=== PATIENT | male | born 1945 | race African-American/Black ===

== ENCOUNTER 2018-10-16 08:22 | Emergency (ER) | payer MEDICARE, MEDICAID ==
[~2018-10-16] VITALS: Ht 172.7 cm; Wt 68.0 kg
[~2018-10-16 08:22] MED LIST: ASPIRIN BUFFER325 M1 ORAL; ASPIRIN325 MG ORAL; ATARAX25 MG ORAL; BACTRIM DOUBLE S1 E1 ORAL; FUROSEMIDE20 M1 ORAL; HARVONI 90-4001 EACH PO; HYDROXYZINE HCL25 M1 PO; JANUVIA100 MG ORAL; LEVAQUIN500 MG ORAL; LEVEMIR100 UNIT/1 SUBQ; LEVOTHYROXINE500 MCG PO; LOSARTAN POTASS25 MG ORAL; LOVASTATIN20 MG ORAL; METFORMIN HCL1000 M1 ORAL; METFORMIN HCL500 M4 ORAL; METOPROLOL SUCC25 MG ORAL; METOPROLOL TART25 MG ORAL
[2018-10-16 08:27] VITALS: BP 154/90
[2018-10-16] MEDS ORDERED: COREG12.5 MG ORAL (08:29)
[2018-10-16] MEDS ORDERED: ATORVASTATIN CA40 MG ORAL (08:29)
[2018-10-16] MEDS ORDERED: ASPIR 8181 MG ORAL (08:29)
[2018-10-16] MEDS ORDERED: FINASTERIDE5 MG ORAL (08:29)
[2018-10-16] MEDS ORDERED: APRESOLINE50 MG ORAL (08:29)
--- NOTE | 2018-10-16 08:29 | NUR ---
ED Nurse Note: Patient brought in by ambulance from home due to increased left ankle swelling x 2 days;+[facility], reports no trauma. Patient is currently taking his meds including Lasix. Ambulates wtih cane. Steady gait noted. Reports no CP, dyspnea or N/V. No facial grimacing or guarding noted. Pacemaker to left chest noted. Bed in [place] postion.
[2018-10-16] MEDS ORDERED: Acetaminophen 500mg (ES) tab ORAL ONE (08:45)
[2018-10-16] MEDS ORDERED: OMEPRAZOLE40 M1 ORAL (09:03)
[2018-10-16] MEDS ORDERED: CORLANOR5 MG PO (09:03)
[2018-10-16] MEDS ORDERED: SPIRONOLACTONE25 MG ORAL (09:03)
[2018-10-16] MEDS ORDERED: ISOSORBIDE MONO30 M1 PO (09:03)
[2018-10-16] MEDS ORDERED: FLOMAX0.4 MG ORAL (09:03)
[2018-10-16] MEDS ORDERED: TRADJENTA5 MG PO (09:03)
[2018-10-16] MEDS ORDERED: TYLENOL EXTRA500 MG ORAL (09:27)
[2018-10-16] MEDS ORDERED: CEPHALEXIN500 MG ORAL (09:27)
[2018-10-16 09:42] VITALS: BP 152/86
[2018-10-16 09:43] VITALS: BP 154/90
--- NOTE | 2018-10-16 09:44 | NUR ---
ER DISCHARGE NOTE: Patient is cleared to be discharged per ERMD, pt is aox4, on room air, with stable vital signs. pt was given dc and prescription instructions, pt was able to verbalize understanding, pt id band and iv site removed without complications. pt is able to ambulate with steady gait. pt took all belongings.
--- NOTE | 2018-10-16 09:55 | Emergency Room Report ---
History of Present Illness General Chief Complaint: Pain Source: Patient, EMS Present Illness HPI 73-year-old male presents ED for evaluation. Brought in by EMS from home. Complaining of left ankle pain. Started yesterday. Throbbing, 7 out of 10, nonradiating. Notes some swelling. Denies any fall or injury. Denies any calf pain. No other aggravating relieving factors. Denies any other associated symptoms Allergies: Coded Allergies: AMOXAPINE (Unverified Allergy, Unknown, 10/16/18) AMOXICILLIN (Unverified Allergy, Unknown, 04/17/14) LISINOPRIL (Unverified Allergy, Unknown, 04/17/14) Patient History Past Medical History: DM, HTN Past Surgical History: none Pertinent Family History: none Social History: Denies: smoking, alcohol use, drug use Immunizations: UTD Reviewed Nursing Documentation: PMH: Agreed; PSxH: Agreed Nursing Documentation-PMH Past Medical History: No History, Except For Hx Hypertension: Yes Hx Diabetes: Yes Hx Cancer: Yes Hx Gastrointestinal Problems: Yes Hx Neurological Problems: No Review of Systems All Other Systems: negative except mentioned in HPI Physical Exam Vital Signs Date Time Temp Pulse Resp B/P (MAP) Pulse Ox O2 Delivery O2 Flow Rate FiO2 10/16/18 08:15 98.2 80 18 148/90 (109) 98 Room Air Sp02 EP Interpretation: reviewed, normal General Appearance: no apparent distress, alert, GCS 15, non-toxic Head: normocephalic Eyes: bilateral eye normal inspection, bilateral eye PERRL ENT: normal ENT inspection Neck: normal inspection Respiratory: normal inspection Cardiovascular #1: normal inspection Gastrointestinal: normal inspection Rectal: deferred Genitourinary: no CVA tenderness Musculoskeletal: swelling - medial aspect L foot Neurologic: alert, oriented x3, responsive, motor strength/tone normal, sensory intact, speech normal Psychiatric: normal inspection Skin: other - erythema/induration medial aspect L foot Lymphatic: normal inspection Medical Decision Making Diagnostic Impression: Primary Impression: Cellulitis of foot ER Course Hospital Course 73-year-old male presents to ED with pain, swelling to L foot Differential diagnoses include: Cellulitis, dermatitis, insect bite, abscess Clinical course Patient placed on stretcher. After initial history, physical exam reveals an elderly male in no acute distress. On exam there is erythema and warmth to the medial aspect of the left foot. No fluctuance or discharge. Full range of motion noted to the ankle. States he is a diabetic. Accu-Chek within normal limits. X-ray of left ankle shows no bony abnormality. Viky findings with patient. Consideration for cellulitis. Will discharge with antibiotics. Safe for discharge with close outpatient follow-up. States he has a PMD Diagnosis - cellulitis of foot stable and discharged to home with prescription for Keflex. Instructed to followup with PMD. Instructed return to ED if symptoms recur or worsen Other X-Ray Diagnostic Results Other X-Ray Diagnostic Results : X-Ray ordered: L foot # of Views/Limited Vs Complete: 3 View Indication: Pain EP Interpretation: Yes Interpretation: no dislocation, no soft tissue swelling, no fractures Impression: No acute disease Electronically Signed by: Electronically signed by Wing Lee MD Last Vital Signs Date Time Temp Pulse Resp B/P (MAP) Pulse Ox O2 Delivery O2 Flow Rate FiO2 10/16/18 09:43 98.2 85 14 154/90 99 Room Air Status: improved Disposition: HOME, SELF-CARE Condition: Stable Scripts Acetaminophen* (TYLENOL EXTRA STRENGTH*) 500 Mg Tablet 500 MG ORAL Q8H PRN for Prn Headache/Temp > 101, #30 TAB 0 Refills Prov: Wing Lee MD 10/16/18 Cephalexin* (KEFLEX*) 500 Mg Capsule 500 MG ORAL EVERY 6 HOURS for 7 Days, CAP Prov: Wing Lee MD 10/16/18 Referrals: NON PHYSICIAN (PCP) [facility] Patient Instructions: Cellulitis, [id number] Wing Lee MD Oct 16, 2018 09:55
--- NOTE | 2018-10-17 10:44 | Diagnostic Imaging Report ---
Indication: left ankle pain Comparison: None Findings: 3 views of the left ankle obtained. There is generalized soft tissue swelling which is nonspecific. There are degenerative changes of the midfoot with osteophyte formation. Vascular calcifications are noted. No acute fracture, malalignment, periostitis, or osteochondral defects are identified. Impression: No acute findings. Soft tissue swelling, nonspecific in nature.
== END 2018-10-16 09:53 | disposition home or self-care (01) ==
LOC: EDBD 08:22 → EMR 08:50
DX: L03.116 Cellulitis of left lower limb (principal); I10 Essential (primary) hypertension; E11.9 Type 2 diabetes mellitus without complications; Z85.9 Personal history of malignant neoplasm, unspecified; Z88.1 Allergy status to other antibiotic agents; Z88.8 Allergy status to other drugs, medicaments and biological substances
CPT/HCPCS: 82962; 99283

== ENCOUNTER 2019-07-18 18:27 | Inpatient (IN) | payer MEDICARE, MEDICAID ==
[~2019-07-18] VITALS: Ht 172.7 cm; Wt 64.5 kg
[2019-07-18 18:27] VITALS: BP 130/70
[~2019-07-18 18:27] MED LIST changes: +APRESOLINE50 MG ORAL; +ASPIR 8181 MG ORAL; +ATORVASTATIN CA40 MG ORAL; +CEPHALEXIN500 MG ORAL; +COREG12.5 MG ORAL; +CORLANOR5 MG PO; +FINASTERIDE5 MG ORAL; +FLOMAX0.4 MG ORAL; +ISOSORBIDE MONO30 M1 PO; +OMEPRAZOLE40 M1 ORAL; +SPIRONOLACTONE25 MG ORAL; +TRADJENTA5 MG PO; +TYLENOL EXTRA500 MG ORAL
[2019-07-18 19:00] LABS: BASOPHILS % (AUTO) 0.6 % (0.0-2.0); EOSINOPHILS % (AUTO) 0.2 % (0.0-3.0); HEMATOCRIT 38.4 % (42.0-52.0); MEAN CORPUSCULAR VOLUME 102 FL (80-99); MONOCYTES % (AUTO) 7.1 % (1.0-10.0); NEUTROPHILS % (AUTO) 72.1 % (45.0-75.0); PLATELET COUNT 104 K/UL (150-450); RED BLOOD COUNT 3.78 M/UL (4.70-6.10); RED CELL DISTRIBUTION WIDTH 16.2 % (11.6-14.8); WHITE BLOOD COUNT 5.3 K/UL (4.8-10.8)
--- NOTE | 2019-07-18 19:00 | Emergency Room Report ---
History of Present Illness General Chief Complaint: Dyspnea/Respdistress Source: Patient Present Illness HPI This patient has multiple medical problems to include coronary artery disease, CHF. He is been having shortness of breath over the past week that has worsened over the past day. He presents during the COVID- pandemic. He is a very poor historian. EMS report that his oxygen saturations were in the 70s on room air on their arrival. Allergies: Coded Allergies: AMOXAPINE (Unverified Allergy, Unknown, 10/16/18) AMOXICILLIN (Unverified Allergy, Unknown, 04/17/14) LISINOPRIL (Unverified Allergy, Unknown, 04/17/14) COVID-19 Screening Contact w/high risk pt: Yes Recent Travel to affected area: No Experienced COVID-19 symptoms?: Yes COVID-19 symptoms experienced: Shortness of Breath COVID-19 Testing performed MUTUEL CASHIER: No Patient History Past Medical History: see triage record, DM, HTN, CAD, CHF, other - HEP C, throat CA Past Surgical History: pacemaker, other - G-tube Social History: Denies: smoking, alcohol use, drug use Reviewed Nursing Documentation: PMH: Agreed; PSxH: Agreed Nursing Documentation-PMH Past Medical History: No History, Except For Hx Hypertension: Yes Hx Diabetes: Yes Hx Cancer: Yes Hx Gastrointestinal Problems: Yes Hx Neurological Problems: No Review of Systems All Other Systems: negative except mentioned in HPI Physical Exam Vital Signs Date Time Temp Pulse Resp B/P (MAP) Pulse Ox O2 Delivery O2 Flow Rate FiO2 07/18/19 18:17 97.9 88 24 127/63 (84) 94 Nasal Cannula 6.0 Sp02 EP Interpretation: reviewed, normal General Appearance: no apparent distress, alert, GCS 15, non-toxic Head: normocephalic, atraumatic Eyes: bilateral eye normal inspection, bilateral eye PERRL ENT: hearing grossly normal, normal pharynx, no angioedema, normal voice Neck: full range of motion, supple/symm/no masses Respiratory: chest non-tender, lungs clear, normal breath sounds, speaking full sentences Cardiovascular #1: regular rate, rhythm, no edema Cardiovascular #2: 2+ carotid (R), 2+ carotid (L), 2+ radial (R), 2+ radial (L) , 2+ dorsalis pedis (R), 2+ dorsalis pedis (L) Gastrointestinal: normal bowel sounds, non tender, soft, non-distended, no guarding, no rebound Rectal: deferred Genitourinary: normal inspection, no CVA tenderness Musculoskeletal: back normal, normal range of motion, calf tenderness, gait/ station normal, non-tender Neurologic: alert, motor strength/tone normal, oriented x3, sensory intact, responsive, speech normal Psychiatric: judgement/insight normal, memory normal, mood/affect normal, no suicidal/homicidal ideation Reflexes: 3+ bicep (R), 3+ bicep (L), 3+ tricep (R), 3+ tricep (L), 3+ knee (R) , 3+ knee (L) Lymphatic: no adenopathy Medical Decision Making Diagnostic Impression: Primary Impression: Suspected COVID-19 virus infection Additional Impressions: PNA (pneumonia) CHF (congestive heart failure) ARAMIS (acute kidney injury) Lactic acid acidosis ER Course This patient has profound hypoxemia on room air. He did respond to supplemental oxygen with significant improvement in his oxygen saturation into the mid 90s. He also has a history of congestive heart failure so his evaluation is complicated in the setting. Given his high oxygen demand and hypoxemia and known history of congestive heart failure I decided that to improve the patient's work of breathing I would place him on BiPAP as I was concerned that this patient would tire out and end up intubated. I did not feel that intubation was necessary at this point, although, it is possible that he may need intubation if he worsens. Also, I felt that if he was having congestive heart failure that BiPAP would be of significant benefit to him. I held on fluids for concern of fluid overload, in addition to current practice that aggressive IV fluids can cause worse outcomes and COVID-19. He was also given broad-spectrum antibiotics as a precaution. His laboratory findings are most concerning for COVID-19 infection. The patient is admitted to the ICU. This patient is critically ill. This patient required complex medical decision- making, aggressive intervention, extensive laboratory workup and monitoring. Critical care time: 40 minutes. This patient was evaluated in the context of the global COVID-19 pandemic, which necessitated consideration that the patient might be at risk for infection with the [id number] virus that causes COVID-19. Institutional protocols and algorithms that pertain to the evaluation of patients at risk for COVID-19 and the state of rapid change based on information released by multiple regulatory bodies including the CDC and federal and state organizations. These policies and algorithms were followed during the patient' s care in the ED. Laboratory Tests Test 07/18/19 18:30 07/18/19 19:10 White Blood Count 5.3 K/UL (4.8-10.8) Red Blood Count 3.78 M/UL (4.70-6.10) L Hemoglobin 12.0 G/DL (14.2-18.0) L Hematocrit 38.4 % (42.0-52.0) L Mean Corpuscular Volume 102 FL (80-99) H Mean Corpuscular Hemoglobin 31.8 PG (27.0-31.0) H Mean Corpuscular Hemoglobin Concent 31.3 G/DL (32.0-36.0) L Red Cell Distribution Width 16.2 % (11.6-14.8) H Platelet Count 104 K/UL (150-450) L Mean Platelet Volume 9.8 FL (6.5-10.1) Neutrophils (%) (Auto) 72.1 % (45.0-75.0) Lymphocytes (%) (Auto) 20.0 % (20.0-45.0) Monocytes (%) (Auto) 7.1 % (1.0-10.0) Eosinophils (%) (Auto) 0.2 % (0.0-3.0) Basophils (%) (Auto) 0.6 % (0.0-2.0) Sodium Level 133 MMOL/L (136-145) L Potassium Level 5.2 MMOL/L (3.5-5.1) H Chloride Level 100 MMOL/L (98-107) Carbon Dioxide Level 19 MMOL/L (21-32) L Anion Gap 14 mmol/L (5-15) Blood Urea Nitrogen 88 mg/dL (7-18) H Creatinine 1.8 MG/DL (0.55-1.30) H Estimated Glomerular Filtration Rate 45.1 mL/min (>60) Glucose Level 141 MG/DL (74-106) H Lactic Acid Level 3.40 mmol/L (0.4-2.0) H Calcium Level 8.8 MG/DL (8.5-10.1) Total Bilirubin 0.8 MG/DL (0.2-1.0) Aspartate Amino Transferase (AST) 22 U/L (15-37) Alanine Aminotransferase (ALT) 21 U/L (12-78) Alkaline Phosphatase 93 U/L (46-116) Troponin I 0.028 ng/mL (0.000-0.056) C-Reactive Protein, Quantitative 5.8 mg/dL (0.00-0.90) H Total Protein 7.5 G/DL (6.4-8.2) Albumin 2.8 G/DL (3.4-5.0) L Globulin 4.7 g/dL Albumin/Globulin Ratio 0.6 (1.0-2.7) L Prothrombin Time 22.7 SEC (9.30-11.50) H Prothrombin Time INR 2.2 (0.9-1.1) H Activated Partial Thromboplast Time 36 SEC (23-33) H D-Dimer 3.78 mg/L FEU (0.00-0.49) H EKG Diagnostic Results Rate: normal Rhythm: NSR ST Segments: no acute changes Other Impression LBBB Rhythm Strip Diag. Results EP Interpretation: yes Rate: 80's Rhythm: NSR, no PVC's, no ectopy Chest X-Ray Diagnostic Results Chest X-Ray Diagnostic Results : Chest X-Ray Ordered: Yes # of Views/Limited/Complete: 1 View Indication: Shortness of Breath EP Interpretation: Yes Interpretation: other - Diffuse patchy opacities. +LLL and L. lingula opacity. Impression: Other - Pulmonary edema, PNA Last Vital Signs Date Time Temp Pulse Resp B/P (MAP) Pulse Ox O2 Delivery O2 Flow Rate FiO2 07/18/19 18:17 97.9 88 24 127/63 (84) 94 Nasal Cannula 6.0 Disposition: ADMITTED INPATIENT Condition: Critical AlejandraChantel Clary RODRIGUEZ July 18, 2019 19:00
[2019-07-18 19:28] LABS: INR 2.2 (0.9-1.1)
[2019-07-18 19:33] VITALS: BP 114/90
[2019-07-18 19:37] LABS: ANION GAP 14 mmol/L (5-15); BLOOD UREA NITROGEN 88 mg/dL (7-18); CALCIUM 8.8 MG/DL (8.5-10.1); CARBON DIOXIDE 19 MMOL/L (21-32); CHLORIDE 100 MMOL/L (98-107); CREATININE 1.8 MG/DL (0.55-1.30); POTASSIUM 5.2 MMOL/L (3.5-5.1); SODIUM 133 MMOL/L (136-145)
[2019-07-18 19:42] LABS: ALANINE AMINOTRANSFERASE 21 U/L (12-78); ALBUMIN 2.8 G/DL (3.4-5.0); ALBUMIN/GLOBULIN RATIO 0.6 (1.0-2.7); ALKALINE PHOSPHATASE 93 U/L (46-116); ASPARTATE AMINO TRANSFERASE 22 U/L (15-37); BILIRUBIN,TOTAL 0.8 MG/DL (0.2-1.0)
[2019-07-19] VITALS (21 sets, daily range): BP systolic 87–111; BP diastolic 50–91
[2019-07-19 05:45] LABS: BASOPHILS % (AUTO) 0.3 % (0.0-2.0); EOSINOPHILS % (AUTO) 0.5 % (0.0-3.0); HEMATOCRIT 35.1 % (42.0-52.0); HEMOGLOBIN 11.6 G/DL (14.2-18.0); LYMPHOCYTES % (AUTO) 25.4 % (20.0-45.0); MEAN CORPUSCULAR VOLUME 95 FL (80-99); MONOCYTES % (AUTO) 7.4 % (1.0-10.0); NEUTROPHILS % (AUTO) 66.4 % (45.0-75.0); PLATELET COUNT 106 K/UL (150-450); RED BLOOD COUNT 3.69 M/UL (4.70-6.10); RED CELL DISTRIBUTION WIDTH 14.8 % (11.6-14.8); WHITE BLOOD COUNT 4.8 K/UL (4.8-10.8)
[2019-07-19] MEDS ORDERED: Acetaminophen 500mg (ES) tab ORAL PRN (06:00)
[2019-07-19] MEDS ORDERED: Cephalexin 500mg cap ORAL SCH (06:00)
[2019-07-19 06:01] LABS: ANION GAP 12 mmol/L (5-15); BLOOD UREA NITROGEN 82 mg/dL (7-18); CALCIUM 8.8 MG/DL (8.5-10.1); CARBON DIOXIDE 25 MMOL/L (21-32); CHLORIDE 103 MMOL/L (98-107); CREATININE 1.8 MG/DL (0.55-1.30); POTASSIUM 4.3 MMOL/L (3.5-5.1); SODIUM 140 MMOL/L (136-145)
[2019-07-19] MEDS ORDERED: Piperacillin/Tazobactam 3.375 GM in NS 110 ML IVPB SCH (08:00)
[2019-07-19] MEDS: Tamsulosin 0.4mg cap ORAL SCH (08:21)
[2019-07-19] MEDS: Imdur 30mg tab ORAL SCH (08:21)
[2019-07-19] MEDS: HydrALAZINE 50mg tab ORAL SCH ×2 (08:28→21:00)
[2019-07-19] MEDS: Losartan 25mg tab ORAL SCH (08:29)
[2019-07-19] MEDS ORDERED: Carvedilol 12.5mg tab ORAL SCH (09:00)
[2019-07-19] MEDS ORDERED: Aspirin EC 81mg tab ORAL SCH (09:00)
[2019-07-19] MEDS ORDERED: Bactrim-DS 1 tab ORAL SCH (09:00)
--- NOTE | 2019-07-19 09:39 | Diagnostic Imaging Report ---
Procedure: XRAY Chest 1v Reason for study: Reason For Exam: SOB Comparison films: None. FINDINGS: A single one view chest is obtained. Vascularity is normal. There are bibasilar infiltrates left greater than right. Mild cardiomegaly noted. CP angles are sharp. The bony thorax appear unremarkable. IMPRESSION: Bibasilar infiltrates.
[2019-07-19] MEDS: sitaGLIPtin 50mg tab ORAL SCH (11:00)
[2019-07-19] MEDS ORDERED: Vancomycin 1.25gm/NS Premix IVPB ONE (12:00)
[2019-07-19] MEDS: Heparin 5000 units/ml inj SUBQ SCH ×2 (12:06→21:00)
[2019-07-19] MEDS: Piperacillin/Tazobactam 3.375 GM in NS 110 ML IVPB SCH (15:06)
--- NOTE | 2019-07-19 16:45 | History and Physical Report ---
DATE OF ADMISSION: 07/18/2019 REASON FOR ADMISSION: Pneumonia, congestive heart failure, renal failure. HISTORY OF PRESENT ILLNESS: This is a 74-year-old male with multiple medical problems, multiple admissions, history of congestive heart failure, external pacer. The patient is a fairly poor historian, was noted to have significant hypoxemia on arrival to the emergency room. The patient initially placed on BiPAP and currently is still on BiPAP. The patient in the ICU on isolation. X-ray suggestive of pulmonary edema and possible pneumonia. The patient is at COVID risk. Care discussed and reviewed. PAST MEDICAL HISTORY: Notable for diabetes, hypertension, CAD, CHF, hepatitis C, throat cancer, pacemaker, G-tube. MEDICATIONS: Reviewed. ALLERGIES: Reviewed. SOCIAL HISTORY: Nonsmoker, nondrinker. Fairly debilitated at this time. PHYSICAL EXAMINATION: GENERAL: Ill-appearing male, currently on BiPAP. VITAL SIGNS: Reviewed. Blood pressure 102/72, pulse 76, respirations 16, saturation 96%. Patient is on BiPAP 35% FiO2. HEENT: Negative. NECK: Supple. LUNGS: With coarse breath sounds. Crackles both bases. CARDIAC: S1, S2. Regular rate and rhythm with noted murmur. ABDOMEN: Soft, nontender. EXTREMITIES: No cyanosis or clubbing. NEUROLOGICAL: Confused. LABORATORY DATA: Reviewed. INR is 2.2. D-dimer is elevated 3.78. Chemistries noted. BUN 82, creatinine 1.8. Lactic acid 2.5. Blood gases reviewed. CBC, hemoglobin 11.6. X-ray with noted infiltrates. IMPRESSION: 1. Evidence of chronic renal failure. 2. Coronary artery disease. 3. CHF. 4. Hepatitis C. 5. Pacemaker. 6. G-tube. 7. Aspiration. 8. Possible COVID. 9. Evidence of pneumonia. 10. Lactic acidemia. RECOMMENDATION: IV Lasix. Resume prior medication. G-tube feedings as tolerated. Aspiration precautions. Follow up x-ray. Follow up imaging. Follow up arterial blood gases. Cardiology and Renal to see. Monitor clinically. Attempt to stabilize further and we will follow clinically for further changes. The patient is guarded and critical at present and will require ICU. Jose Iglesias M.D. DR: EMY JOB#: [id number] CC:
[2019-07-19 16:55] LABS: BILIRUBIN, URINE NEGATIVE (NEGATIVE); COLOR,URINE PALE YELLOW; GLUCOSE, URINE (UA) NEGATIVE (NEGATIVE); KETONES,URINE NEGATIVE (NEGATIVE); LEUKOCYTE ESTERASE ,URINE 3+ (NEGATIVE); NITRITE,URINE NEGATIVE (NEGATIVE); PH,URINE 7 (4.5-8.0); PROTEIN,URINE NEGATIVE (NEGATIVE); UROBILINOGEN,URINE NORMAL MG/DL (0.0-1.0)
[2019-07-19 17:25] LABS: APPEARANCE,URINE SLIGHTLY CLOUDY
--- NOTE | 2019-07-19 18:15 | Consultation ---
DATE OF CONSULTATION: 07/19/2019 CONSULTING PHYSICIAN: Ang Worrell MD. REFERRING PHYSICIAN: Jose Iglesias MD. REASON FOR CONSULTATION: Renal insufficiency. HISTORY OF PRESENT ILLNESS: The patient is a 74-year-old male who presents with shortness of breath, has pulmonary infiltrates but no cardiomegaly or obvious CHF on imaging. He possible COVID-19. He is in ICU on BiPAP. He is a poor historian. 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 At that time, renal ultrasound showed no hydronephrosis and an incidental right renal cyst. PAST MEDICAL HISTORY: He has diabetes type 2, obesity, hypertension, hyperlipidemia, hypothyroidism, hepatitis C. PAST SURGICAL HISTORY: Possible throat cancer versus a benign lesion. ALLERGIES: Amoxicillin and lisinopril. HOME MEDICINES: Listed as Tylenol, aspirin, atorvastatin, Coreg, Keflex, finasteride, furosemide, hydralazine, hydroxyzine, isosorbide, Ivabradine, Harvoni, Levaquin, levothyroxine, Tradjenta, losartan, lovastatin, metoprolol, omeprazole, Aldactone, Januvia, Flomax, Bactrim. SYSTEM REVIEW: At this time, the patient is unable. He is on BiPAP, moderate distress. PHYSICAL EXAMINATION: GENERAL: The patient is in the ICU. VITAL SIGNS: Pulse 79, respirations 17, blood pressure 105/77, pulse ox is 98% on BiPAP. He has an external pacemaker. I am not going into the room due to COVID isolation. HEART: Rhythm is regular. He is in mild respiratory distress. There is trace edema. LABORATORY DATA: Review of pertinent labs as far as his renal function, sodium 140, potassium 4.3, chloride 103, CO2 25, BUN 82, creatinine 1.8, estimated GFR is 45. Lactic acid 3.4, 5.2, and 2.5. C-reactive protein 5.8 is high. Initial BUN 88, creatinine is 1.8. Troponin 0.028. Albumin 2.8. Urine is pending. A pH 7.414, pCO2 32.5, pO2 . IMPRESSION: 1. Pulmonary infiltrates, at risk for COVID-19. 2. Chronic kidney disease, stage 3 to 4. 3. History of congestive heart failure with low ejection fraction. 4. History of diabetes. 5. Likely diabetic nephropathy. 6. History of smoking and possible COPD. PLAN: We will keep the patient euvolemic and avoid fluid overload. Avoid nephrotoxic agents. Watch closely in view of his comorbidities. Update his labs. Ang Worrell M.D. DR: Silvia JOB#: [id number] CC:
[2019-07-19] MEDS: Atorvastatin 20mg tab ORAL SCH (21:16)
[2019-07-20] VITALS (21 sets, daily range): BP systolic 91–119; BP diastolic 55–84
[2019-07-20] MEDS: Piperacillin/Tazobactam 3.375 GM in NS 110 ML IVPB SCH ×4 (00:01→23:07)
[2019-07-20 06:09] LABS: ALANINE AMINOTRANSFERASE 23 U/L (12-78); ALBUMIN 2.4 G/DL (3.4-5.0); ALBUMIN/GLOBULIN RATIO 0.6 (1.0-2.7); ALKALINE PHOSPHATASE 75 U/L (46-116); ANION GAP 10 mmol/L (5-15); ASPARTATE AMINO TRANSFERASE 30 U/L (15-37); BLOOD UREA NITROGEN 63 mg/dL (7-18); CALCIUM 8.4 MG/DL (8.5-10.1); CARBON DIOXIDE 26 MMOL/L (21-32); CHLORIDE 107 MMOL/L (98-107); CREATINE KINASE 99 U/L (26-308); CREATININE 1.5 MG/DL (0.55-1.30); PHOSPHORUS 3.8 MG/DL (2.5-4.9); POTASSIUM 3.3 MMOL/L (3.5-5.1); SODIUM 143 MMOL/L (136-145)
[2019-07-20] MEDS: sitaGLIPtin 50mg tab ORAL SCH (06:15)
[2019-07-20] MEDS: Imdur 30mg tab ORAL SCH (08:13)
[2019-07-20] MEDS: Tamsulosin 0.4mg cap ORAL SCH (08:14)
--- NOTE | 2019-07-20 08:36 | General Progress Note ---
Assessment/Plan Problem List: (1) Suspected COVID-19 virus infection ICD Codes: Z20.828 - Contact with and (suspected) exposure to other viral communicable diseases SNOMED: 813724133 (2) PNA (pneumonia) ICD Codes: J18.9 - Pneumonia, unspecified organism SNOMED: 262806085 (3) CHF (congestive heart failure) ICD Codes: I50.9 - Heart failure, unspecified SNOMED: 13396396 (4) UTI (urinary tract infection) ICD Codes: N39.0 - Urinary tract infection, site not specified SNOMED: 16295520 (5) ARAMIS (acute kidney injury) ICD Codes: N17.9 - Acute kidney failure, unspecified SNOMED: 03679035, 5041737 Status: stable Assessment/Plan: cont o2 wean as able diuresis monitor i/o iv abx follow up cultures await covid Subjective ROS Limited/Unobtainable: No Constitutional: Reports: malaise, weakness HEENT: Reports: no symptoms Cardiovascular: Reports: no symptoms Respiratory: Reports: shortness of breath Gastrointestinal/Abdominal: Reports: no symptoms Genitourinary: Reports: no symptoms Neurologic/Psychiatric: Reports: no symptoms Endocrine: Reports: no symptoms Hematologic/Lymphatic: Reports: no symptoms Allergies: Coded Allergies: AMOXAPINE (Unverified Allergy, Unknown, 10/16/18) AMOXICILLIN (Unverified Allergy, Unknown, 04/17/14) LISINOPRIL (Unverified Allergy, Unknown, 04/17/14) All Systems: reviewed and negative except above Subjective no events. stable on NRB. no fevers. covid pending. d/w night RN. on iv abx and lasix. neg 1.7 L Objective Last 24 Hour Vital Signs Date Time Temp Pulse Resp B/P (MAP) Pulse Ox O2 Delivery O2 Flow Rate FiO2 07/20/19 08:13 101/69 07/20/19 07:00 79 19 96/66 (76) 99 07/20/19 06:55 99 Venturi Mask 6.0 35 07/20/19 06:00 87 20 102/74 (83) 100 07/20/19 05:00 83 18 99/70 (80) 100 07/20/19 04:00 84 07/20/19 04:00 35 07/20/19 04:00 98.8 87 24 101/84 (90) 100 07/20/19 04:00 Venturi Mask 07/20/19 03:00 79 14 94/71 (79) 100 07/20/19 02:00 80 14 97/68 (78) 100 07/20/19 01:00 78 12 96/67 (77) 100 07/20/19 00:00 Venturi Mask 07/20/19 00:00 85 07/20/19 00:00 98.2 81 16 94/78 (83) 100 07/20/19 00:00 35 07/19/19 23:00 78 11 100/60 (73) 100 07/19/19 22:42 98 Venturi Mask 6.0 35 07/19/19 22:39 76 13 97/64 (75) 100 07/19/19 22:00 77 18 90/50 (63) 100 07/19/19 21:00 87/50 07/19/19 21:00 77 15 87/50 (62) 100 07/19/19 20:00 98.6 76 14 106/61 (76) 100 07/19/19 20:00 Venturi Mask 07/19/19 20:00 82 07/19/19 20:00 35 07/19/19 19:00 76 13 101/66 (78) 100 07/19/19 18:45 97 Venturi Mask 6.0 35 07/19/19 18:00 76 12 102/63 (76) 100 07/19/19 17:00 75 12 104/62 (76) 100 07/19/19 16:00 97.6 75 14 100/72 (81) 100 07/19/19 16:00 35 07/19/19 16:00 Venturi Mask 07/19/19 15:23 78 07/19/19 15:00 76 13 107/71 (83) 98 07/19/19 14:00 77 16 104/91 (95) 95 07/19/19 14:00 98 Venturi Mask 6.0 35 07/19/19 13:20 35 07/19/19 13:00 78 15 103/69 (80) 96 07/19/19 12:00 97.1 71 17 100/65 (77) 100 07/19/19 12:00 74 07/19/19 12:00 Bi-pap 07/19/19 11:00 75 16 104/67 (79) 100 07/19/19 10:50 76 16 100 35 07/19/19 10:00 79 17 105/77 (86) 98 07/19/19 09:00 74 14 94/70 (78) 99 Intake and Output 07/19/19 07/20/19 19:00 07:00 Intake Total 467.500 ml 237.5 ml Output Total 1820 ml 750 ml Balance -1352.500 ml -512.5 ml Free Water 30 ml IV Total 467.500 ml 27.5 ml Tube Feeding 180 ml Output Urine Total 1820 ml 750 ml Laboratory Tests 07/19/19 10:34: Arterial Blood pH 7.424, Arterial Blood Partial Pressure CO2 36.3, Arterial Blood Partial Pressure O2 133.3H, Arterial Blood HCO3 23.2, Arterial Blood Oxygen Saturation 98.3, Arterial Blood Base Excess -0.8, Danis Test Positive 07/19/19 12:15: Urine Color Pale yellow, Urine Appearance Slightly cloudy, Urine pH 7, Urine Specific [place] 1.010, Urine Protein Negative, Urine Glucose (UA) Negative, Urine Ketones Negative, Urine Blood 2+H, Urine Nitrite Negative, Urine Bilirubin Negative, Urine Urobilinogen Normal, Urine Leukocyte Esterase 3+H, Urine RBC 15-20H, Urine WBC 20-30H, Urine Squamous Epithelial Cells None, Urine Bacteria ManyH, Urine Random Creatinine [Pending], Urine Random Microalbumin [ Pending], Urine Microalbumin/Creatinine Ratio [Pending] 07/19/19 12:20: Lactic Acid Level 2.00 07/20/19 03:40: Sodium Level 143, Potassium Level 3.3L, Chloride Level 107, Carbon Dioxide Level 26, Anion Gap 10, Blood Urea Nitrogen 63H, Creatinine 1.5H, Estimat Glomerular Filtration Rate 55.6, Glucose Level 89, Uric Acid 13.2H, Calcium Level 8.4L, Phosphorus Level 3.8, Magnesium Level 2.4, Total Bilirubin 1.0, Aspartate Amino Transf (AST/SGOT) 30, Alanine Aminotransferase (ALT/SGPT) 23, Alkaline Phosphatase 75, Total Creatine Kinase 99, Total Protein 6.4, Albumin 2.4L, Globulin 4.0, Albumin/Globulin Ratio 0.6L Height (Feet): 5 Height (Inches): 8.00 Weight (Pounds): 143 General Appearance: WD/WN, alert, thin Neck: non-tender, normal alignment, supple Cardiovascular: normal peripheral pulses, normal rate, regular rhythm Respiratory/Chest: chest wall non-tender, lungs clear, normal breath sounds, no respiratory distress Abdomen: normal bowel sounds, non tender, soft, no organomegaly Edema: no edema noted Arm (L), no edema noted Arm (R), no edema noted Leg (L), no edema noted Leg (R), no edema noted Pedal (L), no edema noted Pedal (R), no edema noted Generalized Neurologic: line supervisor II-XII grossly normal, alert, responsive, disoriented Skin: normal pigmentation Lymphatic: normal anterior cervical (L), normal anterior cervical (R) Luis Daniel Ascencio MD July 20, 2019 08:36
--- NOTE | 2019-07-20 08:52 | Critical Care Progress Note ---
Assessment/Plan Assessment/Plan IMPRESSION: 1. Evidence of chronic renal failure. 2. Coronary artery disease. 3. CHF. 4. Hepatitis C. 5. Pacemaker. 6. G-tube. 7. Aspiration. 8. Possible COVID. 9. Evidence of pneumonia. 10. Lactic acidemia 11. CXR with pulmonary infiltrates PLAN monitor ABG monitor CXr oxygen as needed BIPAP PRN meds as is cardiology and renal follow up monitor cultures ID to comment remains full code optimize as able medications/laboratory data/nursing notes/ICU care reviewed in detail note reviewed and edited care discussed with RN and RT ICU time spent >40 minutes. Critical Care - Subjective Interval Events: care noted improved off BIPAP in ICU care reviewed Condition: improving EKG Rhythm: Sinus Rhythm Residuals: minimal Tube Feeding Tolerated: yes I&O: Intake and Output 07/19/19 07/20/19 19:00 07:00 Intake Total 467.500 ml 237.5 ml Output Total 1820 ml 750 ml Balance -1352.500 ml -512.5 ml Free Water 30 ml IV Total 467.500 ml 27.5 ml Tube Feeding 180 ml Output Urine Total 1820 ml 750 ml Critical Care - Objective Last 24 Hour Vital Signs Date Time Temp Pulse Resp B/P (MAP) Pulse Ox O2 Delivery O2 Flow Rate FiO2 07/20/19 08:13 101/69 07/20/19 07:00 79 19 96/66 (76) 99 07/20/19 06:55 99 Venturi Mask 6.0 35 07/20/19 06:00 87 20 102/74 (83) 100 07/20/19 05:00 83 18 99/70 (80) 100 07/20/19 04:00 84 07/20/19 04:00 35 07/20/19 04:00 98.8 87 24 101/84 (90) 100 07/20/19 04:00 Venturi Mask 07/20/19 03:00 79 14 94/71 (79) 100 07/20/19 02:00 80 14 97/68 (78) 100 07/20/19 01:00 78 12 96/67 (77) 100 07/20/19 00:00 Venturi Mask 07/20/19 00:00 85 07/20/19 00:00 98.2 81 16 94/78 (83) 100 07/20/19 00:00 35 07/19/19 23:00 78 11 100/60 (73) 100 07/19/19 22:42 98 Venturi Mask 6.0 35 07/19/19 22:39 76 13 97/64 (75) 100 07/19/19 22:00 77 18 90/50 (63) 100 07/19/19 21:00 87/50 07/19/19 21:00 77 15 87/50 (62) 100 07/19/19 20:00 98.6 76 14 106/61 (76) 100 07/19/19 20:00 Venturi Mask 07/19/19 20:00 82 07/19/19 20:00 35 07/19/19 19:00 76 13 101/66 (78) 100 07/19/19 18:45 97 Venturi Mask 6.0 35 07/19/19 18:00 76 12 102/63 (76) 100 07/19/19 17:00 75 12 104/62 (76) 100 07/19/19 16:00 97.6 75 14 100/72 (81) 100 07/19/19 16:00 35 07/19/19 16:00 Venturi Mask 07/19/19 15:23 78 07/19/19 15:00 76 13 107/71 (83) 98 07/19/19 14:00 77 16 104/91 (95) 95 07/19/19 14:00 98 Venturi Mask 6.0 35 07/19/19 13:20 35 07/19/19 13:00 78 15 103/69 (80) 96 07/19/19 12:00 97.1 71 17 100/65 (77) 100 07/19/19 12:00 74 07/19/19 12:00 Bi-pap 07/19/19 11:00 75 16 104/67 (79) 100 07/19/19 10:50 76 16 100 35 07/19/19 10:00 79 17 105/77 (86) 98 07/19/19 09:00 74 14 94/70 (78) 99 Labs: Labs Test 07/18/19 18:30 07/18/19 19:10 07/18/19 20:31 07/18/19 21:23 White Blood Count 5.3 K/UL (4.8-10.8) Red Blood Count 3.78 M/UL (4.70-6.10) Hemoglobin 12.0 G/DL (14.2-18.0) Hematocrit 38.4 % (42.0-52.0) Mean Corpuscular Volume 102 FL (80-99) Mean Corpuscular Hemoglobin 31.8 PG (27.0-31.0) Mean Corpuscular Hemoglobin Concent 31.3 G/DL (32.0-36.0) Red Cell Distribution Width 16.2 % (11.6-14.8) Platelet Count 104 K/UL (150-450) Mean Platelet Volume 9.8 FL (6.5-10.1) Neutrophils (%) (Auto) 72.1 % (45.0-75.0) Lymphocytes (%) (Auto) 20.0 % (20.0-45.0) Monocytes (%) (Auto) 7.1 % (1.0-10.0) Eosinophils (%) (Auto) 0.2 % (0.0-3.0) Basophils (%) (Auto) 0.6 % (0.0-2.0) Sodium Level 133 MMOL/L (136-145) Potassium Level 5.2 MMOL/L (3.5-5.1) Chloride Level 100 MMOL/L (98-107) Carbon Dioxide Level 19 MMOL/L (21-32) Anion Gap 14 mmol/L (5-15) Blood Urea Nitrogen 88 mg/dL (7-18) Creatinine 1.8 MG/DL (0.55-1.30) Estimat Glomerular Filtration Rate 45.1 mL/min (>60) Glucose Level 141 MG/DL (74-106) Lactic Acid Level 3.40 mmol/L (0.4-2.0) 5.20 mmol/L (0.66-2.22) Calcium Level 8.8 MG/DL (8.5-10.1) Total Bilirubin 0.8 MG/DL (0.2-1.0) Aspartate Amino Transf (AST/SGOT) 22 U/L (15-37) Alanine Aminotransferase (ALT/SGPT) 21 U/L (12-78) Alkaline Phosphatase 93 U/L (46-116) Troponin I 0.028 ng/mL (0.000-0.056) C-Reactive Protein, Quantitative 5.8 mg/dL (0.00-0.90) Total Protein 7.5 G/DL (6.4-8.2) Albumin 2.8 G/DL (3.4-5.0) Globulin 4.7 g/dL Albumin/Globulin Ratio 0.6 (1.0-2.7) Prothrombin Time 22.7 SEC (9.30-11.50) Prothromb Time International Ratio 2.2 (0.9-1.1) Activated Partial Thromboplast Time 36 SEC (23-33) D-Dimer 3.78 mg/L FEU (0.00-0.49) Arterial Blood pH 7.414 (7.350-7.450) Arterial Blood Partial Pressure CO2 32.5 mmHg (35.0-45.0) Arterial Blood Partial Pressure O2 496.0 mmHg (75.0-100.0) Arterial Blood HCO3 20.3 mmol/L (22.0-26.0) Arterial Blood Oxygen Saturation 99.6 % (95-100) Arterial Blood Base Excess -3.4 (-2-2) Danis Test Positive Test 07/19/19 04:30 07/19/19 10:34 07/19/19 12:15 07/19/19 12:20 White Blood Count 4.8 K/UL (4.8-10.8) Red Blood Count 3.69 M/UL (4.70-6.10) Hemoglobin 11.6 G/DL (14.2-18.0) Hematocrit 35.1 % (42.0-52.0) Mean Corpuscular Volume 95 FL (80-99) Mean Corpuscular Hemoglobin 31.5 PG (27.0-31.0) Mean Corpuscular Hemoglobin Concent 33.1 G/DL (32.0-36.0) Red Cell Distribution Width 14.8 % (11.6-14.8) Platelet Count 106 K/UL (150-450) Mean Platelet Volume 7.5 FL (6.5-10.1) Neutrophils (%) (Auto) 66.4 % (45.0-75.0) Lymphocytes (%) (Auto) 25.4 % (20.0-45.0) Monocytes (%) (Auto) 7.4 % (1.0-10.0) Eosinophils (%) (Auto) 0.5 % (0.0-3.0) Basophils (%) (Auto) 0.3 % (0.0-2.0) Sodium Level 140 MMOL/L (136-145) Potassium Level 4.3 MMOL/L (3.5-5.1) Chloride Level 103 MMOL/L (98-107) Carbon Dioxide Level 25 MMOL/L (21-32) Anion Gap 12 mmol/L (5-15) Blood Urea Nitrogen 82 mg/dL (7-18) Creatinine 1.8 MG/DL (0.55-1.30) Estimat Glomerular Filtration Rate 45.1 mL/min (>60) Glucose Level 70 MG/DL (74-106) Lactic Acid Level 2.50 mmol/L (0.4-2.0) 2.00 mmol/L (0.4-2.0) Calcium Level 8.8 MG/DL (8.5-10.1) Arterial Blood pH 7.424 (7.350-7.450) Arterial Blood Partial Pressure CO2 36.3 mmHg (35.0-45.0) Arterial Blood Partial Pressure O2 133.3 mmHg (75.0-100.0) Arterial Blood HCO3 23.2 mmol/L (22.0-26.0) Arterial Blood Oxygen Saturation 98.3 % (95-100) Arterial Blood Base Excess -0.8 (-2-2) Danis Test Positive Urine Color Pale yellow Urine Appearance Slightly cloudy Urine pH 7 (4.5-8.0) Urine Specific [place] 1.010 (1.005-1.035) Urine Protein Negative (NEGATIVE) Urine Glucose (UA) Negative (NEGATIVE) Urine Ketones Negative (NEGATIVE) Urine Blood 2+ (NEGATIVE) Urine Nitrite Negative (NEGATIVE) Urine Bilirubin Negative (NEGATIVE) Urine Urobilinogen Normal MG/DL (0.0-1.0) Urine Leukocyte Esterase 3+ (NEGATIVE) Urine RBC 15-20 /HPF (0 - 0) Urine WBC 20-30 /HPF (0 - 0) Urine Squamous Epithelial Cells None /LPF (NONE/OCC) Urine Bacteria Many /HPF (NONE) Test 07/20/19 03:40 Sodium Level 143 MMOL/L (136-145) Potassium Level 3.3 MMOL/L (3.5-5.1) Chloride Level 107 MMOL/L (98-107) Carbon Dioxide Level 26 MMOL/L (21-32) Anion Gap 10 mmol/L (5-15) Blood Urea Nitrogen 63 mg/dL (7-18) Creatinine 1.5 MG/DL (0.55-1.30) Estimat Glomerular Filtration Rate 55.6 mL/min (>60) Glucose Level 89 MG/DL (74-106) Uric Acid 13.2 MG/DL (2.6-7.2) Calcium Level 8.4 MG/DL (8.5-10.1) Phosphorus Level 3.8 MG/DL (2.5-4.9) Magnesium Level 2.4 MG/DL (1.8-2.4) Total Bilirubin 1.0 MG/DL (0.2-1.0) Aspartate Amino Transf (AST/SGOT) 30 U/L (15-37) Alanine Aminotransferase (ALT/SGPT) 23 U/L (12-78) Alkaline Phosphatase 75 U/L (46-116) Total Creatine Kinase 99 U/L (26-308) Total Protein 6.4 G/DL (6.4-8.2) Albumin 2.4 G/DL (3.4-5.0) Globulin 4.0 g/dL Albumin/Globulin Ratio 0.6 (1.0-2.7) Objective: GENERAL: Ill-appearing male, currently off BIPAP and on oxygen HEENT: Negative. NECK: Supple. LUNGS: reduced breath sounds. Crackles both bases. no wheeze CARDIAC: S1, S2. Regular rate and rhythm with noted murmur. ABDOMEN: Soft, nontender. EXTREMITIES: No cyanosis or clubbing. NEUROLOGICAL: Confused. but alert Micro: Microbiology Date/Time Source Procedure Growth Status 07/18/19 18:45 Blood Blood Culture - Preliminary NO GROWTH AFTER 24 HOURS Resulted 07/18/19 18:30 Blood Blood Culture - Preliminary NO GROWTH AFTER 24 HOURS Resulted 07/19/19 12:15 Urine,Clean Catch Urine Culture - Preliminary Gram Negative Javad Resulted 07/19/19 02:50 Rectum Received Accucheck: 91 Jose Iglesias MD July 20, 2019 08:52
[2019-07-20] MEDS: Heparin 5000 units/ml inj SUBQ SCH ×2 (09:00→21:14)
[2019-07-20] MEDS: Losartan 25mg tab ORAL SCH (09:00)
[2019-07-20] MEDS: HydrALAZINE 50mg tab ORAL SCH ×2 (09:00→21:13)
[2019-07-20] MEDS ORDERED: Vancomycin 1gm in D5W 275ml IVPB SCH (13:00)
--- NOTE | 2019-07-20 17:15 | Consultation ---
DATE OF CONSULTATION: 07/20/2019 INFECTIOUS DISEASES CONSULTATION CONSULTING PHYSICIAN: Daniel Kimball MD. REFERRING PHYSICIAN: Jose Iglesias MD. REASON FOR CONSULTATION: Pneumonia. HISTORY OF PRESENTING ILLNESS: This is a 74-year-old gentleman with history of congestive heart failure, diabetes, hypertension, throat cancer, hepatitis C, status post G-tube placement who came in hypoxic to the emergency room. He was placed on a BiPAP. There was a concern for COVID-19 pneumonia and an Infectious Diseases consultation has been obtained for antibiotics. PAST MEDICAL HISTORY: 1. History of diabetes. 2. Hypertension. 3. Throat cancer. 4. Coronary artery disease. 5. Congestive heart failure. 6. Hepatitis C. 7. History of pacemaker placement. 8. History of G-tube placement. SOCIAL HISTORY: He does not smoke or drink. FAMILY HISTORY: Unknown. REVIEW OF SYSTEMS: RESPIRATORY: No fever or chills. He has shortness of breath. No cough. CARDIAC: No chest pain. No palpitation. No dizziness. No syncope. GASTROINTESTINAL: No nausea. No vomiting. No abdominal pain or diarrhea. MEDICATIONS: As an inpatient, he is on IV vancomycin, Zosyn, Lipitor, Januvia, Lasix, Proscar, hydralazine, Imdur, losartan, Flomax, subcutaneous heparin, Protonix, Mylanta, hydroxyzine, Tylenol. ALLERGIES: 1. Amoxicillin. 2. Lisinopril. 3. Amoxapine. PHYSICAL EXAMINATION: VITAL SIGNS: Temperature of 97.9, T-max of 98.8, pulse of 84, respiratory rate 20, blood pressure 105/61, O2 saturation of 100%. Examination deferred due to possibility of COVID-19. LABORATORY AND DIAGNOSTIC DATA: White count 4.8, hemoglobin 11.6, hematocrit 35.1, MCV 95, platelet count of 106, neutrophils of 66%. Sodium 143, potassium 3.3, chloride 107, bicarb 26, BUN 63, creatinine 1.5, glucose 89, calcium 8.4. Total bilirubin 1, AST 30, ALT 23, alkaline phosphatase 75. CK of 99. Total protein 6.4, albumin 2.4. UA showing 20 to 30 white cells. Urine culture showing gram-negative rods. Blood cultures are negative. Chest x-ray is showing bibasilar infiltrates. COVID-19 test is pending. ASSESSMENT: This is a 74-year-old gentleman with history of diabetes, hypertension, throat cancer, hepatitis C who comes in with hypoxia and is found to have. 1. bilateral pneumonia r/o COVID-19 pneumonia. 2. Diabetes. 3. Hypertension. 4. Congestive heart failure. 5. Hepatitis C. 6. Gram-negative urinary tract infection. PLAN: 1. Continue Zosyn. 2. Discontinue IV vancomycin. 3. We will follow up cultures and adjust antibiotics accordingly. 4. Continue isolation. I would like to thank Dr. Iglesias for this consultation. Daniel Kimball M.D. DR: ARTI JOB#: [id number] CC: Jose Iglesias M.D.; Fax#: [phone] [facility]
--- NOTE | 2019-07-20 18:26 | Urology Progress Note ---
Assessment/Plan Status: stable Assessment/Plan: BPH hx urinary retention with chronic limon neurogenic bladder (atonic) UTI/colonized ARAMIS/CKD hematuria renal cyst monitor clinically maintain limon indwelling hand irrigate PRN abx as ordered f/u on cx's monitor renal fxn consider repeat renal imaging plan to change limon soon OK to DC flomax and proscar thanks, Subjective Allergies: Coded Allergies: AMOXAPINE (Unverified Allergy, Unknown, 10/16/18) AMOXICILLIN (Unverified Allergy, Unknown, 04/17/14) LISINOPRIL (Unverified Allergy, Unknown, 04/17/14) Subjective Initial hosp evaluation pt well known to me hx of BPH, NGB, chronic limon changed in office q 3-4 weeks for many years last exchanged 07/01 due for office visit, family notified me pt in hosp and requested eval here pt admitted with resp distress, PNA, CHD, ARAMIS PMH/chart all noted Objective Last 24 Hour Vital Signs Date Time Temp Pulse Resp B/P (MAP) Pulse Ox O2 Delivery O2 Flow Rate FiO2 07/20/19 17:00 84 14 91/70 (77) 100 07/20/19 16:00 Room Air 07/20/19 16:00 97.2 88 14 111/71 (84) 100 07/20/19 15:46 88 07/20/19 15:00 86 15 104/65 (78) 99 07/20/19 15:00 100 Room Air 21 07/20/19 14:00 87 15 101/63 (76) 99 07/20/19 13:00 89 20 119/55 (76) 100 07/20/19 12:00 Room Air 07/20/19 12:00 96.9 86 14 96/81 (86) 100 07/20/19 11:51 85 07/20/19 11:00 84 20 105/61 (76) 100 07/20/19 10:00 87 19 107/62 (77) 100 07/20/19 09:00 83 18 97/66 (76) 100 07/20/19 08:13 101/69 07/20/19 08:00 97.9 83 19 101/69 (80) 97 07/20/19 08:00 35 07/20/19 08:00 Venturi Mask 07/20/19 07:55 84 07/20/19 07:00 79 19 96/66 (76) 99 07/20/19 06:55 99 Venturi Mask 6.0 35 07/20/19 06:00 87 20 102/74 (83) 100 07/20/19 05:00 83 18 99/70 (80) 100 07/20/19 04:00 84 07/20/19 04:00 35 07/20/19 04:00 98.8 87 24 101/84 (90) 100 07/20/19 04:00 Venturi Mask 07/20/19 03:00 79 14 94/71 (79) 100 07/20/19 02:00 80 14 97/68 (78) 100 07/20/19 01:00 78 12 96/67 (77) 100 07/20/19 00:00 Venturi Mask 07/20/19 00:00 85 07/20/19 00:00 98.2 81 16 94/78 (83) 100 07/20/19 00:00 35 07/19/19 23:00 78 11 100/60 (73) 100 07/19/19 22:42 98 Venturi Mask 6.0 35 07/19/19 22:39 76 13 97/64 (75) 100 07/19/19 22:00 77 18 90/50 (63) 100 07/19/19 21:00 87/50 07/19/19 21:00 77 15 87/50 (62) 100 07/19/19 20:00 98.6 76 14 106/61 (76) 100 07/19/19 20:00 Venturi Mask 07/19/19 20:00 82 07/19/19 20:00 35 07/19/19 19:00 76 13 101/66 (78) 100 07/19/19 18:45 97 Venturi Mask 6.0 35 Intake and Output 07/19/19 07/20/19 19:00 07:00 Intake Total 467.500 ml 237.5 ml Output Total 1820 ml 750 ml Balance -1352.500 ml -512.5 ml Free Water 30 ml IV Total 467.500 ml 27.5 ml Tube Feeding 180 ml Output Urine Total 1820 ml 750 ml Microbiology Date/Time Source Procedure Growth Status 07/18/19 18:45 Blood Blood Culture - Preliminary NO GROWTH AFTER 24 HOURS Resulted 07/19/19 12:15 Urine,Clean Catch Urine Culture - Preliminary Gram Negative Javad Resulted 07/19/19 02:50 Rectum Received Current Medications Medications (Trade) Dose Ordered Sig/[place] Route PRN Reason Start Time Stop Time Status Last Admin Dose Admin Acetaminophen (Tylenol) 650 mg Q4H PRN ORAL Mild Pain (Pain Scale 1-3) 07/19/19 06:00 08/18/19 05:59 Al Hydroxide/Mg Hydroxide (Mylanta) 30 ml Q4H PRN ORAL Dyspepsia 07/19/19 09:00 08/18/19 08:59 Atorvastatin Calcium (Lipitor) 40 mg BEDTIME ORAL 07/19/19 21:00 10/17/19 20:59 07/19/19 21:16 Dextrose (Dextrose 50%) 25 ml Q30M PRN IV Hypoglycemia 07/20/19 17:15 10/18/19 17:14 Dextrose (Dextrose 50%) 50 ml Q30M PRN IV Hypoglycemia 07/20/19 17:15 10/18/19 17:14 Finasteride (Proscar) 5 mg DAILY ORAL 07/19/19 09:00 10/17/19 08:59 07/20/19 08:13 Furosemide (Lasix) 40 mg DAILY IV 07/19/19 09:00 08/18/19 08:59 07/20/19 08:14 Heparin Sodium (Porcine) (Heparin 5000 units/ml) 5,000 units EVERY 12 HOURS SUBQ 07/19/19 09:00 09/02/19 08:59 Hydralazine HCl (Apresoline) 50 mg BID@0900,2100 ORAL 07/19/19 09:00 10/17/19 08:59 Hydroxyzine HCl (Vistaril) 10 mg BID PRN ORAL Itching 07/19/19 06:00 08/18/19 05:59 Insulin Aspart (NovoLOG) EVERY 6 HOURS SUBQ 07/20/19 18:00 10/18/19 17:59 Isosorbide Mononitrate (Imdur) 30 mg DAILY ORAL 07/19/19 09:00 08/18/19 08:59 07/20/19 08:13 Losartan Potassium (Cozaar) 25 mg DAILY ORAL 07/19/19 09:00 08/18/19 08:59 Pantoprazole (Protonix) 40 mg DAILY ORAL 07/19/19 09:00 08/18/19 08:59 07/20/19 08:13 Piperacillin Sod/ Tazobactam Sod 3.375 gm/Sodium Chloride 110 ml @ 27.5 mls/hr EVERY 8 HOURS IVPB 07/20/19 15:12 07/27/19 15:11 07/20/19 15:14 Sitagliptin Phosphate (Januvia) 50 mg ACBREAKFAST ORAL 07/19/19 11:30 08/18/19 11:29 Tamsulosin HCl (Flomax) 0.4 mg DAILY ORAL 07/19/19 09:00 08/18/19 08:59 07/20/19 08:14 Laboratory Tests 07/20/19 03:40: Sodium Level 143, Potassium Level 3.3L, Chloride Level 107, Carbon Dioxide Level 26, Anion Gap 10, Blood Urea Nitrogen 63H, Creatinine 1.5H, Estimat Glomerular Filtration Rate 55.6, Glucose Level 89, Uric Acid 13.2H, Calcium Level 8.4L, Phosphorus Level 3.8, Magnesium Level 2.4, Total Bilirubin 1.0, Aspartate Amino Transf (AST/SGOT) 30, Alanine Aminotransferase (ALT/SGPT) 23, Alkaline Phosphatase 75, Total Creatine Kinase 99, Total Protein 6.4, Albumin 2.4L, Globulin 4.0, Albumin/Globulin Ratio 0.6L Height (Feet): 5 Height (Inches): 8.00 Weight (Pounds): 143 Objective exam stable 18f limon, yellow/corey urine old renal imaging noted Panchito Camarena MD July 20, 2019 18:25
[2019-07-20] MEDS: NovoLOG Insulin Flexpen SUBQ SCH (18:30)
--- NOTE | 2019-07-20 20:27 | Nephrology Progress Note ---
Assessment/Plan Assessment 1) CKD III-IV 2) Acute exacerbation of CHF 3) Some cardiorenal syndrome 4) R/O Covid Plan: Continue diuresis for now Awaiting Covid test Subjective Subjective He has been getting diuresed, creat is down to 1.5, Covid test is pending, sob is better Objective Objective Last 24 Hour Vital Signs Date Time Temp Pulse Resp B/P (MAP) Pulse Ox O2 Delivery O2 Flow Rate FiO2 07/20/19 18:00 98.6 86 16 95/62 (73) 100 07/20/19 17:00 84 14 91/70 (77) 100 07/20/19 16:00 Room Air 07/20/19 16:00 97.2 88 14 111/71 (84) 100 07/20/19 15:46 88 07/20/19 15:00 86 15 104/65 (78) 99 07/20/19 15:00 100 Room Air 21 07/20/19 14:00 87 15 101/63 (76) 99 07/20/19 13:00 89 20 119/55 (76) 100 07/20/19 12:00 Room Air 07/20/19 12:00 96.9 86 14 96/81 (86) 100 07/20/19 11:51 85 07/20/19 11:00 84 20 105/61 (76) 100 07/20/19 10:00 87 19 107/62 (77) 100 07/20/19 09:00 83 18 97/66 (76) 100 07/20/19 08:13 101/69 07/20/19 08:00 97.9 83 19 101/69 (80) 97 07/20/19 08:00 35 07/20/19 08:00 Venturi Mask 07/20/19 07:55 84 07/20/19 07:00 79 19 96/66 (76) 99 07/20/19 06:55 99 Venturi Mask 6.0 35 07/20/19 06:00 87 20 102/74 (83) 100 07/20/19 05:00 83 18 99/70 (80) 100 07/20/19 04:00 84 07/20/19 04:00 35 07/20/19 04:00 98.8 87 24 101/84 (90) 100 07/20/19 04:00 Venturi Mask 07/20/19 03:00 79 14 94/71 (79) 100 07/20/19 02:00 80 14 97/68 (78) 100 07/20/19 01:00 78 12 96/67 (77) 100 07/20/19 00:00 Venturi Mask 07/20/19 00:00 85 07/20/19 00:00 98.2 81 16 94/78 (83) 100 07/20/19 00:00 35 07/19/19 23:00 78 11 100/60 (73) 100 07/19/19 22:42 98 Venturi Mask 6.0 35 07/19/19 22:39 76 13 97/64 (75) 100 07/19/19 22:00 77 18 90/50 (63) 100 07/19/19 21:00 87/50 07/19/19 21:00 77 15 87/50 (62) 100 Intake and Output 07/19/19 07/20/19 19:00 07:00 Intake Total 467.500 ml 237.5 ml Output Total 1820 ml 750 ml Balance -1352.500 ml -512.5 ml Free Water 30 ml IV Total 467.500 ml 27.5 ml Tube Feeding 180 ml Output Urine Total 1820 ml 750 ml Laboratory Tests 07/20/19 03:40: Sodium Level 143, Potassium Level 3.3L, Chloride Level 107, Carbon Dioxide Level 26, Anion Gap 10, Blood Urea Nitrogen 63H, Creatinine 1.5H, Estimat Glomerular Filtration Rate 55.6, Glucose Level 89, Uric Acid 13.2H, Calcium Level 8.4L, Phosphorus Level 3.8, Magnesium Level 2.4, Total Bilirubin 1.0, Aspartate Amino Transf (AST/SGOT) 30, Alanine Aminotransferase (ALT/SGPT) 23, Alkaline Phosphatase 75, Total Creatine Kinase 99, Total Protein 6.4, Albumin 2.4L, Globulin 4.0, Albumin/Globulin Ratio 0.6L Height (Feet): 5 Height (Inches): 8.00 Weight (Pounds): 143 General Appearance: WD/WN, no apparent distress EENT: normal ENT inspection Cardiovascular: JVD - high Respiratory/Chest: crackles/rales, rhonchi - bilaterally Abdomen: non tender, soft Extremities: moderate edema 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
[2019-07-20] MEDS: Atorvastatin 20mg tab ORAL SCH (21:14)
[2019-07-21] VITALS (12 sets, daily range): BP systolic 93–120; BP diastolic 54–88
--- NOTE | 2019-07-21 05:00 | Consultation ---
DATE OF CONSULTATION: 07/18/2019 CONSULTING PHYSICIAN: Alton Malloy M.D. REQUESTING PHYSICIAN: Jose Iglesias M.D. REASON FOR CONSULTATION: Elevated troponin level and congestive heart failure. HISTORY OF PRESENT ILLNESS: This is a 74-year-old male with an underlying cardiomyopathy and apparent history of cardiac arrhythmias because he has a defibrillator. He presented to the emergency room feeling increasing short of breath for the past week and significantly worsening on today. The patient was brought in by paramedics and noted to be hypoxic on room air during the initial evaluation. There were no record of any abnormal heartbeats. The patient states that he has been at [facility] and [facility] in the past for heart failure and is being considered for a defibrillator device. PAST MEDICAL HISTORY: Includes coronary artery disease, history of myocardial infarction, congestive heart failure, type 2 diabetes mellitus, history of throat cancer, hepatitis C infection, dysphagia with G-tube, hyperlipidemia, hypothyroidism, and prostatic hypertrophy. MEDICATIONS: Prior to admission, reviewed and reconciled. ALLERGIES: Include lisinopril and amoxicillin. FAMILY HISTORY: Noncontributory. SOCIAL HISTORY: Negative for smoking, alcohol, or substance abuse. REVIEW OF SYSTEMS: He had a hospitalization here in 2014 and was noted to have an ejection fraction in the range of 20% at that time. He is presently on Harvoni treatment for his hepatitis C. He has had cough and congestion. His chest x-ray reveals pulmonary infiltrates and this has raised concern over the possibility of concomitant COVID-19 infection. PHYSICAL EXAMINATION: VITAL SIGNS: Blood pressure 130/70, pulse 92, respirations 28, afebrile, oxygen saturation 94 to 98% on a non-rebreather mask with 15 liters. NECK: Jugular venous pressure elevated. LUNGS: Accessary muscle use noted. Diminished breath sounds with bilateral rales. Diffuse point of maximum impulse. CARDIAC: Regular rhythm and rate. Normal S1 and S2 with a 2/6 systolic murmur at apex. ABDOMEN: Soft and nontender with no apparent ascites. G-tube intact. EXTREMITIES: With trace edema. LABORATORY DATA: Labs are reviewed. Sodium 133, potassium 5.2, bicarb 19, BUN 88, creatinine 1.8, troponin 0.028, and albumin 2.8. Lactic acid 3.4. White blood count 5.3 and hemoglobin 12. Urinalysis with white cells. IMPRESSIONS: 1. Possible COVID-19 pneumonia. 2. Acute on chronic systolic congestive heart failure. 3. Ischemic cardiomyopathy. 4. Hepatitis C, on Harvoni therapy. 5. Dysphagia with G-tube. 6. Lactic acidosis. 7. Hypertensive heart disease. 8. History of cardiac arrhythmias with a cardiac defibrillator. 9. Hypoxia. 10. Acute myocardial ischemia. PLAN: 1. Intensive care unit management. 2. Cardiac monitoring. 3. Oxygenation with BiPAP as needed. 4. Serial lactic acid levels, antimicrobials, isolation, cautious hydration. 5. DVT prophylaxis. 6. Review echocardiogram. 7. Attempt to obtain outpatient records. 8. Venous duplex to assess for possible source of pulmonary emboli. Alton Malloy M.D. DR: SAUNDRA JOB#: [id number] CC: JOSIAH
--- NOTE | 2019-07-21 05:15 | Progress Note ---
DATE: 07/20/2019 CARDIOLOGY PROGRESS NOTE SUBJECTIVE: The patient's blood pressure parameters remain low range. He has less shortness of breath. Negative fluid balance is noted. Monitor with no sustained arrhythmias. Echocardiogram was reviewed, results notable for ejection fraction of 20%, decrease aortic valve ____ with area of 1.3, moderate pulmonary hypertension, and moderate to severe mitral and tricuspid regurgitation. OBJECTIVE: VITAL SIGNS: Blood pressure 101/69, pulse 83, respirations 19, no fever, oxygen saturation 35%. Mask is adequate now. GENERAL: COVID-19 swab still pending. LUNGS: Bilateral rales. NECK: Elevated jugular venous pressure. CARDIAC: Regular rhythm and rate. Normal S1 and S2. A 2/6 systolic murmur at apex. ABDOMEN: Soft. EXTREMITIES: Trace edema. LABORATORY DATA: Sodium 143, potassium 3.3, bicarb 26, BUN 63, and creatinine 1.5. Uric acid 13.2. Albumin 2.4. IMPRESSION: 1. Improving hypoxia. 2. Pneumonia, possible COVID-19 infection. 3. Severe cardiomyopathy. 4. Acute on chronic systolic congestive heart failure. 5. Valvular regurgitation. 6. Pulmonary hypertension. 7. Stenosis of the aortic valve. 8. Urinary tract infection, possible sepsis. 9. Remains critical and guarded. 10. History of Harvoni therapy. 11. History of arrhythmias with LifeVest. PLAN: 1. ICU care. 2. Cardiac monitoring. 3. Cautious diuresis. 4. Advance anti-failure regimen as tolerated by blood pressure. Baseline blood pressure expected to be low in this clinical setting. 5. Antimicrobials. 6. Await results of COVID-19 swab. 7. Continue isolation for now. 8. DVT prophylaxis. 9. Repeat chest x-ray and electrolytes, replace potassium, check magnesium. 10. Trend natriuretic peptide assay. Alton Malloy M.D. DR: SAUNDRA JOB#: [id number] CC:
--- NOTE | 2019-07-21 05:15 | Progress Note ---
DATE: 07/19/2019 CARDIOLOGY CRITICAL CARE PROGRESS NOTE SUBJECTIVE: This patient remains in the intensive care unit on isolation. Awaiting COVID-19 results. Still on high flow oxygen. Still with congestion and shortness of breath. No arrhythmias noted. Monitored rhythm, sinus with ectopics. PHYSICAL EXAMINATION: VITAL SIGNS: Blood pressure 91/73, pulse 76, respirations 16, afebrile, saturation of oxygen on BiPAP 94 to 96%. LUNGS: Diminished breath sounds. Few rales. CARDIAC: Regular rhythm and rate. Normal S1 and S2. A 1/6 systolic murmur at apex. ABDOMEN: Soft. EXTREMITIES: Trace edema. LABORATORY DATA: White count 4.8 and hemoglobin 11.6. Sodium 140, potassium 4.3, bicarb 25, BUN 82, creatinine 1.8, and lactic acid is 2.5. IMPRESSION: 1. Cardiomyopathy. 2. Acute systolic congestive heart failure. 3. Lactic acidosis. 4. Possible sepsis. 5. Urinary tract infection. 6. Acute on chronic renal failure. 7. Possible COVID-19 pneumonia. 8. Hypoxia. 9. Remains critical and guarded. PLAN: 1. Antimicrobials. 2. Isolation. 3. Awake COVID-19 swab results. 4. Cautious diuresis. 5. Advance anti-failure regimen as possible with low range blood pressure. 6. Monitor for bradyarrhythmia as well on Harvoni therapy. Alton Malloy M.D. DR: SAUNDRA JOB#: [id number] CC:
[2019-07-21] MEDS: NovoLOG Insulin Flexpen SUBQ SCH ×4 (05:52→17:44)
[2019-07-21] MEDS: Piperacillin/Tazobactam 3.375 GM in NS 110 ML IVPB SCH ×3 (05:52→22:10)
[2019-07-21] MEDS: sitaGLIPtin 50mg tab ORAL SCH (07:08)
[2019-07-21 07:19] LABS: BASOPHILS % (AUTO) 0.5 % (0.0-2.0); EOSINOPHILS % (AUTO) 6.2 % (0.0-3.0); HEMATOCRIT 35.1 % (42.0-52.0); HEMOGLOBIN 11.5 G/DL (14.2-18.0); LYMPHOCYTES % (AUTO) 12.7 % (20.0-45.0); MEAN CORPUSCULAR VOLUME 96 FL (80-99); MONOCYTES % (AUTO) 4.7 % (1.0-10.0); PLATELET COUNT 104 K/UL (150-450); RED BLOOD COUNT 3.64 M/UL (4.70-6.10); RED CELL DISTRIBUTION WIDTH 15.5 % (11.6-14.8); WHITE BLOOD COUNT 3.5 K/UL (4.8-10.8)
[2019-07-21 07:51] LABS: ALANINE AMINOTRANSFERASE 20 U/L (12-78); ALBUMIN 2.5 G/DL (3.4-5.0); ALBUMIN/GLOBULIN RATIO 0.6 (1.0-2.7); ALKALINE PHOSPHATASE 83 U/L (46-116); ANION GAP 9 mmol/L (5-15); ASPARTATE AMINO TRANSFERASE 26 U/L (15-37); BILIRUBIN,TOTAL 0.7 MG/DL (0.2-1.0); BLOOD UREA NITROGEN 41 mg/dL (7-18); CALCIUM 8.1 MG/DL (8.5-10.1); CARBON DIOXIDE 31 MMOL/L (21-32); CHLORIDE 108 MMOL/L (98-107); CREATININE 1.4 MG/DL (0.55-1.30); POTASSIUM 2.8 MMOL/L (3.5-5.1); SODIUM 148 MMOL/L (136-145)
[2019-07-21] MEDS: Heparin 5000 units/ml inj SUBQ SCH ×2 (08:03→20:27)
--- NOTE | 2019-07-21 08:49 | General Progress Note ---
Assessment/Plan Problem List: (1) Suspected COVID-19 virus infection ICD Codes: Z20.828 - Contact with and (suspected) exposure to other viral communicable diseases SNOMED: 295745907 (2) PNA (pneumonia) ICD Codes: J18.9 - Pneumonia, unspecified organism SNOMED: 617596084 (3) CHF (congestive heart failure) ICD Codes: I50.9 - Heart failure, unspecified SNOMED: 17453608 (4) UTI (urinary tract infection) ICD Codes: N39.0 - Urinary tract infection, site not specified SNOMED: 92845498 (5) ARAMIS (acute kidney injury) ICD Codes: N17.9 - Acute kidney failure, unspecified SNOMED: 74740537, 8487766 Status: stable Assessment/Plan: o2 prn diuresis monitor i/o iv abx follow up cultures await covid Subjective ROS Limited/Unobtainable: No Constitutional: Reports: malaise, weakness HEENT: Reports: no symptoms Cardiovascular: Reports: no symptoms Respiratory: Reports: cough, shortness of breath Gastrointestinal/Abdominal: Reports: no symptoms Genitourinary: Reports: no symptoms Neurologic/Psychiatric: Reports: anxiety Endocrine: Reports: no symptoms Hematologic/Lymphatic: Reports: no symptoms Allergies: Coded Allergies: AMOXAPINE (Unverified Allergy, Unknown, 10/16/18) AMOXICILLIN (Unverified Allergy, Unknown, 04/17/14) LISINOPRIL (Unverified Allergy, Unknown, 04/17/14) All Systems: reviewed and negative except above Subjective no events. better today. off o2 on room air. covid still pending. no fever or chills. no chest pain . Objective Last 24 Hour Vital Signs Date Time Temp Pulse Resp B/P (MAP) Pulse Ox O2 Delivery O2 Flow Rate FiO2 07/21/19 07:00 98 15 100/70 (80) 86 98 07/21/19 06:00 97.8 98 18 117/63 (81) 100 98 07/21/19 05:00 90 17 101/67 (78) 100 90 07/21/19 04:00 Room Air 07/21/19 04:00 85 07/21/19 04:00 97 22 110/76 (87) 98 97 07/21/19 03:00 94 20 107/71 (83) 99 94 07/21/19 02:00 93 16 102/83 (89) 98 93 07/21/19 01:00 89 17 105/77 (86) 99 89 07/21/19 00:30 85 07/21/19 00:00 Room Air 07/21/19 00:00 85 17 100 07/20/19 23:00 98.3 85 18 100 85 07/20/19 23:00 100 Room Air 21 07/20/19 22:00 88 17 96/66 (76) 98 88 07/20/19 21:13 96/58 07/20/19 21:00 84 16 96/58 (71) 100 84 07/20/19 20:00 98.4 84 17 100 84 07/20/19 20:00 82 07/20/19 20:00 Room Air 07/20/19 19:00 88 16 100 88 07/20/19 18:00 98.6 86 16 95/62 (73) 100 07/20/19 17:00 84 14 91/70 (77) 100 07/20/19 16:00 Room Air 07/20/19 16:00 97.2 88 14 111/71 (84) 100 07/20/19 15:46 88 07/20/19 15:00 86 15 104/65 (78) 99 07/20/19 15:00 100 Room Air 21 07/20/19 14:00 87 15 101/63 (76) 99 07/20/19 13:00 89 20 119/55 (76) 100 07/20/19 12:00 Room Air 07/20/19 12:00 96.9 86 14 96/81 (86) 100 07/20/19 11:51 85 07/20/19 11:00 84 20 105/61 (76) 100 07/20/19 10:00 87 19 107/62 (77) 100 07/20/19 09:00 83 18 97/66 (76) 100 Intake and Output 07/20/19 07/21/19 18:59 06:59 Intake Total 812.5 ml 810.0 ml Output Total 2160 ml 670 ml Balance -1347.5 ml 140.0 ml Free Water 80 ml IV Total 192.5 ml 110.0 ml Tube Feeding 440 ml 700 ml Other 100 ml Output Urine Total 2160 ml 670 ml # Bowel Movements 1 Laboratory Tests 07/21/19 03:45: White Blood Count 3.5L, Red Blood Count 3.64L, Hemoglobin 11.5L, Hematocrit 35.1L, Mean Corpuscular Volume 96, Mean Corpuscular Hemoglobin 31.6H, Mean Corpuscular Hemoglobin Concent 32.8, Red Cell Distribution Width 15.5H, Platelet Count 104L, Mean Platelet Volume 6.0L, Neutrophils (%) (Auto) 76.0H, Lymphocytes (%) (Auto) 12.7L, Monocytes (%) (Auto) 4.7, Eosinophils (%) (Auto) 6.2H, Basophils (%) (Auto) 0.5, Sodium Level 148H, Potassium Level 2.8L, Chloride Level 108H, Carbon Dioxide Level 31, Anion Gap 9, Blood Urea Nitrogen 41H, Creatinine 1.4H, Estimat Glomerular Filtration Rate > 60, Glucose Level 96 , Calcium Level 8.1L, Magnesium Level 2.2, Total Bilirubin 0.7, Aspartate Amino Transf (AST/SGOT) 26, Alanine Aminotransferase (ALT/SGPT) 20, Alkaline Phosphatase 83, Pro-B-Type Natriuretic Peptide 16716Q, Total Protein 6.8, Albumin 2.5L, Globulin 4.3, Albumin/Globulin Ratio 0.6L Height (Feet): 5 Height (Inches): 8.00 Weight (Pounds): 138 General Appearance: WD/WN, alert EENT: PERRL/EOMI Neck: non-tender, normal alignment Cardiovascular: normal peripheral pulses, normal rate Respiratory/Chest: chest wall non-tender, lungs clear, normal breath sounds Abdomen: normal bowel sounds, non tender, soft, no organomegaly Edema: no edema noted Arm (L), no edema noted Arm (R), no edema noted Leg (L), no edema noted Leg (R), no edema noted Pedal (L), no edema noted Pedal (R), no edema noted 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
[2019-07-21] MEDS: HydrALAZINE 50mg tab ORAL SCH ×2 (09:00→20:23)
[2019-07-21] MEDS: Losartan 25mg tab ORAL SCH (09:00)
[2019-07-21] MEDS: Imdur 30mg tab ORAL SCH (09:12)
--- NOTE | 2019-07-21 09:47 | Diagnostic Imaging Report ---
EXAM: XR Chest, 1 View CLINICAL HISTORY: NV TECHNIQUE: Frontal view of the chest. COMPARISON: Chest x-ray 07/18/19 FINDINGS: Lungs: Improved aeration of the lungs with slightly worsening interstitial and airspace opacities. Pleural space: Maybe a small left pleural effusion. No pneumothorax. Heart: Cardiomegaly. Mediastinum: Unremarkable. Bones/joints: Unremarkable. Tubes, lines and devices: Overlying electrode devices. IMPRESSION: 1. Improved aeration of the lungs with slightly worsening interstitial and airspace opacities. 2. Maybe a small left pleural effusion.
--- NOTE | 2019-07-21 09:53 | Urology Progress Note ---
Assessment/Plan Status: stable Assessment/Plan: BPH hx urinary retention with chronic limon neurogenic bladder (atonic) UTI/colonized ARAMIS/CKD hematuria renal cyst monitor clinically maintain limon indwelling hand irrigated and do PRN abx as ordered f/u on cx's monitor renal fxn consider repeat renal imaging plan to change limon soon flomax and proscar dc'd Subjective Allergies: Coded Allergies: AMOXAPINE (Unverified Allergy, Unknown, 10/16/18) AMOXICILLIN (Unverified Allergy, Unknown, 04/17/14) LISINOPRIL (Unverified Allergy, Unknown, 04/17/14) Subjective all noted, feels fair Objective Last 24 Hour Vital Signs Date Time Temp Pulse Resp B/P (MAP) Pulse Ox O2 Delivery O2 Flow Rate FiO2 07/21/19 09:12 101/67 07/21/19 09:00 100 16 97/67 (77) 100 07/21/19 09:00 101/67 07/21/19 09:00 101/67 07/21/19 08:00 Room Air 07/21/19 08:00 98.1 97 16 101/67 (78) 98 97 07/21/19 08:00 96 07/21/19 07:00 98 15 100/70 (80) 86 98 07/21/19 06:00 97.8 98 18 117/63 (81) 100 98 07/21/19 05:00 90 17 101/67 (78) 100 90 07/21/19 04:00 Room Air 07/21/19 04:00 85 07/21/19 04:00 97 22 110/76 (87) 98 97 07/21/19 03:00 94 20 107/71 (83) 99 94 07/21/19 02:00 93 16 102/83 (89) 98 93 07/21/19 01:00 89 17 105/77 (86) 99 89 07/21/19 00:30 85 07/21/19 00:00 Room Air 07/21/19 00:00 85 17 100 07/20/19 23:00 98.3 85 18 100 85 07/20/19 23:00 100 Room Air 21 07/20/19 22:00 88 17 96/66 (76) 98 88 07/20/19 21:13 96/58 07/20/19 21:00 84 16 96/58 (71) 100 84 07/20/19 20:00 98.4 84 17 100 84 07/20/19 20:00 82 07/20/19 20:00 Room Air 07/20/19 19:00 88 16 100 88 07/20/19 18:00 98.6 86 16 95/62 (73) 100 07/20/19 17:00 84 14 91/70 (77) 100 07/20/19 16:00 Room Air 07/20/19 16:00 97.2 88 14 111/71 (84) 100 07/20/19 15:46 88 07/20/19 15:00 86 15 104/65 (78) 99 07/20/19 15:00 100 Room Air 21 07/20/19 14:00 87 15 101/63 (76) 99 07/20/19 13:00 89 20 119/55 (76) 100 07/20/19 12:00 Room Air 07/20/19 12:00 96.9 86 14 96/81 (86) 100 07/20/19 11:51 85 07/20/19 11:00 84 20 105/61 (76) 100 07/20/19 10:00 87 19 107/62 (77) 100 Intake and Output 07/20/19 07/21/19 19:00 07:00 Intake Total 802.5 ml 820.0 ml Output Total 2200 ml 610 ml Balance -1397.5 ml 210.0 ml Free Water 50 ml IV Total 192.5 ml 110.0 ml Tube Feeding 460 ml 710 ml Other 100 ml Output Urine Total 2200 ml 610 ml # Bowel Movements 1 Microbiology Date/Time Source Procedure Growth Status 07/18/19 18:45 Blood Blood Culture - Preliminary NO GROWTH AFTER 48 HOURS Resulted 07/19/19 02:50 Nasal Nares MRSA Culture - Final NO METHICILLIN RESISTANT STAPH AUREUS... Complete 07/19/19 12:15 Urine,Clean Catch Urine Culture - Preliminary Gram Negative Javad Resulted 07/19/19 02:50 Rectum - Final NO CARBAPENEM-RESISTANT ENTEROBACTERI... Complete Current Medications Medications (Trade) Dose Ordered Sig/[place] Route PRN Reason Start Time Stop Time Status Last Admin Dose Admin Acetaminophen (Tylenol) 650 mg Q4H PRN ORAL Mild Pain (Pain Scale 1-3) 07/21/19 10:00 08/18/19 05:59 UNV Al Hydroxide/Mg Hydroxide (Mylanta) 30 ml Q4H PRN ORAL Dyspepsia 07/21/19 13:00 08/18/19 08:59 UNV Atorvastatin Calcium (Lipitor) 40 mg BEDTIME ORAL 07/21/19 21:00 10/17/19 20:59 UNV Dextrose (Dextrose 50%) 25 ml Q30M PRN IV Hypoglycemia 07/21/19 09:45 10/18/19 17:14 UNV Dextrose (Dextrose 50%) 50 ml Q30M PRN IV Hypoglycemia 07/21/19 09:45 10/18/19 17:14 UNV Furosemide (Lasix) 40 mg DAILY IV 07/22/19 09:00 08/18/19 08:59 UNV Heparin Sodium (Porcine) (Heparin 5000 units/ml) 5,000 units EVERY 12 HOURS SUBQ 07/21/19 21:00 09/02/19 08:59 UNV Hydralazine HCl (Apresoline) 50 mg BID@0900,2100 ORAL 07/21/19 21:00 10/17/19 08:59 UNV Hydroxyzine HCl (Vistaril) 10 mg BID PRN ORAL Itching 07/21/19 18:00 08/18/19 05:59 UNV Insulin Aspart (NovoLOG) EVERY 6 HOURS SUBQ 07/21/19 12:00 10/18/19 17:59 UNV Isosorbide Mononitrate (Imdur) 30 mg DAILY ORAL 07/22/19 09:00 08/18/19 08:59 UNV Losartan Potassium (Cozaar) 25 mg DAILY ORAL 07/22/19 09:00 08/18/19 08:59 UNV Pantoprazole (Protonix) 40 mg DAILY ORAL 07/22/19 09:00 08/18/19 08:59 UNV Piperacillin Sod/ Tazobactam Sod 3.375 gm/Sodium Chloride 110 ml @ 27.5 mls/hr EVERY 8 HOURS IVPB 07/21/19 14:00 07/27/19 15:11 UNV Potassium Chloride (K-Dur) 40 meq ONCE ONCE GT 07/21/19 13:00 07/21/19 13:01 UNV Sitagliptin Phosphate (Januvia) 50 mg ACBREAKFAST ORAL 5/31/20 06:30 08/18/19 11:29 UNV Laboratory Tests 07/21/19 03:45: White Blood Count 3.5L, Red Blood Count 3.64L, Hemoglobin 11.5L, Hematocrit 35.1L, Mean Corpuscular Volume 96, Mean Corpuscular Hemoglobin 31.6H, Mean Corpuscular Hemoglobin Concent 32.8, Red Cell Distribution Width 15.5H, Platelet Count 104L, Mean Platelet Volume 6.0L, Neutrophils (%) (Auto) 76.0H, Lymphocytes (%) (Auto) 12.7L, Monocytes (%) (Auto) 4.7, Eosinophils (%) (Auto) 6.2H, Basophils (%) (Auto) 0.5, Sodium Level 148H, Potassium Level 2.8L, Chloride Level 108H, Carbon Dioxide Level 31, Anion Gap 9, Blood Urea Nitrogen 41H, Creatinine 1.4H, Estimat Glomerular Filtration Rate > 60, Glucose Level 96 , Calcium Level 8.1L, Magnesium Level 2.2, Total Bilirubin 0.7, Aspartate Amino Transf (AST/SGOT) 26, Alanine Aminotransferase (ALT/SGPT) 20, Alkaline Phosphatase 83, Pro-B-Type Natriuretic Peptide 34658F, Total Protein 6.8, Albumin 2.5L, Globulin 4.3, Albumin/Globulin Ratio 0.6L Height (Feet): 5 Height (Inches): 8.00 Weight (Pounds): 138 Objective exam stable 18f limon, yellow/corey urine, occasional debris old renal imaging noted Panchito Camarena MD July 21, 2019 09:53
--- NOTE | 2019-07-21 17:53 | Nephrology Progress Note ---
Assessment/Plan Assessment 1) CKD III-IV 2) Acute exacerbation of CHF 3) Some cardiorenal syndrome improving 4) Covid negative Plan: Continue diuresis for now Replete K Check mag Subjective Subjective He is out of ICU, less sob, I/O -1.2 L K is 2.8, creat is 1.4 Objective Objective Last 24 Hour Vital Signs Date Time Temp Pulse Resp B/P (MAP) Pulse Ox O2 Delivery O2 Flow Rate FiO2 07/21/19 16:00 96 07/21/19 16:00 97.7 99 22 93/54 (67) 97 07/21/19 12:00 98.1 104 20 120/88 (99) 96 07/21/19 12:00 92 07/21/19 09:12 101/67 07/21/19 09:00 100 16 97/67 (77) 100 07/21/19 09:00 101/67 07/21/19 09:00 101/67 07/21/19 08:09 97 Room Air 21 07/21/19 08:00 Room Air 07/21/19 08:00 98.1 97 16 101/67 (78) 98 97 07/21/19 08:00 96 07/21/19 07:00 98 15 100/70 (80) 86 98 07/21/19 06:00 97.8 98 18 117/63 (81) 100 98 07/21/19 05:00 90 17 101/67 (78) 100 90 07/21/19 04:00 Room Air 07/21/19 04:00 85 07/21/19 04:00 97 22 110/76 (87) 98 97 07/21/19 03:00 94 20 107/71 (83) 99 94 07/21/19 02:00 93 16 102/83 (89) 98 93 07/21/19 01:00 89 17 105/77 (86) 99 89 07/21/19 00:30 85 07/21/19 00:00 Room Air 07/21/19 00:00 85 17 100 07/20/19 23:00 98.3 85 18 100 85 07/20/19 23:00 100 Room Air 21 07/20/19 22:00 88 17 96/66 (76) 98 88 07/20/19 21:13 96/58 07/20/19 21:00 84 16 96/58 (71) 100 84 07/20/19 20:00 98.4 84 17 100 84 07/20/19 20:00 82 07/20/19 20:00 Room Air 07/20/19 19:00 88 16 100 88 07/20/19 18:00 98.6 86 16 95/62 (73) 100 Intake and Output 07/20/19 07/21/19 18:59 06:59 Intake Total 812.5 ml 810.0 ml Output Total 2160 ml 670 ml Balance -1347.5 ml 140.0 ml Free Water 80 ml IV Total 192.5 ml 110.0 ml Tube Feeding 440 ml 700 ml Other 100 ml Output Urine Total 2160 ml 670 ml # Bowel Movements 1 Laboratory Tests 07/21/19 03:45: White Blood Count 3.5L, Red Blood Count 3.64L, Hemoglobin 11.5L, Hematocrit 35.1L, Mean Corpuscular Volume 96, Mean Corpuscular Hemoglobin 31.6H, Mean Corpuscular Hemoglobin Concent 32.8, Red Cell Distribution Width 15.5H, Platelet Count 104L, Mean Platelet Volume 6.0L, Neutrophils (%) (Auto) 76.0H, Lymphocytes (%) (Auto) 12.7L, Monocytes (%) (Auto) 4.7, Eosinophils (%) (Auto) 6.2H, Basophils (%) (Auto) 0.5, Sodium Level 148H, Potassium Level 2.8L, Chloride Level 108H, Carbon Dioxide Level 31, Anion Gap 9, Blood Urea Nitrogen 41H, Creatinine 1.4H, Estimat Glomerular Filtration Rate > 60, Glucose Level 96 , Calcium Level 8.1L, Magnesium Level 2.2, Total Bilirubin 0.7, Aspartate Amino Transf (AST/SGOT) 26, Alanine Aminotransferase (ALT/SGPT) 20, Alkaline Phosphatase 83, Pro-B-Type Natriuretic Peptide 38949X, Total Protein 6.8, Albumin 2.5L, Globulin 4.3, Albumin/Globulin Ratio 0.6L Height (Feet): 5 Height (Inches): 8.00 Weight (Pounds): 138 General Appearance: WD/WN, no apparent distress EENT: PERRL/EOMI Neck: non-tender, normal alignment Cardiovascular: regular rhythm, JVD - nl high Respiratory/Chest: decreased breath sounds, crackles/rales Abdomen: normal bowel sounds, non tender 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
[2019-07-21] MEDS: Atorvastatin 20mg tab ORAL SCH (20:29)
--- NOTE | 2019-07-21 22:00 | Pulmonolgy Critical Care Note ---
Critical Care - Asmt/Plan Assessment/Plan: Pulmonary CCM Progress Note Assessment/Plan IMPRESSION: 1. Evidence of chronic renal failure. 2. Coronary artery disease. 3. CHF. 4. Hepatitis C. 5. Pacemaker. 6. G-tube. 7. Aspiration. 8. Possible COVID. 9. Evidence of pneumonia. 10. Lactic acidemia 11. CXR with pulmonary infiltrates PLAN monitor ABG/CXR oxygen as needed BIPAP PRN meds as is ID following cardiology and renal follow up monitor cultures ID to comment remains full code optimize as able medications/laboratory data/nursing notes/ICU care reviewed in detail note reviewed and edited care discussed with RN and RT ICU time spent >40 minutes. Critical Care - Subjective Interval Events: care noted improved off BIPAP in ICU care reviewed Condition: improving EKG Rhythm: Sinus Rhythm Residuals: minimal Tube Feeding Tolerated: yes Critical Care - Objective Vital Signs Noted Labs Noted Test 07/18/19 18:30 07/18/19 19:10 07/18/19 20:31 07/18/19 21:23 White Blood Count 5.3 K/UL (4.8-10.8) Red Blood Count 3.78 M/UL (4.70-6.10) Hemoglobin 12.0 G/DL (14.2-18.0) Hematocrit 38.4 % (42.0-52.0) Mean Corpuscular Volume 102 FL (80-99) Mean Corpuscular Hemoglobin 31.8 PG (27.0-31.0) Mean Corpuscular Hemoglobin Concent 31.3 G/DL (32.0-36.0) Red Cell Distribution Width 16.2 % (11.6-14.8) Platelet Count 104 K/UL (150-450) Mean Platelet Volume 9.8 FL (6.5-10.1) Neutrophils (%) (Auto) 72.1 % (45.0-75.0) Lymphocytes (%) (Auto) 20.0 % (20.0-45.0) Monocytes (%) (Auto) 7.1 % (1.0-10.0) Eosinophils (%) (Auto) 0.2 % (0.0-3.0) Basophils (%) (Auto) 0.6 % (0.0-2.0) Sodium Level 133 MMOL/L (136-145) Potassium Level 5.2 MMOL/L (3.5-5.1) Chloride Level 100 MMOL/L (98-107) Carbon Dioxide Level 19 MMOL/L (21-32) Anion Gap 14 mmol/L (5-15) Blood Urea Nitrogen 88 mg/dL (7-18) Creatinine 1.8 MG/DL (0.55-1.30) Estimat Glomerular Filtration Rate 45.1 mL/min (>60) Glucose Level 141 MG/DL (74-106) Lactic Acid Level 3.40 mmol/L (0.4-2.0) 5.20 mmol/L (0.66-2.22) Calcium Level 8.8 MG/DL (8.5-10.1) Total Bilirubin 0.8 MG/DL (0.2-1.0) Aspartate Amino Transf (AST/SGOT) 22 U/L (15-37) Alanine Aminotransferase (ALT/SGPT) 21 U/L (12-78) Alkaline Phosphatase 93 U/L (46-116) Troponin I 0.028 ng/mL (0.000-0.056) C-Reactive Protein, Quantitative 5.8 mg/dL (0.00-0.90) Total Protein 7.5 G/DL (6.4-8.2) Albumin 2.8 G/DL (3.4-5.0) Globulin 4.7 g/dL Albumin/Globulin Ratio 0.6 (1.0-2.7) Prothrombin Time 22.7 SEC (9.30-11.50) Prothromb Time International Ratio 2.2 (0.9-1.1) Activated Partial Thromboplast Time 36 SEC (23-33) D-Dimer 3.78 mg/L FEU (0.00-0.49) Arterial Blood pH 7.414 (7.350-7.450) Arterial Blood Partial Pressure CO2 32.5 mmHg (35.0-45.0) Arterial Blood Partial Pressure O2 496.0 mmHg (75.0-100.0) Arterial Blood HCO3 20.3 mmol/L (22.0-26.0) Arterial Blood Oxygen Saturation 99.6 % (95-100) Arterial Blood Base Excess -3.4 (-2-2) Danis Test Positive Test 07/19/19 04:30 07/19/19 10:34 07/19/19 12:15 07/19/19 12:20 White Blood Count 4.8 K/UL (4.8-10.8) Red Blood Count 3.69 M/UL (4.70-6.10) Hemoglobin 11.6 G/DL (14.2-18.0) Hematocrit 35.1 % (42.0-52.0) Mean Corpuscular Volume 95 FL (80-99) Mean Corpuscular Hemoglobin 31.5 PG (27.0-31.0) Mean Corpuscular Hemoglobin Concent 33.1 G/DL (32.0-36.0) Red Cell Distribution Width 14.8 % (11.6-14.8) Platelet Count 106 K/UL (150-450) Mean Platelet Volume 7.5 FL (6.5-10.1) Neutrophils (%) (Auto) 66.4 % (45.0-75.0) Lymphocytes (%) (Auto) 25.4 % (20.0-45.0) Monocytes (%) (Auto) 7.4 % (1.0-10.0) Eosinophils (%) (Auto) 0.5 % (0.0-3.0) Basophils (%) (Auto) 0.3 % (0.0-2.0) Sodium Level 140 MMOL/L (136-145) Potassium Level 4.3 MMOL/L (3.5-5.1) Chloride Level 103 MMOL/L (98-107) Carbon Dioxide Level 25 MMOL/L (21-32) Anion Gap 12 mmol/L (5-15) Blood Urea Nitrogen 82 mg/dL (7-18) Creatinine 1.8 MG/DL (0.55-1.30) Estimat Glomerular Filtration Rate 45.1 mL/min (>60) Glucose Level 70 MG/DL (74-106) Lactic Acid Level 2.50 mmol/L (0.4-2.0) 2.00 mmol/L (0.4-2.0) Calcium Level 8.8 MG/DL (8.5-10.1) Arterial Blood pH 7.424 (7.350-7.450) Arterial Blood Partial Pressure CO2 36.3 mmHg (35.0-45.0) Arterial Blood Partial Pressure O2 133.3 mmHg (75.0-100.0) Arterial Blood HCO3 23.2 mmol/L (22.0-26.0) Arterial Blood Oxygen Saturation 98.3 % (95-100) Arterial Blood Base Excess -0.8 (-2-2) Danis Test Positive Urine Color Pale yellow Urine Appearance Slightly cloudy Urine pH 7 (4.5-8.0) Urine Specific [place] 1.010 (1.005-1.035) Urine Protein Negative (NEGATIVE) Urine Glucose (UA) Negative (NEGATIVE) Urine Ketones Negative (NEGATIVE) Urine Blood 2+ (NEGATIVE) Urine Nitrite Negative (NEGATIVE) Urine Bilirubin Negative (NEGATIVE) Urine Urobilinogen Normal MG/DL (0.0-1.0) Urine Leukocyte Esterase 3+ (NEGATIVE) Urine RBC 15-20 /HPF (0 - 0) Urine WBC 20-30 /HPF (0 - 0) Urine Squamous Epithelial Cells None /LPF (NONE/OCC) Urine Bacteria Many /HPF (NONE) Test 07/20/19 03:40 Sodium Level 143 MMOL/L (136-145) Potassium Level 3.3 MMOL/L (3.5-5.1) Chloride Level 107 MMOL/L (98-107) Carbon Dioxide Level 26 MMOL/L (21-32) Anion Gap 10 mmol/L (5-15) Blood Urea Nitrogen 63 mg/dL (7-18) Creatinine 1.5 MG/DL (0.55-1.30) Estimat Glomerular Filtration Rate 55.6 mL/min (>60) Glucose Level 89 MG/DL (74-106) Uric Acid 13.2 MG/DL (2.6-7.2) Calcium Level 8.4 MG/DL (8.5-10.1) Phosphorus Level 3.8 MG/DL (2.5-4.9) Magnesium Level 2.4 MG/DL (1.8-2.4) Total Bilirubin 1.0 MG/DL (0.2-1.0) Aspartate Amino Transf (AST/SGOT) 30 U/L (15-37) Alanine Aminotransferase (ALT/SGPT) 23 U/L (12-78) Alkaline Phosphatase 75 U/L (46-116) Total Creatine Kinase 99 U/L (26-308) Total Protein 6.4 G/DL (6.4-8.2) Albumin 2.4 G/DL (3.4-5.0) Globulin 4.0 g/dL Albumin/Globulin Ratio 0.6 (1.0-2.7) Objective: GENERAL: Ill-appearing male, currently off BIPAP and on oxygen HEENT: Negative. NECK: Supple. LUNGS: reduced breath sounds. Crackles both bases. no wheeze CARDIAC: S1, S2. Regular rate and rhythm with noted murmur. ABDOMEN: Soft, nontender. EXTREMITIES: No cyanosis or clubbing. NEUROLOGICAL: Confused. but alert Micro: Microbiology Date/Time Source Procedure Growth Status 07/18/19 18:45 Blood Blood Culture - Preliminary NO GROWTH AFTER 24 HOURS Resulted 07/18/19 18:30 Blood Blood Culture - Preliminary NO GROWTH AFTER 24 HOURS Resulted 07/19/19 12:15 Urine,Clean Catch Urine Culture - Preliminary Gram Negative Javad Resulted 07/19/19 02:50 Rectum Received Critical Care - Objective Last 24 Hour Vital Signs Date Time Temp Pulse Resp B/P (MAP) Pulse Ox O2 Delivery O2 Flow Rate FiO2 07/21/19 21:00 Room Air 07/21/19 20:23 100/68 07/21/19 20:00 97.5 97 18 110/68 (82) 98 07/21/19 19:34 97 Room Air 21 07/21/19 16:00 96 07/21/19 16:00 97.7 99 22 93/54 (67) 97 07/21/19 12:00 98.1 104 20 120/88 (99) 96 07/21/19 12:00 92 07/21/19 09:12 101/67 07/21/19 09:00 100 16 97/67 (77) 100 07/21/19 09:00 101/67 07/21/19 09:00 101/67 07/21/19 08:09 97 Room Air 21 07/21/19 08:00 Room Air 07/21/19 08:00 98.1 97 16 101/67 (78) 98 97 07/21/19 08:00 96 07/21/19 07:00 98 15 100/70 (80) 86 98 07/21/19 06:00 97.8 98 18 117/63 (81) 100 98 07/21/19 05:00 90 17 101/67 (78) 100 90 07/21/19 04:00 Room Air 07/21/19 04:00 85 07/21/19 04:00 97 22 110/76 (87) 98 97 07/21/19 03:00 94 20 107/71 (83) 99 94 07/21/19 02:00 93 16 102/83 (89) 98 93 07/21/19 01:00 89 17 105/77 (86) 99 89 07/21/19 00:30 85 07/21/19 00:00 Room Air 07/21/19 00:00 85 17 100 07/20/19 23:00 98.3 85 18 100 85 07/20/19 23:00 100 Room Air 21 07/20/19 22:00 88 17 96/66 (76) 98 88 Micro: Microbiology Date/Time Source Procedure Growth Status 07/19/19 02:50 Nasal Nares MRSA Culture - Final NO METHICILLIN RESISTANT STAPH AUREUS... Complete 07/19/19 12:15 Urine,Clean Catch Urine Culture - Preliminary Gram Negative Javad Resulted 07/19/19 02:50 Rectum - Final NO CARBAPENEM-RESISTANT ENTEROBACTERI... Complete 07/19/19 02:50 Rectum VRE Culture - Final NO VANCOMYCIN RESISTANT ENTEROCOCCUS ... Complete Accucheck: 141 Critical Care - Subjective ROS Limited/Unobtainable: Yes Condition: improving FI02: 21 Sputum Amount: None Tube Feeding Amount: 60 I&O: Intake and Output 07/20/19 07/21/19 19:00 07:00 Intake Total 802.5 ml 820.0 ml Output Total 2200 ml 610 ml Balance -1397.5 ml 210.0 ml Free Water 50 ml IV Total 192.5 ml 110.0 ml Tube Feeding 460 ml 710 ml Other 100 ml Output Urine Total 2200 ml 610 ml # Bowel Movements 1 Alton Florian MD July 21, 2019 22:00
[2019-07-22] VITALS: BP 108/78
[2019-07-22 04:00] VITALS: BP 142/62
--- NOTE | 2019-07-22 04:15 | Progress Note ---
DATE: 07/21/2019 CARDIOLOGY PROGRESS NOTE SUBJECTIVE: Off oxygen. No shortness of breath. OBJECTIVE: VITAL SIGNS: Blood pressure 100/70, pulse 98, respirations 15. Sinus rhythm. NECK: Elevated jugular venous pressure. LUNGS: Few rales. CARDIAC: Regular rhythm and rate. Normal S1 and S2. A 1/6 systolic murmur at apex. ABDOMEN: Soft. EXTREMITIES: Trace edema. LABORATORY DATA: COVID-19 is negative. Urine culture gram-negative rods. White count 3.5 and hemoglobin 11.5. Sodium 148, potassium 3.8, bicarb 31, BUN 41, and creatinine 1.4. Pro-natriuretic peptide 13,000. IMPRESSION: 1. Severe cardiomyopathy. 2. Acute on chronic systolic congestive heart failure. 3. Resolved lactic acidosis. 4. Urinary tract infection with probable sepsis. 5. COVID-19 negative x1. 6. Acute on chronic renal failure, recovered. 7. Hypoxia, serious, but improved. 8. Hepatitis C, on Harvoni therapy. PLAN: 1. Continue diuresis. 2. Continue titrating anti-failure regimen as tolerated by blood pressure. 3. Monitor for bradyarrhythmias. Condition remains critical and prognosis guarded. Alton Malloy M.D. DR: SAUNDRA JOB#: [id number] CC: JOSIAH
[2019-07-22] MEDS: NovoLOG Insulin Flexpen SUBQ SCH ×5 (06:10→23:57)
[2019-07-22] MEDS: Piperacillin/Tazobactam 3.375 GM in NS 110 ML IVPB SCH ×3 (06:15→20:36)
[2019-07-22] MEDS: sitaGLIPtin 50mg tab ORAL SCH (06:21)
[2019-07-22 07:00] LABS: BASOPHILS % (AUTO) 0.5 % (0.0-2.0); EOSINOPHILS % (AUTO) 3.5 % (0.0-3.0); HEMATOCRIT 41.8 % (42.0-52.0); HEMOGLOBIN 13.5 G/DL (14.2-18.0); LYMPHOCYTES % (AUTO) 21.9 % (20.0-45.0); MEAN CORPUSCULAR VOLUME 98 FL (80-99); MONOCYTES % (AUTO) 5.7 % (1.0-10.0); NEUTROPHILS % (AUTO) 68.4 % (45.0-75.0); PLATELET COUNT 145 K/UL (150-450); RED BLOOD COUNT 4.28 M/UL (4.70-6.10); RED CELL DISTRIBUTION WIDTH 15.7 % (11.6-14.8); WHITE BLOOD COUNT 4.5 K/UL (4.8-10.8)
[2019-07-22 07:12] LABS: ANION GAP 8 mmol/L (5-15); BLOOD UREA NITROGEN 38 mg/dL (7-18); CALCIUM 8.6 MG/DL (8.5-10.1); CARBON DIOXIDE 29 MMOL/L (21-32); CHLORIDE 107 MMOL/L (98-107); CREATININE 1.4 MG/DL (0.55-1.30); PHOSPHORUS 2.7 MG/DL (2.5-4.9); POTASSIUM 4.2 MMOL/L (3.5-5.1); SODIUM 144 MMOL/L (136-145)
--- NOTE | 2019-07-22 07:49 | General Progress Note ---
Assessment/Plan Problem List: (1) Suspected COVID-19 virus infection ICD Codes: Z20.828 - Contact with and (suspected) exposure to other viral communicable diseases SNOMED: 445034811 (2) PNA (pneumonia) ICD Codes: J18.9 - Pneumonia, unspecified organism SNOMED: 404982100 (3) CHF (congestive heart failure) ICD Codes: I50.9 - Heart failure, unspecified SNOMED: 62337290 (4) UTI (urinary tract infection) ICD Codes: N39.0 - Urinary tract infection, site not specified SNOMED: 49687479 (5) ARAMIS (acute kidney injury) ICD Codes: N17.9 - Acute kidney failure, unspecified SNOMED: 08100987, 0652470 Status: stable Assessment/Plan: o2 prn as needed diuresis monitor i/o iv abx follow up cultures monitor cxr dvt/stress ulcer prophylaxis Subjective ROS Limited/Unobtainable: No Constitutional: Reports: malaise, weakness HEENT: Reports: no symptoms Cardiovascular: Reports: no symptoms Respiratory: Reports: cough, shortness of breath Gastrointestinal/Abdominal: Reports: no symptoms Genitourinary: Reports: no symptoms Neurologic/Psychiatric: Reports: anxiety Hematologic/Lymphatic: Reports: no symptoms Allergies: Coded Allergies: AMOXAPINE (Unverified Allergy, Unknown, 10/16/18) AMOXICILLIN (Unverified Allergy, Unknown, 04/17/14) LISINOPRIL (Unverified Allergy, Unknown, 04/17/14) All Systems: reviewed and negative except above Subjective transferred to tele. off o2. c/o sob. cxr with improved aeration but worsening interstitial infil. no chest pain no fevers. Objective Last 24 Hour Vital Signs Date Time Temp Pulse Resp B/P (MAP) Pulse Ox O2 Delivery O2 Flow Rate FiO2 07/22/19 04:00 108 07/22/19 04:00 97.6 104 20 142/62 (88) 97 07/22/19 00:00 97.0 99 18 108/78 (88) 96 07/22/19 00:00 106 07/21/19 21:00 Room Air 07/21/19 20:23 100/68 07/21/19 20:00 97.5 97 18 110/68 (82) 98 07/21/19 20:00 108 07/21/19 19:34 97 Room Air 21 5/30/20 16:00 96 07/21/19 16:00 97.7 99 22 93/54 (67) 97 07/21/19 12:00 98.1 104 20 120/88 (99) 96 07/21/19 12:00 92 07/21/19 09:12 101/67 07/21/19 09:00 100 16 97/67 (77) 100 07/21/19 09:00 101/67 07/21/19 09:00 101/67 07/21/19 08:09 97 Room Air 21 07/21/19 08:00 Room Air 07/21/19 08:00 98.1 97 16 101/67 (78) 98 97 07/21/19 08:00 96 Intake and Output 07/21/19 07/22/19 19:00 07:00 Intake Total 330 ml 1470.0 ml Output Total 880 ml Balance -550 ml 1470.0 ml Free Water 100 ml 100 ml IV Total 710.0 ml Tube Feeding 180 ml 660 ml Other 50 ml Output Urine Total 880 ml # Bowel Movements 1 Laboratory Tests 07/22/19 06:30: White Blood Count 4.5L, Red Blood Count 4.28L, Hemoglobin 13.5L, Hematocrit 41.8L, Mean Corpuscular Volume 98, Mean Corpuscular Hemoglobin 31.5H, Mean Corpuscular Hemoglobin Concent 32.3, Red Cell Distribution Width 15.7H, Platelet Count 145L, Mean Platelet Volume 6.5, Neutrophils (%) (Auto) 68.4, Lymphocytes (%) (Auto) 21.9, Monocytes (%) (Auto) 5.7, Eosinophils (%) (Auto) 3.5H, Basophils (%) (Auto) 0.5, Sodium Level 144, Potassium Level 4.2, Chloride Level 107, Carbon Dioxide Level 29, Anion Gap 8, Blood Urea Nitrogen 38H, Creatinine 1.4H, Estimat Glomerular Filtration Rate > 60, Glucose Level 261#H, Calcium Level 8.6, Phosphorus Level 2.7, Magnesium Level 2.2 Height (Feet): 5 Height (Inches): 8.00 Weight (Pounds): 140 General Appearance: WD/WN, confused, thin EENT: PERRL/EOMI, normal ENT inspection, TMs normal Neck: non-tender, normal alignment, supple Cardiovascular: normal peripheral pulses, normal rate, regular rhythm Respiratory/Chest: chest wall non-tender, lungs clear, normal breath sounds, no respiratory distress, no accessory muscle use Abdomen: normal bowel sounds, non tender, soft, no organomegaly, no mass Extremities: normal range of motion, non-tender Edema: no edema noted Arm (L), no edema noted Arm (R) 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
[2019-07-22 08:00] VITALS: BP_SYST 119; BP_SYST 126; BP_DIAS 52; BP_DIAS 92
[2019-07-22] MEDS: Heparin 5000 units/ml inj SUBQ SCH ×2 (08:38→20:35)
[2019-07-22] MEDS: Imdur 30mg tab ORAL SCH (08:40)
[2019-07-22] MEDS: HydrALAZINE 50mg tab ORAL SCH ×2 (08:40→20:32)
[2019-07-22] MEDS: Losartan 25mg tab ORAL SCH (08:41)
--- NOTE | 2019-07-22 09:52 | Urology Progress Note ---
Assessment/Plan Status: stable Assessment/Plan: BPH hx urinary retention with chronic limon neurogenic bladder (atonic) UTI/colonized ARAMIS/CKD hematuria renal cyst monitor clinically maintain limon indwelling hand irrigated and do PRN abx as ordered f/u on cx's monitor renal fxn consider repeat renal imaging plan to change limon soon flomax and proscar dc'd Subjective Allergies: Coded Allergies: AMOXAPINE (Unverified Allergy, Unknown, 10/16/18) AMOXICILLIN (Unverified Allergy, Unknown, 04/17/14) LISINOPRIL (Unverified Allergy, Unknown, 04/17/14) Subjective all noted, feels fair Objective Last 24 Hour Vital Signs Date Time Temp Pulse Resp B/P (MAP) Pulse Ox O2 Delivery O2 Flow Rate FiO2 07/22/19 08:41 126/92 07/22/19 08:40 126/92 07/22/19 08:40 126/92 07/22/19 08:00 96.6 118 24 126/92 (103) 95 07/22/19 04:00 108 07/22/19 04:00 97.6 104 20 142/62 (88) 97 07/22/19 00:00 97.0 99 18 108/78 (88) 96 07/22/19 00:00 106 07/21/19 21:00 Room Air 07/21/19 20:23 100/68 07/21/19 20:00 97.5 97 18 110/68 (82) 98 07/21/19 20:00 108 07/21/19 19:34 97 Room Air 21 07/21/19 16:00 96 07/21/19 16:00 97.7 99 22 93/54 (67) 97 07/21/19 12:00 98.1 104 20 120/88 (99) 96 07/21/19 12:00 92 Intake and Output 07/21/19 07/22/19 19:00 07:00 Intake Total 330 ml 1470.0 ml Output Total 880 ml Balance -550 ml 1470.0 ml Free Water 100 ml 100 ml IV Total 710.0 ml Tube Feeding 180 ml 660 ml Other 50 ml Output Urine Total 880 ml # Bowel Movements 1 Microbiology Date/Time Source Procedure Growth Status 07/18/19 18:45 Blood Blood Culture - Preliminary NO GROWTH AFTER 72 HOURS Resulted 07/19/19 02:50 Nasal Nares MRSA Culture - Final NO METHICILLIN RESISTANT STAPH AUREUS... Complete 07/19/19 12:15 Urine,Clean Catch Urine Culture - Preliminary Escherichia Coli Gram Negative Bacillus 2 Resulted 07/19/19 02:50 Rectum - Final NO CARBAPENEM-RESISTANT ENTEROBACTERI... Complete Current Medications Medications (Trade) Dose Ordered Sig/[place] Route PRN Reason Start Time Stop Time Status Last Admin Dose Admin Acetaminophen (Tylenol) 650 mg Q4H PRN ORAL Mild Pain (Pain Scale 1-3) 07/21/19 10:00 08/18/19 05:59 Al Hydroxide/Mg Hydroxide (Mylanta) 30 ml Q4H PRN ORAL Dyspepsia 07/21/19 13:00 08/18/19 08:59 Atorvastatin Calcium (Lipitor) 40 mg BEDTIME ORAL 07/21/19 21:00 10/17/19 20:59 07/21/19 20:29 Dextrose 1,000 ml @ 100 mls/hr Q10H IV 07/21/19 15:15 08/20/19 15:14 07/21/19 18:31 Dextrose (Dextrose 50%) 25 ml Q30M PRN IV Hypoglycemia 07/21/19 09:45 10/18/19 17:14 Dextrose (Dextrose 50%) 50 ml Q30M PRN IV Hypoglycemia 07/21/19 09:45 10/18/19 17:14 Furosemide (Lasix) 40 mg DAILY IV 07/22/19 09:00 08/18/19 08:59 07/22/19 08:37 Heparin Sodium (Porcine) (Heparin 5000 units/ml) 5,000 units EVERY 12 HOURS SUBQ 07/21/19 21:00 09/02/19 08:59 07/22/19 08:38 Hydralazine HCl (Apresoline) 50 mg BID@0900,2100 ORAL 07/21/19 21:00 10/17/19 08:59 07/22/19 08:40 Hydroxyzine HCl (Vistaril) 10 mg BID PRN ORAL Itching 07/21/19 18:00 08/18/19 05:59 Insulin Aspart (NovoLOG) EVERY 6 HOURS SUBQ 07/21/19 12:00 10/18/19 17:59 07/22/19 06:10 Isosorbide Mononitrate (Imdur) 30 mg DAILY ORAL 07/22/19 09:00 08/18/19 08:59 07/22/19 08:40 Losartan Potassium (Cozaar) 25 mg DAILY ORAL 07/22/19 09:00 08/18/19 08:59 07/22/19 08:41 Pantoprazole (Protonix) 40 mg DAILY ORAL 07/22/19 09:00 08/18/19 08:59 07/22/19 08:40 Piperacillin Sod/ Tazobactam Sod 3.375 gm/Sodium Chloride 110 ml @ 27.5 mls/hr EVERY 8 HOURS IVPB 07/21/19 14:00 07/27/19 15:11 07/22/19 06:15 Sitagliptin Phosphate (Januvia) 50 mg ACBREAKFAST ORAL 07/22/19 06:30 08/18/19 11:29 07/22/19 06:21 Laboratory Tests 07/22/19 06:30: White Blood Count 4.5L, Red Blood Count 4.28L, Hemoglobin 13.5L, Hematocrit 41.8L, Mean Corpuscular Volume 98, Mean Corpuscular Hemoglobin 31.5H, Mean Corpuscular Hemoglobin Concent 32.3, Red Cell Distribution Width 15.7H, Platelet Count 145L, Mean Platelet Volume 6.5, Neutrophils (%) (Auto) 68.4, Lymphocytes (%) (Auto) 21.9, Monocytes (%) (Auto) 5.7, Eosinophils (%) (Auto) 3.5H, Basophils (%) (Auto) 0.5, Sodium Level 144, Potassium Level 4.2, Chloride Level 107, Carbon Dioxide Level 29, Anion Gap 8, Blood Urea Nitrogen 38H, Creatinine 1.4H, Estimat Glomerular Filtration Rate > 60, Glucose Level 261#H, Calcium Level 8.6, Phosphorus Level 2.7, Magnesium Level 2.2 Height (Feet): 5 Height (Inches): 8.00 Weight (Pounds): 140 Objective exam stable 18f limon, yellow/corey urine, occasional debris old renal imaging noted Panchito Camarena MD July 22, 2019 09:52
[2019-07-22 12:00] VITALS: BP 122/83
--- NOTE | 2019-07-22 12:22 | Pulmonolgy Critical Care Note ---
Critical Care - Asmt/Plan Assessment/Plan: Pulmonary Progress Note Assessment/Plan IMPRESSION: 1. Evidence of chronic renal failure. 2. Coronary artery disease. 3. CHF. 4. Hepatitis C. 5. Pacemaker. 6. G-tube. 7. Aspiration. 8. Possible COVID. 9. Pneumonia. 10. Lactic acidemia 11. CXR with pulmonary infiltrates PLAN monitor ABG/CXR PRN oxygen as needed BIPAP PRN meds as is ID following cardiology and renal follow up monitor cultures ID to comment remains full code optimize as able medications/laboratory data/nursing notes/ICU care reviewed in detail note reviewed and edited care discussed with RN and RT ICU time spent >40 minutes. Critical Care - Subjective Interval Events: care noted improved off BIPAP in ICU care reviewed Condition: improving EKG Rhythm: Sinus Rhythm Residuals: minimal Tube Feeding Tolerated: yes Critical Care - Objective Vital Signs Noted Labs Noted Test 07/18/19 18:30 07/18/19 19:10 07/18/19 20:31 07/18/19 21:23 White Blood Count 5.3 K/UL (4.8-10.8) Red Blood Count 3.78 M/UL (4.70-6.10) Hemoglobin 12.0 G/DL (14.2-18.0) Hematocrit 38.4 % (42.0-52.0) Mean Corpuscular Volume 102 FL (80-99) Mean Corpuscular Hemoglobin 31.8 PG (27.0-31.0) Mean Corpuscular Hemoglobin Concent 31.3 G/DL (32.0-36.0) Red Cell Distribution Width 16.2 % (11.6-14.8) Platelet Count 104 K/UL (150-450) Mean Platelet Volume 9.8 FL (6.5-10.1) Neutrophils (%) (Auto) 72.1 % (45.0-75.0) Lymphocytes (%) (Auto) 20.0 % (20.0-45.0) Monocytes (%) (Auto) 7.1 % (1.0-10.0) Eosinophils (%) (Auto) 0.2 % (0.0-3.0) Basophils (%) (Auto) 0.6 % (0.0-2.0) Sodium Level 133 MMOL/L (136-145) Potassium Level 5.2 MMOL/L (3.5-5.1) Chloride Level 100 MMOL/L (98-107) Carbon Dioxide Level 19 MMOL/L (21-32) Anion Gap 14 mmol/L (5-15) Blood Urea Nitrogen 88 mg/dL (7-18) Creatinine 1.8 MG/DL (0.55-1.30) Estimat Glomerular Filtration Rate 45.1 mL/min (>60) Glucose Level 141 MG/DL (74-106) Lactic Acid Level 3.40 mmol/L (0.4-2.0) 5.20 mmol/L (0.66-2.22) Calcium Level 8.8 MG/DL (8.5-10.1) Total Bilirubin 0.8 MG/DL (0.2-1.0) Aspartate Amino Transf (AST/SGOT) 22 U/L (15-37) Alanine Aminotransferase (ALT/SGPT) 21 U/L (12-78) Alkaline Phosphatase 93 U/L (46-116) Troponin I 0.028 ng/mL (0.000-0.056) C-Reactive Protein, Quantitative 5.8 mg/dL (0.00-0.90) Total Protein 7.5 G/DL (6.4-8.2) Albumin 2.8 G/DL (3.4-5.0) Globulin 4.7 g/dL Albumin/Globulin Ratio 0.6 (1.0-2.7) Prothrombin Time 22.7 SEC (9.30-11.50) Prothromb Time International Ratio 2.2 (0.9-1.1) Activated Partial Thromboplast Time 36 SEC (23-33) D-Dimer 3.78 mg/L FEU (0.00-0.49) Arterial Blood pH 7.414 (7.350-7.450) Arterial Blood Partial Pressure CO2 32.5 mmHg (35.0-45.0) Arterial Blood Partial Pressure O2 496.0 mmHg (75.0-100.0) Arterial Blood HCO3 20.3 mmol/L (22.0-26.0) Arterial Blood Oxygen Saturation 99.6 % (95-100) Arterial Blood Base Excess -3.4 (-2-2) Danis Test Positive Test 07/19/19 04:30 07/19/19 10:34 07/19/19 12:15 07/19/19 12:20 White Blood Count 4.8 K/UL (4.8-10.8) Red Blood Count 3.69 M/UL (4.70-6.10) Hemoglobin 11.6 G/DL (14.2-18.0) Hematocrit 35.1 % (42.0-52.0) Mean Corpuscular Volume 95 FL (80-99) Mean Corpuscular Hemoglobin 31.5 PG (27.0-31.0) Mean Corpuscular Hemoglobin Concent 33.1 G/DL (32.0-36.0) Red Cell Distribution Width 14.8 % (11.6-14.8) Platelet Count 106 K/UL (150-450) Mean Platelet Volume 7.5 FL (6.5-10.1) Neutrophils (%) (Auto) 66.4 % (45.0-75.0) Lymphocytes (%) (Auto) 25.4 % (20.0-45.0) Monocytes (%) (Auto) 7.4 % (1.0-10.0) Eosinophils (%) (Auto) 0.5 % (0.0-3.0) Basophils (%) (Auto) 0.3 % (0.0-2.0) Sodium Level 140 MMOL/L (136-145) Potassium Level 4.3 MMOL/L (3.5-5.1) Chloride Level 103 MMOL/L (98-107) Carbon Dioxide Level 25 MMOL/L (21-32) Anion Gap 12 mmol/L (5-15) Blood Urea Nitrogen 82 mg/dL (7-18) Creatinine 1.8 MG/DL (0.55-1.30) Estimat Glomerular Filtration Rate 45.1 mL/min (>60) Glucose Level 70 MG/DL (74-106) Lactic Acid Level 2.50 mmol/L (0.4-2.0) 2.00 mmol/L (0.4-2.0) Calcium Level 8.8 MG/DL (8.5-10.1) Arterial Blood pH 7.424 (7.350-7.450) Arterial Blood Partial Pressure CO2 36.3 mmHg (35.0-45.0) Arterial Blood Partial Pressure O2 133.3 mmHg (75.0-100.0) Arterial Blood HCO3 23.2 mmol/L (22.0-26.0) Arterial Blood Oxygen Saturation 98.3 % (95-100) Arterial Blood Base Excess -0.8 (-2-2) Danis Test Positive Urine Color Pale yellow Urine Appearance Slightly cloudy Urine pH 7 (4.5-8.0) Urine Specific [place] 1.010 (1.005-1.035) Urine Protein Negative (NEGATIVE) Urine Glucose (UA) Negative (NEGATIVE) Urine Ketones Negative (NEGATIVE) Urine Blood 2+ (NEGATIVE) Urine Nitrite Negative (NEGATIVE) Urine Bilirubin Negative (NEGATIVE) Urine Urobilinogen Normal MG/DL (0.0-1.0) Urine Leukocyte Esterase 3+ (NEGATIVE) Urine RBC 15-20 /HPF (0 - 0) Urine WBC 20-30 /HPF (0 - 0) Urine Squamous Epithelial Cells None /LPF (NONE/OCC) Urine Bacteria Many /HPF (NONE) Test 07/20/19 03:40 Sodium Level 143 MMOL/L (136-145) Potassium Level 3.3 MMOL/L (3.5-5.1) Chloride Level 107 MMOL/L (98-107) Carbon Dioxide Level 26 MMOL/L (21-32) Anion Gap 10 mmol/L (5-15) Blood Urea Nitrogen 63 mg/dL (7-18) Creatinine 1.5 MG/DL (0.55-1.30) Estimat Glomerular Filtration Rate 55.6 mL/min (>60) Glucose Level 89 MG/DL (74-106) Uric Acid 13.2 MG/DL (2.6-7.2) Calcium Level 8.4 MG/DL (8.5-10.1) Phosphorus Level 3.8 MG/DL (2.5-4.9) Magnesium Level 2.4 MG/DL (1.8-2.4) Total Bilirubin 1.0 MG/DL (0.2-1.0) Aspartate Amino Transf (AST/SGOT) 30 U/L (15-37) Alanine Aminotransferase (ALT/SGPT) 23 U/L (12-78) Alkaline Phosphatase 75 U/L (46-116) Total Creatine Kinase 99 U/L (26-308) Total Protein 6.4 G/DL (6.4-8.2) Albumin 2.4 G/DL (3.4-5.0) Globulin 4.0 g/dL Albumin/Globulin Ratio 0.6 (1.0-2.7) Objective: GENERAL: Ill-appearing male, currently off BIPAP and on oxygen HEENT: Negative. NECK: Supple. LUNGS: reduced breath sounds. Crackles both bases. no wheeze CARDIAC: S1, S2. Regular rate and rhythm with noted murmur. ABDOMEN: Soft, nontender. EXTREMITIES: No cyanosis or clubbing. NEUROLOGICAL: Confused. but alert Micro: Microbiology Date/Time Source Procedure Growth Status 07/18/19 18:45 Blood Blood Culture - Preliminary NO GROWTH AFTER 24 HOURS Resulted 07/18/19 18:30 Blood Blood Culture - Preliminary NO GROWTH AFTER 24 HOURS Resulted 07/19/19 12:15 Urine,Clean Catch Urine Culture - Preliminary Gram Negative Javad Resulted 07/19/19 02:50 Rectum Received Critical Care - Objective Last 24 Hour Vital Signs Date Time Temp Pulse Resp B/P (MAP) Pulse Ox O2 Delivery O2 Flow Rate FiO2 07/22/19 12:00 96.9 101 22 122/83 (96) 96 07/22/19 09:00 Room Air 07/22/19 08:41 126/92 07/22/19 08:40 126/92 07/22/19 08:40 126/92 07/22/19 08:00 120 07/22/19 08:00 96.6 118 24 126/92 (103) 95 07/22/19 04:00 108 07/22/19 04:00 97.6 104 20 142/62 (88) 97 07/22/19 00:00 97.0 99 18 108/78 (88) 96 07/22/19 00:00 106 07/21/19 21:00 Room Air 07/21/19 20:23 100/68 07/21/19 20:00 97.5 97 18 110/68 (82) 98 07/21/19 20:00 108 07/21/19 19:34 97 Room Air 21 07/21/19 16:00 96 07/21/19 16:00 97.7 99 22 93/54 (67) 97 Accucheck: 212 Critical Care - Subjective ROS Limited/Unobtainable: No Condition: improving FI02: 21 Sputum Amount: None Tube Feeding Amount: 60 I&O: Intake and Output 07/21/19 07/22/19 19:00 07:00 Intake Total 330 ml 1470.0 ml Output Total 880 ml Balance -550 ml 1470.0 ml Free Water 100 ml 100 ml IV Total 710.0 ml Tube Feeding 180 ml 660 ml Other 50 ml Output Urine Total 880 ml # Bowel Movements 1 Alton Florian MD July 22, 2019 12:22
--- NOTE | 2019-07-22 12:51 | Infectious Diseases Prog Note ---
Assessment/Plan Assessment/Plan A: 1. Pneumonia COVID19 X 1: negative 2. Diabetes. 3. Hypertension. 4. Congestive heart failure. 5. Hepatitis C. 6. Gram-negative+ E.coli urinary tract infection. PLAN: 1. Continue Zosyn. 2. We will follow up cultures and adjust antibiotics accordingly. Subjective ROS Limited/Unobtainable: No Constitutional: Reports: no symptoms Respiratory: Reports: no symptoms Gastrointestinal/Abdominal: Reports: no symptoms Genitourinary: Reports: no symptoms Allergies: Coded Allergies: AMOXAPINE (Unverified Allergy, Unknown, 10/16/18) AMOXICILLIN (Unverified Allergy, Unknown, 04/17/14) LISINOPRIL (Unverified Allergy, Unknown, 04/17/14) Objective Vital Signs Last 24 Hour Vital Signs Date Time Temp Pulse Resp B/P (MAP) Pulse Ox O2 Delivery O2 Flow Rate FiO2 07/22/19 12:00 96.9 101 22 122/83 (96) 96 07/22/19 09:00 Room Air 07/22/19 08:41 126/92 07/22/19 08:40 126/92 07/22/19 08:40 126/92 07/22/19 08:00 120 07/22/19 08:00 96.6 118 24 126/92 (103) 95 07/22/19 04:00 108 07/22/19 04:00 97.6 104 20 142/62 (88) 97 07/22/19 00:00 97.0 99 18 108/78 (88) 96 07/22/19 00:00 106 07/21/19 21:00 Room Air 07/21/19 20:23 100/68 07/21/19 20:00 97.5 97 18 110/68 (82) 98 07/21/19 20:00 108 07/21/19 19:34 97 Room Air 21 07/21/19 16:00 96 07/21/19 16:00 97.7 99 22 93/54 (67) 97 Height (Feet): 5 Height (Inches): 8.00 Weight (Pounds): 140 General Appearance: no acute distress HEENT: mucous membranes moist Respiratory/Chest: lungs clear Cardiovascular: tachycardia Abdomen: soft, non tender, other - Gt feeding Extremities: no edema Neurologic/Psychiatric: alert, responsive Laboratory Tests Test 07/22/19 06:30 White Blood Count 4.5 K/UL (4.8-10.8) L Red Blood Count 4.28 M/UL (4.70-6.10) L Hemoglobin 13.5 G/DL (14.2-18.0) L Hematocrit 41.8 % (42.0-52.0) L Mean Corpuscular Volume 98 FL (80-99) Mean Corpuscular Hemoglobin 31.5 PG (27.0-31.0) H Mean Corpuscular Hemoglobin Concent 32.3 G/DL (32.0-36.0) Red Cell Distribution Width 15.7 % (11.6-14.8) H Platelet Count 145 K/UL (150-450) L Mean Platelet Volume 6.5 FL (6.5-10.1) Neutrophils (%) (Auto) 68.4 % (45.0-75.0) Lymphocytes (%) (Auto) 21.9 % (20.0-45.0) Monocytes (%) (Auto) 5.7 % (1.0-10.0) Eosinophils (%) (Auto) 3.5 % (0.0-3.0) H Basophils (%) (Auto) 0.5 % (0.0-2.0) Sodium Level 144 MMOL/L (136-145) Potassium Level 4.2 MMOL/L (3.5-5.1) Chloride Level 107 MMOL/L (98-107) Carbon Dioxide Level 29 MMOL/L (21-32) Anion Gap 8 mmol/L (5-15) Blood Urea Nitrogen 38 mg/dL (7-18) H Creatinine 1.4 MG/DL (0.55-1.30) H Estimat Glomerular Filtration Rate > 60 mL/min (>60) Glucose Level 261 MG/DL (74-106) #H Calcium Level 8.6 MG/DL (8.5-10.1) Phosphorus Level 2.7 MG/DL (2.5-4.9) Magnesium Level 2.2 MG/DL (1.8-2.4) Current Medications Medications (Trade) Dose Ordered Sig/[place] Route PRN Reason Start Time Stop Time Status Last Admin Dose Admin Acetaminophen (Tylenol) 650 mg Q4H PRN ORAL Mild Pain (Pain Scale 1-3) 07/21/19 10:00 6/27/20 05:59 Al Hydroxide/Mg Hydroxide (Mylanta) 30 ml Q4H PRN ORAL Dyspepsia 07/21/19 13:00 08/18/19 08:59 Atorvastatin Calcium (Lipitor) 40 mg BEDTIME ORAL 07/21/19 21:00 10/17/19 20:59 07/21/19 20:29 Dextrose 1,000 ml @ 100 mls/hr Q10H IV 07/21/19 15:15 08/20/19 15:14 07/22/19 11:32 Dextrose (Dextrose 50%) 25 ml Q30M PRN IV Hypoglycemia 07/21/19 09:45 10/18/19 17:14 Dextrose (Dextrose 50%) 50 ml Q30M PRN IV Hypoglycemia 07/21/19 09:45 10/18/19 17:14 Furosemide (Lasix) 40 mg DAILY IV 07/22/19 09:00 08/18/19 08:59 07/22/19 08:37 Heparin Sodium (Porcine) (Heparin 5000 units/ml) 5,000 units EVERY 12 HOURS SUBQ 07/21/19 21:00 09/02/19 08:59 07/22/19 08:38 Hydralazine HCl (Apresoline) 50 mg BID@0900,2100 ORAL 07/21/19 21:00 10/17/19 08:59 07/22/19 08:40 Hydroxyzine HCl (Vistaril) 10 mg BID PRN ORAL Itching 07/21/19 18:00 08/18/19 05:59 Insulin Aspart (NovoLOG) EVERY 6 HOURS SUBQ 07/21/19 12:00 10/18/19 17:59 07/22/19 06:10 Isosorbide Mononitrate (Imdur) 30 mg DAILY ORAL 07/22/19 09:00 08/18/19 08:59 07/22/19 08:40 Losartan Potassium (Cozaar) 25 mg DAILY ORAL 07/22/19 09:00 08/18/19 08:59 07/22/19 08:41 Pantoprazole (Protonix) 40 mg DAILY ORAL 07/22/19 09:00 08/18/19 08:59 07/22/19 08:40 Piperacillin Sod/ Tazobactam Sod 3.375 gm/Sodium Chloride 110 ml @ 27.5 mls/hr EVERY 8 HOURS IVPB 07/21/19 14:00 07/27/19 15:11 07/22/19 06:15 Sitagliptin Phosphate (Januvia) 50 mg ACBREAKFAST ORAL 07/22/19 06:30 08/18/19 11:29 07/22/19 06:21 Tre Caballero MD July 22, 2019 12:51
--- NOTE | 2019-07-22 14:55 | Nephrology Progress Note ---
Assessment/Plan Assessment 1) CKD III-IV 2) Acute exacerbation of CHF 3) Some cardiorenal syndrome improving 4) Covid negative Plan: Continue diuresis for now Subjective Subjective He is less sob, feeling better Objective Objective Last 24 Hour Vital Signs Date Time Temp Pulse Resp B/P (MAP) Pulse Ox O2 Delivery O2 Flow Rate FiO2 07/22/19 12:00 96.9 101 22 122/83 (96) 96 07/22/19 12:00 97 07/22/19 09:00 Room Air 07/22/19 08:41 126/92 07/22/19 08:40 126/92 07/22/19 08:40 126/92 07/22/19 08:00 120 07/22/19 08:00 96.6 118 24 126/92 (103) 95 07/22/19 04:00 108 07/22/19 04:00 97.6 104 20 142/62 (88) 97 07/22/19 00:00 97.0 99 18 108/78 (88) 96 07/22/19 00:00 106 07/21/19 21:00 Room Air 07/21/19 20:23 100/68 07/21/19 20:00 97.5 97 18 110/68 (82) 98 07/21/19 20:00 108 07/21/19 19:34 97 Room Air 21 07/21/19 16:00 96 07/21/19 16:00 97.7 99 22 93/54 (67) 97 Intake and Output 07/21/19 07/22/19 19:00 07:00 Intake Total 330 ml 1530.0 ml Output Total 880 ml Balance -550 ml 1530.0 ml Free Water 100 ml 100 ml IV Total 710.0 ml Tube Feeding 180 ml 720 ml Other 50 ml Output Urine Total 880 ml # Bowel Movements 1 Laboratory Tests 07/22/19 06:30: White Blood Count 4.5L, Red Blood Count 4.28L, Hemoglobin 13.5L, Hematocrit 41.8L, Mean Corpuscular Volume 98, Mean Corpuscular Hemoglobin 31.5H, Mean Corpuscular Hemoglobin Concent 32.3, Red Cell Distribution Width 15.7H, Platelet Count 145L, Mean Platelet Volume 6.5, Neutrophils (%) (Auto) 68.4, Lymphocytes (%) (Auto) 21.9, Monocytes (%) (Auto) 5.7, Eosinophils (%) (Auto) 3.5H, Basophils (%) (Auto) 0.5, Sodium Level 144, Potassium Level 4.2, Chloride Level 107, Carbon Dioxide Level 29, Anion Gap 8, Blood Urea Nitrogen 38H, Creatinine 1.4H, Estimat Glomerular Filtration Rate > 60, Glucose Level 261#H, Calcium Level 8.6, Phosphorus Level 2.7, Magnesium Level 2.2 Height (Feet): 5 Height (Inches): 8.00 Weight (Pounds): 140 General Appearance: WD/WN, no apparent distress EENT: PERRL/EOMI Neck: non-tender Cardiovascular: normal rate Respiratory/Chest: lungs clear Abdomen: normal bowel sounds, non tender Extremities: non-tender 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
[2019-07-22 16:00] VITALS: BP 106/79
[2019-07-22 20:00] VITALS: BP 110/72
[2019-07-22] MEDS: Atorvastatin 20mg tab ORAL SCH (20:36)
[2019-07-23] VITALS: BP 111/82
[2019-07-23 04:00] VITALS: BP 118/87
--- NOTE | 2019-07-23 05:15 | Progress Note ---
DATE: 07/22/2019 CARDIOLOGY PROGRESS NOTE SUBJECTIVE: The patient has no chest pain. Still has shortness of breath, but is improved. He is off oxygen with adequate saturations in the range of 96% to 97%. Monitored rhythm, sinus tachycardia. OBJECTIVE: VITAL SIGNS: Blood pressure 142/62, heart rate 104, respiratory rate 20. LUNGS: Bilateral breath sounds. Rhonchi and rales. CARDIAC: Regular rhythm. Rapid rate. Normal S1, S2. ABDOMEN: Soft. EXTREMITIES: No edema. LABORATORY AND DIAGNOSTIC DATA: Urine culture is positive for E. coli and secondary gram-negative pathogen. White count 4.5, hemoglobin 13.5. Sodium is 144, potassium 4.2, bicarb 29, BUN 38, creatinine 1.4, glucose 296, and magnesium 2.2. IMPRESSION: 1. Acute on chronic systolic congestive heart failure. 2. History of cardiac arrhythmias with LifeVest. 3. Severe cardiomyopathy, resolved. 4. Lactic acidosis. 5. Urinary tract infection with sepsis. 6. Acute on chronic renal failure, improving. 7. Hypoxia, resolving. 8. Hepatitis C, on Harvoni therapy prior to admission. 9. Hypernatremia and hypokalemia, resolved. PLAN: 1. Cautious diuresis. 2. Monitoring of cardiorenal function. Monitoring electrolytes, now trending natriuretic peptide assay, antimicrobials, await final cultures. 3. DVT prophylaxis. 4. Discontinue IV fluids. lAton Malloy M.D. DR: LALA JOB#: [id number] CC:
[2019-07-23] MEDS: NovoLOG Insulin Flexpen SUBQ SCH ×4 (06:10→23:56)
[2019-07-23] MEDS: Piperacillin/Tazobactam 3.375 GM in NS 110 ML IVPB SCH (06:15)
[2019-07-23] MEDS: sitaGLIPtin 50mg tab ORAL SCH (06:15)
[2019-07-23 07:30] LABS: BASOPHILS % (AUTO) 0.9 % (0.0-2.0); EOSINOPHILS % (AUTO) 4.2 % (0.0-3.0); HEMATOCRIT 38.9 % (42.0-52.0); HEMOGLOBIN 12.7 G/DL (14.2-18.0); MEAN CORPUSCULAR VOLUME 97 FL (80-99); MONOCYTES % (AUTO) 7.2 % (1.0-10.0); NEUTROPHILS % (AUTO) 65.8 % (45.0-75.0); PLATELET COUNT 115 K/UL (150-450); RED BLOOD COUNT 4.01 M/UL (4.70-6.10); RED CELL DISTRIBUTION WIDTH 15.5 % (11.6-14.8); WHITE BLOOD COUNT 4.2 K/UL (4.8-10.8)
[2019-07-23 07:56] LABS: ANION GAP 10 mmol/L (5-15); BLOOD UREA NITROGEN 31 mg/dL (7-18); CALCIUM 8.5 MG/DL (8.5-10.1); CARBON DIOXIDE 28 MMOL/L (21-32); CHLORIDE 107 MMOL/L (98-107); CREATININE 1.1 MG/DL (0.55-1.30); POTASSIUM 3.7 MMOL/L (3.5-5.1); SODIUM 145 MMOL/L (136-145)
[2019-07-23 08:00] VITALS: BP 116/93
--- NOTE | 2019-07-23 08:24 | Critical Care Progress Note ---
Assessment/Plan Assessment/Plan IMPRESSION: 1. Evidence of chronic renal failure. 2. Coronary artery disease. 3. CHF. 4. Hepatitis C. 5. Pacemaker. 6. G-tube. 7. Aspiration. 8. Possible COVID. 9. Evidence of pneumonia. 10. Lactic acidemia 11. CXR with pulmonary infiltrates PLAN monitor ABG and imaging oxygen as needed BIPAP PRN meds as is remains full code optimize as able dc planning medications/laboratory data/nursing notes reviewed in detail note reviewed and edited care discussed with RN and RT Critical Care - Subjective Condition: improving EKG Rhythm: Sinus Rhythm I&O: Intake and Output 07/22/19 07/23/19 19:00 07:00 Intake Total 1865.0 ml 930.0 ml Output Total 1650 ml Balance 215.0 ml 930.0 ml Free Water 200 ml 160 ml IV Total 1065.0 ml 110.0 ml Tube Feeding 600 ml 660 ml Output Urine Total 1650 ml # Bowel Movements 6 Critical Care - Objective Last 24 Hour Vital Signs Date Time Temp Pulse Resp B/P (MAP) Pulse Ox O2 Delivery O2 Flow Rate FiO2 07/23/19 04:00 104 07/23/19 04:00 97.7 108 19 118/87 (97) 99 07/23/19 00:00 97.3 104 20 111/82 (92) 100 07/23/19 00:00 110 07/22/19 21:00 Room Air 07/22/19 20:32 110/75 07/22/19 20:00 101 07/22/19 20:00 98.1 98 24 110/72 (85) 97 07/22/19 16:00 97.5 101 22 106/79 (88) 96 07/22/19 16:00 97 07/22/19 12:00 96.9 101 22 122/83 (96) 96 07/22/19 12:00 97 07/22/19 09:00 Room Air 07/22/19 08:41 126/92 07/22/19 08:40 126/92 07/22/19 08:40 126/92 Labs: Laboratory Tests Test 07/23/19 05:48 White Blood Count 4.2 K/UL (4.8-10.8) L Red Blood Count 4.01 M/UL (4.70-6.10) L Hemoglobin 12.7 G/DL (14.2-18.0) L Hematocrit 38.9 % (42.0-52.0) L Mean Corpuscular Volume 97 FL (80-99) Mean Corpuscular Hemoglobin 31.6 PG (27.0-31.0) H Mean Corpuscular Hemoglobin Concent 32.6 G/DL (32.0-36.0) Red Cell Distribution Width 15.5 % (11.6-14.8) H Platelet Count 115 K/UL (150-450) L Mean Platelet Volume 6.9 FL (6.5-10.1) Neutrophils (%) (Auto) 65.8 % (45.0-75.0) Lymphocytes (%) (Auto) 22.0 % (20.0-45.0) Monocytes (%) (Auto) 7.2 % (1.0-10.0) Eosinophils (%) (Auto) 4.2 % (0.0-3.0) H Basophils (%) (Auto) 0.9 % (0.0-2.0) Sodium Level 145 MMOL/L (136-145) Potassium Level 3.7 MMOL/L (3.5-5.1) Chloride Level 107 MMOL/L (98-107) Carbon Dioxide Level 28 MMOL/L (21-32) Anion Gap 10 mmol/L (5-15) Blood Urea Nitrogen 31 mg/dL (7-18) H Creatinine 1.1 MG/DL (0.55-1.30) Estimat Glomerular Filtration Rate > 60 mL/min (>60) Glucose Level 156 MG/DL (74-106) #H Calcium Level 8.5 MG/DL (8.5-10.1) Pro-B-Type Natriuretic Peptide > 65796 pg/mL (0-125) H Objective: GENERAL: NAD and on oxygen HEENT: Negative. NECK: Supple. LUNGS: reduced breath sounds. Crackles both bases. no wheeze CARDIAC: S1, S2. Regular rate and rhythm with noted murmur. ABDOMEN: Soft, nontender. EXTREMITIES: No cyanosis or clubbing. NEUROLOGICAL: Confused. but alert Accucheck: 159 Jose Iglesias MD Jul 23, 2019 08:24
--- NOTE | 2019-07-23 08:47 | General Progress Note ---
Assessment/Plan Problem List: (1) Suspected COVID-19 virus infection ICD Codes: Z20.828 - Contact with and (suspected) exposure to other viral communicable diseases SNOMED: 069217317 (2) PNA (pneumonia) ICD Codes: J18.9 - Pneumonia, unspecified organism SNOMED: 789135867 (3) CHF (congestive heart failure) ICD Codes: I50.9 - Heart failure, unspecified SNOMED: 59885246 (4) UTI (urinary tract infection) ICD Codes: N39.0 - Urinary tract infection, site not specified SNOMED: 29143037 (5) ARAMIS (acute kidney injury) ICD Codes: N17.9 - Acute kidney failure, unspecified SNOMED: 88758089, 8523113 Status: stable Assessment/Plan: o2 prn as needed diuresis monitor i/o tube feeds iv abx follow up cultures monitor cxr dvt/stress ulcer prophylaxis Subjective ROS Limited/Unobtainable: No Constitutional: Reports: malaise HEENT: Reports: no symptoms Cardiovascular: Reports: no symptoms Respiratory: Reports: cough, shortness of breath Gastrointestinal/Abdominal: Reports: difficulty swallowing Genitourinary: Reports: no symptoms Neurologic/Psychiatric: Reports: pre-existing deficit Endocrine: Reports: no symptoms Hematologic/Lymphatic: Reports: anemia Allergies: Coded Allergies: AMOXAPINE (Unverified Allergy, Unknown, 10/16/18) AMOXICILLIN (Unverified Allergy, Unknown, 04/17/14) LISINOPRIL (Unverified Allergy, Unknown, 04/17/14) All Systems: reviewed and negative except above Subjective no new complaints. stable. no new complaints. no fever or chills. tolerating feeds. HR slightly up. no chest pain . Objective Last 24 Hour Vital Signs Date Time Temp Pulse Resp B/P (MAP) Pulse Ox O2 Delivery O2 Flow Rate FiO2 07/23/19 04:00 104 07/23/19 04:00 97.7 108 19 118/87 (97) 99 07/23/19 00:00 97.3 104 20 111/82 (92) 100 07/23/19 00:00 110 07/22/19 21:00 Room Air 07/22/19 20:32 110/75 07/22/19 20:00 101 07/22/19 20:00 98.1 98 24 110/72 (85) 97 07/22/19 16:00 97.5 101 22 106/79 (88) 96 07/22/19 16:00 97 07/22/19 12:00 96.9 101 22 122/83 (96) 96 07/22/19 12:00 97 07/22/19 09:00 Room Air Intake and Output 07/22/19 07/23/19 18:59 06:59 Intake Total 1865.0 ml 1090.0 ml Output Total 1650 ml Balance 215.0 ml 1090.0 ml Free Water 100 ml 260 ml IV Total 1165.0 ml 110.0 ml Tube Feeding 600 ml 720 ml Output Urine Total 1650 ml # Bowel Movements 6 Laboratory Tests 07/23/19 05:48: White Blood Count 4.2L, Red Blood Count 4.01L, Hemoglobin 12.7L, Hematocrit 38.9L, Mean Corpuscular Volume 97, Mean Corpuscular Hemoglobin 31.6H, Mean Corpuscular Hemoglobin Concent 32.6, Red Cell Distribution Width 15.5H, Platelet Count 115L, Mean Platelet Volume 6.9, Neutrophils (%) (Auto) 65.8, Lymphocytes (%) (Auto) 22.0, Monocytes (%) (Auto) 7.2, Eosinophils (%) (Auto) 4.2H, Basophils (%) (Auto) 0.9, Sodium Level 145, Potassium Level 3.7, Chloride Level 107, Carbon Dioxide Level 28, Anion Gap 10, Blood Urea Nitrogen 31H, Creatinine 1.1, Estimat Glomerular Filtration Rate > 60, Glucose Level 156#H, Calcium Level 8.5, Pro-B-Type Natriuretic Peptide > 01853S Height (Feet): 5 Height (Inches): 8.00 Weight (Pounds): 142 Objective General Appearance: WD/WN, confused, thin EENT: PERRL/EOMI, normal ENT inspection, TMs normal Neck: non-tender, normal alignment, supple Cardiovascular: normal peripheral pulses, normal rate, regular rhythm Respiratory/Chest: chest wall non-tender, lungs clear, normal breath sounds, no respiratory distress, no accessory muscle use Abdomen: normal bowel sounds, non tender, soft, no organomegaly, no mass Extremities: normal range of motion, non-tender Edema: no edema noted Arm (L), no edema noted Arm (R) 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
--- NOTE | 2019-07-23 09:15 | Urology Progress Note ---
Assessment/Plan Status: stable Assessment/Plan: BPH hx urinary retention with chronic limon neurogenic bladder (atonic) UTI/colonized ARAMIS/CKD hematuria renal cyst monitor clinically maintain limon indwelling abx as ordered f/u on cx's monitor renal fxn consider repeat renal imaging flomax and proscar dc'd I personally removed old limon urethral meatus gently dilated and new 18f limon placed hand irrigated and position satisfactory Subjective Allergies: Coded Allergies: AMOXAPINE (Unverified Allergy, Unknown, 10/16/18) AMOXICILLIN (Unverified Allergy, Unknown, 04/17/14) LISINOPRIL (Unverified Allergy, Unknown, 04/17/14) Subjective all noted, feels fair Objective Last 24 Hour Vital Signs Date Time Temp Pulse Resp B/P (MAP) Pulse Ox O2 Delivery O2 Flow Rate FiO2 07/23/19 04:00 104 07/23/19 04:00 97.7 108 19 118/87 (97) 99 07/23/19 00:00 97.3 104 20 111/82 (92) 100 07/23/19 00:00 110 07/22/19 21:00 Room Air 07/22/19 20:32 110/75 07/22/19 20:00 101 07/22/19 20:00 98.1 98 24 110/72 (85) 97 07/22/19 16:00 97.5 101 22 106/79 (88) 96 07/22/19 16:00 97 07/22/19 12:00 96.9 101 22 122/83 (96) 96 07/22/19 12:00 97 Intake and Output 07/22/19 07/23/19 19:00 07:00 Intake Total 1865.0 ml 930.0 ml Output Total 1650 ml Balance 215.0 ml 930.0 ml Free Water 200 ml 160 ml IV Total 1065.0 ml 110.0 ml Tube Feeding 600 ml 660 ml Output Urine Total 1650 ml # Bowel Movements 6 Microbiology Date/Time Source Procedure Growth Status 07/18/19 18:45 Blood Blood Culture - Preliminary NO GROWTH AFTER 4 DAYS Resulted 07/19/19 02:50 Nasal Nares MRSA Culture - Final NO METHICILLIN RESISTANT STAPH AUREUS... Complete 07/19/19 12:15 Urine,Clean Catch Urine Culture - Final Escherichia Coli Pseudomonas Aeruginosa Complete 07/19/19 02:50 Rectum - Final NO CARBAPENEM-RESISTANT ENTEROBACTERI... Complete Current Medications Medications (Trade) Dose Ordered Sig/[place] Route PRN Reason Start Time Stop Time Status Last Admin Dose Admin Acetaminophen (Tylenol) 650 mg Q4H PRN ORAL Mild Pain (Pain Scale 1-3) 07/21/19 10:00 08/18/19 05:59 Al Hydroxide/Mg Hydroxide (Mylanta) 30 ml Q4H PRN ORAL Dyspepsia 07/21/19 13:00 08/18/19 08:59 Atorvastatin Calcium (Lipitor) 40 mg BEDTIME ORAL 07/21/19 21:00 10/17/19 20:59 07/22/19 20:36 Dextrose (Dextrose 50%) 25 ml Q30M PRN IV Hypoglycemia 07/21/19 09:45 10/18/19 17:14 Dextrose (Dextrose 50%) 50 ml Q30M PRN IV Hypoglycemia 07/21/19 09:45 10/18/19 17:14 Furosemide (Lasix) 40 mg DAILY IV 07/22/19 09:00 08/18/19 08:59 07/22/19 08:37 Heparin Sodium (Porcine) (Heparin 5000 units/ml) 5,000 units EVERY 12 HOURS SUBQ 07/21/19 21:00 09/02/19 08:59 07/22/19 20:35 Hydralazine HCl (Apresoline) 50 mg BID@0900,2100 ORAL 07/21/19 21:00 10/17/19 08:59 07/22/19 08:40 Hydroxyzine HCl (Vistaril) 10 mg BID PRN ORAL Itching 07/21/19 18:00 08/18/19 05:59 Insulin Aspart (NovoLOG) EVERY 6 HOURS SUBQ 07/21/19 12:00 10/18/19 17:59 07/23/19 06:10 Isosorbide Mononitrate (Imdur) 30 mg DAILY ORAL 07/22/19 09:00 08/18/19 08:59 07/22/19 08:40 Losartan Potassium (Cozaar) 25 mg DAILY ORAL 07/22/19 09:00 08/18/19 08:59 07/22/19 08:41 Pantoprazole (Protonix) 40 mg DAILY ORAL 07/22/19 09:00 08/18/19 08:59 07/22/19 08:40 Piperacillin Sod/ Tazobactam Sod 3.375 gm/Sodium Chloride 110 ml @ 27.5 mls/hr EVERY 8 HOURS IVPB 07/21/19 14:00 07/27/19 15:11 07/23/19 06:15 Sitagliptin Phosphate (Januvia) 50 mg ACBREAKFAST ORAL 07/22/19 06:30 08/18/19 11:29 07/23/19 06:15 Laboratory Tests 07/23/19 05:48: White Blood Count 4.2L, Red Blood Count 4.01L, Hemoglobin 12.7L, Hematocrit 38.9L, Mean Corpuscular Volume 97, Mean Corpuscular Hemoglobin 31.6H, Mean Corpuscular Hemoglobin Concent 32.6, Red Cell Distribution Width 15.5H, Platelet Count 115L, Mean Platelet Volume 6.9, Neutrophils (%) (Auto) 65.8, Lymphocytes (%) (Auto) 22.0, Monocytes (%) (Auto) 7.2, Eosinophils (%) (Auto) 4.2H, Basophils (%) (Auto) 0.9, Sodium Level 145, Potassium Level 3.7, Chloride Level 107, Carbon Dioxide Level 28, Anion Gap 10, Blood Urea Nitrogen 31H, Creatinine 1.1, Estimat Glomerular Filtration Rate > 60, Glucose Level 156#H, Calcium Level 8.5, Pro-B-Type Natriuretic Peptide > 82168E Height (Feet): 5 Height (Inches): 8.00 Weight (Pounds): 142 Objective exam stable 18f limon, yellow/corey urine, occasional debris old renal imaging noted Panchito Camarena MD Jul 23, 2019 09:15
[2019-07-23] MEDS: HydrALAZINE 50mg tab ORAL SCH ×2 (09:39→21:26)
[2019-07-23] MEDS: Imdur 30mg tab ORAL SCH (09:40)
[2019-07-23] MEDS: Losartan 25mg tab ORAL SCH (09:40)
[2019-07-23] MEDS: Heparin 5000 units/ml inj SUBQ SCH ×2 (09:42→21:27)
--- NOTE | 2019-07-23 10:44 | Infectious Diseases Prog Note ---
"Assessment/Plan Assessment/Plan antibiotics : zosyn A 1. e.coli | pseudomonas UTI 2. bilateral pneumonia COVID-19 negative x 1 3. Diabetes. 4. Hypertension. 5. Congestive heart failure. 6. Hepatitis C. 7. renal failure improving P 1. d/c Zosyn 2. start and continue cefepime 2 more days 3. will follow up cultures Subjective ROS Limited/Unobtainable: Yes Constitutional: Denies: fever, chills Respiratory: Reports: shortness of breath; Denies: dry cough Gastrointestinal/Abdominal: Denies: nausea, vomiting, diarrhea Musculoskeletal: Denies: pain Allergies: Coded Allergies: AMOXAPINE (Unverified Allergy, Unknown, 10/16/18) AMOXICILLIN (Unverified Allergy, Unknown, 04/17/14) LISINOPRIL (Unverified Allergy, Unknown, 04/17/14) Objective Vital Signs Last 24 Hour Vital Signs Date Time Temp Pulse Resp B/P (MAP) Pulse Ox O2 Delivery O2 Flow Rate FiO2 07/23/19 09:40 116/93 07/23/19 09:40 116/93 07/23/19 09:39 116/93 07/23/19 09:00 Room Air 07/23/19 08:35 114 07/23/19 08:00 97.7 99 20 116/93 (101) 96 07/23/19 04:00 104 07/23/19 04:00 97.7 108 19 118/87 (97) 99 07/23/19 00:00 97.3 104 20 111/82 (92) 100 07/23/19 00:00 110 07/22/19 21:00 Room Air 07/22/19 20:32 110/75 07/22/19 20:00 101 07/22/19 20:00 98.1 98 24 110/72 (85) 97 07/22/19 16:00 97.5 101 22 106/79 (88) 96 07/22/19 16:00 97 07/22/19 12:00 96.9 101 22 122/83 (96) 96 07/22/19 12:00 97 Height (Feet): 5 Height (Inches): 8.00 Weight (Pounds): 142 Respiratory/Chest: lungs clear Cardiovascular: normal rate, regular rhythm, no gallop/murmur Abdomen: soft, non tender, other - GT Extremities: no edema Laboratory Tests Test 07/23/19 05:48 White Blood Count 4.2 K/UL (4.8-10.8) L Red Blood Count 4.01 M/UL (4.70-6.10) L Hemoglobin 12.7 G/DL (14.2-18.0) L Hematocrit 38.9 % (42.0-52.0) L Mean Corpuscular Volume 97 FL (80-99) Mean Corpuscular Hemoglobin 31.6 PG (27.0-31.0) H Mean Corpuscular Hemoglobin Concent 32.6 G/DL (32.0-36.0) Red Cell Distribution Width 15.5 % (11.6-14.8) H Platelet Count 115 K/UL (150-450) L Mean Platelet Volume 6.9 FL (6.5-10.1) Neutrophils (%) (Auto) 65.8 % (45.0-75.0) Lymphocytes (%) (Auto) 22.0 % (20.0-45.0) Monocytes (%) (Auto) 7.2 % (1.0-10.0) Eosinophils (%) (Auto) 4.2 % (0.0-3.0) H Basophils (%) (Auto) 0.9 % (0.0-2.0) Sodium Level 145 MMOL/L (136-145) Potassium Level 3.7 MMOL/L (3.5-5.1) Chloride Level 107 MMOL/L (98-107) Carbon Dioxide Level 28 MMOL/L (21-32) Anion Gap 10 mmol/L (5-15) Blood Urea Nitrogen 31 mg/dL (7-18) H Creatinine 1.1 MG/DL (0.55-1.30) Estimat Glomerular Filtration Rate > 60 mL/min (>60) Glucose Level 156 MG/DL (74-106) #H Calcium Level 8.5 MG/DL (8.5-10.1) Pro-B-Type Natriuretic Peptide > 46435 pg/mL (0-125) H Current Medications Medications (Trade) Dose Ordered Sig/[place] Route PRN Reason Start Time Stop Time Status Last Admin Dose Admin Acetaminophen (Tylenol) 650 mg Q4H PRN ORAL Mild Pain (Pain Scale 1-3) 07/21/19 10:00 08/18/19 05:59 Al Hydroxide/Mg Hydroxide (Mylanta) 30 ml Q4H PRN ORAL Dyspepsia 07/21/19 13:00 08/18/19 08:59 Atorvastatin Calcium (Lipitor) 40 mg BEDTIME ORAL 07/21/19 21:00 10/17/19 20:59 07/22/19 20:36 Dextrose (Dextrose 50%) 25 ml Q30M PRN IV Hypoglycemia 07/21/19 09:45 10/18/19 17:14 Dextrose (Dextrose 50%) 50 ml Q30M PRN IV Hypoglycemia 07/21/19 09:45 10/18/19 17:14 Furosemide (Lasix) 40 mg DAILY IV 07/22/19 09:00 08/18/19 08:59 07/23/19 09:40 Heparin Sodium (Porcine) (Heparin 5000 units/ml) 5,000 units EVERY 12 HOURS SUBQ 07/21/19 21:00 09/02/19 08:59 07/23/19 09:42 Hydralazine HCl (Apresoline) 50 mg BID@0900,2100 ORAL 07/21/19 21:00 10/17/19 08:59 07/23/19 09:39 Hydroxyzine HCl (Vistaril) 10 mg BID PRN ORAL Itching 07/21/19 18:00 08/18/19 05:59 Insulin Aspart (NovoLOG) EVERY 6 HOURS SUBQ 07/21/19 12:00 10/18/19 17:59 07/23/19 06:10 Isosorbide Mononitrate (Imdur) 30 mg DAILY ORAL 07/22/19 09:00 08/18/19 08:59 07/23/19 09:40 Losartan Potassium (Cozaar) 25 mg DAILY ORAL 07/22/19 09:00 08/18/19 08:59 07/23/19 09:40 Pantoprazole (Protonix) 40 mg DAILY ORAL 07/22/19 09:00 08/18/19 08:59 07/23/19 09:40 Piperacillin Sod/ Tazobactam Sod 3.375 gm/Sodium Chloride 110 ml @ 27.5 mls/hr EVERY 8 HOURS IVPB 07/21/19 14:00 07/27/19 15:11 07/23/19 06:15 Sitagliptin Phosphate (Januvia) 50 mg ACBREAKFAST ORAL 07/22/19 06:30 08/18/19 11:29 07/23/19 06:15 Daniel Kimball MD Jul 23, 2019 10:44"
[2019-07-23 11:57] VITALS: BP 114/90
[2019-07-23 16:00] VITALS: BP 100/82
[2019-07-23] MEDS ORDERED: Tubing IV Blood Pump IV ONE (17:15)
[2019-07-23] MEDS ORDERED: NS 275ml ONE (17:15)
[2019-07-23] MEDS ORDERED: Tubing IV Secondary IV ONE (17:15)
[2019-07-23 20:00] VITALS: BP 116/80
--- NOTE | 2019-07-23 21:08 | Nephrology Progress Note ---
Assessment/Plan Problem List: (1) CKD (chronic kidney disease) stage 3, GFR 30-59 ml/min (2) ARAMIS (acute kidney injury) (3) UTI (urinary tract infection) (4) CHF (congestive heart failure) Assessment: sys (5) Urinary retention Assessment: chronic Plan continue diuresis, limon, antibiotics Subjective Constitutional: Reports: weakness HEENT: Reports: no symptoms Genitourinary: Reports: incontinence Neurologic/Psychiatric: Reports: no symptoms Objective Objective Last 24 Hour Vital Signs Date Time Temp Pulse Resp B/P (MAP) Pulse Ox O2 Delivery O2 Flow Rate FiO2 07/23/19 16:00 97.9 87 20 100/82 (88) 97 07/23/19 15:10 111 07/23/19 11:57 98.1 96 20 114/90 (98) 95 07/23/19 11:42 113 07/23/19 09:40 116/93 07/23/19 09:40 116/93 07/23/19 09:39 116/93 07/23/19 09:00 Room Air 07/23/19 08:35 114 07/23/19 08:00 97.7 99 20 116/93 (101) 96 07/23/19 04:00 104 07/23/19 04:00 97.7 108 19 118/87 (97) 99 07/23/19 00:00 97.3 104 20 111/82 (92) 100 07/23/19 00:00 110 Intake and Output 07/22/19 07/23/19 19:00 07:00 Intake Total 1865.0 ml 990.0 ml Output Total 1650 ml Balance 215.0 ml 990.0 ml Free Water 200 ml 160 ml IV Total 1065.0 ml 110.0 ml Tube Feeding 600 ml 720 ml Output Urine Total 1650 ml # Bowel Movements 6 Laboratory Tests 07/23/19 05:48: White Blood Count 4.2L, Red Blood Count 4.01L, Hemoglobin 12.7L, Hematocrit 38.9L, Mean Corpuscular Volume 97, Mean Corpuscular Hemoglobin 31.6H, Mean Corpuscular Hemoglobin Concent 32.6, Red Cell Distribution Width 15.5H, Platelet Count 115L, Mean Platelet Volume 6.9, Neutrophils (%) (Auto) 65.8, Lymphocytes (%) (Auto) 22.0, Monocytes (%) (Auto) 7.2, Eosinophils (%) (Auto) 4.2H, Basophils (%) (Auto) 0.9, Sodium Level 145, Potassium Level 3.7, Chloride Level 107, Carbon Dioxide Level 28, Anion Gap 10, Blood Urea Nitrogen 31H, Creatinine 1.1, Estimat Glomerular Filtration Rate > 60, Glucose Level 156#H, Calcium Level 8.5, Pro-B-Type Natriuretic Peptide > 55822D Height (Feet): 5 Height (Inches): 8.00 Weight (Pounds): 142 General Appearance: alert EENT: normal ENT inspection Neck: normal alignment Cardiovascular: regular rhythm Respiratory/Chest: lungs clear Abdomen: non tender, soft Extremities: no edema Neurologic: care clinician II-XII grossly normal Ang Worrell MD Jul 23, 2019 21:08
[2019-07-23] MEDS: Atorvastatin 20mg tab ORAL SCH (21:18)
[2019-07-23] MEDS: Cefepime HCl 1 GM in D5W 55 ML IVPB SCH (21:24)
--- NOTE | 2019-07-23 23:45 | Progress Note ---
DATE: 07/23/2019 SUBJECTIVE: The patient without complaints. Tolerating feedings. No fevers or chills. PHYSICAL EXAMINATION: VITAL SIGNS: Blood pressure 118/87, heart rate 108, respirations 19, afebrile. LUNGS: Bilateral breath sounds. No wheezing. No rales. CARDIAC: Regular rhythm and rate. Normal S1, S2. A 1/6 systolic murmur at apex. ABDOMEN: Soft. EXTREMITIES: Trace edema. Intake and output noted. LABORATORY DATA: White count 4.2, hemoglobin 12.7. Potassium 3.7, BUN 31, creatinine 1.1. Pro natriuretic peptide 35,000. Urine culture positive for E. coli and Pseudomonas. IMPRESSION: 1. Severe cardiomyopathy. 2. History of cardiac arrhythmias with LifeVest. 3. Acute on chronic systolic congestive heart failure. 4. Paroxysmal atrial and ventricular arrhythmias. 5. Rising natriuretic peptide assay. 6. Improved renal function. PLAN: 1. Advance anti-failure regimen. 2. Advance diuresis. 3. Follow up chest x-ray. 4. Antimicrobials per Infectious Disease mining consultant. 5. Discharge planning. Alton Malloy M.D. DR: ZE JOB#: [id number] CC:
[2019-07-24] VITALS (7 sets, daily range): BP systolic 100–117; BP diastolic 72–99
[2019-07-24 05:36] LABS: ANION GAP 8 mmol/L (5-15); BLOOD UREA NITROGEN 34 mg/dL (7-18); CALCIUM 8.5 MG/DL (8.5-10.1); CARBON DIOXIDE 29 MMOL/L (21-32); CHLORIDE 108 MMOL/L (98-107); CREATININE 1.1 MG/DL (0.55-1.30); PHOSPHORUS 3.3 MG/DL (2.5-4.9); POTASSIUM 3.9 MMOL/L (3.5-5.1); SODIUM 145 MMOL/L (136-145)
[2019-07-24] MEDS: NovoLOG Insulin Flexpen SUBQ SCH ×4 (06:10→23:42)
[2019-07-24] MEDS: sitaGLIPtin 50mg tab ORAL SCH (06:11)
--- NOTE | 2019-07-24 07:17 | General Progress Note ---
Assessment/Plan Problem List: (1) Suspected COVID-19 virus infection ICD Codes: Z20.828 - Contact with and (suspected) exposure to other viral communicable diseases SNOMED: 223884250 (2) PNA (pneumonia) ICD Codes: J18.9 - Pneumonia, unspecified organism SNOMED: 899904732 (3) CHF (congestive heart failure) ICD Codes: I50.9 - Heart failure, unspecified SNOMED: 53803221 (4) UTI (urinary tract infection) ICD Codes: N39.0 - Urinary tract infection, site not specified SNOMED: 55312942 (5) ARAMIS (acute kidney injury) ICD Codes: N17.9 - Acute kidney failure, unspecified SNOMED: 92430031, 1048150 Status: stable Assessment/Plan: o2 prn as needed diuresis per cards monitor i/o tube feeds/monitor residuals iv abx follow up cultures monitor cxr dvt/stress ulcer prophylaxis turn q2 Subjective ROS Limited/Unobtainable: No Constitutional: Reports: malaise, weakness HEENT: Reports: no symptoms Cardiovascular: Reports: no symptoms Respiratory: Reports: cough, shortness of breath Gastrointestinal/Abdominal: Reports: difficulty swallowing Genitourinary: Reports: no symptoms Neurologic/Psychiatric: Reports: pre-existing deficit Endocrine: Reports: no symptoms Hematologic/Lymphatic: Reports: no symptoms Allergies: Coded Allergies: AMOXAPINE (Unverified Allergy, Unknown, 10/16/18) AMOXICILLIN (Unverified Allergy, Unknown, 04/17/14) LISINOPRIL (Unverified Allergy, Unknown, 04/17/14) All Systems: reviewed and negative except above Subjective no new complaints. stable. no new complaints. no fever or chills. tolerating feeds. no chest pain . Objective Last 24 Hour Vital Signs Date Time Temp Pulse Resp B/P (MAP) Pulse Ox O2 Delivery O2 Flow Rate FiO2 07/24/19 04:00 97.1 83 21 115/77 (90) 100 07/24/19 04:00 107 07/24/19 00:00 97.8 68 22 105/73 (84) 96 07/24/19 00:00 105 07/23/19 21:26 116/82 07/23/19 21:00 Room Air 07/23/19 20:00 96.8 76 20 116/80 (92) 100 07/23/19 20:00 107 07/23/19 16:00 97.9 87 20 100/82 (88) 97 07/23/19 15:10 111 07/23/19 11:57 98.1 96 20 114/90 (98) 95 07/23/19 11:42 113 07/23/19 09:40 116/93 07/23/19 09:40 116/93 07/23/19 09:39 116/93 07/23/19 09:00 Room Air 07/23/19 08:35 114 07/23/19 08:00 97.7 99 20 116/93 (101) 96 Intake and Output 07/23/19 07/24/19 18:59 06:59 Intake Total 920 ml Output Total 1200 ml Balance -280 ml Free Water 200 ml Tube Feeding 720 ml Output Urine Total 1200 ml # Bowel Movements 1 Laboratory Tests 07/24/19 04:30: Sodium Level 145, Potassium Level 3.9, Chloride Level 108H, Carbon Dioxide Level 29, Anion Gap 8, Blood Urea Nitrogen 34H, Creatinine 1.1, Estimat Glomerular Filtration Rate > 60, Glucose Level 159H, Calcium Level 8.5, Phosphorus Level 3.3, Magnesium Level 2.1 Height (Feet): 5 Height (Inches): 8.00 Weight (Pounds): 142 Objective General Appearance: WD/WN, confused, thin EENT: PERRL/EOMI, normal ENT inspection, TMs normal Neck: non-tender, normal alignment, supple Cardiovascular: normal peripheral pulses, normal rate, regular rhythm Respiratory/Chest: chest wall non-tender, lungs clear, normal breath sounds, no respiratory distress, no accessory muscle use Abdomen: normal bowel sounds, non tender, soft, no organomegaly, no mass Extremities: normal range of motion, non-tender Edema: no edema noted Arm (L), no edema noted Arm (R) Neurologic: ticket maker II-XII grossly normal, alert, responsive, normal mood/affect Skin: normal pigmentation Lymphatic: normal anterior cervical (L), normal anterior cervical (R) Luis Daniel Ascencio MD Jul 24, 2019 07:17
--- NOTE | 2019-07-24 08:19 | Critical Care Progress Note ---
Assessment/Plan Assessment/Plan IMPRESSION: 1. Evidence of chronic renal failure. 2. Coronary artery disease. 3. CHF. 4. Hepatitis C. 5. Pacemaker. 6. G-tube. 7. Aspiration. 8. Possible COVID. 9. Evidence of pneumonia. 10. Lactic acidemia 11. CXR with pulmonary infiltrates PLAN monitor for change oxygen taper BIPAP not needed meds as is remains full code optimize as able dc planning to snf vs home medications/laboratory data/nursing notes reviewed in detail note reviewed and edited care discussed with RN and RT Critical Care - Subjective Interval Events: care noted confused no distress EKG Rhythm: Sinus Rhythm Residuals: minimal Tube Feeding Tolerated: yes I&O: Intake and Output 07/23/19 07/24/19 19:00 07:00 Intake Total 860 ml Output Total 1200 ml Balance -340 ml Free Water 200 ml Tube Feeding 660 ml Output Urine Total 1200 ml # Bowel Movements 1 Critical Care - Objective Last 24 Hour Vital Signs Date Time Temp Pulse Resp B/P (MAP) Pulse Ox O2 Delivery O2 Flow Rate FiO2 07/24/19 04:00 97.1 83 21 115/77 (90) 100 07/24/19 04:00 107 07/24/19 00:00 97.8 68 22 105/73 (84) 96 07/24/19 00:00 105 07/23/19 21:26 116/82 07/23/19 21:00 Room Air 07/23/19 20:00 96.8 76 20 116/80 (92) 100 07/23/19 20:00 107 07/23/19 16:00 97.9 87 20 100/82 (88) 97 07/23/19 15:10 111 07/23/19 11:57 98.1 96 20 114/90 (98) 95 07/23/19 11:42 113 07/23/19 09:40 116/93 07/23/19 09:40 116/93 07/23/19 09:39 116/93 07/23/19 09:00 Room Air 07/23/19 08:35 114 Labs: Laboratory Tests Test 07/24/19 04:30 Sodium Level 145 MMOL/L (136-145) Potassium Level 3.9 MMOL/L (3.5-5.1) Chloride Level 108 MMOL/L (98-107) H Carbon Dioxide Level 29 MMOL/L (21-32) Anion Gap 8 mmol/L (5-15) Blood Urea Nitrogen 34 mg/dL (7-18) H Creatinine 1.1 MG/DL (0.55-1.30) Estimat Glomerular Filtration Rate > 60 mL/min (>60) Glucose Level 159 MG/DL (74-106) H Calcium Level 8.5 MG/DL (8.5-10.1) Phosphorus Level 3.3 MG/DL (2.5-4.9) Magnesium Level 2.1 MG/DL (1.8-2.4) Objective: GENERAL: NAD and on oxygen HEENT: Negative. NECK: Supple. LUNGS: reduced breath sounds. no rhonchi. no wheeze CARDIAC: S1, S2. Regular rate and rhythm with noted murmur. ABDOMEN: Soft, nontender. EXTREMITIES: No cyanosis or clubbing. NEUROLOGICAL: Confused. but alert Accucheck: 162 Jose Iglesias MD Jul 24, 2019 08:19
[2019-07-24] MEDS ORDERED: Losartan 50mg tab ORAL SCH (09:00)
[2019-07-24] MEDS: Imdur 30mg tab ORAL SCH (09:00)
[2019-07-24] MEDS: HydrALAZINE 50mg tab ORAL SCH ×2 (09:00→21:00)
[2019-07-24] MEDS: Carvedilol 6.25mg Tab ORAL SCH ×2 (09:00→21:21)
--- NOTE | 2019-07-24 09:05 | Urology Progress Note ---
Assessment/Plan Status: stable Assessment/Plan: BPH hx urinary retention with chronic limon neurogenic bladder (atonic) UTI/colonized ARAMIS/CKD, improved hematuria renal cyst monitor clinically maintain limon indwelling, last exchanged 07/22 hand irrigated and do PRN abx as ordered monitor renal fxn, improved consider repeat renal imaging flomax and proscar dc'd d/w nursing staff Subjective Allergies: Coded Allergies: AMOXAPINE (Unverified Allergy, Unknown, 10/16/18) AMOXICILLIN (Unverified Allergy, Unknown, 04/17/14) LISINOPRIL (Unverified Allergy, Unknown, 04/17/14) Subjective all noted, feels fair, new limon draining OK Objective Last 24 Hour Vital Signs Date Time Temp Pulse Resp B/P (MAP) Pulse Ox O2 Delivery O2 Flow Rate FiO2 07/24/19 08:00 96.8 84 20 100/72 (81) 95 07/24/19 04:00 97.1 83 21 115/77 (90) 100 07/24/19 04:00 107 07/24/19 00:00 97.8 68 22 105/73 (84) 96 07/24/19 00:00 105 07/23/19 21:26 116/82 07/23/19 21:00 Room Air 07/23/19 20:00 96.8 76 20 116/80 (92) 100 07/23/19 20:00 107 07/23/19 16:00 97.9 87 20 100/82 (88) 97 07/23/19 15:10 111 07/23/19 11:57 98.1 96 20 114/90 (98) 95 07/23/19 11:42 113 07/23/19 09:40 116/93 07/23/19 09:40 116/93 07/23/19 09:39 116/93 Intake and Output 07/23/19 07/24/19 19:00 07:00 Intake Total 860 ml Output Total 1200 ml Balance -340 ml Free Water 200 ml Tube Feeding 660 ml Output Urine Total 1200 ml # Bowel Movements 1 Microbiology Date/Time Source Procedure Growth Status 07/18/19 18:45 Blood Blood Culture - Final NO GROWTH AFTER 5 DAYS Complete 07/19/19 02:50 Nasal Nares MRSA Culture - Final NO METHICILLIN RESISTANT STAPH AUREUS... Complete 07/19/19 12:15 Urine,Clean Catch Urine Culture - Final Escherichia Coli Pseudomonas Aeruginosa Complete 07/19/19 02:50 Rectum - Final NO CARBAPENEM-RESISTANT ENTEROBACTERI... Complete Current Medications Medications (Trade) Dose Ordered Sig/[place] Route PRN Reason Start Time Stop Time Status Last Admin Dose Admin Acetaminophen (Tylenol) 650 mg Q4H PRN ORAL Mild Pain (Pain Scale 1-3) 07/21/19 10:00 08/18/19 05:59 Al Hydroxide/Mg Hydroxide (Mylanta) 30 ml Q4H PRN ORAL Dyspepsia 07/21/19 13:00 08/18/19 08:59 Atorvastatin Calcium (Lipitor) 40 mg BEDTIME ORAL 07/21/19 21:00 10/17/19 20:59 07/23/19 21:18 Carvedilol (Coreg) 6.25 mg EVERY 12 HOURS ORAL 07/24/19 09:00 08/23/19 08:59 Cefepime HCl 1 gm/ Dextrose 55 ml @ 110 mls/hr EVERY 12 HOURS IVPB 07/23/19 21:00 07/30/19 20:59 07/23/19 21:24 Dextrose (Dextrose 50%) 25 ml Q30M PRN IV Hypoglycemia 07/21/19 09:45 10/18/19 17:14 Dextrose (Dextrose 50%) 50 ml Q30M PRN IV Hypoglycemia 07/21/19 09:45 10/18/19 17:14 Furosemide (Lasix) 40 mg DAILY IV 07/22/19 09:00 08/18/19 08:59 07/23/19 09:40 Heparin Sodium (Porcine) (Heparin 5000 units/ml) 5,000 units EVERY 12 HOURS SUBQ 07/21/19 21:00 09/02/19 08:59 07/23/19 21:27 Hydralazine HCl (Apresoline) 50 mg BID@0900,2100 ORAL 07/21/19 21:00 10/17/19 08:59 07/23/19 21:26 Hydroxyzine HCl (Vistaril) 10 mg BID PRN ORAL Itching 07/21/19 18:00 08/18/19 05:59 Insulin Aspart (NovoLOG) EVERY 6 HOURS SUBQ 07/21/19 12:00 10/18/19 17:59 07/24/19 06:10 Isosorbide Mononitrate (Imdur) 30 mg DAILY ORAL 07/22/19 09:00 08/18/19 08:59 07/23/19 09:40 Losartan Potassium (Cozaar) 50 mg DAILY ORAL 07/24/19 09:00 08/23/19 08:59 Pantoprazole (Protonix) 40 mg DAILY ORAL 07/22/19 09:00 08/18/19 08:59 07/23/19 09:40 Sitagliptin Phosphate (Januvia) 50 mg ACBREAKFAST ORAL 07/22/19 06:30 08/18/19 11:29 07/24/19 06:11 Laboratory Tests 07/24/19 04:30: Sodium Level 145, Potassium Level 3.9, Chloride Level 108H, Carbon Dioxide Level 29, Anion Gap 8, Blood Urea Nitrogen 34H, Creatinine 1.1, Estimat Glomerular Filtration Rate > 60, Glucose Level 159H, Calcium Level 8.5, Phosphorus Level 3.3, Magnesium Level 2.1 Height (Feet): 5 Height (Inches): 8.00 Weight (Pounds): 142 Objective exam stable 18f limon, yellow/corey urine, occasional debris old renal imaging noted Panchito Camarena MD Jul 24, 2019 09:05
[2019-07-24] MEDS: Cefepime HCl 1 GM in D5W 55 ML IVPB SCH ×2 (09:32→21:21)
[2019-07-24] MEDS: Heparin 5000 units/ml inj SUBQ SCH ×2 (09:34→21:23)
--- NOTE | 2019-07-24 10:09 | Infectious Diseases Prog Note ---
"Assessment/Plan Assessment/Plan antibiotics : cefepime A 1. e.coli | pseudomonas UTI 2. bilateral pneumonia COVID-19 negative x 1 3. Diabetes. 4. Hypertension. 5. Congestive heart failure. 6. Hepatitis C. 7. renal failure improving P 1. continue cefepime 1 more day 2. will follow up cultures Subjective Constitutional: Denies: fever, chills Respiratory: Reports: shortness of breath - decreased, dry cough - decreased Gastrointestinal/Abdominal: Denies: nausea, vomiting, diarrhea Musculoskeletal: Denies: pain Allergies: Coded Allergies: AMOXAPINE (Unverified Allergy, Unknown, 10/16/18) AMOXICILLIN (Unverified Allergy, Unknown, 04/17/14) LISINOPRIL (Unverified Allergy, Unknown, 04/17/14) Objective Vital Signs Last 24 Hour Vital Signs Date Time Temp Pulse Resp B/P (MAP) Pulse Ox O2 Delivery O2 Flow Rate FiO2 07/24/19 08:00 96.8 84 20 100/72 (81) 95 07/24/19 04:00 97.1 83 21 115/77 (90) 100 07/24/19 04:00 107 07/24/19 00:00 97.8 68 22 105/73 (84) 96 07/24/19 00:00 105 07/23/19 21:26 116/82 07/23/19 21:00 Room Air 07/23/19 20:00 96.8 76 20 116/80 (92) 100 07/23/19 20:00 107 07/23/19 16:00 97.9 87 20 100/82 (88) 97 07/23/19 15:10 111 07/23/19 11:57 98.1 96 20 114/90 (98) 95 07/23/19 11:42 113 Height (Feet): 5 Height (Inches): 8.00 Weight (Pounds): 142 Respiratory/Chest: lungs clear Cardiovascular: normal rate, regular rhythm, no gallop/murmur Abdomen: soft, non tender, other - GT Extremities: no edema Laboratory Tests Test 07/24/19 04:30 Sodium Level 145 MMOL/L (136-145) Potassium Level 3.9 MMOL/L (3.5-5.1) Chloride Level 108 MMOL/L (98-107) H Carbon Dioxide Level 29 MMOL/L (21-32) Anion Gap 8 mmol/L (5-15) Blood Urea Nitrogen 34 mg/dL (7-18) H Creatinine 1.1 MG/DL (0.55-1.30) Estimat Glomerular Filtration Rate > 60 mL/min (>60) Glucose Level 159 MG/DL (74-106) H Calcium Level 8.5 MG/DL (8.5-10.1) Phosphorus Level 3.3 MG/DL (2.5-4.9) Magnesium Level 2.1 MG/DL (1.8-2.4) Current Medications Medications (Trade) Dose Ordered Sig/[place] Route PRN Reason Start Time Stop Time Status Last Admin Dose Admin Acetaminophen (Tylenol) 650 mg Q4H PRN ORAL Mild Pain (Pain Scale 1-3) 07/21/19 10:00 08/18/19 05:59 Al Hydroxide/Mg Hydroxide (Mylanta) 30 ml Q4H PRN ORAL Dyspepsia 07/21/19 13:00 08/18/19 08:59 Atorvastatin Calcium (Lipitor) 40 mg BEDTIME ORAL 07/21/19 21:00 10/17/19 20:59 07/23/19 21:18 Carvedilol (Coreg) 6.25 mg EVERY 12 HOURS ORAL 07/24/19 09:00 08/23/19 08:59 Cefepime HCl 1 gm/ Dextrose 55 ml @ 110 mls/hr EVERY 12 HOURS IVPB 07/23/19 21:00 07/30/19 20:59 07/24/19 09:32 Dextrose (Dextrose 50%) 25 ml Q30M PRN IV Hypoglycemia 07/21/19 09:45 10/18/19 17:14 Dextrose (Dextrose 50%) 50 ml Q30M PRN IV Hypoglycemia 07/21/19 09:45 10/18/19 17:14 Furosemide (Lasix) 40 mg DAILY IV 07/22/19 09:00 08/18/19 08:59 07/24/19 09:33 Heparin Sodium (Porcine) (Heparin 5000 units/ml) 5,000 units EVERY 12 HOURS SUBQ 07/21/19 21:00 09/02/19 08:59 07/24/19 09:34 Hydralazine HCl (Apresoline) 50 mg BID@0900,2100 ORAL 07/21/19 21:00 10/17/19 08:59 07/23/19 21:26 Hydroxyzine HCl (Vistaril) 10 mg BID PRN ORAL Itching 07/21/19 18:00 08/18/19 05:59 Insulin Aspart (NovoLOG) EVERY 6 HOURS SUBQ 07/21/19 12:00 10/18/19 17:59 07/24/19 06:10 Isosorbide Mononitrate (Imdur) 30 mg DAILY ORAL 07/22/19 09:00 08/18/19 08:59 07/23/19 09:40 Losartan Potassium (Cozaar) 50 mg DAILY ORAL 07/24/19 09:00 08/23/19 08:59 Pantoprazole (Protonix) 40 mg DAILY ORAL 07/22/19 09:00 08/18/19 08:59 07/24/19 09:32 Sitagliptin Phosphate (Januvia) 50 mg ACBREAKFAST ORAL 07/22/19 06:30 08/18/19 11:29 07/24/19 06:11 Daniel Kimball MD Jul 24, 2019 10:09"
--- NOTE | 2019-07-24 11:03 | Diagnostic Imaging Report ---
EXAM: ULTRASOUND Venous Duplex Scan Anton Leg CLINICAL HISTORY: Leg pain and edema. COMPARISON: None TECHNIQUE: Doppler examination include grayscale images obtained with and without compression, and color and spectral doppler analysis. FINDINGS: Doppler examination shows normal spontaneity, phasicity, compressibility in the bilateral lower extremities. There is no thrombus identified by grayscale. Normal color and spectral flow is identified. There is no evidence of valvular incompetency or insufficiency. IMPRESSION: UNREMARKABLE VENOUS DUPLEX.
--- NOTE | 2019-07-24 12:15 | Diagnostic Imaging Report ---
Indication: Short of breath Technique: One view of the chest Comparison: 07/21/2019 Findings: There is increased pleural fluid bilaterally, left greater than right. Hazy bilateral infiltrates probably unchanged. Reticular infiltrates in the right upper lobe are unchanged or perhaps minimally improved. The heart size is borderline enlarged. Impression: Increased bilateral pleural fluid, left greater than right Stable generalized hazy bilateral infiltrates, with slight improvement of more focal reticular infiltrates in the right upper lobe Borderline cardiomegaly
[2019-07-24] MEDS ORDERED: Albuterol ud Inhalation HHN PRN (17:55)
[2019-07-24] MEDS ORDERED: Ipratropium 0.02% Inh Soln 2.5ml UD HHN PRN ×2 (18:48→23:00)
[2019-07-24] MEDS ORDERED: Albuterol ud Inhalation HHN SCH (19:00)
--- NOTE | 2019-07-24 20:37 | Nephrology Progress Note ---
Assessment/Plan Problem List: (1) CKD (chronic kidney disease) stage 3, GFR 30-59 ml/min (2) ARAMIS (acute kidney injury) (3) UTI (urinary tract infection) (4) CHF (congestive heart failure) Assessment: sys (5) Urinary retention Assessment: chronic (6) PNA (pneumonia) Plan continue diuresis, replace K, limon, antibiotics Subjective Constitutional: Reports: weakness HEENT: Reports: no symptoms Genitourinary: Reports: incontinence Neurologic/Psychiatric: Reports: no symptoms Objective Objective Last 24 Hour Vital Signs Date Time Temp Pulse Resp B/P (MAP) Pulse Ox O2 Delivery O2 Flow Rate FiO2 07/24/19 16:30 120 26 98 35 07/24/19 16:15 116 26 96 Nasal Cannula 3.0 32 07/24/19 16:00 97.7 95 20 111/88 (96) 97 07/24/19 15:36 122 07/24/19 11:59 112 07/24/19 11:49 96.8 94 20 108/88 (95) 100 07/24/19 09:00 Room Air 07/24/19 09:00 84 100/72 07/24/19 09:00 100/72 07/24/19 09:00 100/72 07/24/19 09:00 100/72 07/24/19 08:00 96.8 84 20 100/72 (81) 95 07/24/19 07:45 104 07/24/19 04:00 97.1 83 21 115/77 (90) 100 07/24/19 04:00 107 07/24/19 00:00 97.8 68 22 105/73 (84) 96 07/24/19 00:00 105 07/23/19 21:26 116/82 07/23/19 21:00 Room Air Intake and Output 07/23/19 07/24/19 19:00 07:00 Intake Total 860 ml 60 ml Output Total 1200 ml Balance -340 ml 60 ml Free Water 200 ml Tube Feeding 660 ml 60 ml Output Urine Total 1200 ml # Bowel Movements 1 Laboratory Tests 07/24/19 04:30: Sodium Level 145, Potassium Level 3.9, Chloride Level 108H, Carbon Dioxide Level 29, Anion Gap 8, Blood Urea Nitrogen 34H, Creatinine 1.1, Estimat Glomerular Filtration Rate > 60, Glucose Level 159H, Calcium Level 8.5, Phosphorus Level 3.3, Magnesium Level 2.1 07/24/19 19:32: Arterial Blood pH 7.400, Arterial Blood Partial Pressure CO2 42.2, Arterial Blood Partial Pressure O2 56.6L, Arterial Blood HCO3 25.7, Arterial Blood Oxygen Saturation 87.3*L, Arterial Blood Base Excess 0.8, Danis Test Positive Height (Feet): 5 Height (Inches): 8.00 Weight (Pounds): 142 General Appearance: alert EENT: normal ENT inspection Neck: non-tender Cardiovascular: regular rhythm Respiratory/Chest: lungs clear Abdomen: non tender, soft Extremities: trace edema Neurologic: cane weigher II-XII grossly normal Ang Worrell MD Jul 24, 2019 20:37
[2019-07-24] MEDS: Atorvastatin 20mg tab ORAL SCH (21:21)
[2019-07-25] VITALS: BP 137/64
[2019-07-25 04:00] VITALS: BP 131/68
[2019-07-25 05:37] LABS: ANION GAP 14 mmol/L (5-15); BLOOD UREA NITROGEN 50 mg/dL (7-18); CALCIUM 8.8 MG/DL (8.5-10.1); CARBON DIOXIDE 26 MMOL/L (21-32); CHLORIDE 107 MMOL/L (98-107); CREATININE 1.5 MG/DL (0.55-1.30); SODIUM 147 MMOL/L (136-145)
[2019-07-25] MEDS: NovoLOG Insulin Flexpen SUBQ SCH ×3 (06:00→18:16)
[2019-07-25] MEDS ORDERED: sitaGLIPtin 50mg tab ORAL SCH (06:30)
--- NOTE | 2019-07-25 07:28 | General Progress Note ---
Assessment/Plan Problem List: (1) Suspected COVID-19 virus infection ICD Codes: Z20.828 - Contact with and (suspected) exposure to other viral communicable diseases SNOMED: 502046933 (2) PNA (pneumonia) ICD Codes: J18.9 - Pneumonia, unspecified organism SNOMED: 919129272 (3) CHF (congestive heart failure) ICD Codes: I50.9 - Heart failure, unspecified SNOMED: 15725387 (4) UTI (urinary tract infection) ICD Codes: N39.0 - Urinary tract infection, site not specified SNOMED: 32482079 (5) ARAMIS (acute kidney injury) ICD Codes: N17.9 - Acute kidney failure, unspecified SNOMED: 58321925, 9020158 Status: stable Assessment/Plan: o2- titrate diuresis per cards monitor i/o tube feeds/monitor residuals iv abx follow up cultures monitor cxr dvt/stress ulcer prophylaxis turn q2 consider thoracentesis Subjective ROS Limited/Unobtainable: No Constitutional: Reports: malaise, weakness HEENT: Reports: no symptoms Cardiovascular: Reports: no symptoms Respiratory: Reports: cough, shortness of breath Gastrointestinal/Abdominal: Reports: no symptoms Genitourinary: Reports: no symptoms Neurologic/Psychiatric: Reports: anxiety Endocrine: Reports: no symptoms Hematologic/Lymphatic: Reports: no symptoms Allergies: Coded Allergies: AMOXAPINE (Unverified Allergy, Unknown, 10/16/18) AMOXICILLIN (Unverified Allergy, Unknown, 04/17/14) LISINOPRIL (Unverified Allergy, Unknown, 04/17/14) All Systems: reviewed and negative except above Subjective transferred to sdu due to increase sob. anxious. on nasal cannula at 8L. desaturates off o2. cxr with increased pleural effusions. on lasix iv bid. isolated to r/o covid again . Objective Last 24 Hour Vital Signs Date Time Temp Pulse Resp B/P (MAP) Pulse Ox O2 Delivery O2 Flow Rate FiO2 07/25/19 04:00 Nasal Cannula 6.0 07/25/19 04:00 98.4 101 22 131/68 (89) 98 07/25/19 04:00 101 07/25/19 00:00 98.1 98 22 137/64 (88) 96 07/25/19 00:00 Bi-pap 6/3/20 00:00 98 07/24/19 23:30 101 29 96 100 07/24/19 22:20 98.4 95 20 117/73 (88) 93 07/24/19 22:20 113 34 97 100 07/24/19 21:21 113 117/99 07/24/19 21:19 108 27 100 Non-Rebreather 15.0 100 113 28 100 07/24/19 21:00 Room Air 07/24/19 21:00 117/99 07/24/19 20:00 97.0 60 26 117/99 (105) 94 07/24/19 20:00 120 07/24/19 16:30 120 26 98 35 07/24/19 16:15 116 26 96 Nasal Cannula 3.0 32 07/24/19 16:00 97.7 95 20 111/88 (96) 97 07/24/19 15:36 122 07/24/19 11:59 112 07/24/19 11:49 96.8 94 20 108/88 (95) 100 07/24/19 09:00 Room Air 07/24/19 09:00 84 100/72 07/24/19 09:00 100/72 07/24/19 09:00 100/72 07/24/19 09:00 100/72 07/24/19 08:00 96.8 84 20 100/72 (81) 95 07/24/19 07:45 104 Intake and Output 07/24/19 07/25/19 19:00 07:00 Intake Total 975 ml 240 ml Output Total 400 ml 200 ml Balance 575 ml 40 ml Free Water 200 ml 60 ml IV Total 55 ml Tube Feeding 720 ml 180 ml Output Urine Total 400 ml 200 ml # Bowel Movements 1 Laboratory Tests 07/24/19 19:32: Arterial Blood pH 7.400, Arterial Blood Partial Pressure CO2 42.2, Arterial Blood Partial Pressure O2 56.6L, Arterial Blood HCO3 25.7, Arterial Blood Oxygen Saturation 87.3*L, Arterial Blood Base Excess 0.8, Danis Test Positive 07/25/19 02:45: Sodium Level 147H, Potassium Level 5.0, Chloride Level 107, Carbon Dioxide Level 26, Anion Gap 14, Blood Urea Nitrogen 50H, Creatinine 1.5H, Estimat Glomerular Filtration Rate 55.6, Glucose Level 185H, Calcium Level 8.8, Pro-B- Type Natriuretic Peptide > 56046O Height (Feet): 5 Height (Inches): 8.00 Weight (Pounds): 71 Objective General Appearance: WD/WN, confused, thin EENT: PERRL/EOMI, normal ENT inspection, TMs normal Neck: non-tender, normal alignment, supple Cardiovascular: normal peripheral pulses, normal rate, regular rhythm Respiratory/Chest: chest wall non-tender, lungs clear, normal breath sounds, no respiratory distress, no accessory muscle use Abdomen: normal bowel sounds, non tender, soft, no organomegaly, no mass Extremities: normal range of motion, non-tender Edema: no edema noted Arm (L), no edema noted Arm (R) 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
[2019-07-25 08:00] VITALS: BP 102/77
[2019-07-25] MEDS ORDERED: Carvedilol 6.25mg Tab ORAL SCH (09:00)
[2019-07-25] MEDS ORDERED: Cefepime HCl 1 GM in D5W 55 ML IVPB SCH (09:00)
--- NOTE | 2019-07-25 09:18 | Critical Care Progress Note ---
Assessment/Plan Assessment/Plan IMPRESSION: 1. Evidence of chronic renal failure. 2. Coronary artery disease. 3. CHF. 4. Hepatitis C. 5. Pacemaker. 6. G-tube. 7. Aspiration. 8. Possible COVID. 9. Evidence of pneumonia. 10. Lactic acidemia 11. CXR with pulmonary infiltrates PLAN monitor for change oxygen taper BIPAP as needed meds as is remains full code optimize as able taper oxygen overall appears better monitor fluid status medications/laboratory data/nursing notes reviewed in detail note reviewed and edited care discussed with RN and RT Critical Care - Subjective Interval Events: increase sob increase o2 needs care noted moved to KAREN ROS Limited/Unobtainable: Yes Condition: other EKG Rhythm: Sinus Rhythm I&O: Intake and Output 07/24/19 07/25/19 19:00 07:00 Intake Total 975 ml 240 ml Output Total 400 ml 200 ml Balance 575 ml 40 ml Free Water 200 ml 60 ml IV Total 55 ml Tube Feeding 720 ml 180 ml Output Urine Total 400 ml 200 ml # Bowel Movements 1 Critical Care - Objective Last 24 Hour Vital Signs Date Time Temp Pulse Resp B/P (MAP) Pulse Ox O2 Delivery O2 Flow Rate FiO2 07/25/19 08:00 97.9 110 24 102/77 (85) 93 110 07/25/19 08:00 Nasal Cannula 6.0 07/25/19 08:00 105 07/25/19 04:00 Nasal Cannula 6.0 07/25/19 04:00 98.4 101 22 131/68 (89) 98 07/25/19 04:00 101 07/25/19 00:00 98.1 98 22 137/64 (88) 96 07/25/19 00:00 Bi-pap 07/25/19 00:00 98 07/24/19 23:30 101 29 96 100 07/24/19 22:20 98.4 95 20 117/73 (88) 93 07/24/19 22:20 113 34 97 100 07/24/19 21:21 113 117/99 07/24/19 21:19 108 27 100 Non-Rebreather 15.0 100 113 28 100 07/24/19 21:00 Room Air 07/24/19 21:00 117/99 07/24/19 20:00 97.0 60 26 117/99 (105) 94 6/2/20 20:00 120 07/24/19 16:30 120 26 98 35 07/24/19 16:15 116 26 96 Nasal Cannula 3.0 32 07/24/19 16:00 97.7 95 20 111/88 (96) 97 07/24/19 15:36 122 07/24/19 11:59 112 07/24/19 11:49 96.8 94 20 108/88 (95) 100 Labs: Labs Test 07/23/19 05:48 07/24/19 04:30 07/24/19 19:32 07/25/19 02:45 White Blood Count 4.2 K/UL (4.8-10.8) Red Blood Count 4.01 M/UL (4.70-6.10) Hemoglobin 12.7 G/DL (14.2-18.0) Hematocrit 38.9 % (42.0-52.0) Mean Corpuscular Volume 97 FL (80-99) Mean Corpuscular Hemoglobin 31.6 PG (27.0-31.0) Mean Corpuscular Hemoglobin Concent 32.6 G/DL (32.0-36.0) Red Cell Distribution Width 15.5 % (11.6-14.8) Platelet Count 115 K/UL (150-450) Mean Platelet Volume 6.9 FL (6.5-10.1) Neutrophils (%) (Auto) 65.8 % (45.0-75.0) Lymphocytes (%) (Auto) 22.0 % (20.0-45.0) Monocytes (%) (Auto) 7.2 % (1.0-10.0) Eosinophils (%) (Auto) 4.2 % (0.0-3.0) Basophils (%) (Auto) 0.9 % (0.0-2.0) Sodium Level 145 MMOL/L (136-145) 145 MMOL/L (136-145) 147 MMOL/L (136-145) Potassium Level 3.7 MMOL/L (3.5-5.1) 3.9 MMOL/L (3.5-5.1) 5.0 MMOL/L (3.5-5.1) Chloride Level 107 MMOL/L (98-107) 108 MMOL/L (98-107) 107 MMOL/L (98-107) Carbon Dioxide Level 28 MMOL/L (21-32) 29 MMOL/L (21-32) 26 MMOL/L (21-32) Anion Gap 10 mmol/L (5-15) 8 mmol/L (5-15) 14 mmol/L (5-15) Blood Urea Nitrogen 31 mg/dL (7-18) 34 mg/dL (7-18) 50 mg/dL (7-18) Creatinine 1.1 MG/DL (0.55-1.30) 1.1 MG/DL (0.55-1.30) 1.5 MG/DL (0.55-1.30) Estimat Glomerular Filtration Rate > 60 mL/min (>60) > 60 mL/min (>60) 55.6 mL/min (>60) Glucose Level 156 MG/DL (74-106) 159 MG/DL (74-106) 185 MG/DL (74-106) Calcium Level 8.5 MG/DL (8.5-10.1) 8.5 MG/DL (8.5-10.1) 8.8 MG/DL (8.5-10.1) Pro-B-Type Natriuretic Peptide > 72700 pg/mL (0-125) > 47402 pg/mL (0-125) Phosphorus Level 3.3 MG/DL (2.5-4.9) Magnesium Level 2.1 MG/DL (1.8-2.4) Arterial Blood pH 7.400 (7.350-7.450) Arterial Blood Partial Pressure CO2 42.2 mmHg (35.0-45.0) Arterial Blood Partial Pressure O2 56.6 mmHg (75.0-100.0) Arterial Blood HCO3 25.7 mmol/L (22.0-26.0) Arterial Blood Oxygen Saturation 87.3 % (95-100) Arterial Blood Base Excess 0.8 (-2-2) Danis Test Positive Objective: GENERAL: NAD and on oxygen HEENT: Negative. NECK: Supple. LUNGS: reduced breath sounds. no rhonchi. no wheeze CARDIAC: S1, S2. Regular rate and rhythm with noted murmur. ABDOMEN: Soft, nontender. EXTREMITIES: No cyanosis or clubbing. NEUROLOGICAL: Confused. but alert Accucheck: 133 Jose Iglesias MD Jul 25, 2019 09:18
--- NOTE | 2019-07-25 09:55 | Diagnostic Imaging Report ---
Indication: Shortness of breath Technique: One view of the chest Comparison: 07/24/2019 Findings: Bilateral infiltrates versus edema appears slightly worse. Pleural effusions are unchanged. The heart remains borderline enlarged. Impression: Slight worsening of bilateral pulmonary parenchymal infiltrates versus edema. Other stable findings as described
--- NOTE | 2019-07-25 10:12 | Urology Progress Note ---
Assessment/Plan Status: stable Assessment/Plan: BPH hx urinary retention with chronic limon neurogenic bladder (atonic) UTI/colonized ARAMIS/CKD, improved hematuria renal cyst monitor clinically maintain limon indwelling, last exchanged 07/22 hand irrigated and do PRN abx as ordered monitor renal fxn, improved consider repeat renal imaging flomax and proscar dc'd d/w nursing staff Subjective Allergies: Coded Allergies: AMOXAPINE (Unverified Allergy, Unknown, 10/16/18) AMOXICILLIN (Unverified Allergy, Unknown, 04/17/14) LISINOPRIL (Unverified Allergy, Unknown, 04/17/14) Subjective all noted, feels fair, new limon draining OK Objective Last 24 Hour Vital Signs Date Time Temp Pulse Resp B/P (MAP) Pulse Ox O2 Delivery O2 Flow Rate FiO2 07/25/19 08:00 97.9 110 24 102/77 (85) 93 110 07/25/19 08:00 Nasal Cannula 6.0 07/25/19 08:00 105 07/25/19 04:00 Nasal Cannula 6.0 07/25/19 04:00 98.4 101 22 131/68 (89) 98 07/25/19 04:00 101 07/25/19 00:00 98.1 98 22 137/64 (88) 96 07/25/19 00:00 Bi-pap 07/25/19 00:00 98 07/24/19 23:30 101 29 96 100 07/24/19 22:20 98.4 95 20 117/73 (88) 93 07/24/19 22:20 113 34 97 100 07/24/19 21:21 113 117/99 07/24/19 21:19 108 27 100 Non-Rebreather 15.0 100 113 28 100 07/24/19 21:00 Room Air 07/24/19 21:00 117/99 07/24/19 20:00 97.0 60 26 117/99 (105) 94 07/24/19 20:00 120 07/24/19 16:30 120 26 98 35 07/24/19 16:15 116 26 96 Nasal Cannula 3.0 32 07/24/19 16:00 97.7 95 20 111/88 (96) 97 07/24/19 15:36 122 07/24/19 11:59 112 07/24/19 11:49 96.8 94 20 108/88 (95) 100 Intake and Output 07/24/19 07/25/19 19:00 07:00 Intake Total 975 ml 240 ml Output Total 400 ml 200 ml Balance 575 ml 40 ml Free Water 200 ml 60 ml IV Total 55 ml Tube Feeding 720 ml 180 ml Output Urine Total 400 ml 200 ml # Bowel Movements 1 Microbiology Date/Time Source Procedure Growth Status 07/18/19 18:45 Blood Blood Culture - Final NO GROWTH AFTER 5 DAYS Complete 07/19/19 02:50 Nasal Nares MRSA Culture - Final NO METHICILLIN RESISTANT STAPH AUREUS... Complete 07/19/19 12:15 Urine,Clean Catch Urine Culture - Final Escherichia Coli Pseudomonas Aeruginosa Complete 07/19/19 02:50 Rectum - Final NO CARBAPENEM-RESISTANT ENTEROBACTERI... Complete Current Medications Medications (Trade) Dose Ordered Sig/[place] Route PRN Reason Start Time Stop Time Status Last Admin Dose Admin Acetaminophen (Tylenol) 650 mg Q4H PRN ORAL Mild Pain (Pain Scale 1-3) 07/25/19 02:00 08/18/19 05:59 Al Hydroxide/Mg Hydroxide (Mylanta) 30 ml Q4H PRN ORAL Dyspepsia 07/25/19 01:00 08/18/19 08:59 Atorvastatin Calcium (Lipitor) 40 mg BEDTIME ORAL 07/25/19 21:00 10/17/19 20:59 Carvedilol (Coreg) 12.5 mg EVERY 12 HOURS ORAL 07/25/19 09:00 08/24/19 08:59 Cefepime HCl 1 gm/ Dextrose 55 ml @ 110 mls/hr EVERY 12 HOURS IVPB 07/25/19 09:00 07/30/19 20:59 Dextrose (Dextrose 50%) 25 ml Q30M PRN IV Hypoglycemia 07/24/19 22:15 10/18/19 17:14 Dextrose (Dextrose 50%) 50 ml Q30M PRN IV Hypoglycemia 07/24/19 22:15 10/18/19 17:14 Furosemide (Lasix) 40 mg BID IV 07/25/19 09:00 08/18/19 08:59 Heparin Sodium (Porcine) (Heparin 5000 units/ml) 5,000 units EVERY 12 HOURS SUBQ 07/25/19 09:00 09/02/19 08:59 Hydralazine HCl (Apresoline) 50 mg BID@0900,2100 ORAL 07/25/19 09:00 10/17/19 08:59 Hydroxyzine HCl (Vistaril) 10 mg BID PRN ORAL Itching 07/25/19 03:14 08/18/19 03:13 07/25/19 03:24 Insulin Aspart (NovoLOG) EVERY 6 HOURS SUBQ 07/25/19 00:00 10/18/19 17:59 07/24/19 23:42 Ipratropium [place] (Atrovent) 500 mcg Q4H PRN HHN Shortness of Breath 07/24/19 23:00 07/29/19 18:47 07/25/19 01:14 Isosorbide Mononitrate (Imdur) 30 mg DAILY ORAL 07/25/19 09:00 08/18/19 08:59 Losartan Potassium (Cozaar) 50 mg DAILY ORAL 07/25/19 09:00 08/23/19 08:59 Pantoprazole (Protonix) 40 mg DAILY ORAL 07/25/19 09:00 08/18/19 08:59 Sitagliptin Phosphate (Januvia) 50 mg ACBREAKFAST ORAL 07/25/19 06:30 08/18/19 11:29 07/25/19 06:37 Laboratory Tests 07/24/19 19:32: Arterial Blood pH 7.400, Arterial Blood Partial Pressure CO2 42.2, Arterial Blood Partial Pressure O2 56.6L, Arterial Blood HCO3 25.7, Arterial Blood Oxygen Saturation 87.3*L, Arterial Blood Base Excess 0.8, Danis Test Positive 07/25/19 02:45: Sodium Level 147H, Potassium Level 5.0, Chloride Level 107, Carbon Dioxide Level 26, Anion Gap 14, Blood Urea Nitrogen 50H, Creatinine 1.5H, Estimat Glomerular Filtration Rate 55.6, Glucose Level 185H, Calcium Level 8.8, Pro-B- Type Natriuretic Peptide > [id number] Height (Feet): 5 Height (Inches): 8.00 Weight (Pounds): 71 Objective exam stable 18f limon, yellow/corey urine, occasional debris old renal imaging noted Panchito Camarena MD Jul 25, 2019 10:12
[2019-07-25] MEDS: Imdur 30mg tab ORAL SCH (10:28)
[2019-07-25] MEDS: Losartan 50mg tab ORAL SCH (10:29)
[2019-07-25] MEDS: Carvedilol 12.5mg tab ORAL SCH ×2 (10:29→21:00)
[2019-07-25] MEDS: HydrALAZINE 50mg tab ORAL SCH ×2 (10:30→21:00)
--- NOTE | 2019-07-25 10:32 | Infectious Diseases Prog Note ---
"Assessment/Plan Assessment/Plan antibiotics : cefepime A 1. e.coli | pseudomonas UTI s/p rx 2. bilateral pneumonia COVID-19 negative x 1 3. Diabetes. 4. Hypertension. 5. Congestive heart failure. 6. Hepatitis C. 7. renal failure improving P 1. d/c cefepime 2. observe off antibiotics Subjective ROS Limited/Unobtainable: Yes Allergies: Coded Allergies: AMOXAPINE (Unverified Allergy, Unknown, 10/16/18) AMOXICILLIN (Unverified Allergy, Unknown, 04/17/14) LISINOPRIL (Unverified Allergy, Unknown, 04/17/14) Objective Vital Signs Last 24 Hour Vital Signs Date Time Temp Pulse Resp B/P (MAP) Pulse Ox O2 Delivery O2 Flow Rate FiO2 07/25/19 10:30 102/77 07/25/19 10:29 105 102/77 07/25/19 10:29 102/77 07/25/19 10:28 102/77 07/25/19 08:00 97.9 110 24 102/77 (85) 93 110 07/25/19 08:00 Nasal Cannula 6.0 07/25/19 08:00 105 07/25/19 04:00 Nasal Cannula 6.0 07/25/19 04:00 98.4 101 22 131/68 (89) 98 07/25/19 04:00 101 07/25/19 00:00 98.1 98 22 137/64 (88) 96 07/25/19 00:00 Bi-pap 07/25/19 00:00 98 07/24/19 23:30 101 29 96 100 07/24/19 22:20 98.4 95 20 117/73 (88) 93 07/24/19 22:20 113 34 97 100 07/24/19 21:21 113 117/99 07/24/19 21:19 108 27 100 Non-Rebreather 15.0 100 113 28 100 07/24/19 21:00 Room Air 07/24/19 21:00 117/99 07/24/19 20:00 97.0 60 26 117/99 (105) 94 07/24/19 20:00 120 07/24/19 16:30 120 26 98 35 07/24/19 16:15 116 26 96 Nasal Cannula 3.0 32 07/24/19 16:00 97.7 95 20 111/88 (96) 97 07/24/19 15:36 122 07/24/19 11:59 112 07/24/19 11:49 96.8 94 20 108/88 (95) 100 Height (Feet): 5 Height (Inches): 8.00 Weight (Pounds): 71 Respiratory/Chest: lungs clear Cardiovascular: normal rate, regular rhythm, no gallop/murmur Abdomen: soft, non tender Extremities: no edema Laboratory Tests Test 07/24/19 19:32 07/25/19 02:45 Arterial Blood pH 7.400 (7.350-7.450) Arterial Blood Partial Pressure CO2 42.2 mmHg (35.0-45.0) Arterial Blood Partial Pressure O2 56.6 mmHg (75.0-100.0) L Arterial Blood HCO3 25.7 mmol/L (22.0-26.0) Arterial Blood Oxygen Saturation 87.3 % (95-100) *L Arterial Blood Base Excess 0.8 (-2-2) Danis Test Positive Sodium Level 147 MMOL/L (136-145) H Potassium Level 5.0 MMOL/L (3.5-5.1) Chloride Level 107 MMOL/L (98-107) Carbon Dioxide Level 26 MMOL/L (21-32) Anion Gap 14 mmol/L (5-15) Blood Urea Nitrogen 50 mg/dL (7-18) H Creatinine 1.5 MG/DL (0.55-1.30) H Estimat Glomerular Filtration Rate 55.6 mL/min (>60) Glucose Level 185 MG/DL (74-106) H Calcium Level 8.8 MG/DL (8.5-10.1) Pro-B-Type Natriuretic Peptide > 02038 pg/mL (0-125) H Current Medications Medications (Trade) Dose Ordered Sig/[place] Route PRN Reason Start Time Stop Time Status Last Admin Dose Admin Acetaminophen (Tylenol) 650 mg Q4H PRN ORAL Mild Pain (Pain Scale 1-3) 07/25/19 02:00 08/18/19 05:59 Al Hydroxide/Mg Hydroxide (Mylanta) 30 ml Q4H PRN ORAL Dyspepsia 07/25/19 01:00 08/18/19 08:59 Atorvastatin Calcium (Lipitor) 40 mg BEDTIME ORAL 07/25/19 21:00 10/17/19 20:59 Carvedilol (Coreg) 12.5 mg EVERY 12 HOURS ORAL 07/25/19 09:00 08/24/19 08:59 07/25/19 10:29 Cefepime HCl 1 gm/ Dextrose 55 ml @ 110 mls/hr EVERY 12 HOURS IVPB 07/25/19 09:00 07/30/19 20:59 Dextrose (Dextrose 50%) 25 ml Q30M PRN IV Hypoglycemia 07/24/19 22:15 10/18/19 17:14 Dextrose (Dextrose 50%) 50 ml Q30M PRN IV Hypoglycemia 07/24/19 22:15 10/18/19 17:14 Furosemide (Lasix) 40 mg BID IV 07/25/19 09:00 08/18/19 08:59 07/25/19 10:28 Heparin Sodium (Porcine) (Heparin 5000 units/ml) 5,000 units EVERY 12 HOURS SUBQ 07/25/19 09:00 09/02/19 08:59 Hydralazine HCl (Apresoline) 50 mg BID@0900,2100 ORAL 07/25/19 09:00 10/17/19 08:59 07/25/19 10:30 Hydroxyzine HCl (Vistaril) 10 mg BID PRN ORAL Itching 07/25/19 03:14 08/18/19 03:13 07/25/19 03:24 Insulin Aspart (NovoLOG) EVERY 6 HOURS SUBQ 07/25/19 00:00 10/18/19 17:59 07/24/19 23:42 Ipratropium [place] (Atrovent) 500 mcg Q4H PRN HHN Shortness of Breath 07/24/19 23:00 07/29/19 18:47 07/25/19 01:14 Isosorbide Mononitrate (Imdur) 30 mg DAILY ORAL 07/25/19 09:00 08/18/19 08:59 07/25/19 10:28 Losartan Potassium (Cozaar) 50 mg DAILY ORAL 07/25/19 09:00 08/23/19 08:59 07/25/19 10:29 Pantoprazole (Protonix) 40 mg DAILY ORAL 07/25/19 09:00 08/18/19 08:59 Sitagliptin Phosphate (Januvia) 50 mg ACBREAKFAST ORAL 07/25/19 06:30 08/18/19 11:29 07/25/19 06:37 Daniel Kimball MD Jul 25, 2019 10:32"
[2019-07-25] MEDS: Heparin 5000 units/ml inj SUBQ SCH ×2 (10:33→23:00)
--- NOTE | 2019-07-25 11:15 | Progress Note ---
DATE: 07/24/2019 CARDIOLOGY PROGRESS NOTE SUBJECTIVE: The patient without new complaints. No fevers or chills. Tolerating diet. PHYSICAL EXAMINATION: VITAL SIGNS: Blood pressure 115/77, heart rate 83, respiratory rate 21. Monitor sinus and sinus tachycardia. LUNGS: Diminished breath sounds. No wheezing. CARDIAC: Regular rhythm and rate. Normal S1 and S2. A 1/6 systolic apical murmur. ABDOMEN: Soft. EXTREMITIES: Trace edema. LABORATORY AND DIAGNOSTIC DATA: ABG 7.40, 42, 56. Potassium is 3.9, sodium 145, bicarb 29, BUN 34, creatinine 1.1. Chest x-ray reveals bilateral infiltrates with slight improvement on the right and increasing pleural fluid. IMPRESSION: 1. Severe cardiomyopathy. 2. Acute on chronic systolic congestive heart failure. 3. Hypoxia. 4. Recovering pneumonia. 5. Worsening pleural effusion. PLAN: Continue titration of anti-failure regimen. Continue diuresis. Consider thoracentesis. Outpatient re-evaluation for defibrillator implant. Continue now. We will follow. Altno Malloy M.D. DR: FERN JOB#: [id number] CC:
[2019-07-25 12:00] VITALS: BP 87/59
[2019-07-25 16:00] VITALS: BP 91/55
[2019-07-25 20:00] VITALS: BP 106/70
--- NOTE | 2019-07-25 20:49 | Nephrology Progress Note ---
Assessment/Plan Problem List: (1) CKD (chronic kidney disease) stage 3, GFR 30-59 ml/min (2) ARAMIS (acute kidney injury) (3) UTI (urinary tract infection) (4) CHF (congestive heart failure) Assessment: sys (5) Urinary retention Assessment: chronic (6) PNA (pneumonia) (7) Hypernatremia Plan continue diuresis, replace K, limon, antibiotics, Na higher to trend with diuresis Subjective ROS Limited/Unobtainable: Yes Objective Objective Last 24 Hour Vital Signs Date Time Temp Pulse Resp B/P (MAP) Pulse Ox O2 Delivery O2 Flow Rate FiO2 07/25/19 16:00 Nasal Cannula 6.0 07/25/19 16:00 97.2 95 24 91/55 (67) 99 95 07/25/19 16:00 92 07/25/19 12:00 97.2 90 23 87/59 (68) 94 90 07/25/19 12:00 Nasal Cannula 6.0 07/25/19 12:00 103 07/25/19 10:30 102/77 07/25/19 10:29 105 102/77 07/25/19 10:29 102/77 07/25/19 10:28 102/77 07/25/19 08:00 97.9 110 24 102/77 (85) 93 110 07/25/19 08:00 Nasal Cannula 6.0 07/25/19 08:00 105 07/25/19 04:00 Nasal Cannula 6.0 07/25/19 04:00 98.4 101 22 131/68 (89) 98 07/25/19 04:00 101 07/25/19 00:00 98.1 98 22 137/64 (88) 96 07/25/19 00:00 Bi-pap 07/25/19 00:00 98 07/24/19 23:30 101 29 96 100 07/24/19 22:20 98.4 95 20 117/73 (88) 93 07/24/19 22:20 113 34 97 100 07/24/19 21:21 113 117/99 07/24/19 21:19 108 27 100 Non-Rebreather 15.0 100 113 28 100 07/24/19 21:00 Room Air 07/24/19 21:00 117/99 Intake and Output 07/24/19 07/25/19 19:00 07:00 Intake Total 975 ml 300 ml Output Total 400 ml 200 ml Balance 575 ml 100 ml Free Water 200 ml 60 ml IV Total 55 ml Tube Feeding 720 ml 240 ml Output Urine Total 400 ml 200 ml # Bowel Movements 1 Laboratory Tests 07/25/19 02:45: Sodium Level 147H, Potassium Level 5.0, Chloride Level 107, Carbon Dioxide Level 26, Anion Gap 14, Blood Urea Nitrogen 50H, Creatinine 1.5H, Estimat Glomerular Filtration Rate 55.6, Glucose Level 185H, Calcium Level 8.8, Pro-B- Type Natriuretic Peptide > 21200U Height (Feet): 5 Height (Inches): 8.00 Weight (Pounds): 71 General Appearance: mild distress, other - on bipap Cardiovascular: regular rhythm Respiratory/Chest: rhonchi - bilaterally Abdomen: soft Extremities: no edema Neurologic: disoriented Ang Worrell MD Jul 25, 2019 20:49
[2019-07-25] MEDS: Atorvastatin 20mg tab ORAL SCH (23:00)
[2019-07-26] VITALS: BP 104/76
[2019-07-26 04:00] VITALS: BP 100/67
[2019-07-26 05:05] LABS: ANION GAP 10 mmol/L (5-15); BLOOD UREA NITROGEN 62 mg/dL (7-18); CARBON DIOXIDE 28 MMOL/L (21-32); CHLORIDE 109 MMOL/L (98-107); CREATININE 1.7 MG/DL (0.55-1.30); POTASSIUM 4.5 MMOL/L (3.5-5.1); SODIUM 147 MMOL/L (136-145)
[2019-07-26] MEDS: NovoLOG Insulin Flexpen SUBQ SCH ×5 (06:00→23:34)
[2019-07-26] MEDS: sitaGLIPtin 25mg tab ORAL SCH (06:46)
[2019-07-26 08:00] VITALS: BP 91/64
--- NOTE | 2019-07-26 08:00 | Critical Care Progress Note ---
Assessment/Plan Assessment/Plan IMPRESSION: 1. Evidence of chronic renal failure. 2. Coronary artery disease. 3. CHF. 4. Hepatitis C. 5. Pacemaker. 6. G-tube. 7. Aspiration. 8. Possible COVID. 9. Evidence of pneumonia. 10. Lactic acidemia 11. CXR with pulmonary infiltrates ?edeam PLAN monitor for change oxygen taper BIPAP as needed meds as is remains full code optimize as able taper oxygen overall appears better monitor fluid status off antibiotics recheck CXR needs snf medications/laboratory data/nursing notes reviewed in detail note reviewed and edited care discussed with RN and RT Critical Care - Subjective Interval Events: care noted o2 needs improved on lasix still with significant infiltrates ROS Limited/Unobtainable: Yes EKG Rhythm: Sinus Rhythm I&O: Intake and Output 07/25/19 07/26/19 19:00 07:00 Intake Total 840 ml 760 ml Output Total 350 ml 600 ml Balance 490 ml 160 ml Free Water 120 ml 100 ml Tube Feeding 720 ml 660 ml Output Urine Total 350 ml 600 ml # Bowel Movements 2 5 Critical Care - Objective Last 24 Hour Vital Signs Date Time Temp Pulse Resp B/P (MAP) Pulse Ox O2 Delivery O2 Flow Rate FiO2 07/26/19 04:00 97.2 93 24 100/67 (78) 94 96 07/26/19 04:00 Nasal Cannula 6.0 07/26/19 03:27 94 07/26/19 00:00 Nasal Cannula 6.0 07/26/19 00:00 97.5 93 26 104/76 (85) 96 96 07/25/19 23:46 90 07/25/19 21:00 93 106/70 07/25/19 21:00 106/70 07/25/19 20:26 96 Nasal Cannula 5.0 40 07/25/19 20:00 93 07/25/19 20:00 97.2 93 24 106/70 (82) 100 95 07/25/19 20:00 Nasal Cannula 6.0 07/25/19 19:44 94 07/25/19 16:00 Nasal Cannula 6.0 07/25/19 16:00 97.2 95 24 91/55 (67) 99 95 07/25/19 16:00 92 07/25/19 12:00 97.2 90 23 87/59 (68) 94 90 07/25/19 12:00 Nasal Cannula 6.0 07/25/19 12:00 103 07/25/19 10:30 102/77 07/25/19 10:29 105 102/77 07/25/19 10:29 102/77 07/25/19 10:28 102/77 07/25/19 08:00 97.9 110 24 102/77 (85) 93 110 07/25/19 08:00 Nasal Cannula 6.0 07/25/19 08:00 105 Labs: Labs Test 07/24/19 04:30 07/24/19 19:32 07/25/19 02:45 07/26/19 02:40 Sodium Level 145 MMOL/L (136-145) 147 MMOL/L (136-145) 147 MMOL/L (136-145) Potassium Level 3.9 MMOL/L (3.5-5.1) 5.0 MMOL/L (3.5-5.1) 4.5 MMOL/L (3.5-5.1) Chloride Level 108 MMOL/L (98-107) 107 MMOL/L (98-107) 109 MMOL/L (98-107) Carbon Dioxide Level 29 MMOL/L (21-32) 26 MMOL/L (21-32) 28 MMOL/L (21-32) Anion Gap 8 mmol/L (5-15) 14 mmol/L (5-15) 10 mmol/L (5-15) Blood Urea Nitrogen 34 mg/dL (7-18) 50 mg/dL (7-18) 62 mg/dL (7-18) Creatinine 1.1 MG/DL (0.55-1.30) 1.5 MG/DL (0.55-1.30) 1.7 MG/DL (0.55-1.30) Estimat Glomerular Filtration Rate > 60 mL/min (>60) 55.6 mL/min (>60) 48.1 mL/min (>60) Glucose Level 159 MG/DL (74-106) 185 MG/DL (74-106) 145 MG/DL (74-106) Calcium Level 8.5 MG/DL (8.5-10.1) 8.8 MG/DL (8.5-10.1) 9.0 MG/DL (8.5-10.1) Phosphorus Level 3.3 MG/DL (2.5-4.9) Magnesium Level 2.1 MG/DL (1.8-2.4) 2.5 MG/DL (1.8-2.4) Arterial Blood pH 7.400 (7.350-7.450) Arterial Blood Partial Pressure CO2 42.2 mmHg (35.0-45.0) Arterial Blood Partial Pressure O2 56.6 mmHg (75.0-100.0) Arterial Blood HCO3 25.7 mmol/L (22.0-26.0) Arterial Blood Oxygen Saturation 87.3 % (95-100) Arterial Blood Base Excess 0.8 (-2-2) Danis Test Positive Pro-B-Type Natriuretic Peptide > 18792 pg/mL (0-125) Uric Acid 8.5 MG/DL (2.6-7.2) Objective: GENERAL: NAD and on oxygen HEENT: Negative. NECK: Supple. LUNGS: reduced breath sounds. no rhonchi. no wheeze- improved CARDIAC: S1, S2. Regular rate and rhythm with noted murmur. ABDOMEN: Soft, nontender. GT EXTREMITIES: No cyanosis or clubbing. NEUROLOGICAL: Confused. but alert reviewed and edited Micro: Microbiology Date/Time Source Procedure Growth Status 07/25/19 02:14 Nasopharynx Coronavirus COVID-19 PCR ([facility]) - Final Complete Accucheck: 131 Jose Iglesias MD Jul 26, 2019 08:00
--- NOTE | 2019-07-26 09:03 | Urology Progress Note ---
Assessment/Plan Status: stable Assessment/Plan: BPH hx urinary retention with chronic limon neurogenic bladder (atonic) UTI/colonized ARAMIS/CKD, labile hematuria renal cyst monitor clinically maintain limon indwelling, last exchanged 07/22 hand irrigated and do PRN abx as ordered monitor renal fxn consider repeat renal imaging flomax and proscar dc'd d/w nursing staff Subjective Allergies: Coded Allergies: AMOXAPINE (Unverified Allergy, Unknown, 10/16/18) AMOXICILLIN (Unverified Allergy, Unknown, 04/17/14) LISINOPRIL (Unverified Allergy, Unknown, 04/17/14) Subjective all noted, feels fair, some occ SOB, new limon draining OK Objective Last 24 Hour Vital Signs Date Time Temp Pulse Resp B/P (MAP) Pulse Ox O2 Delivery O2 Flow Rate FiO2 07/26/19 08:10 100 Nasal Cannula 5.0 40 07/26/19 08:00 Nasal Cannula 6.0 07/26/19 08:00 92 07/26/19 08:00 96.5 89 23 91/64 (73) 100 89 07/26/19 04:00 97.2 93 24 100/67 (78) 94 96 07/26/19 04:00 Nasal Cannula 6.0 07/26/19 03:27 94 07/26/19 00:00 Nasal Cannula 6.0 07/26/19 00:00 97.5 93 26 104/76 (85) 96 96 07/25/19 23:46 90 07/25/19 21:00 93 106/70 07/25/19 21:00 106/70 07/25/19 20:26 96 Nasal Cannula 5.0 40 07/25/19 20:00 93 07/25/19 20:00 97.2 93 24 106/70 (82) 100 95 07/25/19 20:00 Nasal Cannula 6.0 07/25/19 19:44 94 07/25/19 16:00 Nasal Cannula 6.0 07/25/19 16:00 97.2 95 24 91/55 (67) 99 95 07/25/19 16:00 92 07/25/19 12:00 97.2 90 23 87/59 (68) 94 90 07/25/19 12:00 Nasal Cannula 6.0 07/25/19 12:00 103 07/25/19 10:30 102/77 6/3/20 10:29 105 102/77 07/25/19 10:29 102/77 07/25/19 10:28 102/77 Intake and Output 07/25/19 07/26/19 19:00 07:00 Intake Total 840 ml 760 ml Output Total 350 ml 600 ml Balance 490 ml 160 ml Free Water 120 ml 100 ml Tube Feeding 720 ml 660 ml Output Urine Total 350 ml 600 ml # Bowel Movements 2 5 Microbiology Date/Time Source Procedure Growth Status 07/18/19 18:45 Blood Blood Culture - Final NO GROWTH AFTER 5 DAYS Complete 07/25/19 02:14 Nasopharynx Coronavirus COVID-19 PCR ([facility]) - Final Complete 07/19/19 12:15 Urine,Clean Catch Urine Culture - Final Escherichia Coli Pseudomonas Aeruginosa Complete 07/19/19 02:50 Rectum - Final NO CARBAPENEM-RESISTANT ENTEROBACTERI... Complete Current Medications Medications (Trade) Dose Ordered Sig/[place] Route PRN Reason Start Time Stop Time Status Last Admin Dose Admin Acetaminophen (Tylenol) 650 mg Q4H PRN ORAL Mild Pain (Pain Scale 1-3) 07/25/19 02:00 08/18/19 05:59 Al Hydroxide/Mg Hydroxide (Mylanta) 30 ml Q4H PRN ORAL Dyspepsia 07/25/19 01:00 08/18/19 08:59 Atorvastatin Calcium (Lipitor) 40 mg BEDTIME ORAL 07/25/19 21:00 10/17/19 20:59 07/25/19 23:00 Carvedilol (Coreg) 12.5 mg EVERY 12 HOURS ORAL 07/25/19 09:00 08/24/19 08:59 07/25/19 10:29 Dextrose (Dextrose 50%) 25 ml Q30M PRN IV Hypoglycemia 07/24/19 22:15 10/18/19 17:14 Dextrose (Dextrose 50%) 50 ml Q30M PRN IV Hypoglycemia 07/24/19 22:15 10/18/19 17:14 Furosemide (Lasix) 60 mg BID IV 07/26/19 09:00 08/25/19 08:59 Heparin Sodium (Porcine) (Heparin 5000 units/ml) 5,000 units EVERY 12 HOURS SUBQ 07/25/19 09:00 09/02/19 08:59 07/25/19 10:33 Hydralazine HCl (Apresoline) 50 mg BID@0900,2100 ORAL 07/25/19 09:00 10/17/19 08:59 07/25/19 10:30 Hydroxyzine HCl (Vistaril) 10 mg BID PRN ORAL Itching 07/25/19 03:14 08/18/19 03:13 07/25/19 03:24 Insulin Aspart (NovoLOG) EVERY 6 HOURS SUBQ 07/25/19 00:00 10/18/19 17:59 07/25/19 18:16 Ipratropium [place] (Atrovent) 500 mcg Q4H PRN HHN Shortness of Breath 07/24/19 23:00 07/29/19 18:47 07/25/19 01:14 Isosorbide Mononitrate (Imdur) 30 mg DAILY ORAL 07/25/19 09:00 08/18/19 08:59 07/25/19 10:28 Losartan Potassium (Cozaar) 50 mg DAILY ORAL 07/25/19 09:00 08/23/19 08:59 07/25/19 10:29 Pantoprazole (Protonix) 40 mg DAILY ORAL 07/25/19 09:00 08/18/19 08:59 07/25/19 10:31 Sitagliptin Phosphate (Januvia) 25 mg ACBREAKFAST ORAL 07/26/19 06:30 08/25/19 06:29 07/26/19 06:46 Laboratory Tests 07/26/19 02:40: Sodium Level 147H, Potassium Level 4.5, Chloride Level 109H, Carbon Dioxide Level 28, Anion Gap 10, Blood Urea Nitrogen 62H, Creatinine 1.7H, Estimat Glomerular Filtration Rate 48.1, Glucose Level 145H, Uric Acid 8.5H, Calcium Level 9.0, Magnesium Level 2.5H Height (Feet): 5 Height (Inches): 8.00 Weight (Pounds): 141 Objective exam stable 18f limon, yellow/corey urine, occasional debris old renal imaging noted Panchito Camarena MD Jul 26, 2019 09:03
[2019-07-26] MEDS: Heparin 5000 units/ml inj SUBQ SCH ×2 (10:33→20:21)
[2019-07-26] MEDS: Losartan 50mg tab ORAL SCH (10:42)
[2019-07-26] MEDS: Imdur 30mg tab ORAL SCH (10:43)
[2019-07-26] MEDS: Carvedilol 12.5mg tab ORAL SCH ×2 (10:43→20:22)
[2019-07-26] MEDS: HydrALAZINE 50mg tab ORAL SCH ×2 (10:45→20:21)
--- NOTE | 2019-07-26 10:55 | CDS Physician Query ---
Dear Dr.Abraham Kelsie M.D. Date :07/26/19 Test Engine Evaluator/CDS Name: Akash Dimas Exercise your independent professional judgment when responding to the query. Questions asked do not imply a particular answer is desired or expected. We greatly appreciate your clarification on this issue. CLINICAL DOCUMENTATION STATES: 74-year-old male with multiple medical problems, multiple admissions, history of congestive heart failure, external pacer. X-ray suggestive of pulmonary edema and possible pneumonia. The patient is at COVID risk IMPRESSION: Evidence of pneumonia, Evidence of chronic renal failure, Pacemaker , Coronary artery disease, CHF, Hepatitis C, Aspiration, Lactic acidemia. CLINICAL FINDINGS SHOW: Albumin (07/17) 2.8, Calcium level 8.8, BMI 21.4 Please select the most appropriate option: [] Protein/Calorie Malnutrition [] Mild [] Moderate [x] Severe [] Other [] Unable to determine [] Not Applicable Condition Present on Admission: [x] Yes [] No [ ] Unable to determine Please also document in your Progress Notes and/or Discharge Summary and indicate if the condition was present on admission. Ynes SMITHD
--- NOTE | 2019-07-26 11:05 | Diagnostic Imaging Report ---
Indication: Shortness of breath Technique: One view of the chest Comparison: 07/25/2019 Findings: Bilateral interstitial and airspace infiltrates, left greater than right pleural effusions persist, unchanged. The heart is borderline enlarged. Impression: Unchanged, over one day, findings as above.
--- NOTE | 2019-07-26 11:45 | Progress Note ---
DATE: 07/25/2019 CARDIOLOGY PROGRESS NOTE SUBJECTIVE: The patient has increasing shortness of breath and hypoxia. Chest radiograph reveals increasing effusions and edema. The patient has a baseline ejection fraction of 15% to 20%. PHYSICAL EXAMINATION: VITAL SIGNS: Blood pressure 91/55, heart rate 95, respiratory rate 24, afebrile. LUNGS: Diminished breath sounds. Few bilateral rales. CARDIAC: Regular rhythm and rate. Normal S1, S2. A 1/6 systolic apical murmur. EXTREMITIES: With dependent edema. LABORATORY DATA: Sodium 147, potassium 5, bicarb 26, BUN 50, creatinine 1.5. Pro-natriuretic peptide over 35,000. Baseline INR is 2.2. IMPRESSION: 1. Acute on chronic systolic congestive heart failure. 2. Pleural effusion. 3. Dehydration. 4. Hypernatremia. 5. Acute on chronic renal failure. 6. Condition, serious. Prognosis, guarded. PLAN: Consider thoracentesis. Continue efforts to diurese. Consideration for dobutamine for inotropic support. Anti-failure regimen as tolerated by blood pressure parameters. We will follow. Alton Malloy M.D. DR: FERN JOB#: [id number] CC:
--- NOTE | 2019-07-26 11:50 | Infectious Diseases Prog Note ---
Assessment/Plan Assessment/Plan A: 1. Pneumonia COVID19 X 2: negative 2. Diabetes. 3. Hypertension. 4. Congestive heart failure. 5. Hepatitis C. 6. Gram-negative+ E.coli urinary tract infection. PLAN: 1. Observe off antibiotic 2. Discontinue droplet isolation Subjective ROS Limited/Unobtainable: No Constitutional: Reports: no symptoms Respiratory: Reports: no symptoms Gastrointestinal/Abdominal: Reports: no symptoms Genitourinary: Reports: no symptoms Allergies: Coded Allergies: AMOXAPINE (Unverified Allergy, Unknown, 10/16/18) AMOXICILLIN (Unverified Allergy, Unknown, 04/17/14) LISINOPRIL (Unverified Allergy, Unknown, 04/17/14) Objective Vital Signs Last 24 Hour Vital Signs Date Time Temp Pulse Resp B/P (MAP) Pulse Ox O2 Delivery O2 Flow Rate FiO2 07/26/19 10:45 102/63 07/26/19 10:43 85 102/63 07/26/19 10:43 91/64 07/26/19 10:42 102/63 07/26/19 08:10 100 Nasal Cannula 5.0 40 07/26/19 08:00 Nasal Cannula 6.0 07/26/19 08:00 92 07/26/19 08:00 96.5 89 23 91/64 (73) 100 89 07/26/19 04:00 97.2 93 24 100/67 (78) 94 96 07/26/19 04:00 Nasal Cannula 6.0 07/26/19 03:27 94 07/26/19 00:00 Nasal Cannula 6.0 07/26/19 00:00 97.5 93 26 104/76 (85) 96 96 07/25/19 23:46 90 07/25/19 21:00 93 106/70 07/25/19 21:00 106/70 07/25/19 20:26 96 Nasal Cannula 5.0 40 07/25/19 20:00 93 07/25/19 20:00 97.2 93 24 106/70 (82) 100 95 07/25/19 20:00 Nasal Cannula 6.0 07/25/19 19:44 94 07/25/19 16:00 Nasal Cannula 6.0 07/25/19 16:00 97.2 95 24 91/55 (67) 99 95 07/25/19 16:00 92 07/25/19 12:00 97.2 90 23 87/59 (68) 94 90 07/25/19 12:00 Nasal Cannula 6.0 07/25/19 12:00 103 Height (Feet): 5 Height (Inches): 8.00 Weight (Pounds): 141 General Appearance: no acute distress HEENT: mucous membranes moist Respiratory/Chest: lungs clear Cardiovascular: normal rate Abdomen: soft, non tender, other - Gt feeding Extremities: no edema Neurologic/Psychiatric: responsive Microbiology Date/Time Source Procedure Growth Status 07/25/19 02:14 Nasopharynx Coronavirus COVID-19 PCR ([facility]) - Final Complete Laboratory Tests Test 07/26/19 02:40 Sodium Level 147 MMOL/L (136-145) H Potassium Level 4.5 MMOL/L (3.5-5.1) Chloride Level 109 MMOL/L (98-107) H Carbon Dioxide Level 28 MMOL/L (21-32) Anion Gap 10 mmol/L (5-15) Blood Urea Nitrogen 62 mg/dL (7-18) H Creatinine 1.7 MG/DL (0.55-1.30) H Estimat Glomerular Filtration Rate 48.1 mL/min (>60) Glucose Level 145 MG/DL (74-106) H Uric Acid 8.5 MG/DL (2.6-7.2) H Calcium Level 9.0 MG/DL (8.5-10.1) Magnesium Level 2.5 MG/DL (1.8-2.4) H Current Medications Medications (Trade) Dose Ordered Sig/[place] Route PRN Reason Start Time Stop Time Status Last Admin Dose Admin Acetaminophen (Tylenol) 650 mg Q4H PRN ORAL Mild Pain (Pain Scale 1-3) 07/25/19 02:00 08/18/19 05:59 Al Hydroxide/Mg Hydroxide (Mylanta) 30 ml Q4H PRN ORAL Dyspepsia 07/25/19 01:00 08/18/19 08:59 Atorvastatin Calcium (Lipitor) 40 mg BEDTIME ORAL 07/25/19 21:00 10/17/19 20:59 07/25/19 23:00 Carvedilol (Coreg) 12.5 mg EVERY 12 HOURS ORAL 07/25/19 09:00 08/24/19 08:59 07/26/19 10:43 Dextrose (Dextrose 50%) 25 ml Q30M PRN IV Hypoglycemia 07/24/19 22:15 10/18/19 17:14 Dextrose (Dextrose 50%) 50 ml Q30M PRN IV Hypoglycemia 07/24/19 22:15 10/18/19 17:14 Furosemide (Lasix) 60 mg BID IV 07/26/19 09:00 08/25/19 08:59 07/26/19 10:32 Heparin Sodium (Porcine) (Heparin 5000 units/ml) 5,000 units EVERY 12 HOURS SUBQ 07/25/19 09:00 09/02/19 08:59 07/26/19 10:33 Hydralazine HCl (Apresoline) 50 mg BID@0900,2100 ORAL 07/25/19 09:00 10/17/19 08:59 07/26/19 10:45 Hydroxyzine HCl (Vistaril) 10 mg BID PRN ORAL Itching 07/25/19 03:14 08/18/19 03:13 07/25/19 03:24 Insulin Aspart (NovoLOG) EVERY 6 HOURS SUBQ 07/25/19 00:00 10/18/19 17:59 07/25/19 18:16 Ipratropium [place] (Atrovent) 500 mcg Q4H PRN HHN Shortness of Breath 07/24/19 23:00 07/29/19 18:47 07/25/19 01:14 Isosorbide Mononitrate (Imdur) 30 mg DAILY ORAL 07/25/19 09:00 08/18/19 08:59 07/26/19 10:43 Losartan Potassium (Cozaar) 50 mg DAILY ORAL 07/25/19 09:00 08/23/19 08:59 07/26/19 10:42 Pantoprazole (Protonix) 40 mg DAILY ORAL 07/25/19 09:00 08/18/19 08:59 07/26/19 10:41 Sitagliptin Phosphate (Januvia) 25 mg ACBREAKFAST ORAL 07/26/19 06:30 08/25/19 06:29 07/26/19 06:46 Tre Caballero MD Jul 26, 2019 11:49
--- NOTE | 2019-07-26 11:51 | CDS Physician Query ---
Clarification is required for compliance, coding accuracy, and to reflect severity of illness for this patient. Dear Dr. Jose Iglesias M.D. Date: 07/26/2019 74-year-old male with multiple medical problems, multiple admissions, history of congestive heart failure, external pacer. The patient is a fairly poor historian, was noted to have significant hypoxemia on arrival to the ER. [H&P Jose Iglesias M.D. 07/18] IMPRESSION: Cardiomyopathy, Acute systolic congestive heart failure, Lactic acidosis, Possible sepsis, UTI, Acute on chronic renal failure, Possible COVID- 19 pneumonia, Hypoxia, Remains critical and guarded. [PN Alton Malloy M.D 07/19 ] Clinical Finding Show: Vital sighs (07/17):T 97.9F, Pulse 92, RR 18, BP 91/70 Lab (07/17): Hemat; WBC 5.3, Neut 72.1 Chem; Glucose 141, Lactic Acid 5.2 Urines; Ur.bacteria "many", Ur/ Leuk Bettye 3+ Microbiology (07/17): ESCHERICHIA COLI COLONY COUNT: >100,000 CFU/ML Organism 2 PSEUDOMONAS AERUGINOSA COLONY COUNT: 30,000 - 40,000 CFU/ML Treatment: Vancomycin IV (07/18), Piperacilin Sod IV (07/18-07/22) A posssible diagnois of "SEPSIS" was made in the medical record on PN by Alton Malloy M.D 07/19. Upon review, it is difficult to determine whether this diagnosis has been ruled in, ruled out,or is still being worked up. Please indicate below the status of the aforementioned diagnosis. [x ] Ruled in [ ] Ruled out [ ] Other Present on Admission: [x] Yes [] No [] Clinically Undetermined Physician signature Date Please also document in your Progress Notes and/or Discharge Summary and indicate if the condition was present on admission. MTDD
[2019-07-26 12:00] VITALS: BP 86/62
--- NOTE | 2019-07-26 13:09 | General Progress Note ---
Assessment/Plan Problem List: (1) Suspected COVID-19 virus infection ICD Codes: Z20.828 - Contact with and (suspected) exposure to other viral communicable diseases SNOMED: 329966141 (2) PNA (pneumonia) ICD Codes: J18.9 - Pneumonia, unspecified organism SNOMED: 951311600 (3) CHF (congestive heart failure) ICD Codes: I50.9 - Heart failure, unspecified SNOMED: 38332051 (4) UTI (urinary tract infection) ICD Codes: N39.0 - Urinary tract infection, site not specified SNOMED: 27860389 (5) ARAMIS (acute kidney injury) ICD Codes: N17.9 - Acute kidney failure, unspecified SNOMED: 51809459, 2141682 Status: stable Assessment/Plan: o2- titrate diuresis per cards monitor i/o tube feeds/monitor residuals iv abx follow up cultures monitor cxr dvt/stress ulcer prophylaxis turn q2 consider thoracentesis Subjective ROS Limited/Unobtainable: No Constitutional: Reports: malaise, weakness HEENT: Reports: no symptoms Cardiovascular: Reports: no symptoms Respiratory: Reports: cough, shortness of breath, sputum Gastrointestinal/Abdominal: Reports: difficulty swallowing Genitourinary: Reports: no symptoms Neurologic/Psychiatric: Reports: pre-existing deficit Endocrine: Reports: no symptoms Hematologic/Lymphatic: Reports: anemia Allergies: Coded Allergies: AMOXAPINE (Unverified Allergy, Unknown, 10/16/18) AMOXICILLIN (Unverified Allergy, Unknown, 04/17/14) LISINOPRIL (Unverified Allergy, Unknown, 04/17/14) All Systems: reviewed and negative except above Subjective better. decreased o2 requirements. on nasal cannula. confused. on gt feeds. on lasix. bun/cr trending up. cxr- no improvement Objective Last 24 Hour Vital Signs Date Time Temp Pulse Resp B/P (MAP) Pulse Ox O2 Delivery O2 Flow Rate FiO2 07/26/19 12:00 91 07/26/19 12:00 96.0 80 22 86/62 (70) 100 80 07/26/19 12:00 Nasal Cannula 6.0 07/26/19 10:45 102/63 07/26/19 10:43 85 102/63 07/26/19 10:43 91/64 07/26/19 10:42 102/63 07/26/19 08:10 100 Nasal Cannula 5.0 40 07/26/19 08:00 Nasal Cannula 6.0 07/26/19 08:00 92 07/26/19 08:00 96.5 89 23 91/64 (73) 100 89 07/26/19 04:00 97.2 93 24 100/67 (78) 94 96 07/26/19 04:00 Nasal Cannula 6.0 07/26/19 03:27 94 07/26/19 00:00 Nasal Cannula 6.0 07/26/19 00:00 97.5 93 26 104/76 (85) 96 96 07/25/19 23:46 90 07/25/19 21:00 93 106/70 07/25/19 21:00 106/70 07/25/19 20:26 96 Nasal Cannula 5.0 40 07/25/19 20:00 93 07/25/19 20:00 97.2 93 24 106/70 (82) 100 95 07/25/19 20:00 Nasal Cannula 6.0 07/25/19 19:44 94 07/25/19 16:00 Nasal Cannula 6.0 07/25/19 16:00 97.2 95 24 91/55 (67) 99 95 07/25/19 16:00 92 Intake and Output 07/25/19 07/26/19 19:00 07:00 Intake Total 840 ml 760 ml Output Total 350 ml 600 ml Balance 490 ml 160 ml Free Water 120 ml 100 ml Tube Feeding 720 ml 660 ml Output Urine Total 350 ml 600 ml # Bowel Movements 2 5 Laboratory Tests 07/26/19 02:40: Sodium Level 147H, Potassium Level 4.5, Chloride Level 109H, Carbon Dioxide Level 28, Anion Gap 10, Blood Urea Nitrogen 62H, Creatinine 1.7H, Estimat Glomerular Filtration Rate 48.1, Glucose Level 145H, Uric Acid 8.5H, Calcium Level 9.0, Magnesium Level 2.5H Height (Feet): 5 Height (Inches): 8.00 Weight (Pounds): 141 Objective General Appearance: WD/WN, confused, thin EENT: PERRL/EOMI, normal ENT inspection, TMs normal Neck: non-tender, normal alignment, supple Cardiovascular: normal peripheral pulses, normal rate, regular rhythm Respiratory/Chest: chest wall non-tender, lungs clear, normal breath sounds, no respiratory distress, no accessory muscle use Abdomen: normal bowel sounds, non tender, soft, no organomegaly, no mass Extremities: normal range of motion, non-tender Edema: no edema noted Arm (L), no edema noted Arm (R) 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
[2019-07-26 16:00] VITALS: BP 92/59
[2019-07-26] MEDS ORDERED: DOBUTamine 250mg/250ml Premix 250 ML IV SCH (18:15)
[2019-07-26] MEDS ORDERED: Lidocaine 1% Plain 30 ml INJ PRN (18:46)
[2019-07-26] MEDS ORDERED: Heparin1,000 units/500ml Premix(Conc:2 units/ml) IV PRN (18:46)
[2019-07-26] MEDS: DOBUTamine 250mg/250ml Premix 250 ML IV SCH (19:10)
--- NOTE | 2019-07-26 19:55 | Nephrology Progress Note ---
Assessment/Plan Problem List: (1) CKD (chronic kidney disease) stage 3, GFR 30-59 ml/min (2) ARAMIS (acute kidney injury) (3) UTI (urinary tract infection) (4) CHF (congestive heart failure) Assessment: sys (5) Urinary retention Assessment: chronic (6) PNA (pneumonia) (7) Hypernatremia Plan continue diuresis, replace K, limon, antibiotics, Na higher to trend with diuresis+free water via GT Subjective ROS Limited/Unobtainable: Yes Objective Objective Last 24 Hour Vital Signs Date Time Temp Pulse Resp B/P (MAP) Pulse Ox O2 Delivery O2 Flow Rate FiO2 07/26/19 19:10 98/48 07/26/19 16:00 Nasal Cannula 6.0 07/26/19 16:00 96.8 79 21 92/59 (70) 100 79 07/26/19 16:00 84 07/26/19 12:00 91 07/26/19 12:00 96.0 80 22 86/62 (70) 100 80 07/26/19 12:00 Nasal Cannula 6.0 07/26/19 10:45 102/63 07/26/19 10:43 85 102/63 07/26/19 10:43 91/64 07/26/19 10:42 102/63 07/26/19 08:10 100 Nasal Cannula 5.0 40 07/26/19 08:00 Nasal Cannula 6.0 07/26/19 08:00 92 07/26/19 08:00 96.5 89 23 91/64 (73) 100 89 07/26/19 04:00 97.2 93 24 100/67 (78) 94 96 07/26/19 04:00 Nasal Cannula 6.0 07/26/19 03:27 94 07/26/19 00:00 Nasal Cannula 6.0 07/26/19 00:00 97.5 93 26 104/76 (85) 96 96 07/25/19 23:46 90 07/25/19 21:00 93 106/70 07/25/19 21:00 106/70 07/25/19 20:26 96 Nasal Cannula 5.0 40 07/25/19 20:00 93 07/25/19 20:00 97.2 93 24 106/70 (82) 100 95 07/25/19 20:00 Nasal Cannula 6.0 Intake and Output 07/25/19 07/26/19 19:00 07:00 Intake Total 840 ml 820 ml Output Total 350 ml 600 ml Balance 490 ml 220 ml Free Water 120 ml 100 ml Tube Feeding 720 ml 720 ml Output Urine Total 350 ml 600 ml # Bowel Movements 2 7 Laboratory Tests 07/26/19 02:40: Sodium Level 147H, Potassium Level 4.5, Chloride Level 109H, Carbon Dioxide Level 28, Anion Gap 10, Blood Urea Nitrogen 62H, Creatinine 1.7H, Estimat Glomerular Filtration Rate 48.1, Glucose Level 145H, Uric Acid 8.5H, Calcium Level 9.0, Magnesium Level 2.5H Height (Feet): 5 Height (Inches): 8.00 Weight (Pounds): 141 General Appearance: confused, mild distress EENT: normal ENT inspection Cardiovascular: regular rhythm Respiratory/Chest: crackles/rales Abdomen: soft Extremities: no edema Neurologic: motor weakness Ang Worrell MD Jul 26, 2019 19:55
[2019-07-26 20:00] VITALS: BP 96/54
[2019-07-26] MEDS: Atorvastatin 20mg tab ORAL SCH (20:20)
[2019-07-27] VITALS: BP 100/71
[2019-07-27 04:00] VITALS: BP 95/76
[2019-07-27] MEDS: NovoLOG Insulin Flexpen SUBQ SCH ×3 (06:00→18:00)
[2019-07-27] MEDS: sitaGLIPtin 25mg tab ORAL SCH (06:19)
[2019-07-27] MEDS: DOBUTamine 250mg/250ml Premix 250 ML IV SCH ×3 (07:49→20:06)
[2019-07-27 07:58] LABS: ANION GAP 10 mmol/L (5-15); BLOOD UREA NITROGEN 61 mg/dL (7-18); CALCIUM 8.8 MG/DL (8.5-10.1); CARBON DIOXIDE 31 MMOL/L (21-32); CHLORIDE 109 MMOL/L (98-107); CREATININE 1.6 MG/DL (0.55-1.30); POTASSIUM 3.5 MMOL/L (3.5-5.1); SODIUM 150 MMOL/L (136-145)
[2019-07-27 07:59] VITALS: BP 98/72
--- NOTE | 2019-07-27 08:00 | Progress Note ---
DATE: 07/26/2019 CARDIOLOGY PROGRESS NOTE SUBJECTIVE: Condition remains critical. Prognosis guarded. Patient with low range blood pressure readings. Poor urine output. Increasing pleural effusions on chest radiograph and shortness of breath. PHYSICAL EXAMINATION: VITAL SIGNS: Blood pressure 86/62, heart rate 80, respirations 22, afebrile. LUNGS: Bilateral breath sounds with rales and diminished at bases. CARDIAC: Regular rhythm and rate. Normal S1, S2 with a 1/6 systolic murmur at apex. ABDOMEN: Soft. EXTREMITIES: There is trace dependent edema. LABORATORY DATA: Sodium 147, potassium 4.5, BUN 62, creatinine 1.7. Pro natriuretic peptide over 35,000. IMPRESSION: Diuresis is resulting in poor urine output and worsening renal function with increasing pleural effusions as well as hypernatremia and dehydration. This is all in the setting of a severe cardiomyopathy with ejection fraction of less than 20%. RECOMMENDATIONS: 1. Efforts will now include dobutamine drip to improve inotropy. 2. Continued efforts at fluid mobilization. 3. Consideration for thoracentesis. 4. Replacement of free water deficit. 5. DVT prophylaxis. Alton Malloy M.D. DR: ZE JOB#: [id number] CC:
[2019-07-27] MEDS: Heparin 5000 units/ml inj SUBQ SCH ×2 (09:00→21:00)
--- NOTE | 2019-07-27 09:06 | Critical Care Progress Note ---
Assessment/Plan Assessment/Plan IMPRESSION: 1. Evidence of chronic renal failure. 2. Coronary artery disease. 3. CHF. 4. Hepatitis C. 5. Pacemaker. 6. G-tube. 7. Aspiration. 8. Possible COVID. 9. Evidence of pneumonia. 10. Lactic acidemia 11. CXR with pulmonary infiltrates ?hyun 12. hypernatremia PLAN monitor for change oxygen taper BIPAP as needed meds as is remains full code optimize as able taper oxygen overall appears better monitor fluid status off antibiotics recheck CXR for clearing monitor sodium reduced lasix dosing needs snf medications/laboratory data/nursing notes reviewed in detail note reviewed and edited care discussed with RN and RT Critical Care - Subjective ROS Limited/Unobtainable: Yes Condition: stable EKG Rhythm: Sinus Rhythm I&O: Intake and Output 07/26/19 07/27/19 19:00 07:00 Intake Total 880 ml 735.935 ml Output Total 750 ml 800 ml Balance 130 ml -64.065 ml Free Water 220 ml 100 ml IV Total 95.935 ml Tube Feeding 660 ml 540 ml Output Urine Total 750 ml 800 ml # Bowel Movements 4 1 Critical Care - Objective Last 24 Hour Vital Signs Date Time Temp Pulse Resp B/P (MAP) Pulse Ox O2 Delivery O2 Flow Rate FiO2 07/27/19 08:00 Nasal Cannula 6.0 07/27/19 07:59 97.7 74 20 98/72 (81) 98 07/27/19 07:49 98/72 07/27/19 04:00 Nasal Cannula 6.0 07/27/19 04:00 86 07/27/19 04:00 97.6 82 20 95/76 (82) 98 07/27/19 00:00 79 07/27/19 00:00 Nasal Cannula 6.0 07/27/19 00:00 97.1 75 20 100/71 (81) 99 07/26/19 20:22 89 96/54 07/26/19 20:21 96/54 07/26/19 20:00 79 07/26/19 20:00 97.0 79 20 96/54 (68) 100 79 07/26/19 20:00 Nasal Cannula 6.0 07/26/19 19:52 100 Nasal Cannula 5.0 40 07/26/19 19:10 98/48 07/26/19 16:00 Nasal Cannula 6.0 07/26/19 16:00 96.8 79 21 92/59 (70) 100 79 07/26/19 16:00 84 07/26/19 12:00 91 07/26/19 12:00 96.0 80 22 86/62 (70) 100 80 07/26/19 12:00 Nasal Cannula 6.0 07/26/19 10:45 102/63 07/26/19 10:43 85 102/63 07/26/19 10:43 91/64 07/26/19 10:42 102/63 Objective: GENERAL: NAD and on oxygen HEENT: Negative. NECK: Supple. LUNGS: reduced breath sounds. no rhonchi. no wheeze- stable CARDIAC: S1, S2. Regular rate and rhythm with noted murmur. ABDOMEN: Soft, nontender. GT EXTREMITIES: No cyanosis or clubbing. minimal edema NEUROLOGICAL: Confused. but alert reviewed and edited Micro: Microbiology Date/Time Source Procedure Growth Status 07/25/19 02:14 Nasopharynx Coronavirus COVID-19 PCR ([facility]) - Final Complete Accucheck: 145 Jose Iglesias MD Jul 27, 2019 09:06
[2019-07-27] MEDS: Carvedilol 12.5mg tab ORAL SCH ×2 (09:21→21:00)
[2019-07-27] MEDS: HydrALAZINE 50mg tab ORAL SCH (09:21)
[2019-07-27] MEDS: Losartan 50mg tab ORAL SCH (09:21)
[2019-07-27] MEDS: Imdur 30mg tab ORAL SCH (09:22)
--- NOTE | 2019-07-27 09:23 | General Progress Note ---
Assessment/Plan Problem List: (1) Suspected COVID-19 virus infection ICD Codes: Z20.828 - Contact with and (suspected) exposure to other viral communicable diseases SNOMED: 606899149 (2) PNA (pneumonia) ICD Codes: J18.9 - Pneumonia, unspecified organism SNOMED: 434577642 (3) CHF (congestive heart failure) ICD Codes: I50.9 - Heart failure, unspecified SNOMED: 98860697 (4) UTI (urinary tract infection) ICD Codes: N39.0 - Urinary tract infection, site not specified SNOMED: 67688192 (5) ARAMIS (acute kidney injury) ICD Codes: N17.9 - Acute kidney failure, unspecified SNOMED: 03195363, 4457418 Status: stable Assessment/Plan: o2- titrate. now on 6L diuresis per cards monitor i/o monitor labs increase water flushes tube feeds/monitor residuals iv abx follow up cultures monitor cxr dvt/stress ulcer prophylaxis turn q2 Subjective ROS Limited/Unobtainable: No Constitutional: Reports: malaise, weakness HEENT: Reports: no symptoms Cardiovascular: Reports: no symptoms Respiratory: Reports: cough Gastrointestinal/Abdominal: Reports: no symptoms Genitourinary: Reports: no symptoms Neurologic/Psychiatric: Reports: no symptoms Endocrine: Reports: no symptoms Hematologic/Lymphatic: Reports: anemia Allergies: Coded Allergies: AMOXAPINE (Unverified Allergy, Unknown, 10/16/18) AMOXICILLIN (Unverified Allergy, Unknown, 04/17/14) LISINOPRIL (Unverified Allergy, Unknown, 04/17/14) All Systems: reviewed and negative except above Subjective better. decreased o2 requirements. on nasal cannula. confused. on gt feeds. on lasix. Na trending up Objective Last 24 Hour Vital Signs Date Time Temp Pulse Resp B/P (MAP) Pulse Ox O2 Delivery O2 Flow Rate FiO2 07/27/19 08:00 Nasal Cannula 6.0 07/27/19 07:59 97.7 74 20 98/72 (81) 98 07/27/19 07:49 98/72 07/27/19 04:00 Nasal Cannula 6.0 07/27/19 04:00 86 07/27/19 04:00 97.6 82 20 95/76 (82) 98 07/27/19 00:00 79 07/27/19 00:00 Nasal Cannula 6.0 07/27/19 00:00 97.1 75 20 100/71 (81) 99 07/26/19 20:22 89 96/54 07/26/19 20:21 96/54 07/26/19 20:00 79 07/26/19 20:00 97.0 79 20 96/54 (68) 100 79 07/26/19 20:00 Nasal Cannula 6.0 07/26/19 19:52 100 Nasal Cannula 5.0 40 07/26/19 19:10 98/48 07/26/19 16:00 Nasal Cannula 6.0 07/26/19 16:00 96.8 79 21 92/59 (70) 100 79 07/26/19 16:00 84 07/26/19 12:00 91 07/26/19 12:00 96.0 80 22 86/62 (70) 100 80 07/26/19 12:00 Nasal Cannula 6.0 07/26/19 10:45 102/63 07/26/19 10:43 85 102/63 07/26/19 10:43 91/64 07/26/19 10:42 102/63 Intake and Output 07/26/19 07/27/19 18:59 06:59 Intake Total 940 ml 735.935 ml Output Total 750 ml 800 ml Balance 190 ml -64.065 ml Free Water 220 ml 100 ml IV Total 95.935 ml Tube Feeding 720 ml 540 ml Output Urine Total 750 ml 800 ml # Bowel Movements 6 1 Laboratory Tests 07/27/19 02:59: Sodium Level 150H, Potassium Level 3.5, Chloride Level 109H, Carbon Dioxide Level 31, Anion Gap 10, Blood Urea Nitrogen 61H, Creatinine 1.6H, Estimat Glomerular Filtration Rate 51.6, Glucose Level 130H, Calcium Level 8.8 Height (Feet): 5 Height (Inches): 8.00 Weight (Pounds): 129 Objective General Appearance: WD/WN, confused, thin EENT: PERRL/EOMI, normal ENT inspection, TMs normal Neck: non-tender, normal alignment, supple Cardiovascular: normal peripheral pulses, normal rate, regular rhythm Respiratory/Chest: chest wall non-tender, lungs clear, normal breath sounds, no respiratory distress, no accessory muscle use Abdomen: normal bowel sounds, non tender, soft, no organomegaly, no mass Extremities: normal range of motion, non-tender Edema: no edema noted Arm (L), no edema noted 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
--- NOTE | 2019-07-27 11:09 | Urology Progress Note ---
Assessment/Plan Status: stable Assessment/Plan: BPH hx urinary retention with chronic limon neurogenic bladder (atonic) UTI/colonized ARAMIS/CKD, labile hematuria renal cyst monitor clinically maintain limon indwelling, last exchanged 07/22 hand irrigated and do PRN s/p abx monitor renal fxn consider repeat renal imaging flomax and proscar dc'd d/w nursing staff Subjective Allergies: Coded Allergies: AMOXAPINE (Unverified Allergy, Unknown, 10/16/18) AMOXICILLIN (Unverified Allergy, Unknown, 04/17/14) LISINOPRIL (Unverified Allergy, Unknown, 04/17/14) Subjective all noted, feels fair, some occ SOB, new limon draining OK Objective Last 24 Hour Vital Signs Date Time Temp Pulse Resp B/P (MAP) Pulse Ox O2 Delivery O2 Flow Rate FiO2 07/27/19 09:22 117/78 07/27/19 09:21 89 117/78 07/27/19 09:21 117/78 07/27/19 09:21 117/78 07/27/19 08:00 Nasal Cannula 6.0 07/27/19 08:00 82 07/27/19 07:59 97.7 74 20 98/72 (81) 98 07/27/19 07:49 98/72 07/27/19 04:00 Nasal Cannula 6.0 07/27/19 04:00 86 07/27/19 04:00 97.6 82 20 95/76 (82) 98 07/27/19 00:00 79 07/27/19 00:00 Nasal Cannula 6.0 07/27/19 00:00 97.1 75 20 100/71 (81) 99 07/26/19 20:22 89 96/54 07/26/19 20:21 96/54 07/26/19 20:00 79 07/26/19 20:00 97.0 79 20 96/54 (68) 100 79 07/26/19 20:00 Nasal Cannula 6.0 07/26/19 19:52 100 Nasal Cannula 5.0 40 07/26/19 19:10 98/48 07/26/19 16:00 Nasal Cannula 6.0 07/26/19 16:00 96.8 79 21 92/59 (70) 100 79 07/26/19 16:00 84 07/26/19 12:00 91 07/26/19 12:00 96.0 80 22 86/62 (70) 100 80 07/26/19 12:00 Nasal Cannula 6.0 Intake and Output 07/26/19 07/27/19 18:59 06:59 Intake Total 940 ml 735.935 ml Output Total 750 ml 800 ml Balance 190 ml -64.065 ml Free Water 220 ml 100 ml IV Total 95.935 ml Tube Feeding 720 ml 540 ml Output Urine Total 750 ml 800 ml # Bowel Movements 6 1 Microbiology Date/Time Source Procedure Growth Status 07/18/19 18:45 Blood Blood Culture - Final NO GROWTH AFTER 5 DAYS Complete 07/25/19 02:14 Nasopharynx Coronavirus COVID-19 PCR ([facility]) - Final Complete 07/19/19 12:15 Urine,Clean Catch Urine Culture - Final Escherichia Coli Pseudomonas Aeruginosa Complete 07/19/19 02:50 Rectum - Final NO CARBAPENEM-RESISTANT ENTEROBACTERI... Complete Current Medications Medications (Trade) Dose Ordered Sig/[place] Route PRN Reason Start Time Stop Time Status Last Admin Dose Admin Acetaminophen (Tylenol) 650 mg Q4H PRN ORAL Mild Pain (Pain Scale 1-3) 07/25/19 02:00 08/18/19 05:59 Al Hydroxide/Mg Hydroxide (Mylanta) 30 ml Q4H PRN ORAL Dyspepsia 07/25/19 01:00 08/18/19 08:59 Atorvastatin Calcium (Lipitor) 40 mg BEDTIME ORAL 07/25/19 21:00 10/17/19 20:59 07/26/19 20:20 Carvedilol (Coreg) 12.5 mg EVERY 12 HOURS ORAL 07/25/19 09:00 08/24/19 08:59 07/27/19 09:21 Chlorhexidine Gluconate (Monique-Hex 2%) 1 applic DAILY@2000 TOPIC 07/27/19 20:00 10/25/19 19:59 Dextrose (Dextrose 50%) 25 ml Q30M PRN IV Hypoglycemia 07/24/19 22:15 10/18/19 17:14 Dextrose (Dextrose 50%) 50 ml Q30M PRN IV Hypoglycemia 07/24/19 22:15 10/18/19 17:14 Dobutamine HCl 250 ml @ 19.187 mls/ hr Q24H IV 07/26/19 18:34 10/24/19 18:33 07/27/19 07:49 Furosemide (Lasix) 60 mg DAILY IV 07/28/19 09:00 08/25/19 08:59 Heparin Sodium (Porcine) (Heparin 5000 units/ml) 5,000 units EVERY 12 HOURS SUBQ 07/25/19 09:00 09/02/19 08:59 07/26/19 20:21 Heparin Sodium/ Sodium Chloride (Heparin 1000 units/500ml Premix) 1,000 unit ONCE PRN IV PICC 07/26/19 18:46 07/27/19 23:59 Hydralazine HCl (Apresoline) 50 mg BID@0900,2100 ORAL 07/25/19 09:00 10/17/19 08:59 07/27/19 09:21 Hydroxyzine HCl (Vistaril) 10 mg BID PRN ORAL Itching 07/25/19 03:14 08/18/19 03:13 07/25/19 03:24 Insulin Aspart (NovoLOG) EVERY 6 HOURS SUBQ 07/25/19 00:00 10/18/19 17:59 07/26/19 23:34 Ipratropium [place] (Atrovent) 500 mcg Q4H PRN HHN Shortness of Breath 07/24/19 23:00 07/29/19 18:47 07/25/19 01:14 Isosorbide Mononitrate (Imdur) 30 mg DAILY ORAL 07/25/19 09:00 08/18/19 08:59 07/27/19 09:22 Lidocaine HCl (Xylocaine 1% 30ml) 30 ml ONCE PRN INJ PICC 07/26/19 18:46 07/27/19 23:59 Losartan Potassium (Cozaar) 50 mg DAILY ORAL 07/25/19 09:00 08/23/19 08:59 07/27/19 09:21 Pantoprazole (Protonix) 40 mg DAILY ORAL 07/25/19 09:00 08/18/19 08:59 07/27/19 09:21 Sitagliptin Phosphate (Januvia) 25 mg ACBREAKFAST ORAL 07/26/19 06:30 08/25/19 06:29 07/27/19 06:19 Laboratory Tests 07/27/19 02:59: Sodium Level 150H, Potassium Level 3.5, Chloride Level 109H, Carbon Dioxide Level 31, Anion Gap 10, Blood Urea Nitrogen 61H, Creatinine 1.6H, Estimat Glomerular Filtration Rate 51.6, Glucose Level 130H, Calcium Level 8.8 Height (Feet): 5 Height (Inches): 8.00 Weight (Pounds): 129 Objective exam stable 18f limon, yellow/corey urine, occasional debris old renal imaging noted Panchito Camarena MD Jul 27, 2019 11:09
[2019-07-27 12:00] VITALS: BP 104/52
--- NOTE | 2019-07-27 15:28 | Brief Operative Note ---
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
--- NOTE | 2019-07-27 15:41 | Diagnostic Imaging Report ---
Indications: Needs long-term IV access Technique: Procedure performed at bedside. Procedural timeout performed. Ultrasound confirms patent compressible right basilic vein. Total sterile technique, including sterile probe cover and sterile gel, sterile gloves, hand hygiene, hat, mask,, sterile gown, large sterile drape, and preparation with 2% chlorhexidine utilized. Local anesthesia with 1% lidocaine. Under real-time ultrasound guidance, puncture basilic vein using 21-gauge needle, passage 0.018 guidewire, exchange for 4 [place] peel-away sheath. 4 [place] Bard dual-lumen power PICC cut to 36 cm. It was inserted through the peel-away sheath. Peel-away sheath and guidewire removed. Catheter fixed to the skin. Both catheter ports aspirated and flushed. Patient tolerated procedure well, without immediate complication. Followup chest x-ray obtained, documents catheter tip position at the cavoatrial junction Impression: Successful bedside placement of right arm PICC under sonographic guidance, as described above.
[2019-07-27] MEDS ORDERED: Ipratropium 0.02% Inh Soln 2.5ml UD HHN PRN (15:58)
[2019-07-27 16:00] VITALS: BP 99/69
--- NOTE | 2019-07-27 19:41 | Nephrology Progress Note ---
Assessment/Plan Problem List: (1) CKD (chronic kidney disease) stage 3, GFR 30-59 ml/min (2) ARAMIS (acute kidney injury) (3) UTI (urinary tract infection) (4) CHF (congestive heart failure) Assessment: sys (5) Urinary retention Assessment: chronic (6) PNA (pneumonia) (7) Hypernatremia Plan continue diuresis, replace K, limon, antibiotics, Na higher to trend with diuresis+free water via GT Subjective ROS Limited/Unobtainable: Yes Objective Objective Last 24 Hour Vital Signs Date Time Temp Pulse Resp B/P (MAP) Pulse Ox O2 Delivery O2 Flow Rate FiO2 07/27/19 17:04 99/69 07/27/19 16:07 75 07/27/19 16:00 97.5 74 20 99/69 (79) 99 07/27/19 16:00 Nasal Cannula 6.0 07/27/19 12:30 100 Nasal Cannula 6.0 07/27/19 12:00 77 07/27/19 12:00 Nasal Cannula 6.0 07/27/19 12:00 97.3 70 19 104/52 (69) 100 07/27/19 09:22 117/78 07/27/19 09:21 89 117/78 07/27/19 09:21 117/78 07/27/19 09:21 117/78 07/27/19 08:00 Nasal Cannula 6.0 07/27/19 08:00 82 07/27/19 07:59 97.7 74 20 98/72 (81) 98 07/27/19 07:49 98/72 07/27/19 04:00 Nasal Cannula 6.0 07/27/19 04:00 86 07/27/19 04:00 97.6 82 20 95/76 (82) 98 07/27/19 00:00 79 07/27/19 00:00 Nasal Cannula 6.0 07/27/19 00:00 97.1 75 20 100/71 (81) 99 07/26/19 20:22 89 96/54 07/26/19 20:21 96/54 07/26/19 20:00 79 07/26/19 20:00 97.0 79 20 96/54 (68) 100 79 07/26/19 20:00 Nasal Cannula 6.0 07/26/19 19:52 100 Nasal Cannula 5.0 40 Intake and Output 07/26/19 07/27/19 19:00 07:00 Intake Total 880 ml 735.935 ml Output Total 750 ml 800 ml Balance 130 ml -64.065 ml Free Water 220 ml 100 ml IV Total 95.935 ml Tube Feeding 660 ml 540 ml Output Urine Total 750 ml 800 ml # Bowel Movements 4 1 Laboratory Tests 07/27/19 02:59: Sodium Level 150H, Potassium Level 3.5, Chloride Level 109H, Carbon Dioxide Level 31, Anion Gap 10, Blood Urea Nitrogen 61H, Creatinine 1.6H, Estimat Glomerular Filtration Rate 51.6, Glucose Level 130H, Calcium Level 8.8 Height (Feet): 5 Height (Inches): 8.00 Weight (Pounds): 129 General Appearance: alert, confused EENT: normal ENT inspection Neck: normal alignment Cardiovascular: regular rhythm Respiratory/Chest: lungs clear Abdomen: no organomegaly Extremities: no edema Neurologic: motor weakness Ang Worrell MD Jul 27, 2019 19:41
[2019-07-27 20:00] VITALS: BP 99/66
[2019-07-27] MEDS ORDERED: Dyna-Hex 2% Top Sol 2oz TOPIC SCH (20:00)
[2019-07-27] MEDS ORDERED: HydrALAZINE 50mg tab ORAL SCH (21:00)
[2019-07-27] MEDS: Dyna-Hex 2% Top Sol 2oz TOPIC SCH (21:28)
[2019-07-27] MEDS: Atorvastatin 20mg tab ORAL SCH (21:29)
[2019-07-28] VITALS: BP 102/67
--- NOTE | 2019-07-28 03:15 | Progress Note ---
DATE: 07/27/2019 CARDIOLOGY PROGRESS NOTE SUBJECTIVE: The patient has been on dobutamine drip. Urine output has improved. Patient is less short of breath. PHYSICAL EXAMINATION: VITAL SIGNS: Blood pressure 99/66, heart rate 68, respirations 20, afebrile, oxygen saturation on 106 liters 99%. NECK: Jugular venous pressure elevated. LUNGS: Bilateral rales. CARDIAC: Regular rhythm and rate. Normal S1, S2. A 1/6 systolic murmur at apex. ABDOMEN: Soft. EXTREMITIES: No edema. Sodium 150, potassium 3.5, bicarb 31, BUN 61, creatinine 1.6. PICC line has been placed in the right antecubital vein. IMPRESSION: 1. Poor peripheral access. 2. Status post PICC. 3. Acute on chronic systolic congestive heart failure. 4. Dilated cardiomyopathy. 5. Myocardial ischemia. 6. Pleural effusion. 7. Dehydration. 8. Hypernatremia. PLAN: 1. Continue a dobutamine for his ionotropic support with concomitant diuresis. 2. Free water replacement. 3. Titrate anti-failure regimen including beta-corry. 4. Free water replacement as able. Alton Malloy M.D. DR: ZE JOB#: [id number] CC:
[2019-07-28 04:00] VITALS: BP 107/78
[2019-07-28 04:55] LABS: BASOPHILS % (AUTO) 0.8 % (0.0-2.0); EOSINOPHILS % (AUTO) 5.6 % (0.0-3.0); HEMATOCRIT 32.2 % (42.0-52.0); HEMOGLOBIN 10.6 G/DL (14.2-18.0); LYMPHOCYTES % (AUTO) 17.7 % (20.0-45.0); MEAN CORPUSCULAR VOLUME 95 FL (80-99); PLATELET COUNT 120 K/UL (150-450); RED CELL DISTRIBUTION WIDTH 15.1 % (11.6-14.8)
[2019-07-28 05:13] LABS: ANION GAP 5 mmol/L (5-15); BLOOD UREA NITROGEN 45 mg/dL (7-18); CALCIUM 8.3 MG/DL (8.5-10.1); CARBON DIOXIDE 32 MMOL/L (21-32); CHLORIDE 108 MMOL/L (98-107); CREATININE 1.2 MG/DL (0.55-1.30); POTASSIUM 3.5 MMOL/L (3.5-5.1); SODIUM 145 MMOL/L (136-145)
[2019-07-28] MEDS: HydrALAZINE 25mg tab ORAL SCH ×3 (06:00→22:00)
[2019-07-28] MEDS: NovoLOG Insulin Flexpen SUBQ SCH ×4 (06:00→16:29)
[2019-07-28] MEDS: sitaGLIPtin 25mg tab ORAL SCH (06:35)
--- NOTE | 2019-07-28 07:54 | Critical Care Progress Note ---
Assessment/Plan Assessment/Plan IMPRESSION: 1. Evidence of chronic renal failure. 2. Coronary artery disease. 3. CHF. 4. Hepatitis C. 5. Pacemaker. 6. G-tube. 7. Aspiration. 8. Possible COVID. 9. Evidence of pneumonia. 10. Lactic acidemia 11. CXR with pulmonary edema 12. hypernatremia PLAN monitor for change oxygen taper BIPAP as needed meds as is remains full code optimize as able taper oxygen overall appears better with diuresis with improved BNP monitor fluid status off antibiotics recheck CXR for clearing monitor sodium reduced lasix dosing needs snf; dc planning medications/laboratory data/nursing notes reviewed in detail note reviewed and edited care discussed with RN and RT Critical Care - Subjective Interval Events: improved alert no distress ROS Limited/Unobtainable: Yes Condition: improving EKG Rhythm: Sinus Rhythm Residuals: minimal Tube Feeding Tolerated: yes I&O: Intake and Output 07/27/19 07/28/19 19:00 07:00 Intake Total 747.561 ml 1821.057 ml Output Total 700 ml Balance 747.561 ml 1121.057 ml Free Water 450 ml 450 ml IV Total 57.561 ml 711.057 ml Tube Feeding 240 ml 660 ml Output Urine Total 700 ml # Bowel Movements 2 Critical Care - Objective Last 24 Hour Vital Signs Date Time Temp Pulse Resp B/P (MAP) Pulse Ox O2 Delivery O2 Flow Rate FiO2 07/28/19 06:00 101/67 07/28/19 04:28 96 Nasal Cannula 6.0 44 07/28/19 04:00 97.3 86 20 107/78 (88) 100 07/28/19 03:48 Nasal Cannula 6.0 07/28/19 00:00 Nasal Cannula 6.0 07/28/19 00:00 85 07/28/19 00:00 97.7 84 20 102/67 (79) 99 07/27/19 21:00 99/66 07/27/19 21:00 68 99/66 07/27/19 21:00 Nasal Cannula 6.0 07/27/19 20:06 100/68 07/27/19 20:00 82 07/27/19 20:00 97.9 79 20 99/66 (77) 96 07/27/19 17:04 99/69 07/27/19 16:07 75 6/5/20 16:00 97.5 74 20 99/69 (79) 99 07/27/19 16:00 Nasal Cannula 6.0 07/27/19 12:30 100 Nasal Cannula 6.0 07/27/19 12:00 77 07/27/19 12:00 Nasal Cannula 6.0 07/27/19 12:00 97.3 70 19 104/52 (69) 100 07/27/19 09:22 117/78 07/27/19 09:21 89 117/78 07/27/19 09:21 117/78 07/27/19 09:21 117/78 07/27/19 08:00 Nasal Cannula 6.0 07/27/19 08:00 82 07/27/19 07:59 97.7 74 20 98/72 (81) 98 Labs: Laboratory Tests Test 07/28/19 04:40 White Blood Count 4.0 K/UL (4.8-10.8) L Red Blood Count 3.40 M/UL (4.70-6.10) L Hemoglobin 10.6 G/DL (14.2-18.0) L Hematocrit 32.2 % (42.0-52.0) L Mean Corpuscular Volume 95 FL (80-99) Mean Corpuscular Hemoglobin 31.2 PG (27.0-31.0) H Mean Corpuscular Hemoglobin Concent 33.0 G/DL (32.0-36.0) Red Cell Distribution Width 15.1 % (11.6-14.8) H Platelet Count 120 K/UL (150-450) L Mean Platelet Volume 6.4 FL (6.5-10.1) L Neutrophils (%) (Auto) 65.0 % (45.0-75.0) Lymphocytes (%) (Auto) 17.7 % (20.0-45.0) L Monocytes (%) (Auto) 11.0 % (1.0-10.0) H Eosinophils (%) (Auto) 5.6 % (0.0-3.0) H Basophils (%) (Auto) 0.8 % (0.0-2.0) Sodium Level 145 MMOL/L (136-145) Potassium Level 3.5 MMOL/L (3.5-5.1) Chloride Level 108 MMOL/L (98-107) H Carbon Dioxide Level 32 MMOL/L (21-32) Anion Gap 5 mmol/L (5-15) Blood Urea Nitrogen 45 mg/dL (7-18) H Creatinine 1.2 MG/DL (0.55-1.30) Estimat Glomerular Filtration Rate > 60 mL/min (>60) Glucose Level 252 MG/DL (74-106) #H Calcium Level 8.3 MG/DL (8.5-10.1) L Magnesium Level 2.1 MG/DL (1.8-2.4) Pro-B-Type Natriuretic Peptide 8311 pg/mL (0-125) H Objective: GENERAL: NAD and on oxygen HEENT: Negative. NECK: Supple. LUNGS: reduced breath sounds. no rhonchi. no wheeze- stable CARDIAC: S1, S2. Regular rate and rhythm with noted murmur. ABDOMEN: Soft, nontender. GT EXTREMITIES: No cyanosis or clubbing. improved edema NEUROLOGICAL: Confused. but alert reviewed and edited Accucheck: 119 Jose Iglesias MD Jul 28, 2019 07:54
[2019-07-28 08:05] VITALS: BP 114/87
--- NOTE | 2019-07-28 08:12 | General Progress Note ---
Assessment/Plan Problem List: (1) Suspected COVID-19 virus infection ICD Codes: Z20.828 - Contact with and (suspected) exposure to other viral communicable diseases SNOMED: 239159923 (2) PNA (pneumonia) ICD Codes: J18.9 - Pneumonia, unspecified organism SNOMED: 248349673 (3) CHF (congestive heart failure) ICD Codes: I50.9 - Heart failure, unspecified SNOMED: 55765143 (4) UTI (urinary tract infection) ICD Codes: N39.0 - Urinary tract infection, site not specified SNOMED: 13656714 (5) ARAMIS (acute kidney injury) ICD Codes: N17.9 - Acute kidney failure, unspecified SNOMED: 47688040, 7689588 Status: stable Assessment/Plan: o2- titrate. diuresis per cards monitor i/o monitor labs replace k water flushes tube feeds/monitor residuals monitor off abx monitor cxr dvt/stress ulcer prophylaxis turn q2 Subjective ROS Limited/Unobtainable: No Constitutional: Reports: malaise, weakness HEENT: Reports: no symptoms Cardiovascular: Reports: no symptoms Respiratory: Reports: cough, shortness of breath Gastrointestinal/Abdominal: Reports: difficulty swallowing Genitourinary: Reports: no symptoms Neurologic/Psychiatric: Reports: depressed Endocrine: Reports: no symptoms Hematologic/Lymphatic: Reports: no symptoms Allergies: Coded Allergies: AMOXAPINE (Unverified Allergy, Unknown, 10/16/18) AMOXICILLIN (Unverified Allergy, Unknown, 04/17/14) LISINOPRIL (Unverified Allergy, Unknown, 04/17/14) All Systems: reviewed and negative except above Subjective no significant changes or events. remains stable on o2. on gt feeds. remains on diuretics. completed IV abx. low K noted. Objective Last 24 Hour Vital Signs Date Time Temp Pulse Resp B/P (MAP) Pulse Ox O2 Delivery O2 Flow Rate FiO2 07/28/19 08:05 97.9 94 20 114/87 (96) 100 07/28/19 06:00 101/67 07/28/19 04:28 96 Nasal Cannula 6.0 44 07/28/19 04:00 97.3 86 20 107/78 (88) 100 07/28/19 04:00 77 07/28/19 03:48 Nasal Cannula 6.0 6/6/20 00:00 Nasal Cannula 6.0 07/28/19 00:00 85 07/28/19 00:00 97.7 84 20 102/67 (79) 99 07/27/19 21:00 99/66 07/27/19 21:00 68 99/66 07/27/19 21:00 Nasal Cannula 6.0 07/27/19 20:06 100/68 07/27/19 20:00 82 07/27/19 20:00 97.9 79 20 99/66 (77) 96 07/27/19 17:04 99/69 07/27/19 16:07 75 07/27/19 16:00 97.5 74 20 99/69 (79) 99 07/27/19 16:00 Nasal Cannula 6.0 07/27/19 12:30 100 Nasal Cannula 6.0 07/27/19 12:00 77 07/27/19 12:00 Nasal Cannula 6.0 07/27/19 12:00 97.3 70 19 104/52 (69) 100 07/27/19 09:22 117/78 07/27/19 09:21 89 117/78 07/27/19 09:21 117/78 07/27/19 09:21 117/78 Intake and Output 07/27/19 07/28/19 19:00 07:00 Intake Total 747.561 ml 1821.057 ml Output Total 700 ml Balance 747.561 ml 1121.057 ml Free Water 450 ml 450 ml IV Total 57.561 ml 711.057 ml Tube Feeding 240 ml 660 ml Output Urine Total 700 ml # Bowel Movements 2 Laboratory Tests 07/28/19 04:40: White Blood Count 4.0L, Red Blood Count 3.40L, Hemoglobin 10.6L, Hematocrit 32.2L, Mean Corpuscular Volume 95, Mean Corpuscular Hemoglobin 31.2H, Mean Corpuscular Hemoglobin Concent 33.0, Red Cell Distribution Width 15.1H, Platelet Count 120L, Mean Platelet Volume 6.4L, Neutrophils (%) (Auto) 65.0, Lymphocytes (%) (Auto) 17.7L, Monocytes (%) (Auto) 11.0H, Eosinophils (%) (Auto ) 5.6H, Basophils (%) (Auto) 0.8, Sodium Level 145, Potassium Level 3.5, Chloride Level 108H, Carbon Dioxide Level 32, Anion Gap 5, Blood Urea Nitrogen 45H, Creatinine 1.2, Estimat Glomerular Filtration Rate > 60, Glucose Level 252# H, Calcium Level 8.3L, Magnesium Level 2.1, Pro-B-Type Natriuretic Peptide 8311H Height (Feet): 5 Height (Inches): 8.00 Weight (Pounds): 140 Objective General Appearance: WD/WN, confused, thin EENT: PERRL/EOMI, normal ENT inspection, TMs normal Neck: non-tender, normal alignment, supple Cardiovascular: normal peripheral pulses, normal rate, regular rhythm Respiratory/Chest: chest wall non-tender, lungs clear, normal breath sounds, no respiratory distress, no accessory muscle use Abdomen: normal bowel sounds, non tender, soft, no organomegaly, no mass Extremities: normal range of motion, non-tender Edema: no edema noted Arm (L), no edema noted Arm (R) 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
[2019-07-28] MEDS: Carvedilol 12.5mg tab ORAL SCH ×2 (08:30→20:14)
[2019-07-28] MEDS: Losartan 50mg tab ORAL SCH (08:30)
[2019-07-28] MEDS: Imdur 30mg tab ORAL SCH (08:30)
[2019-07-28] MEDS: Heparin 5000 units/ml inj SUBQ SCH ×2 (08:34→20:30)
--- NOTE | 2019-07-28 09:33 | Urology Progress Note ---
Assessment/Plan Status: stable Assessment/Plan: BPH hx urinary retention with chronic limon neurogenic bladder (atonic) UTI/colonized ARAMIS/CKD, labile hematuria renal cyst monitor clinically maintain limon indwelling, last exchanged 07/22 hand irrigated and do PRN s/p abx monitor renal fxn consider repeat renal imaging flomax and proscar dc'd d/w nursing staff Subjective Allergies: Coded Allergies: AMOXAPINE (Unverified Allergy, Unknown, 10/16/18) AMOXICILLIN (Unverified Allergy, Unknown, 04/17/14) LISINOPRIL (Unverified Allergy, Unknown, 04/17/14) Subjective all noted, feels fair, some occ SOB, new limon draining OK Objective Last 24 Hour Vital Signs Date Time Temp Pulse Resp B/P (MAP) Pulse Ox O2 Delivery O2 Flow Rate FiO2 07/28/19 08:30 114/87 07/28/19 08:30 114/87 07/28/19 08:30 94 114/87 07/28/19 08:05 97.9 94 20 114/87 (96) 100 07/28/19 08:00 82 07/28/19 06:00 101/67 07/28/19 04:28 96 Nasal Cannula 6.0 44 07/28/19 04:00 97.3 86 20 107/78 (88) 100 07/28/19 04:00 77 07/28/19 03:48 Nasal Cannula 6.0 07/28/19 00:00 Nasal Cannula 6.0 07/28/19 00:00 85 07/28/19 00:00 97.7 84 20 102/67 (79) 99 07/27/19 21:00 99/66 07/27/19 21:00 68 99/66 07/27/19 21:00 Nasal Cannula 6.0 07/27/19 20:06 100/68 07/27/19 20:00 82 07/27/19 20:00 97.9 79 20 99/66 (77) 96 07/27/19 17:04 99/69 07/27/19 16:07 75 07/27/19 16:00 97.5 74 20 99/69 (79) 99 07/27/19 16:00 Nasal Cannula 6.0 07/27/19 12:30 100 Nasal Cannula 6.0 07/27/19 12:00 77 07/27/19 12:00 Nasal Cannula 6.0 07/27/19 12:00 97.3 70 19 104/52 (69) 100 Intake and Output 07/27/19 07/28/19 19:00 07:00 Intake Total 747.561 ml 1821.057 ml Output Total 700 ml Balance 747.561 ml 1121.057 ml Free Water 450 ml 450 ml IV Total 57.561 ml 711.057 ml Tube Feeding 240 ml 660 ml Output Urine Total 700 ml # Bowel Movements 2 Microbiology Date/Time Source Procedure Growth Status 07/18/19 18:45 Blood Blood Culture - Final NO GROWTH AFTER 5 DAYS Complete 07/25/19 02:14 Nasopharynx Coronavirus COVID-19 PCR ([place]) - Final Complete 07/19/19 12:15 Urine,Clean Catch Urine Culture - Final Escherichia Coli Pseudomonas Aeruginosa Complete 07/19/19 02:50 Rectum - Final NO CARBAPENEM-RESISTANT ENTEROBACTERI... Complete Current Medications Medications (Trade) Dose Ordered Sig/[place] Route PRN Reason Start Time Stop Time Status Last Admin Dose Admin Acetaminophen (Tylenol) 650 mg Q4H PRN ORAL Mild Pain (Pain Scale 1-3) 07/27/19 15:57 08/26/19 15:56 Al Hydroxide/Mg Hydroxide (Mylanta) 30 ml Q4H PRN ORAL Dyspepsia 07/27/19 15:58 08/26/19 15:57 Atorvastatin Calcium (Lipitor) 40 mg BEDTIME ORAL 07/27/19 21:00 10/17/19 20:59 07/27/19 21:29 Carvedilol (Coreg) 12.5 mg EVERY 12 HOURS ORAL 07/27/19 21:00 08/24/19 08:59 07/28/19 08:30 Chlorhexidine Gluconate (Monique-Hex 2%) 1 applic DAILY@2000 TOPIC 07/27/19 20:00 10/25/19 19:59 07/27/19 21:28 Dextrose (Dextrose 50%) 25 ml Q30M PRN IV Hypoglycemia 07/27/19 16:15 10/18/19 17:14 Dextrose (Dextrose 50%) 50 ml Q30M PRN IV Hypoglycemia 07/27/19 16:15 10/18/19 17:14 Dobutamine HCl 250 ml @ 19.187 mls/ hr Q24H IV 07/27/19 15:57 10/25/19 15:56 07/27/19 20:06 Furosemide (Lasix) 40 mg DAILY IV 07/28/19 09:00 08/27/19 08:59 07/28/19 08:37 Heparin Sodium (Porcine) (Heparin 5000 units/ml) 5,000 units EVERY 12 HOURS SUBQ 07/27/19 21:00 09/02/19 08:59 07/28/19 08:34 Hydralazine HCl (Apresoline) 25 mg Q8HR ORAL 07/28/19 06:00 10/26/19 05:59 Hydroxyzine HCl (Vistaril) 10 mg BIDPRN PRN ORAL Itching 07/27/19 18:00 08/26/19 17:59 Insulin Aspart (NovoLOG) EVERY 6 HOURS SUBQ 07/27/19 18:00 10/18/19 17:59 Ipratropium [place] (Atrovent) 500 mcg Q4H PRN HHN Shortness of Breath 07/27/19 15:58 08/01/19 15:57 Isosorbide Mononitrate (Imdur) 30 mg DAILY ORAL 07/28/19 09:00 08/18/19 08:59 07/28/19 08:30 Losartan Potassium (Cozaar) 50 mg DAILY ORAL 07/28/19 09:00 08/23/19 08:59 07/28/19 08:30 Pantoprazole (Protonix) 40 mg DAILY ORAL 07/28/19 09:00 08/18/19 08:59 07/28/19 08:30 Sitagliptin Phosphate (Januvia) 25 mg ACBREAKFAST ORAL 07/28/19 06:30 08/25/19 06:29 07/28/19 06:35 Laboratory Tests 07/28/19 04:40: White Blood Count 4.0L, Red Blood Count 3.40L, Hemoglobin 10.6L, Hematocrit 32.2L, Mean Corpuscular Volume 95, Mean Corpuscular Hemoglobin 31.2H, Mean Corpuscular Hemoglobin Concent 33.0, Red Cell Distribution Width 15.1H, Platelet Count 120L, Mean Platelet Volume 6.4L, Neutrophils (%) (Auto) 65.0, Lymphocytes (%) (Auto) 17.7L, Monocytes (%) (Auto) 11.0H, Eosinophils (%) (Auto ) 5.6H, Basophils (%) (Auto) 0.8, Sodium Level 145, Potassium Level 3.5, Chloride Level 108H, Carbon Dioxide Level 32, Anion Gap 5, Blood Urea Nitrogen 45H, Creatinine 1.2, Estimat Glomerular Filtration Rate > 60, Glucose Level 252# H, Calcium Level 8.3L, Magnesium Level 2.1, Pro-B-Type Natriuretic Peptide 8311H Height (Feet): 5 Height (Inches): 8.00 Weight (Pounds): 140 Objective exam stable 18f limon, yellow/corey urine, occasional debris old renal imaging noted Panchito Camarena MD Jul 28, 2019 09:33
--- NOTE | 2019-07-28 10:16 | Infectious Diseases Prog Note ---
"Assessment/Plan Assessment/Plan antibiotics : none A 1. e.coli | pseudomonas UTI s/p rx 2. bilateral pneumonia s/p rx COVID-19 negative x 2 3. Diabetes. 4. Hypertension. 5. Congestive heart failure. 6. Hepatitis C. 7. renal failure improving P 1. observe off antibiotics Subjective ROS Limited/Unobtainable: Yes Allergies: Coded Allergies: AMOXAPINE (Unverified Allergy, Unknown, 10/16/18) AMOXICILLIN (Unverified Allergy, Unknown, 04/17/14) LISINOPRIL (Unverified Allergy, Unknown, 04/17/14) Objective Vital Signs Last 24 Hour Vital Signs Date Time Temp Pulse Resp B/P (MAP) Pulse Ox O2 Delivery O2 Flow Rate FiO2 07/28/19 09:29 Nasal Cannula 6.0 07/28/19 08:30 114/87 07/28/19 08:30 114/87 07/28/19 08:30 94 114/87 07/28/19 08:05 97.9 94 20 114/87 (96) 100 07/28/19 08:00 82 07/28/19 06:00 101/67 07/28/19 04:28 96 Nasal Cannula 6.0 44 07/28/19 04:00 97.3 86 20 107/78 (88) 100 07/28/19 04:00 77 07/28/19 03:48 Nasal Cannula 6.0 07/28/19 00:00 Nasal Cannula 6.0 07/28/19 00:00 85 07/28/19 00:00 97.7 84 20 102/67 (79) 99 07/27/19 21:00 99/07/27/19 21:00 68 99/66 07/27/19 21:00 Nasal Cannula 6.0 07/27/19 20:06 100/68 07/27/19 20:00 82 07/27/19 20:00 97.9 79 20 99/66 (77) 96 07/27/19 17:04 99/69 07/27/19 16:07 75 07/27/19 16:00 97.5 74 20 99/69 (79) 99 07/27/19 16:00 Nasal Cannula 6.0 07/27/19 12:30 100 Nasal Cannula 6.0 07/27/19 12:00 77 07/27/19 12:00 Nasal Cannula 6.0 07/27/19 12:00 97.3 70 19 104/52 (69) 100 Height (Feet): 5 Height (Inches): 8.00 Weight (Pounds): 140 Respiratory/Chest: lungs clear Cardiovascular: normal rate, regular rhythm, no gallop/murmur Abdomen: soft, non tender Extremities: no edema Laboratory Tests Test 07/28/19 04:40 White Blood Count 4.0 K/UL (4.8-10.8) L Red Blood Count 3.40 M/UL (4.70-6.10) L Hemoglobin 10.6 G/DL (14.2-18.0) L Hematocrit 32.2 % (42.0-52.0) L Mean Corpuscular Volume 95 FL (80-99) Mean Corpuscular Hemoglobin 31.2 PG (27.0-31.0) H Mean Corpuscular Hemoglobin Concent 33.0 G/DL (32.0-36.0) Red Cell Distribution Width 15.1 % (11.6-14.8) H Platelet Count 120 K/UL (150-450) L Mean Platelet Volume 6.4 FL (6.5-10.1) L Neutrophils (%) (Auto) 65.0 % (45.0-75.0) Lymphocytes (%) (Auto) 17.7 % (20.0-45.0) L Monocytes (%) (Auto) 11.0 % (1.0-10.0) H Eosinophils (%) (Auto) 5.6 % (0.0-3.0) H Basophils (%) (Auto) 0.8 % (0.0-2.0) Sodium Level 145 MMOL/L (136-145) Potassium Level 3.5 MMOL/L (3.5-5.1) Chloride Level 108 MMOL/L (98-107) H Carbon Dioxide Level 32 MMOL/L (21-32) Anion Gap 5 mmol/L (5-15) Blood Urea Nitrogen 45 mg/dL (7-18) H Creatinine 1.2 MG/DL (0.55-1.30) Estimat Glomerular Filtration Rate > 60 mL/min (>60) Glucose Level 252 MG/DL (74-106) #H Calcium Level 8.3 MG/DL (8.5-10.1) L Magnesium Level 2.1 MG/DL (1.8-2.4) Pro-B-Type Natriuretic Peptide 8311 pg/mL (0-125) H Current Medications Medications (Trade) Dose Ordered Sig/[place] Route PRN Reason Start Time Stop Time Status Last Admin Dose Admin Acetaminophen (Tylenol) 650 mg Q4H PRN ORAL Mild Pain (Pain Scale 1-3) 07/27/19 15:57 08/26/19 15:56 Al Hydroxide/Mg Hydroxide (Mylanta) 30 ml Q4H PRN ORAL Dyspepsia 07/27/19 15:58 08/26/19 15:57 Atorvastatin Calcium (Lipitor) 40 mg BEDTIME ORAL 07/27/19 21:00 10/17/19 20:59 07/27/19 21:29 Carvedilol (Coreg) 12.5 mg EVERY 12 HOURS ORAL 07/27/19 21:00 08/24/19 08:59 07/28/19 08:30 Chlorhexidine Gluconate (Monique-Hex 2%) 1 applic DAILY@2000 TOPIC 07/27/19 20:00 10/25/19 19:59 07/27/19 21:28 Dextrose (Dextrose 50%) 25 ml Q30M PRN IV Hypoglycemia 07/27/19 16:15 10/18/19 17:14 Dextrose (Dextrose 50%) 50 ml Q30M PRN IV Hypoglycemia 07/27/19 16:15 10/18/19 17:14 Dobutamine HCl 250 ml @ 19.187 mls/ hr Q24H IV 07/27/19 15:57 10/25/19 15:56 07/27/19 20:06 Furosemide (Lasix) 40 mg DAILY IV 07/28/19 09:00 08/27/19 08:59 07/28/19 08:37 Heparin Sodium (Porcine) (Heparin 5000 units/ml) 5,000 units EVERY 12 HOURS SUBQ 07/27/19 21:00 09/02/19 08:59 07/28/19 08:34 Hydralazine HCl (Apresoline) 25 mg Q8HR ORAL 07/28/19 06:00 10/26/19 05:59 Hydroxyzine HCl (Vistaril) 10 mg BIDPRN PRN ORAL Itching 07/27/19 18:00 08/26/19 17:59 Insulin Aspart (NovoLOG) EVERY 6 HOURS SUBQ 07/27/19 18:00 10/18/19 17:59 Ipratropium [place] (Atrovent) 500 mcg Q4H PRN HHN Shortness of Breath 07/27/19 15:58 08/01/19 15:57 Isosorbide Mononitrate (Imdur) 30 mg DAILY ORAL 07/28/19 09:00 08/18/19 08:59 07/28/19 08:30 Losartan Potassium (Cozaar) 50 mg DAILY ORAL 07/28/19 09:00 08/23/19 08:59 07/28/19 08:30 Pantoprazole (Protonix) 40 mg DAILY ORAL 07/28/19 09:00 08/18/19 08:59 07/28/19 08:30 Sitagliptin Phosphate (Januvia) 25 mg ACBREAKFAST ORAL 07/28/19 06:30 08/25/19 06:29 07/28/19 06:35 Daniel Kimball MD Jul 28, 2019 10:16"
[2019-07-28 11:58] VITALS: BP 100/62
[2019-07-28] MEDS: DOBUTamine 250mg/250ml Premix 250 ML IV SCH (13:41)
[2019-07-28 15:55] VITALS: BP 99/60
[2019-07-28 20:00] VITALS: BP 102/69
[2019-07-28] MEDS: Dyna-Hex 2% Top Sol 2oz TOPIC SCH (20:28)
[2019-07-28] MEDS: Atorvastatin 20mg tab ORAL SCH (20:28)
--- NOTE | 2019-07-28 21:45 | Nephrology Progress Note ---
Assessment/Plan Problem List: (1) CKD (chronic kidney disease) stage 3, GFR 30-59 ml/min (2) ARAMIS (acute kidney injury) (3) UTI (urinary tract infection) (4) CHF (congestive heart failure) Assessment: sys (5) Urinary retention Assessment: chronic (6) PNA (pneumonia) (7) Hypernatremia Plan continue diuresis, replace K, limon, antibiotics, Na higher to trend with diuresis+free water via GT Subjective ROS Limited/Unobtainable: Yes Objective Objective Last 24 Hour Vital Signs Date Time Temp Pulse Resp B/P (MAP) Pulse Ox O2 Delivery O2 Flow Rate FiO2 07/28/19 20:14 69 102/69 07/28/19 16:24 75 07/28/19 15:55 98.0 68 20 99/60 (73) 100 07/28/19 14:00 110/75 07/28/19 13:41 100/62 07/28/19 12:35 68 07/28/19 11:58 97.9 69 20 100/62 (75) 100 07/28/19 09:29 Nasal Cannula 6.0 07/28/19 09:00 Nasal Cannula 6.0 07/28/19 08:30 114/87 07/28/19 08:30 114/87 07/28/19 08:30 94 114/87 07/28/19 08:05 97.9 94 20 114/87 (96) 100 07/28/19 08:00 82 07/28/19 06:00 101/67 07/28/19 04:28 96 Nasal Cannula 6.0 44 07/28/19 04:00 97.3 86 20 107/78 (88) 100 07/28/19 04:00 77 07/28/19 03:48 Nasal Cannula 6.0 07/28/19 00:00 Nasal Cannula 6.0 07/28/19 00:00 85 07/28/19 00:00 97.7 84 20 102/67 (79) 99 Intake and Output 07/27/19 07/28/19 19:00 07:00 Intake Total 747.561 ml 1881.057 ml Output Total 700 ml Balance 747.561 ml 1181.057 ml Free Water 450 ml 450 ml IV Total 57.561 ml 711.057 ml Tube Feeding 240 ml 720 ml Output Urine Total 700 ml # Bowel Movements 2 Laboratory Tests 07/28/19 04:40: White Blood Count 4.0L, Red Blood Count 3.40L, Hemoglobin 10.6L, Hematocrit 32.2L, Mean Corpuscular Volume 95, Mean Corpuscular Hemoglobin 31.2H, Mean Corpuscular Hemoglobin Concent 33.0, Red Cell Distribution Width 15.1H, Platelet Count 120L, Mean Platelet Volume 6.4L, Neutrophils (%) (Auto) 65.0, Lymphocytes (%) (Auto) 17.7L, Monocytes (%) (Auto) 11.0H, Eosinophils (%) (Auto ) 5.6H, Basophils (%) (Auto) 0.8, Sodium Level 145, Potassium Level 3.5, Chloride Level 108H, Carbon Dioxide Level 32, Anion Gap 5, Blood Urea Nitrogen 45H, Creatinine 1.2, Estimat Glomerular Filtration Rate > 60, Glucose Level 252# H, Calcium Level 8.3L, Magnesium Level 2.1, Pro-B-Type Natriuretic Peptide 8311H Height (Feet): 5 Height (Inches): 8.00 Weight (Pounds): 140 General Appearance: confused EENT: PERRL/EOMI Neck: normal alignment Cardiovascular: regular rhythm Respiratory/Chest: lungs clear Abdomen: soft Extremities: no edema Neurologic: motor weakness Ang Worrell MD Jul 28, 2019 21:45
[2019-07-29] VITALS: BP 109/72
--- NOTE | 2019-07-29 00:30 | Progress Note ---
DATE: 07/28/2019 CARDIOLOGY PROGRESS NOTE SUBJECTIVE: The patient has less shortness of breath. Urine output is improved. He continues on dobutamine drip, monitor with 6 beat run of nonsustained ventricular tachycardia. PHYSICAL EXAMINATION: VITAL SIGNS: Blood pressure 107/78, heart rate 86, respirator rate 20. LUNGS: Diminished breath sounds. Few rales. Jugular venous pressure elevation. CARDIAC: Regular rhythm and rate. Normal S1, S2. A 1/6 systolic murmur at apex. ABDOMEN: Soft, trace edema. LABORATORY DATA: White count 4, hemoglobin 10.6. Sodium 145, potassium 3.5, bicarb 32, BUN 45, creatinine 1.2. Magnesium 2.1. Pro-natriuretic peptide has decreased to 8300. IMPRESSION: 1. Exceptional response to dobutamine, inotrope with improved urine output. 2. Significant decrease in natriuretic peptide assay and improved hemodynamics, but pleural effusions persist. PLAN: 1. Continue diuresis efforts. 2. May need thoracentesis. Additional 24 hours of dobutamine and reassess. 3. Maximize anti-failure regimen, otherwise will follow. 4. Continue cardiac monitoring. 5. No need for a Life Vest while patient is on monitor worker, but will need to replace upon discharge and reassess candidacy for a defibrillator in the long-term depending on performance status. Alton Malloy M.D. DR: JESSICA JOB#: [id number] CC:
[2019-07-29] MEDS: NovoLOG Insulin Flexpen SUBQ SCH ×5 (00:56→23:26)
[2019-07-29 04:00] VITALS: BP 115/70
[2019-07-29] MEDS: HydrALAZINE 25mg tab ORAL SCH ×3 (05:21→22:00)
[2019-07-29] MEDS: sitaGLIPtin 25mg tab ORAL SCH (06:35)
[2019-07-29 08:00] VITALS: BP 98/77
--- NOTE | 2019-07-29 08:00 | General Progress Note ---
Assessment/Plan Problem List: (1) Suspected COVID-19 virus infection ICD Codes: Z20.828 - Contact with and (suspected) exposure to other viral communicable diseases SNOMED: 893028832 (2) PNA (pneumonia) ICD Codes: J18.9 - Pneumonia, unspecified organism SNOMED: 343842120 (3) CHF (congestive heart failure) ICD Codes: I50.9 - Heart failure, unspecified SNOMED: 33146457 (4) UTI (urinary tract infection) ICD Codes: N39.0 - Urinary tract infection, site not specified SNOMED: 32653920 (5) ARAMIS (acute kidney injury) ICD Codes: N17.9 - Acute kidney failure, unspecified SNOMED: 80959443, 1724532 Status: stable Assessment/Plan: o2- titrate. diuresis per cards dobutamine monitor i/o monitor labs- pending today water flushes tube feeds/monitor residuals monitor off abx monitor cxr dvt/stress ulcer prophylaxis turn q2 Subjective ROS Limited/Unobtainable: No Constitutional: Reports: malaise, weakness HEENT: Reports: no symptoms Cardiovascular: Reports: no symptoms Respiratory: Reports: cough, shortness of breath Gastrointestinal/Abdominal: Reports: no symptoms Genitourinary: Reports: no symptoms Neurologic/Psychiatric: Reports: depressed Endocrine: Reports: no symptoms Hematologic/Lymphatic: Reports: anemia Allergies: Coded Allergies: AMOXAPINE (Unverified Allergy, Unknown, 10/16/18) AMOXICILLIN (Unverified Allergy, Unknown, 04/17/14) LISINOPRIL (Unverified Allergy, Unknown, 04/17/14) All Systems: reviewed and negative except above Subjective no events. no new complaints. on o2 at 6L NC. no fever or chills. no sob. weak. off abx. life vest removed- battery out. pt doesnt have manager desktop. on tele Objective Last 24 Hour Vital Signs Date Time Temp Pulse Resp B/P (MAP) Pulse Ox O2 Delivery O2 Flow Rate FiO2 07/29/19 05:21 115/70 07/29/19 04:00 90 07/29/19 04:00 97.5 74 20 115/70 (85) 100 07/29/19 00:00 88 07/29/19 00:00 97.9 89 18 109/72 (84) 100 07/28/19 22:00 109/72 07/28/19 21:00 Nasal Cannula 6.0 07/28/19 20:14 69 102/69 07/28/19 20:00 82 07/28/19 20:00 97.7 69 19 102/69 (80) 100 07/28/19 16:24 75 07/28/19 15:55 98.0 68 20 99/60 (73) 100 07/28/19 14:00 110/75 07/28/19 13:41 100/62 07/28/19 12:35 68 07/28/19 11:58 97.9 69 20 100/62 (75) 100 07/28/19 09:29 Nasal Cannula 6.0 07/28/19 09:00 Nasal Cannula 6.0 07/28/19 08:30 114/87 07/28/19 08:30 114/87 07/28/19 08:30 94 114/87 07/28/19 08:05 97.9 94 20 114/87 (96) 100 07/28/19 08:00 82 Intake and Output 07/28/19 07/29/19 19:00 07:00 Intake Total 1332.011 ml 1467.989 ml Output Total 700 ml Balance 632.011 ml 1467.989 ml Free Water 450 ml 600 ml IV Total 102.011 ml 147.989 ml Tube Feeding 780 ml 720 ml Output Urine Total 700 ml Laboratory Tests 07/29/19 06:30: Sodium Level [Pending], Potassium Level [Pending], Chloride Level [Pending], Carbon Dioxide Level [Pending], Blood Urea Nitrogen [Pending], Creatinine [ Pending], Estimat Glomerular Filtration Rate [Pending], Glucose Level [Pending] , Calcium Level [Pending], Magnesium Level [Pending], Total Bilirubin [Pending] , Aspartate Amino Transf (AST/SGOT) [Pending], Alanine Aminotransferase (ALT/ SGPT) [Pending], Alkaline Phosphatase [Pending], Pro-B-Type Natriuretic Peptide [Pending], Total Protein [Pending], Albumin [Pending], Globulin [Pending] Height (Feet): 5 Height (Inches): 8.00 Weight (Pounds): 72 Objective General Appearance: WD/WN, confused, thin EENT: PERRL/EOMI, normal ENT inspection, TMs normal Neck: non-tender, normal alignment, supple Cardiovascular: normal peripheral pulses, normal rate, regular rhythm Respiratory/Chest: chest wall non-tender, lungs clear, normal breath sounds, no respiratory distress, no accessory muscle use Abdomen: normal bowel sounds, non tender, soft, no organomegaly, no mass Extremities: normal range of motion, non-tender Edema: no edema noted Arm (L), no edema noted Arm (R) Neurologic: rn night II-XII grossly normal, alert, responsive, normal mood/affect Skin: normal pigmentation Lymphatic: normal anterior cervical (L), normal anterior cervical (R) Luis Daniel Ascencio MD Jul 29, 2019 08:00
[2019-07-29 08:18] LABS: ALANINE AMINOTRANSFERASE 12 U/L (12-78); ALBUMIN 2.5 G/DL (3.4-5.0); ALBUMIN/GLOBULIN RATIO 0.5 (1.0-2.7); ALKALINE PHOSPHATASE 71 U/L (46-116); ANION GAP 7 mmol/L (5-15); ASPARTATE AMINO TRANSFERASE 19 U/L (15-37); BILIRUBIN,TOTAL 0.3 MG/DL (0.2-1.0); BLOOD UREA NITROGEN 42 mg/dL (7-18); CALCIUM 8.7 MG/DL (8.5-10.1); CARBON DIOXIDE 31 MMOL/L (21-32); CHLORIDE 109 MMOL/L (98-107); CREATININE 0.9 MG/DL (0.55-1.30); POTASSIUM 4.1 MMOL/L (3.5-5.1); SODIUM 147 MMOL/L (136-145)
--- NOTE | 2019-07-29 08:39 | Critical Care Progress Note ---
Assessment/Plan Assessment/Plan IMPRESSION: 1. Evidence of chronic renal failure. 2. Coronary artery disease. 3. CHF. 4. Hepatitis C. 5. Pacemaker. 6. G-tube. 7. Aspiration. 8. Possible COVID. 9. Evidence of pneumonia. 10. Lactic acidemia 11. CXR with pulmonary edema 12. hypernatremia PLAN monitor for change oxygen taper BIPAP no longer needed meds as is remains full code optimize as able taper oxygen overall appears better with diuresis with improved BNP ? dc dobutamine monitor fluid status off antibiotics recheck CXR for clearing monitor sodium reduced lasix dosing needs snf; dc planning medications/laboratory data/nursing notes reviewed in detail note reviewed and edited care discussed with RN and RT Critical Care - Subjective Interval Events: on dobutamine drip care noted no distress breathing easier ROS Limited/Unobtainable: Yes EKG Rhythm: Sinus Rhythm Residuals: minimal Tube Feeding Tolerated: yes I&O: Intake and Output 07/28/19 07/29/19 19:00 07:00 Intake Total 1332.011 ml 1467.989 ml Output Total 700 ml Balance 632.011 ml 1467.989 ml Free Water 450 ml 600 ml IV Total 102.011 ml 147.989 ml Tube Feeding 780 ml 720 ml Output Urine Total 700 ml Critical Care - Objective Last 24 Hour Vital Signs Date Time Temp Pulse Resp B/P (MAP) Pulse Ox O2 Delivery O2 Flow Rate FiO2 07/29/19 05:21 115/70 07/29/19 04:00 90 07/29/19 04:00 97.5 74 20 115/70 (85) 100 07/29/19 00:00 88 07/29/19 00:00 97.9 89 18 109/72 (84) 100 07/28/19 22:00 109/72 07/28/19 21:00 Nasal Cannula 6.0 07/28/19 20:14 69 102/69 07/28/19 20:00 82 07/28/19 20:00 97.7 69 19 102/69 (80) 100 07/28/19 16:24 75 07/28/19 15:55 98.0 68 20 99/60 (73) 100 07/28/19 14:00 110/75 07/28/19 13:41 100/62 07/28/19 12:35 68 07/28/19 11:58 97.9 69 20 100/62 (75) 100 07/28/19 09:29 Nasal Cannula 6.0 07/28/19 09:00 Nasal Cannula 6.0 Labs: Laboratory Tests Test 07/29/19 06:30 Sodium Level 147 MMOL/L (136-145) H Potassium Level 4.1 MMOL/L (3.5-5.1) Chloride Level 109 MMOL/L (98-107) H Carbon Dioxide Level 31 MMOL/L (21-32) Anion Gap 7 mmol/L (5-15) Blood Urea Nitrogen 42 mg/dL (7-18) H Creatinine 0.9 MG/DL (0.55-1.30) Estimat Glomerular Filtration Rate > 60 mL/min (>60) Glucose Level 150 MG/DL (74-106) #H Calcium Level 8.7 MG/DL (8.5-10.1) Magnesium Level 2.2 MG/DL (1.8-2.4) Total Bilirubin 0.3 MG/DL (0.2-1.0) Aspartate Amino Transf (AST/SGOT) 19 U/L (15-37) Alanine Aminotransferase (ALT/SGPT) 12 U/L (12-78) Alkaline Phosphatase 71 U/L (46-116) Pro-B-Type Natriuretic Peptide 9175 pg/mL (0-125) H Total Protein 7.1 G/DL (6.4-8.2) Albumin 2.5 G/DL (3.4-5.0) L Globulin 4.6 g/dL Albumin/Globulin Ratio 0.5 (1.0-2.7) L Objective: GENERAL: NAD and on oxygen HEENT: Negative. NECK: Supple. LUNGS: reduced breath sounds. no rhonchi. no wheeze- stable CARDIAC: S1, S2. Regular rate and rhythm with noted murmur. ABDOMEN: Soft, nontender. GT EXTREMITIES: No cyanosis or clubbing. improved edema NEUROLOGICAL: Confused. but alert reviewed and edited Accucheck: 137 Jose Iglesias MD Jul 29, 2019 08:39
[2019-07-29] MEDS: Imdur 30mg tab ORAL SCH (09:00)
[2019-07-29] MEDS: Carvedilol 12.5mg tab ORAL SCH ×2 (09:00→20:39)
[2019-07-29] MEDS: Losartan 50mg tab ORAL SCH (09:00)
[2019-07-29] MEDS: Heparin 5000 units/ml inj SUBQ SCH ×2 (09:25→20:43)
--- NOTE | 2019-07-29 09:59 | Urology Progress Note ---
Assessment/Plan Status: stable Assessment/Plan: BPH hx urinary retention with chronic limon neurogenic bladder (atonic) UTI/colonized ARAMIS/CKD, labile hematuria renal cyst monitor clinically maintain limon indwelling, last exchanged 07/22 hand irrigated and do PRN s/p abx monitor renal fxn consider repeat renal imaging flomax and proscar dc'd Subjective Allergies: Coded Allergies: AMOXAPINE (Unverified Allergy, Unknown, 10/16/18) AMOXICILLIN (Unverified Allergy, Unknown, 04/17/14) LISINOPRIL (Unverified Allergy, Unknown, 04/17/14) Subjective all noted, feels fair, some occ SOB, new limon draining OK Objective Last 24 Hour Vital Signs Date Time Temp Pulse Resp B/P (MAP) Pulse Ox O2 Delivery O2 Flow Rate FiO2 07/29/19 09:00 98/77 07/29/19 09:00 98/77 07/29/19 09:00 83 98/77 07/29/19 05:21 115/70 07/29/19 04:00 90 07/29/19 04:00 97.5 74 20 115/70 (85) 100 07/29/19 00:00 88 07/29/19 00:00 97.9 89 18 109/72 (84) 100 07/28/19 22:00 109/72 07/28/19 21:00 Nasal Cannula 6.0 07/28/19 20:14 69 102/69 07/28/19 20:00 82 07/28/19 20:00 97.7 69 19 102/69 (80) 100 07/28/19 16:24 75 07/28/19 15:55 98.0 68 20 99/60 (73) 100 07/28/19 14:00 110/75 07/28/19 13:41 100/62 07/28/19 12:35 68 07/28/19 11:58 97.9 69 20 100/62 (75) 100 Intake and Output 07/28/19 07/29/19 19:00 07:00 Intake Total 1332.011 ml 1467.989 ml Output Total 700 ml Balance 632.011 ml 1467.989 ml Free Water 450 ml 600 ml IV Total 102.011 ml 147.989 ml Tube Feeding 780 ml 720 ml Output Urine Total 700 ml Microbiology Date/Time Source Procedure Growth Status 07/18/19 18:45 Blood Blood Culture - Final NO GROWTH AFTER 5 DAYS Complete 07/25/19 02:14 Nasopharynx Coronavirus COVID-19 PCR ([place]) - Final Complete 07/19/19 12:15 Urine,Clean Catch Urine Culture - Final Escherichia Coli Pseudomonas Aeruginosa Complete 07/19/19 02:50 Rectum - Final NO CARBAPENEM-RESISTANT ENTEROBACTERI... Complete Current Medications Medications (Trade) Dose Ordered Sig/[place] Route PRN Reason Start Time Stop Time Status Last Admin Dose Admin Acetaminophen (Tylenol) 650 mg Q4H PRN ORAL Mild Pain (Pain Scale 1-3) 07/27/19 15:57 08/26/19 15:56 Al Hydroxide/Mg Hydroxide (Mylanta) 30 ml Q4H PRN ORAL Dyspepsia 07/27/19 15:58 08/26/19 15:57 Atorvastatin Calcium (Lipitor) 40 mg BEDTIME ORAL 07/27/19 21:00 10/17/19 20:59 07/28/19 20:28 Carvedilol (Coreg) 12.5 mg EVERY 12 HOURS ORAL 07/27/19 21:00 08/24/19 08:59 07/28/19 08:30 Chlorhexidine Gluconate (Monique-Hex 2%) 1 applic DAILY@2000 TOPIC 07/27/19 20:00 10/25/19 19:59 07/28/19 20:28 Dextrose (Dextrose 50%) 25 ml Q30M PRN IV Hypoglycemia 07/27/19 16:15 10/18/19 17:14 Dextrose (Dextrose 50%) 50 ml Q30M PRN IV Hypoglycemia 07/27/19 16:15 10/18/19 17:14 Dobutamine HCl 250 ml @ 19.187 mls/ hr Q24H IV 07/28/19 13:00 10/26/19 12:59 07/28/19 13:41 Furosemide (Lasix) 40 mg DAILY IV 07/29/19 14:00 08/27/19 08:59 Heparin Sodium (Porcine) (Heparin 5000 units/ml) 5,000 units EVERY 12 HOURS SUBQ 07/27/19 21:00 09/02/19 08:59 07/29/19 09:25 Hydralazine HCl (Apresoline) 25 mg Q8HR ORAL 07/28/19 06:00 10/26/19 05:59 Hydroxyzine HCl (Vistaril) 10 mg BIDPRN PRN ORAL Itching 07/27/19 18:00 08/26/19 17:59 Insulin Aspart (NovoLOG) EVERY 6 HOURS SUBQ 07/27/19 18:00 10/18/19 17:59 07/28/19 12:25 Ipratropium [place] (Atrovent) 500 mcg Q4H PRN HHN Shortness of Breath 07/27/19 15:58 08/01/19 15:57 Isosorbide Mononitrate (Imdur) 30 mg DAILY ORAL 07/28/19 09:00 08/18/19 08:59 07/28/19 08:30 Losartan Potassium (Cozaar) 50 mg DAILY ORAL 07/28/19 09:00 08/23/19 08:59 07/28/19 08:30 Ondansetron HCl (Zofran) 4 mg Q6H PRN IVP Nausea & Vomiting 07/28/19 18:15 08/27/19 18:14 Pantoprazole (Protonix) 40 mg DAILY ORAL 07/28/19 09:00 08/18/19 08:59 07/29/19 09:25 Sitagliptin Phosphate (Januvia) 25 mg ACBREAKFAST ORAL 07/28/19 06:30 08/25/19 06:29 07/29/19 06:35 Laboratory Tests 07/29/19 06:30: Sodium Level 147H, Potassium Level 4.1, Chloride Level 109H, Carbon Dioxide Level 31, Anion Gap 7, Blood Urea Nitrogen 42H, Creatinine 0.9, Estimat Glomerular Filtration Rate > 60, Glucose Level 150#H, Calcium Level 8.7, Magnesium Level 2.2, Total Bilirubin 0.3, Aspartate Amino Transf (AST/SGOT) 19, Alanine Aminotransferase (ALT/SGPT) 12, Alkaline Phosphatase 71, Pro-B-Type Natriuretic Peptide 9175H, Total Protein 7.1, Albumin 2.5L, Globulin 4.6, Albumin/Globulin Ratio 0.5L Height (Feet): 5 Height (Inches): 8.00 Weight (Pounds): 72 Objective exam stable 18f limon, yellow/corey urine, occasional debris old renal imaging noted Panchito Camarena MD Jul 29, 2019 09:59
[2019-07-29 12:00] VITALS: BP 106/81
[2019-07-29] MEDS: DOBUTamine 250mg/250ml Premix 250 ML IV SCH (13:11)
--- NOTE | 2019-07-29 13:24 | Nephrology Progress Note ---
Assessment/Plan Problem List: (1) CKD (chronic kidney disease) stage 3, GFR 30-59 ml/min (2) ARAMIS (acute kidney injury) (3) UTI (urinary tract infection) (4) CHF (congestive heart failure) Assessment: sys (5) Urinary retention Assessment: chronic (6) PNA (pneumonia) (7) Hypernatremia Plan continue diuresis, replace K, limon, antibiotics, Na higher to trend with diuresis+free water via GT, no iv fluids Subjective ROS Limited/Unobtainable: Yes Objective Objective Last 24 Hour Vital Signs Date Time Temp Pulse Resp B/P (MAP) Pulse Ox O2 Delivery O2 Flow Rate FiO2 07/29/19 13:11 106/81 07/29/19 12:00 87 07/29/19 12:00 97.6 87 20 106/81 (89) 99 07/29/19 09:00 Nasal Cannula 6.0 07/29/19 09:00 98/77 07/29/19 09:00 98/77 07/29/19 09:00 83 98/77 07/29/19 08:00 97.7 83 20 98/77 (84) 100 07/29/19 08:00 80 07/29/19 05:21 115/70 07/29/19 04:00 90 07/29/19 04:00 97.5 74 20 115/70 (85) 100 07/29/19 00:00 88 07/29/19 00:00 97.9 89 18 109/72 (84) 100 07/28/19 22:00 109/72 07/28/19 21:00 Nasal Cannula 6.0 07/28/19 20:14 69 102/69 07/28/19 20:00 82 07/28/19 20:00 97.7 69 19 102/69 (80) 100 07/28/19 16:24 75 07/28/19 15:55 98.0 68 20 99/60 (73) 100 07/28/19 14:00 110/75 07/28/19 13:41 100/62 Intake and Output 07/28/19 07/29/19 19:00 07:00 Intake Total 1332.011 ml 1467.989 ml Output Total 700 ml Balance 632.011 ml 1467.989 ml Free Water 450 ml 600 ml IV Total 102.011 ml 147.989 ml Tube Feeding 780 ml 720 ml Output Urine Total 700 ml Laboratory Tests 07/29/19 06:30: Sodium Level 147H, Potassium Level 4.1, Chloride Level 109H, Carbon Dioxide Level 31, Anion Gap 7, Blood Urea Nitrogen 42H, Creatinine 0.9, Estimat Glomerular Filtration Rate > 60, Glucose Level 150#H, Calcium Level 8.7, Magnesium Level 2.2, Total Bilirubin 0.3, Aspartate Amino Transf (AST/SGOT) 19, Alanine Aminotransferase (ALT/SGPT) 12, Alkaline Phosphatase 71, Pro-B-Type Natriuretic Peptide 9175H, Total Protein 7.1, Albumin 2.5L, Globulin 4.6, Albumin/Globulin Ratio 0.5L Height (Feet): 5 Height (Inches): 8.00 Weight (Pounds): 72 General Appearance: no apparent distress, alert, confused EENT: normal ENT inspection Cardiovascular: regular rhythm Respiratory/Chest: lungs clear Abdomen: non tender, soft Extremities: no edema Neurologic: motor weakness Ang Worrell MD Jul 29, 2019 13:24
--- NOTE | 2019-07-29 13:25 | Infectious Diseases Prog Note ---
Assessment/Plan Assessment/Plan A: 1. Pneumonia COVID19 X 2: negative 2. Diabetes. 3. Hypertension. 4. Congestive heart failure. 5. Hepatitis C. 6. urinary tract infection, treated PLAN: 1. Observe off antibiotic Subjective ROS Limited/Unobtainable: Yes Constitutional: Reports: no symptoms Cardiovascular: Reports: other - on Dobutamine Allergies: Coded Allergies: AMOXAPINE (Unverified Allergy, Unknown, 10/16/18) AMOXICILLIN (Unverified Allergy, Unknown, 04/17/14) LISINOPRIL (Unverified Allergy, Unknown, 04/17/14) Objective Vital Signs Last 24 Hour Vital Signs Date Time Temp Pulse Resp B/P (MAP) Pulse Ox O2 Delivery O2 Flow Rate FiO2 07/29/19 13:11 106/81 07/29/19 12:00 87 07/29/19 12:00 97.6 87 20 106/81 (89) 99 07/29/19 09:00 Nasal Cannula 6.0 07/29/19 09:00 98/77 07/29/19 09:00 98/77 07/29/19 09:00 83 98/77 07/29/19 08:00 97.7 83 20 98/77 (84) 100 07/29/19 08:00 80 07/29/19 05:21 115/70 07/29/19 04:00 90 07/29/19 04:00 97.5 74 20 115/70 (85) 100 07/29/19 00:00 88 07/29/19 00:00 97.9 89 18 109/72 (84) 100 07/28/19 22:00 109/72 07/28/19 21:00 Nasal Cannula 6.0 07/28/19 20:14 69 102/69 07/28/19 20:00 82 07/28/19 20:00 97.7 69 19 102/69 (80) 100 07/28/19 16:24 75 07/28/19 15:55 98.0 68 20 99/60 (73) 100 07/28/19 14:00 110/75 07/28/19 13:41 100/62 Height (Feet): 5 Height (Inches): 8.00 Weight (Pounds): 72 General Appearance: no acute distress HEENT: mucous membranes moist Respiratory/Chest: lungs clear, other - oxygen by nasal cannula Cardiovascular: normal rate, other - R arm PICC line Abdomen: soft, non tender Neurologic/Psychiatric: alert, responsive Laboratory Tests Test 07/29/19 06:30 Sodium Level 147 MMOL/L (136-145) H Potassium Level 4.1 MMOL/L (3.5-5.1) Chloride Level 109 MMOL/L (98-107) H Carbon Dioxide Level 31 MMOL/L (21-32) Anion Gap 7 mmol/L (5-15) Blood Urea Nitrogen 42 mg/dL (7-18) H Creatinine 0.9 MG/DL (0.55-1.30) Estimat Glomerular Filtration Rate > 60 mL/min (>60) Glucose Level 150 MG/DL (74-106) #H Calcium Level 8.7 MG/DL (8.5-10.1) Magnesium Level 2.2 MG/DL (1.8-2.4) Total Bilirubin 0.3 MG/DL (0.2-1.0) Aspartate Amino Transf (AST/SGOT) 19 U/L (15-37) Alanine Aminotransferase (ALT/SGPT) 12 U/L (12-78) Alkaline Phosphatase 71 U/L (46-116) Pro-B-Type Natriuretic Peptide 9175 pg/mL (0-125) H Total Protein 7.1 G/DL (6.4-8.2) Albumin 2.5 G/DL (3.4-5.0) L Globulin 4.6 g/dL Albumin/Globulin Ratio 0.5 (1.0-2.7) L Current Medications Medications (Trade) Dose Ordered Sig/[place] Route PRN Reason Start Time Stop Time Status Last Admin Dose Admin Acetaminophen (Tylenol) 650 mg Q4H PRN ORAL Mild Pain (Pain Scale 1-3) 07/27/19 15:57 08/26/19 15:56 Al Hydroxide/Mg Hydroxide (Mylanta) 30 ml Q4H PRN ORAL Dyspepsia 07/27/19 15:58 08/26/19 15:57 Atorvastatin Calcium (Lipitor) 40 mg BEDTIME ORAL 07/27/19 21:00 10/17/19 20:59 07/28/19 20:28 Carvedilol (Coreg) 12.5 mg EVERY 12 HOURS ORAL 07/27/19 21:00 08/24/19 08:59 07/28/19 08:30 Chlorhexidine Gluconate (Monique-Hex 2%) 1 applic DAILY@2000 TOPIC 07/27/19 20:00 10/25/19 19:59 07/28/19 20:28 Dextrose (Dextrose 50%) 25 ml Q30M PRN IV Hypoglycemia 07/27/19 16:15 10/18/19 17:14 Dextrose (Dextrose 50%) 50 ml Q30M PRN IV Hypoglycemia 07/27/19 16:15 10/18/19 17:14 Dobutamine HCl 250 ml @ 19.187 mls/ hr Q24H IV 07/28/19 13:00 10/26/19 12:59 07/29/19 13:11 Furosemide (Lasix) 40 mg DAILY IV 07/29/19 14:00 08/27/19 08:59 Heparin Sodium (Porcine) (Heparin 5000 units/ml) 5,000 units EVERY 12 HOURS SUBQ 07/27/19 21:00 09/02/19 08:59 07/29/19 09:25 Hydralazine HCl (Apresoline) 25 mg Q8HR ORAL 07/28/19 06:00 10/26/19 05:59 Hydroxyzine HCl (Vistaril) 10 mg BIDPRN PRN ORAL Itching 07/27/19 18:00 08/26/19 17:59 Insulin Aspart (NovoLOG) EVERY 6 HOURS SUBQ 07/27/19 18:00 10/18/19 17:59 07/29/19 13:10 Ipratropium [place] (Atrovent) 500 mcg Q4H PRN HHN Shortness of Breath 07/27/19 15:58 08/01/19 15:57 Isosorbide Mononitrate (Imdur) 30 mg DAILY ORAL 07/28/19 09:00 08/18/19 08:59 07/28/19 08:30 Losartan Potassium (Cozaar) 50 mg DAILY ORAL 07/28/19 09:00 08/23/19 08:59 07/28/19 08:30 Ondansetron HCl (Zofran) 4 mg Q6H PRN IVP Nausea & Vomiting 07/28/19 18:15 08/27/19 18:14 Pantoprazole (Protonix) 40 mg DAILY ORAL 07/28/19 09:00 08/18/19 08:59 07/29/19 09:25 Sitagliptin Phosphate (Januvia) 25 mg ACBREAKFAST ORAL 07/28/19 06:30 08/25/19 06:29 07/29/19 06:35 Tre Caballero MD Jul 29, 2019 13:25
[2019-07-29 16:00] VITALS: BP 122/92
[2019-07-29 20:00] VITALS: BP 108/72
[2019-07-29] MEDS: Atorvastatin 20mg tab ORAL SCH (20:43)
[2019-07-29] MEDS: Dyna-Hex 2% Top Sol 2oz TOPIC SCH (20:44)
[2019-07-30] VITALS: BP 112/83
--- NOTE | 2019-07-30 00:15 | Progress Note ---
DATE: 07/29/2019 CARDIOLOGY PROGRESS NOTE SUBJECTIVE: Shortness of breath has decreased. Patient is on less oxygen. He is weak. 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 PHYSICAL EXAMINATION: VITAL SIGNS: Blood pressure 115/70, pulse 74, respirations 20, afebrile. LUNGS: Diminished breath sounds. Few rales. NECK: Jugular venous pressure elevated. CARDIAC: Regular rhythm and rate. Normal S1, S2. A 1/6 systolic apical murmur. ABDOMEN: Soft. EXTREMITIES: No edema. LABORATORY DATA: Sodium 147, potassium 4.1, bicarb 31, BUN 42, creatinine 0.9. Pro-natriuretic peptide 9100. IMPRESSION: 1. Cardiomyopathy. 2. Systolic heart failure. 3. Ventricular thrombus. 4. Dehydration. 5. Hypernatremia. 6. Prerenal azotemia. 7. Acute on chronic systolic congestive heart failure. 8. Pleural effusions. PLAN: 1. Additional free water replacement. 2. Continue dobutamine. 3. Maintain diuresis. 4. Recheck chest radiograph. 5. Consideration for thoracentesis. 6. Maximize anti-failure regimen. Alton Malloy M.D. DR: Loco JOB#: [id number] CC:
[2019-07-30 04:00] VITALS: BP 110/97
[2019-07-30 06:36] LABS: ANION GAP 6 mmol/L (5-15); BLOOD UREA NITROGEN 40 mg/dL (7-18); CALCIUM 8.4 MG/DL (8.5-10.1); CARBON DIOXIDE 32 MMOL/L (21-32); CHLORIDE 105 MMOL/L (98-107); CREATININE 1.2 MG/DL (0.55-1.30); POTASSIUM 4.2 MMOL/L (3.5-5.1); SODIUM 142 MMOL/L (136-145)
[2019-07-30] MEDS: sitaGLIPtin 25mg tab ORAL SCH (06:52)
[2019-07-30] MEDS: NovoLOG Insulin Flexpen SUBQ SCH ×3 (06:52→18:00)
[2019-07-30] MEDS: HydrALAZINE 25mg tab ORAL SCH ×3 (07:03→22:00)
--- NOTE | 2019-07-30 07:33 | General Progress Note ---
Assessment/Plan Problem List: (1) Suspected COVID-19 virus infection ICD Codes: Z20.828 - Contact with and (suspected) exposure to other viral communicable diseases SNOMED: 623797318 (2) PNA (pneumonia) ICD Codes: J18.9 - Pneumonia, unspecified organism SNOMED: 409604473 (3) CHF (congestive heart failure) ICD Codes: I50.9 - Heart failure, unspecified SNOMED: 17988894 (4) UTI (urinary tract infection) ICD Codes: N39.0 - Urinary tract infection, site not specified SNOMED: 01412290 (5) ARAMIS (acute kidney injury) ICD Codes: N17.9 - Acute kidney failure, unspecified SNOMED: 38838625, 2775673 Status: stable Assessment/Plan: o2- titrate. diuresis per cards dobutamine monitor i/o monitor labs- pending today water flushes tube feeds/monitor residuals monitor off abx monitor cxr dvt/stress ulcer prophylaxis turn q2 Subjective ROS Limited/Unobtainable: No Constitutional: Reports: malaise, weakness HEENT: Reports: no symptoms Cardiovascular: Reports: no symptoms Respiratory: Reports: shortness of breath, SOB at rest Gastrointestinal/Abdominal: Reports: difficulty swallowing Genitourinary: Reports: no symptoms Neurologic/Psychiatric: Reports: emotional problems Endocrine: Reports: no symptoms Hematologic/Lymphatic: Reports: anemia Allergies: Coded Allergies: AMOXAPINE (Unverified Allergy, Unknown, 10/16/18) AMOXICILLIN (Unverified Allergy, Unknown, 04/17/14) LISINOPRIL (Unverified Allergy, Unknown, 04/17/14) All Systems: reviewed and negative except above Subjective no change. remains on 6L NC. i/o's barely negative. Wt down 1kg since admit. bp on the low side. confused. labs reviewed. Objective Last 24 Hour Vital Signs Date Time Temp Pulse Resp B/P (MAP) Pulse Ox O2 Delivery O2 Flow Rate FiO2 07/30/19 07:03 110/97 07/30/19 04:00 88 07/30/19 00:00 97.7 92 19 112/83 (93) 100 07/30/19 00:00 95 07/29/19 22:00 109/79 07/29/19 21:00 Nasal Cannula 6.0 6/7/20 20:39 92 108/72 07/29/19 20:00 97.5 92 19 108/72 (84) 95 07/29/19 20:00 95 07/29/19 16:00 97.3 97 20 122/92 (102) 99 07/29/19 16:00 94 07/29/19 14:00 106/81 07/29/19 13:11 106/81 07/29/19 12:00 87 07/29/19 12:00 97.6 87 20 106/81 (89) 99 07/29/19 09:00 Nasal Cannula 6.0 07/29/19 09:00 98/77 07/29/19 09:00 98/77 07/29/19 09:00 83 98/77 07/29/19 08:00 97.7 83 20 98/77 (84) 100 07/29/19 08:00 80 Intake and Output 07/29/19 07/30/19 19:00 07:00 Intake Total 895.122 ml 1404.748 ml Output Total 450 ml 2000 ml Balance 445.122 ml -595.252 ml Free Water 300 ml IV Total 115.122 ml 444.748 ml Tube Feeding 780 ml 660 ml Output Urine Total 450 ml 2000 ml # Bowel Movements 3 Laboratory Tests 07/30/19 06:00: Sodium Level 142, Potassium Level 4.2, Chloride Level 105, Carbon Dioxide Level 32, Anion Gap 6, Blood Urea Nitrogen 40H, Creatinine 1.2, Estimat Glomerular Filtration Rate > 60, Glucose Level 195H, Calcium Level 8.4L, Magnesium Level [ Pending] Height (Feet): 5 Height (Inches): 8.00 Weight (Pounds): 142 Objective General Appearance: WD/WN, confused, thin EENT: PERRL/EOMI, normal ENT inspection, TMs normal Neck: non-tender, normal alignment, supple Cardiovascular: normal peripheral pulses, normal rate, regular rhythm Respiratory/Chest: chest wall non-tender, lungs clear, normal breath sounds, no respiratory distress, no accessory muscle use Abdomen: normal bowel sounds, non tender, soft, no organomegaly, no mass Extremities: normal range of motion, non-tender Edema: no edema noted Arm (L), no edema noted Arm (R) Neurologic: counseling case manager II-XII grossly normal, alert, responsive, normal mood/affect Skin: normal pigmentation Lymphatic: normal anterior cervical (L), normal anterior cervical (R) Luis Daniel Ascencio MD Jul 30, 2019 07:33
[2019-07-30 08:00] VITALS: BP 130/94
--- NOTE | 2019-07-30 08:00 | Critical Care Progress Note ---
Assessment/Plan Assessment/Plan IMPRESSION: 1. Evidence of chronic renal failure. 2. Coronary artery disease. 3. CHF. 4. Hepatitis C. 5. Pacemaker. 6. G-tube. 7. Aspiration. 8. Possible COVID. 9. Evidence of pneumonia. 10. Lactic acidemia 11. CXR with pulmonary edema 12. hypernatremia PLAN dc planning meds as is remains full code optimize as able taper oxygen overall appears better with diuresis with improved BNP cards clearance monitor fluid status off antibiotics await CXR for clearing monitor sodium levels reduced lasix dosing needs snf; dc planning medications/laboratory data/nursing notes reviewed in detail note reviewed and edited care discussed with RN and RT Critical Care - Subjective Interval Events: no distress overall comfortable on oxygen on feeds Condition: stable EKG Rhythm: Sinus Rhythm Residuals: minimal Tube Feeding Tolerated: yes I&O: Intake and Output 07/29/19 07/30/19 19:00 07:00 Intake Total 895.122 ml 1594.878 ml Output Total 450 ml 2000 ml Balance 445.122 ml -405.122 ml Free Water 300 ml IV Total 115.122 ml 634.878 ml Tube Feeding 780 ml 660 ml Output Urine Total 450 ml 2000 ml # Bowel Movements 3 Critical Care - Objective Last 24 Hour Vital Signs Date Time Temp Pulse Resp B/P (MAP) Pulse Ox O2 Delivery O2 Flow Rate FiO2 07/30/19 07:03 110/97 07/30/19 04:00 96.8 90 20 110/97 (101) 98 07/30/19 04:00 88 07/30/19 00:00 97.7 92 19 112/83 (93) 100 07/30/19 00:00 95 07/29/19 22:00 109/79 07/29/19 21:00 Nasal Cannula 6.0 07/29/19 20:39 92 108/72 07/29/19 20:00 97.5 92 19 108/72 (84) 95 07/29/19 20:00 95 07/29/19 16:00 97.3 97 20 122/92 (102) 99 07/29/19 16:00 94 07/29/19 14:00 106/81 07/29/19 13:11 106/81 07/29/19 12:00 87 07/29/19 12:00 97.6 87 20 106/81 (89) 99 07/29/19 09:00 Nasal Cannula 6.0 07/29/19 09:00 98/77 07/29/19 09:00 98/77 07/29/19 09:00 83 98/07/29/19 08:00 97.7 83 20 98/ (84) 100 07/29/19 08:00 80 Labs: Laboratory Tests Test 07/30/19 06:00 Sodium Level 142 MMOL/L (136-145) Potassium Level 4.2 MMOL/L (3.5-5.1) Chloride Level 105 MMOL/L (98-107) Carbon Dioxide Level 32 MMOL/L (21-32) Anion Gap 6 mmol/L (5-15) Blood Urea Nitrogen 40 mg/dL (7-18) H Creatinine 1.2 MG/DL (0.55-1.30) Estimat Glomerular Filtration Rate > 60 mL/min (>60) Glucose Level 195 MG/DL (74-106) H Calcium Level 8.4 MG/DL (8.5-10.1) L Magnesium Level 2.2 MG/DL (1.8-2.4) Objective: GENERAL: NAD and on oxygen HEENT: Negative. NECK: Supple. LUNGS: reduced breath sounds. no rhonchi. no wheeze- stable CARDIAC: S1, S2. Regular rate and rhythm with noted murmur. ABDOMEN: Soft, nontender. GT EXTREMITIES: No cyanosis or clubbing. improved edema NEUROLOGICAL: Confused. but alert reviewed and edited Accucheck: Jose Reyes MD Jul 30, 2019 08:00
[2019-07-30] MEDS: Carvedilol 12.5mg tab ORAL SCH ×2 (09:09→21:00)
[2019-07-30] MEDS: Losartan 50mg tab ORAL SCH ×2 (09:10→18:00)
[2019-07-30] MEDS: Imdur 30mg tab ORAL SCH (09:10)
[2019-07-30] MEDS: Heparin 5000 units/ml inj SUBQ SCH ×2 (09:11→21:00)
--- NOTE | 2019-07-30 11:28 | Infectious Diseases Prog Note ---
"Assessment/Plan Assessment/Plan antibiotics : none A 1. e.coli | pseudomonas UTI s/p rx 2. bilateral pneumonia s/p rx COVID-19 negative x 2 3. Diabetes. 4. Hypertension. 5. Congestive heart failure. 6. Hepatitis C. 7. renal failure improving P 1. observe off antibiotics Subjective ROS Limited/Unobtainable: Yes Allergies: Coded Allergies: AMOXAPINE (Unverified Allergy, Unknown, 10/16/18) AMOXICILLIN (Unverified Allergy, Unknown, 04/17/14) LISINOPRIL (Unverified Allergy, Unknown, 04/17/14) Objective Vital Signs Last 24 Hour Vital Signs Date Time Temp Pulse Resp B/P (MAP) Pulse Ox O2 Delivery O2 Flow Rate FiO2 07/30/19 09:10 130/94 07/30/19 09:10 130/94 07/30/19 09:09 96 130/94 07/30/19 08:00 97.5 96 20 130/94 (106) 100 07/30/19 07:03 110/97 07/30/19 04:00 96.8 90 20 110/97 (101) 98 07/30/19 04:00 88 07/30/19 00:00 97.7 92 19 112/83 (93) 100 07/30/19 00:00 95 07/29/19 22:00 109/79 07/29/19 21:00 Nasal Cannula 6.0 07/29/19 20:39 92 108/72 07/29/19 20:00 97.5 92 19 108/72 (84) 95 07/29/19 20:00 95 07/29/19 16:00 97.3 97 20 122/92 (102) 99 07/29/19 16:00 94 07/29/19 14:00 106/81 07/29/19 13:11 106/81 07/29/19 12:00 87 07/29/19 12:00 97.6 87 20 106/81 (89) 99 Height (Feet): 5 Height (Inches): 8.00 Weight (Pounds): 142 Respiratory/Chest: lungs clear Cardiovascular: normal rate, regular rhythm, no gallop/murmur Abdomen: soft, non tender Laboratory Tests Test 07/30/19 06:00 Sodium Level 142 MMOL/L (136-145) Potassium Level 4.2 MMOL/L (3.5-5.1) Chloride Level 105 MMOL/L (98-107) Carbon Dioxide Level 32 MMOL/L (21-32) Anion Gap 6 mmol/L (5-15) Blood Urea Nitrogen 40 mg/dL (7-18) H Creatinine 1.2 MG/DL (0.55-1.30) Estimat Glomerular Filtration Rate > 60 mL/min (>60) Glucose Level 195 MG/DL (74-106) H Calcium Level 8.4 MG/DL (8.5-10.1) L Magnesium Level 2.2 MG/DL (1.8-2.4) Current Medications Medications (Trade) Dose Ordered Sig/[place] Route PRN Reason Start Time Stop Time Status Last Admin Dose Admin Acetaminophen (Tylenol) 650 mg Q4H PRN ORAL Mild Pain (Pain Scale 1-3) 07/27/19 15:57 08/26/19 15:56 Al Hydroxide/Mg Hydroxide (Mylanta) 30 ml Q4H PRN ORAL Dyspepsia 07/27/19 15:58 08/26/19 15:57 Atorvastatin Calcium (Lipitor) 40 mg BEDTIME ORAL 07/27/19 21:00 10/17/19 20:59 07/29/19 20:43 Carvedilol (Coreg) 12.5 mg EVERY 12 HOURS ORAL 07/27/19 21:00 08/24/19 08:59 07/30/19 09:09 Chlorhexidine Gluconate (Monique-Hex 2%) 1 applic DAILY@2000 TOPIC 07/27/19 20:00 10/25/19 19:59 07/29/19 20:44 Dextrose (Dextrose 50%) 25 ml Q30M PRN IV Hypoglycemia 07/27/19 16:15 10/18/19 17:14 Dextrose (Dextrose 50%) 50 ml Q30M PRN IV Hypoglycemia 07/27/19 16:15 10/18/19 17:14 Dobutamine HCl 250 ml @ 19.187 mls/ hr Q24H IV 07/28/19 13:00 10/26/19 12:59 07/29/19 13:11 Furosemide (Lasix) 40 mg DAILY IV 07/29/19 14:00 08/27/19 08:59 07/30/19 09:10 Heparin Sodium (Porcine) (Heparin 5000 units/ml) 5,000 units EVERY 12 HOURS SUBQ 07/27/19 21:00 09/02/19 08:59 07/30/19 09:11 Hydralazine HCl (Apresoline) 25 mg Q8HR ORAL 07/28/19 06:00 10/26/19 05:59 Hydroxyzine HCl (Vistaril) 10 mg BIDPRN PRN ORAL Itching 07/27/19 18:00 08/26/19 17:59 Insulin Aspart (NovoLOG) EVERY 6 HOURS SUBQ 07/27/19 18:00 10/18/19 17:59 07/30/19 06:52 Ipratropium [place] (Atrovent) 500 mcg Q4H PRN HHN Shortness of Breath 07/27/19 15:58 08/01/19 15:57 Isosorbide Mononitrate (Imdur) 30 mg DAILY ORAL 07/28/19 09:00 08/18/19 08:59 07/30/19 09:10 Losartan Potassium (Cozaar) 50 mg BID ORAL 07/30/19 09:00 08/29/19 08:59 07/30/19 09:10 Ondansetron HCl (Zofran) 4 mg Q6H PRN IVP Nausea & Vomiting 07/28/19 18:15 08/27/19 18:14 Pantoprazole (Protonix) 40 mg DAILY ORAL 07/28/19 09:00 08/18/19 08:59 07/30/19 09:10 Sitagliptin Phosphate (Januvia) 25 mg ACBREAKFAST ORAL 07/28/19 06:30 08/25/19 06:29 07/30/19 06:52 Daniel Kimball MD Jul 30, 2019 11:28"
[2019-07-30 12:00] VITALS: BP 98/69
--- NOTE | 2019-07-30 12:01 | Urology Progress Note ---
Assessment/Plan Status: stable Assessment/Plan: BPH hx urinary retention with chronic limon neurogenic bladder (atonic) UTI/colonized ARAMIS/CKD, labile hematuria renal cyst monitor clinically maintain limon indwelling, last exchanged 07/22 hand irrigated and do PRN s/p abx monitor renal fxn consider repeat renal imaging flomax and proscar dc'd Subjective Allergies: Coded Allergies: AMOXAPINE (Unverified Allergy, Unknown, 10/16/18) AMOXICILLIN (Unverified Allergy, Unknown, 04/17/14) LISINOPRIL (Unverified Allergy, Unknown, 04/17/14) Subjective all noted, feels fair, some occ SOB, new limon draining OK Objective Last 24 Hour Vital Signs Date Time Temp Pulse Resp B/P (MAP) Pulse Ox O2 Delivery O2 Flow Rate FiO2 07/30/19 09:10 130/94 07/30/19 09:10 130/94 07/30/19 09:09 96 130/94 07/30/19 08:00 97.5 96 20 130/94 (106) 100 07/30/19 07:03 110/97 07/30/19 04:00 96.8 90 20 110/97 (101) 98 07/30/19 04:00 88 07/30/19 00:00 97.7 92 19 112/83 (93) 100 07/30/19 00:00 95 07/29/19 22:00 109/79 07/29/19 21:00 Nasal Cannula 6.0 07/29/19 20:39 92 108/72 07/29/19 20:00 97.5 92 19 108/72 (84) 95 07/29/19 20:00 95 07/29/19 16:00 97.3 97 20 122/92 (102) 99 07/29/19 16:00 94 07/29/19 14:00 106/81 07/29/19 13:11 106/81 Intake and Output 07/29/19 07/30/19 19:00 07:00 Intake Total 895.122 ml 1594.878 ml Output Total 450 ml 2000 ml Balance 445.122 ml -405.122 ml Free Water 300 ml IV Total 115.122 ml 634.878 ml Tube Feeding 780 ml 660 ml Output Urine Total 450 ml 2000 ml # Bowel Movements 3 Microbiology Date/Time Source Procedure Growth Status 07/18/19 18:45 Blood Blood Culture - Final NO GROWTH AFTER 5 DAYS Complete 07/25/19 02:14 Nasopharynx Coronavirus COVID-19 PCR ([place]) - Final Complete 07/19/19 12:15 Urine,Clean Catch Urine Culture - Final Escherichia Coli Pseudomonas Aeruginosa Complete 07/19/19 02:50 Rectum - Final NO CARBAPENEM-RESISTANT ENTEROBACTERI... Complete Current Medications Medications (Trade) Dose Ordered Sig/[place] Route PRN Reason Start Time Stop Time Status Last Admin Dose Admin Acetaminophen (Tylenol) 650 mg Q4H PRN ORAL Mild Pain (Pain Scale 1-3) 07/27/19 15:57 08/26/19 15:56 Al Hydroxide/Mg Hydroxide (Mylanta) 30 ml Q4H PRN ORAL Dyspepsia 07/27/19 15:58 08/26/19 15:57 Atorvastatin Calcium (Lipitor) 40 mg BEDTIME ORAL 07/27/19 21:00 10/17/19 20:59 07/29/19 20:43 Carvedilol (Coreg) 12.5 mg EVERY 12 HOURS ORAL 07/27/19 21:00 08/24/19 08:59 07/30/19 09:09 Chlorhexidine Gluconate (Monique-Hex 2%) 1 applic DAILY@2000 TOPIC 07/27/19 20:00 10/25/19 19:59 07/29/19 20:44 Dextrose (Dextrose 50%) 25 ml Q30M PRN IV Hypoglycemia 07/27/19 16:15 10/18/19 17:14 Dextrose (Dextrose 50%) 50 ml Q30M PRN IV Hypoglycemia 07/27/19 16:15 10/18/19 17:14 Dobutamine HCl 250 ml @ 19.187 mls/ hr Q24H IV 07/28/19 13:00 10/26/19 12:59 07/29/19 13:11 Furosemide (Lasix) 40 mg DAILY IV 07/29/19 14:00 08/27/19 08:59 07/30/19 09:10 Heparin Sodium (Porcine) (Heparin 5000 units/ml) 5,000 units EVERY 12 HOURS SUBQ 07/27/19 21:00 09/02/19 08:59 07/30/19 09:11 Hydralazine HCl (Apresoline) 25 mg Q8HR ORAL 07/28/19 06:00 9/4/20 05:59 Hydroxyzine HCl (Vistaril) 10 mg BIDPRN PRN ORAL Itching 07/27/19 18:00 08/26/19 17:59 Insulin Aspart (NovoLOG) EVERY 6 HOURS SUBQ 07/27/19 18:00 10/18/19 17:59 07/30/19 06:52 Ipratropium [place] (Atrovent) 500 mcg Q4H PRN HHN Shortness of Breath 07/27/19 15:58 08/01/19 15:57 Isosorbide Mononitrate (Imdur) 30 mg DAILY ORAL 07/28/19 09:00 08/18/19 08:59 07/30/19 09:10 Losartan Potassium (Cozaar) 50 mg BID ORAL 07/30/19 09:00 08/29/19 08:59 07/30/19 09:10 Ondansetron HCl (Zofran) 4 mg Q6H PRN IVP Nausea & Vomiting 07/28/19 18:15 08/27/19 18:14 Pantoprazole (Protonix) 40 mg DAILY ORAL 07/28/19 09:00 08/18/19 08:59 07/30/19 09:10 Sitagliptin Phosphate (Januvia) 25 mg ACBREAKFAST ORAL 07/28/19 06:30 08/25/19 06:29 07/30/19 06:52 Laboratory Tests 07/30/19 06:00: Sodium Level 142, Potassium Level 4.2, Chloride Level 105, Carbon Dioxide Level 32, Anion Gap 6, Blood Urea Nitrogen 40H, Creatinine 1.2, Estimat Glomerular Filtration Rate > 60, Glucose Level 195H, Calcium Level 8.4L, Magnesium Level 2.2 Height (Feet): 5 Height (Inches): 8.00 Weight (Pounds): 142 Objective exam stable 18f limon, yellow/corey urine, occasional debris old renal imaging noted Panchito Camarena MD Jul 30, 2019 12:01
[2019-07-30] MEDS: DOBUTamine 250mg/250ml Premix 250 ML IV SCH (15:02)
[2019-07-30 16:00] VITALS: BP 94/67
[2019-07-30] MEDS ORDERED: Tubing IV Secondary IV ONE (16:45)
[2019-07-30] MEDS ORDERED: NS 275ml ONE (16:45)
[2019-07-30 20:00] VITALS: BP 103/75
[2019-07-30] MEDS: Dyna-Hex 2% Top Sol 2oz TOPIC SCH (20:00)
--- NOTE | 2019-07-30 20:05 | Nephrology Progress Note ---
Assessment/Plan Problem List: (1) CKD (chronic kidney disease) stage 3, GFR 30-59 ml/min (2) ARAMIS (acute kidney injury) (3) UTI (urinary tract infection) (4) CHF (congestive heart failure) Assessment: sys (5) Urinary retention Assessment: chronic (6) PNA (pneumonia) (7) Hypernatremia Plan continue diuresis, replace K, limon, antibiotics, Na higher to trend with diuresis+free water via GT, improved, no iv fluids Subjective ROS Limited/Unobtainable: Yes Objective Objective Last 24 Hour Vital Signs Date Time Temp Pulse Resp B/P (MAP) Pulse Ox O2 Delivery O2 Flow Rate FiO2 07/30/19 18:00 98/65 07/30/19 16:00 97.5 88 20 94/67 (76) 99 07/30/19 16:00 89 07/30/19 15:02 98/47 07/30/19 14:00 98/47 07/30/19 12:00 77 07/30/19 12:00 97.3 77 20 98/69 (79) 98 07/30/19 10:00 Nasal Cannula 4.0 07/30/19 09:10 130/94 07/30/19 09:10 130/94 07/30/19 09:09 96 130/94 07/30/19 09:00 Nasal Cannula 6.0 07/30/19 08:00 97.5 96 20 130/94 (106) 100 07/30/19 08:00 100 07/30/19 07:03 110/97 07/30/19 04:00 96.8 90 20 110/97 (101) 98 07/30/19 04:00 88 07/30/19 00:00 97.7 92 19 112/83 (93) 100 07/30/19 00:00 95 07/29/19 22:00 109/79 07/29/19 21:00 Nasal Cannula 6.0 07/29/19 20:39 92 108/72 Intake and Output 07/29/19 07/30/19 19:00 07:00 Intake Total 895.122 ml 1654.878 ml Output Total 450 ml 2000 ml Balance 445.122 ml -345.122 ml Free Water 300 ml IV Total 115.122 ml 634.878 ml Tube Feeding 780 ml 720 ml Output Urine Total 450 ml 2000 ml # Bowel Movements 3 Laboratory Tests 07/30/19 06:00: Sodium Level 142, Potassium Level 4.2, Chloride Level 105, Carbon Dioxide Level 32, Anion Gap 6, Blood Urea Nitrogen 40H, Creatinine 1.2, Estimat Glomerular Filtration Rate > 60, Glucose Level 195H, Calcium Level 8.4L, Magnesium Level 2.2 Height (Feet): 5 Height (Inches): 8.00 Weight (Pounds): 142 General Appearance: alert, confused EENT: normal ENT inspection Neck: normal alignment Cardiovascular: regular rhythm Respiratory/Chest: lungs clear Abdomen: non tender, soft Extremities: no edema Neurologic: motor weakness, disoriented Ang Worrell MD Jul 30, 2019 20:05
[2019-07-30] MEDS: Atorvastatin 20mg tab ORAL SCH (21:00)
[2019-07-31] VITALS: BP 114/69
--- NOTE | 2019-07-31 03:45 | Progress Note ---
DATE: 07/30/2019 CARDIOLOGY PROGRESS NOTE SUBJECTIVE: The patient is less short of breath. He remains on nasal oxygen. OBJECTIVE: VITAL SIGNS: Blood pressure 110/97, heart rate 90, respirations 20, afebrile. Monitored rhythm, sinus. LUNGS: Diminished breath sounds on the left. HEART: Regular rhythm and rate. Normal S1, S2. A 1/6 systolic murmur at apex. ABDOMEN: Soft. EXTREMITIES: No edema. LABORATORY DATA: Magnesium 2.2, potassium 4.2, BUN 40, and creatinine 1.2. IMPRESSION: 1. Cardiomyopathy with systolic congestive heart failure and pleural effusions, clinically improved. 2. History of atrial and ventricular arrhythmias with life vest. 3. Acute on chronic renal failure, improved. PLAN: 1. Discontinue dobutamine. 2. Maximize anti-failure regimen. 3. Transition from IV to oral maintenance diuretic dose. Alton Malloy M.D. DR: NIKITA JOB#: [id number] CC:
[2019-07-31 04:00] VITALS: BP 117/80
[2019-07-31] MEDS: NovoLOG Insulin Flexpen SUBQ SCH ×4 (06:00→18:56)
[2019-07-31] MEDS: HydrALAZINE 25mg tab ORAL SCH ×3 (06:00→22:00)
[2019-07-31] MEDS: sitaGLIPtin 25mg tab ORAL SCH (06:29)
[2019-07-31 07:51] LABS: ALANINE AMINOTRANSFERASE 16 U/L (12-78); ALBUMIN 2.7 G/DL (3.4-5.0); ALBUMIN/GLOBULIN RATIO 0.6 (1.0-2.7); ALKALINE PHOSPHATASE 74 U/L (46-116); ANION GAP 11 mmol/L (5-15); ASPARTATE AMINO TRANSFERASE 18 U/L (15-37); BILIRUBIN,TOTAL 0.4 MG/DL (0.2-1.0); BLOOD UREA NITROGEN 38 mg/dL (7-18); CALCIUM 8.6 MG/DL (8.5-10.1); CARBON DIOXIDE 31 MMOL/L (21-32); CHLORIDE 103 MMOL/L (98-107); CREATININE 0.9 MG/DL (0.55-1.30); POTASSIUM 3.9 MMOL/L (3.5-5.1); SODIUM 145 MMOL/L (136-145)
[2019-07-31 08:00] VITALS: BP 107/78
--- NOTE | 2019-07-31 08:34 | Critical Care Progress Note ---
Assessment/Plan Assessment/Plan IMPRESSION: 1. Evidence of chronic renal failure. 2. Coronary artery disease. 3. CHF. 4. Hepatitis C. 5. Pacemaker. 6. G-tube. 7. Aspiration. 8. Possible COVID. 9. Evidence of pneumonia. 10. Lactic acidemia 11. CXR with pulmonary edema 12. hypernatremia PLAN dc planning once placement found meds as is remains full code optimize as able taper oxygen overall appears same monitor fluid status off antibiotics await CXR for clearing monitor sodium levels reduced lasix dosing needs snf; dc planning medications/laboratory data/nursing notes reviewed in detail note reviewed and edited care discussed with RN and RT Critical Care - Subjective Condition: stable EKG Rhythm: Sinus Rhythm Residuals: minimal Tube Feeding Tolerated: yes I&O: Intake and Output 07/30/19 07/31/19 18:59 06:59 Intake Total 946.748 ml Output Total 700 ml 500 ml Balance 246.748 ml -500 ml Free Water 150 ml IV Total 76.748 ml Tube Feeding 720 ml Output Urine Total 700 ml 500 ml # Voids 1 # Bowel Movements 3 1 Critical Care - Objective Last 24 Hour Vital Signs Date Time Temp Pulse Resp B/P (MAP) Pulse Ox O2 Delivery O2 Flow Rate FiO2 07/31/19 06:00 117/80 07/31/19 04:23 108 24 98 Nasal Cannula 6.0 44 07/31/19 04:23 98 Nasal Cannula 6.0 44 07/31/19 04:00 97.5 95 18 117/80 (92) 99 07/31/19 04:00 95 07/31/19 00:00 91 07/31/19 00:00 98.6 95 18 114/69 (84) 98 07/30/19 22:00 103/75 07/30/19 21:00 90 103/75 07/30/19 21:00 Nasal Cannula 4.0 07/30/19 20:00 98.9 90 18 103/75 (84) 95 07/30/19 20:00 90 07/30/19 18:00 98/65 07/30/19 16:00 97.5 88 20 94/67 (76) 99 07/30/19 16:00 89 07/30/19 15:02 98/47 07/30/19 14:00 98/47 07/30/19 12:00 77 07/30/19 12:00 97.3 77 20 98/69 (79) 98 07/30/19 10:00 Nasal Cannula 4.0 07/30/19 09:10 130/94 07/30/19 09:10 130/94 07/30/19 09:09 96 130/94 07/30/19 09:00 Nasal Cannula 6.0 Labs: Laboratory Tests Test 07/31/19 06:12 Sodium Level 145 MMOL/L (136-145) Potassium Level 3.9 MMOL/L (3.5-5.1) Chloride Level 103 MMOL/L (98-107) Carbon Dioxide Level 31 MMOL/L (21-32) Anion Gap 11 mmol/L (5-15) Blood Urea Nitrogen 38 mg/dL (7-18) H Creatinine 0.9 MG/DL (0.55-1.30) Estimat Glomerular Filtration Rate > 60 mL/min (>60) Glucose Level 172 MG/DL (74-106) H Calcium Level 8.6 MG/DL (8.5-10.1) Magnesium Level 2.2 MG/DL (1.8-2.4) Total Bilirubin 0.4 MG/DL (0.2-1.0) Aspartate Amino Transf (AST/SGOT) 18 U/L (15-37) Alanine Aminotransferase (ALT/SGPT) 16 U/L (12-78) Alkaline Phosphatase 74 U/L (46-116) Total Protein 7.5 G/DL (6.4-8.2) Albumin 2.7 G/DL (3.4-5.0) L Globulin 4.8 g/dL Albumin/Globulin Ratio 0.6 (1.0-2.7) L Objective: GENERAL: NAD and on oxygen HEENT: Negative. NECK: Supple. LUNGS: reduced breath sounds. no rhonchi. no wheeze- stable CARDIAC: S1, S2. Regular rate and rhythm with noted murmur. ABDOMEN: Soft, nontender. GT EXTREMITIES: No cyanosis or clubbing. improved edema NEUROLOGICAL: Confused. but alert reviewed and edited Accucheck: 138 Jose Iglesias MD Jul 31, 2019 08:34
--- NOTE | 2019-07-31 08:56 | General Progress Note ---
Assessment/Plan Problem List: (1) Suspected COVID-19 virus infection ICD Codes: Z20.828 - Contact with and (suspected) exposure to other viral communicable diseases SNOMED: 420217174 (2) PNA (pneumonia) ICD Codes: J18.9 - Pneumonia, unspecified organism SNOMED: 025497906 (3) CHF (congestive heart failure) ICD Codes: I50.9 - Heart failure, unspecified SNOMED: 14612144 (4) UTI (urinary tract infection) ICD Codes: N39.0 - Urinary tract infection, site not specified SNOMED: 16331949 (5) ARAMIS (acute kidney injury) ICD Codes: N17.9 - Acute kidney failure, unspecified SNOMED: 07289464, 6291915 Status: stable Assessment/Plan: o2- titrate. diuresis per cards dobutamine monitor i/o monitor labs- pending today water flushes tube feeds/monitor residuals monitor off abx monitor cxr dvt/stress ulcer prophylaxis turn q2 dc planning Subjective ROS Limited/Unobtainable: No Constitutional: Reports: malaise, weakness HEENT: Reports: no symptoms Cardiovascular: Reports: no symptoms Respiratory: Reports: cough, shortness of breath, sputum Gastrointestinal/Abdominal: Reports: difficulty swallowing Genitourinary: Reports: no symptoms Neurologic/Psychiatric: Reports: depressed, pre-existing deficit Endocrine: Reports: no symptoms Hematologic/Lymphatic: Reports: anemia Allergies: Coded Allergies: AMOXAPINE (Unverified Allergy, Unknown, 10/16/18) AMOXICILLIN (Unverified Allergy, Unknown, 04/17/14) LISINOPRIL (Unverified Allergy, Unknown, 04/17/14) All Systems: reviewed and negative except above Subjective no change. resting. appears less sob. on 3L NC. tolerating feeds. no chest pain . Objective Last 24 Hour Vital Signs Date Time Temp Pulse Resp B/P (MAP) Pulse Ox O2 Delivery O2 Flow Rate FiO2 07/31/19 08:00 97.7 98 22 107/78 (88) 97 07/31/19 06:00 117/80 07/31/19 04:23 108 24 98 Nasal Cannula 6.0 44 07/31/19 04:23 98 Nasal Cannula 6.0 44 07/31/19 04:00 97.5 95 18 117/80 (92) 99 07/31/19 04:00 95 07/31/19 00:00 91 07/31/19 00:00 98.6 95 18 114/69 (84) 98 07/30/19 22:00 103/75 07/30/19 21:00 90 103/75 07/30/19 21:00 Nasal Cannula 4.0 07/30/19 20:00 98.9 90 18 103/75 (84) 95 07/30/19 20:00 90 07/30/19 18:00 98/65 07/30/19 16:00 97.5 88 20 94/67 (76) 99 07/30/19 16:00 89 07/30/19 15:02 98/47 07/30/19 14:00 98/47 07/30/19 12:00 77 07/30/19 12:00 97.3 77 20 98/69 (79) 98 07/30/19 10:00 Nasal Cannula 4.0 07/30/19 09:10 130/94 07/30/19 09:10 130/94 07/30/19 09:09 96 130/94 07/30/19 09:00 Nasal Cannula 6.0 Intake and Output 07/30/19 07/31/19 19:00 07:00 Intake Total 886.748 ml Output Total 700 ml 500 ml Balance 186.748 ml -500 ml Free Water 150 ml IV Total 76.748 ml Tube Feeding 660 ml Output Urine Total 700 ml 500 ml # Voids 1 # Bowel Movements 3 1 Laboratory Tests 07/31/19 06:12: Sodium Level 145, Potassium Level 3.9, Chloride Level 103, Carbon Dioxide Level 31, Anion Gap 11, Blood Urea Nitrogen 38H, Creatinine 0.9, Estimat Glomerular Filtration Rate > 60, Glucose Level 172H, Calcium Level 8.6, Magnesium Level 2.2 , Total Bilirubin 0.4, Aspartate Amino Transf (AST/SGOT) 18, Alanine Aminotransferase (ALT/SGPT) 16, Alkaline Phosphatase 74, Total Protein 7.5, Albumin 2.7L, Globulin 4.8, Albumin/Globulin Ratio 0.6L Height (Feet): 5 Height (Inches): 8.00 Weight (Pounds): 142 Objective General Appearance: WD/WN, confused, thin EENT: PERRL/EOMI, normal ENT inspection, TMs normal Neck: non-tender, normal alignment, supple Cardiovascular: normal peripheral pulses, normal rate, regular rhythm Respiratory/Chest: chest wall non-tender, lungs clear, normal breath sounds, no respiratory distress, no accessory muscle use Abdomen: normal bowel sounds, non tender, soft, no organomegaly, no mass Extremities: normal range of motion, non-tender Edema: no edema noted Arm (L), no edema noted Arm (R) Neurologic: engraver letter II-XII grossly normal, alert, responsive, normal mood/affect Skin: normal pigmentation Lymphatic: normal anterior cervical (L), normal anterior cervical (R) Luis Daniel Ascencio MD Jul 31, 2019 08:56
[2019-07-31] MEDS: Heparin 5000 units/ml inj SUBQ SCH ×2 (09:00→21:00)
--- NOTE | 2019-07-31 09:34 | Urology Progress Note ---
Assessment/Plan Status: stable Assessment/Plan: BPH hx urinary retention with chronic limon neurogenic bladder (atonic) UTI/colonized ARAMIS/CKD, labile hematuria renal cyst monitor clinically maintain limon indwelling, last exchanged 07/22 hand irrigated and do PRN s/p abx monitor renal fxn consider repeat renal imaging flomax and proscar dc'd Subjective Allergies: Coded Allergies: AMOXAPINE (Unverified Allergy, Unknown, 10/16/18) AMOXICILLIN (Unverified Allergy, Unknown, 04/17/14) LISINOPRIL (Unverified Allergy, Unknown, 04/17/14) Subjective all noted, feels fair, some occ SOB, new limon draining OK Objective Last 24 Hour Vital Signs Date Time Temp Pulse Resp B/P (MAP) Pulse Ox O2 Delivery O2 Flow Rate FiO2 07/31/19 08:00 97.7 98 22 107/78 (88) 97 07/31/19 06:00 117/80 07/31/19 04:23 108 24 98 Nasal Cannula 6.0 44 07/31/19 04:23 98 Nasal Cannula 6.0 44 07/31/19 04:00 97.5 95 18 117/80 (92) 99 07/31/19 04:00 95 07/31/19 00:00 91 07/31/19 00:00 98.6 95 18 114/69 (84) 98 07/30/19 22:00 103/75 07/30/19 21:00 90 103/75 07/30/19 21:00 Nasal Cannula 4.0 07/30/19 20:00 98.9 90 18 103/75 (84) 95 07/30/19 20:00 90 07/30/19 18:00 98/65 07/30/19 16:00 97.5 88 20 94/67 (76) 99 07/30/19 16:00 89 07/30/19 15:02 98/47 07/30/19 14:00 98/47 07/30/19 12:00 77 07/30/19 12:00 97.3 77 20 98/69 (79) 98 07/30/19 10:00 Nasal Cannula 4.0 Intake and Output 07/30/19 07/31/19 19:00 07:00 Intake Total 886.748 ml Output Total 700 ml 500 ml Balance 186.748 ml -500 ml Free Water 150 ml IV Total 76.748 ml Tube Feeding 660 ml Output Urine Total 700 ml 500 ml # Voids 1 # Bowel Movements 3 1 Microbiology Date/Time Source Procedure Growth Status 07/18/19 18:45 Blood Blood Culture - Final NO GROWTH AFTER 5 DAYS Complete 07/25/19 02:14 Nasopharynx Coronavirus COVID-19 PCR ([place]) - Final Complete 07/19/19 12:15 Urine,Clean Catch Urine Culture - Final Escherichia Coli Pseudomonas Aeruginosa Complete 07/19/19 02:50 Rectum - Final NO CARBAPENEM-RESISTANT ENTEROBACTERI... Complete Current Medications Medications (Trade) Dose Ordered Sig/[place] Route PRN Reason Start Time Stop Time Status Last Admin Dose Admin Acetaminophen (Tylenol) 650 mg Q4H PRN ORAL Mild Pain (Pain Scale 1-3) 07/27/19 15:57 08/26/19 15:56 Al Hydroxide/Mg Hydroxide (Mylanta) 30 ml Q4H PRN ORAL Dyspepsia 07/27/19 15:58 08/26/19 15:57 Atorvastatin Calcium (Lipitor) 40 mg BEDTIME ORAL 07/27/19 21:00 10/17/19 20:59 07/30/19 21:00 Carvedilol (Coreg) 12.5 mg EVERY 12 HOURS ORAL 07/27/19 21:00 08/24/19 08:59 07/30/19 09:09 Chlorhexidine Gluconate (Monique-Hex 2%) 1 applic DAILY@2000 TOPIC 07/27/19 20:00 10/25/19 19:59 07/30/19 20:00 Dextrose (Dextrose 50%) 25 ml Q30M PRN IV Hypoglycemia 07/27/19 16:15 10/18/19 17:14 Dextrose (Dextrose 50%) 50 ml Q30M PRN IV Hypoglycemia 07/27/19 16:15 10/18/19 17:14 Dobutamine HCl 250 ml @ 19.187 mls/ hr Q24H IV 07/28/19 13:00 10/26/19 12:59 07/30/19 15:02 Furosemide (Lasix) 40 mg BID ORAL 07/31/19 18:00 08/30/19 17:59 Furosemide (Lasix) 40 mg DAILY IV 07/31/19 09:00 07/31/19 12:00 Heparin Sodium (Porcine) (Heparin 5000 units/ml) 5,000 units EVERY 12 HOURS SUBQ 07/27/19 21:00 09/02/19 08:59 07/30/19 09:11 Hydralazine HCl (Apresoline) 25 mg Q8HR ORAL 07/28/19 06:00 10/26/19 05:59 Hydroxyzine HCl (Vistaril) 10 mg BIDPRN PRN ORAL Itching 07/27/19 18:00 08/26/19 17:59 Insulin Aspart (NovoLOG) EVERY 6 HOURS SUBQ 07/27/19 18:00 10/18/19 17:59 07/30/19 06:52 Ipratropium [place] (Atrovent) 500 mcg Q4H PRN HHN Shortness of Breath 07/27/19 15:58 08/01/19 15:57 Isosorbide Mononitrate (Imdur) 30 mg DAILY ORAL 07/28/19 09:00 08/18/19 08:59 07/30/19 09:10 Losartan Potassium (Cozaar) 50 mg BID ORAL 07/30/19 09:00 08/29/19 08:59 07/30/19 09:10 Ondansetron HCl (Zofran) 4 mg Q6H PRN IVP Nausea & Vomiting 07/28/19 18:15 08/27/19 18:14 Pantoprazole (Protonix) 40 mg DAILY ORAL 07/28/19 09:00 08/18/19 08:59 07/30/19 09:10 Sitagliptin Phosphate (Januvia) 25 mg ACBREAKFAST ORAL 07/28/19 06:30 08/25/19 06:29 07/31/19 06:29 Spironolactone (Aldactone) 25 mg DAILY ORAL 07/31/19 09:00 08/30/19 08:59 Laboratory Tests 07/31/19 06:12: Sodium Level 145, Potassium Level 3.9, Chloride Level 103, Carbon Dioxide Level 31, Anion Gap 11, Blood Urea Nitrogen 38H, Creatinine 0.9, Estimat Glomerular Filtration Rate > 60, Glucose Level 172H, Calcium Level 8.6, Magnesium Level 2.2 , Total Bilirubin 0.4, Aspartate Amino Transf (AST/SGOT) 18, Alanine Aminotransferase (ALT/SGPT) 16, Alkaline Phosphatase 74, Total Protein 7.5, Albumin 2.7L, Globulin 4.8, Albumin/Globulin Ratio 0.6L Height (Feet): 5 Height (Inches): 8.00 Weight (Pounds): 142 Objective exam stable 18f limon, yellow/corey urine, occasional debris old renal imaging noted Panchito Camarena MD Jul 31, 2019 09:34
[2019-07-31] MEDS: Losartan 50mg tab ORAL SCH ×2 (09:35→18:58)
[2019-07-31] MEDS: Carvedilol 12.5mg tab ORAL SCH ×2 (09:35→21:00)
[2019-07-31] MEDS: Spironolactone 25mg tab ORAL SCH (09:35)
[2019-07-31] MEDS: Imdur 30mg tab ORAL SCH (09:36)
--- NOTE | 2019-07-31 10:00 | Diagnostic Imaging Report ---
Indication: Shortness of breath Technique: One view of the chest Comparison: 07/26/2019 Findings: There is increased pleural fluid on the right. Pleural fluid on the left remains stable. Extensive bilateral infiltrates versus edema are unchanged. Impression: Increased right pleural fluid. Otherwise little change since prior exam of 5 days earlier
--- NOTE | 2019-07-31 10:35 | Infectious Diseases Prog Note ---
"Assessment/Plan Assessment/Plan antibiotics : none A 1. e.coli | pseudomonas UTI s/p rx 2. bilateral pneumonia s/p rx COVID-19 negative x 2 3. Diabetes. 4. Hypertension. 5. Congestive heart failure. 6. Hepatitis C. 7. renal failure improving P 1. observe off antibiotics Subjective ROS Limited/Unobtainable: Yes Allergies: Coded Allergies: AMOXAPINE (Unverified Allergy, Unknown, 10/16/18) AMOXICILLIN (Unverified Allergy, Unknown, 04/17/14) LISINOPRIL (Unverified Allergy, Unknown, 04/17/14) Objective Vital Signs Last 24 Hour Vital Signs Date Time Temp Pulse Resp B/P (MAP) Pulse Ox O2 Delivery O2 Flow Rate FiO2 07/31/19 09:36 107/78 07/31/19 09:35 107/78 07/31/19 09:35 98 107/78 07/31/19 08:00 97.7 98 22 107/78 (88) 97 07/31/19 06:00 117/80 07/31/19 04:23 108 24 98 Nasal Cannula 6.0 44 07/31/19 04:23 98 Nasal Cannula 6.0 44 07/31/19 04:00 97.5 95 18 117/80 (92) 99 07/31/19 04:00 95 07/31/19 00:00 91 07/31/19 00:00 98.6 95 18 114/69 (84) 98 07/30/19 22:00 103/75 07/30/19 21:00 90 103/75 07/30/19 21:00 Nasal Cannula 4.0 07/30/19 20:00 98.9 90 18 103/75 (84) 95 07/30/19 20:00 90 07/30/19 18:00 98/65 07/30/19 16:00 97.5 88 20 94/67 (76) 99 07/30/19 16:00 89 07/30/19 15:02 98/47 07/30/19 14:00 98/47 07/30/19 12:00 77 07/30/19 12:00 97.3 77 20 98/69 (79) 98 Height (Feet): 5 Height (Inches): 8.00 Weight (Pounds): 142 Respiratory/Chest: lungs clear Cardiovascular: normal rate, regular rhythm, no gallop/murmur Abdomen: soft, non tender, other - GT Extremities: no edema Laboratory Tests Test 07/31/19 06:12 Sodium Level 145 MMOL/L (136-145) Potassium Level 3.9 MMOL/L (3.5-5.1) Chloride Level 103 MMOL/L (98-107) Carbon Dioxide Level 31 MMOL/L (21-32) Anion Gap 11 mmol/L (5-15) Blood Urea Nitrogen 38 mg/dL (7-18) H Creatinine 0.9 MG/DL (0.55-1.30) Estimat Glomerular Filtration Rate > 60 mL/min (>60) Glucose Level 172 MG/DL (74-106) H Calcium Level 8.6 MG/DL (8.5-10.1) Magnesium Level 2.2 MG/DL (1.8-2.4) Total Bilirubin 0.4 MG/DL (0.2-1.0) Aspartate Amino Transf (AST/SGOT) 18 U/L (15-37) Alanine Aminotransferase (ALT/SGPT) 16 U/L (12-78) Alkaline Phosphatase 74 U/L (46-116) Total Protein 7.5 G/DL (6.4-8.2) Albumin 2.7 G/DL (3.4-5.0) L Globulin 4.8 g/dL Albumin/Globulin Ratio 0.6 (1.0-2.7) L Current Medications Medications (Trade) Dose Ordered Sig/[place] Route PRN Reason Start Time Stop Time Status Last Admin Dose Admin Acetaminophen (Tylenol) 650 mg Q4H PRN ORAL Mild Pain (Pain Scale 1-3) 07/27/19 15:57 08/26/19 15:56 Al Hydroxide/Mg Hydroxide (Mylanta) 30 ml Q4H PRN ORAL Dyspepsia 07/27/19 15:58 08/26/19 15:57 Atorvastatin Calcium (Lipitor) 40 mg BEDTIME ORAL 07/27/19 21:00 10/17/19 20:59 07/30/19 21:00 Carvedilol (Coreg) 12.5 mg EVERY 12 HOURS ORAL 07/27/19 21:00 08/24/19 08:59 07/31/19 09:35 Chlorhexidine Gluconate (Monique-Hex 2%) 1 applic DAILY@1999 TOPIC 07/27/19 20:00 10/25/19 19:59 07/30/19 20:00 Dextrose (Dextrose 50%) 25 ml Q30M PRN IV Hypoglycemia 07/27/19 16:15 10/18/19 17:14 Dextrose (Dextrose 50%) 50 ml Q30M PRN IV Hypoglycemia 07/27/19 16:15 10/18/19 17:14 Dobutamine HCl 250 ml @ 19.187 mls/ hr Q24H IV 07/28/19 13:00 10/26/19 12:59 07/30/19 15:02 Furosemide (Lasix) 40 mg BID ORAL 07/31/19 18:00 08/30/19 17:59 Furosemide (Lasix) 40 mg DAILY IV 07/31/19 09:00 07/31/19 12:00 07/31/19 09:36 Heparin Sodium (Porcine) (Heparin 5000 units/ml) 5,000 units EVERY 12 HOURS SUBQ 07/27/19 21:00 09/02/19 08:59 07/30/19 09:11 Hydralazine HCl (Apresoline) 25 mg Q8HR ORAL 07/28/19 06:00 10/26/19 05:59 Hydroxyzine HCl (Vistaril) 10 mg BIDPRN PRN ORAL Itching 07/27/19 18:00 08/26/19 17:59 Insulin Aspart (NovoLOG) EVERY 6 HOURS SUBQ 07/27/19 18:00 10/18/19 17:59 07/30/19 06:52 Ipratropium [place] (Atrovent) 500 mcg Q4H PRN HHN Shortness of Breath 07/27/19 15:58 08/01/19 15:57 Isosorbide Mononitrate (Imdur) 30 mg DAILY ORAL 07/28/19 09:00 08/18/19 08:59 07/31/19 09:36 Losartan Potassium (Cozaar) 50 mg BID ORAL 07/30/19 09:00 08/29/19 08:59 07/31/19 09:35 Ondansetron HCl (Zofran) 4 mg Q6H PRN IVP Nausea & Vomiting 07/28/19 18:15 08/27/19 18:14 Pantoprazole (Protonix) 40 mg DAILY ORAL 07/28/19 09:00 08/18/19 08:59 07/31/19 09:35 Sitagliptin Phosphate (Januvia) 25 mg ACBREAKFAST ORAL 07/28/19 06:30 08/25/19 06:29 07/31/19 06:29 Spironolactone (Aldactone) 25 mg DAILY ORAL 07/31/19 09:00 08/30/19 08:59 07/31/19 09:35 Daniel Kimball MD Jul 31, 2019 10:35"
[2019-07-31 12:00] VITALS: BP 92/61
[2019-07-31] MEDS: DOBUTamine 250mg/250ml Premix 250 ML IV SCH (13:00)
[2019-07-31 16:00] VITALS: BP 110/76
[2019-07-31] MEDS: Furosemide 40mg tab ORAL SCH (18:59)
[2019-07-31 20:00] VITALS: BP 100/73
[2019-07-31] MEDS: Dyna-Hex 2% Top Sol 2oz TOPIC SCH (20:00)
--- NOTE | 2019-07-31 20:49 | Nephrology Progress Note ---
Assessment/Plan Problem List: (1) CKD (chronic kidney disease) stage 3, GFR 30-59 ml/min (2) ARAMIS (acute kidney injury) (3) UTI (urinary tract infection) (4) CHF (congestive heart failure) Assessment: sys (5) Urinary retention Assessment: chronic (6) PNA (pneumonia) (7) Hypernatremia Plan continue diuresis, replace K, limon, antibiotics, Na higher to trend with diuresis+free water via GT, improved, no iv fluids Subjective ROS Limited/Unobtainable: Yes Objective Objective Last 24 Hour Vital Signs Date Time Temp Pulse Resp B/P (MAP) Pulse Ox O2 Delivery O2 Flow Rate FiO2 07/31/19 18:58 110/76 07/31/19 16:00 88 07/31/19 16:00 97.2 89 22 110/76 (87) 97 07/31/19 14:00 92/61 07/31/19 13:00 92/61 07/31/19 12:00 77 07/31/19 12:00 97.5 98 20 92/61 (71) 99 07/31/19 09:36 107/78 07/31/19 09:35 107/78 07/31/19 09:35 98 107/78 07/31/19 09:00 Nasal Cannula 4.0 07/31/19 08:00 91 07/31/19 08:00 97.7 98 22 107/78 (88) 97 07/31/19 06:00 117/80 07/31/19 04:23 108 24 98 Nasal Cannula 6.0 44 07/31/19 04:23 98 Nasal Cannula 6.0 44 07/31/19 04:00 97.5 95 18 117/80 (92) 99 07/31/19 04:00 95 07/31/19 00:00 91 07/31/19 00:00 98.6 95 18 114/69 (84) 98 07/30/19 22:00 103/75 07/30/19 21:00 90 103/75 07/30/19 21:00 Nasal Cannula 4.0 Intake and Output 07/30/19 07/31/19 19:00 07:00 Intake Total 886.748 ml Output Total 700 ml 500 ml Balance 186.748 ml -500 ml Free Water 150 ml IV Total 76.748 ml Tube Feeding 660 ml Output Urine Total 700 ml 500 ml # Voids 1 # Bowel Movements 3 1 Laboratory Tests 07/31/19 06:12: Sodium Level 145, Potassium Level 3.9, Chloride Level 103, Carbon Dioxide Level 31, Anion Gap 11, Blood Urea Nitrogen 38H, Creatinine 0.9, Estimat Glomerular Filtration Rate > 60, Glucose Level 172H, Calcium Level 8.6, Magnesium Level 2.2 , Total Bilirubin 0.4, Aspartate Amino Transf (AST/SGOT) 18, Alanine Aminotransferase (ALT/SGPT) 16, Alkaline Phosphatase 74, Total Protein 7.5, Albumin 2.7L, Globulin 4.8, Albumin/Globulin Ratio 0.6L Height (Feet): 5 Height (Inches): 8.00 Weight (Pounds): 142 General Appearance: alert, confused EENT: normal ENT inspection Neck: normal alignment Cardiovascular: normal rate Respiratory/Chest: lungs clear Abdomen: soft Extremities: no edema Neurologic: skilled labor II-XII grossly normal, motor weakness Ang Worrell MD Jul 31, 2019 20:49
[2019-07-31] MEDS: Atorvastatin 20mg tab ORAL SCH (21:00)
[2019-08-01] VITALS (7 sets, daily range): BP systolic 105–127; BP diastolic 60–83
--- NOTE | 2019-08-01 05:30 | Progress Note ---
DATE: 07/31/2019 CARDIOLOGY PROGRESS NOTE SUBJECTIVE: Dobutamine was discontinued yesterday. Urine output remains good. Transition from IV to oral diuretic has occurred. The patient's chest x-ray today reveals worsening right effusion but otherwise no change. PHYSICAL EXAMINATION: VITAL SIGNS: Blood pressure 107/78, heart rate 98, respirations 22, and afebrile. Monitor, sinus with paroxysmal atrial fibrillation. LUNGS: Diminished breath sounds on the right. HEART: Regular rhythm and rate. Normal S1, S2. A 1/6 systolic murmur at apex. ABDOMEN: Soft. EXTREMITIES: Trace edema. LABORATORY DATA: Potassium 3.9, BUN 38, and creatinine 0.9. Albumin 2.7. IMPRESSION: 1. Cardiomyopathy. 2. Acute on chronic systolic congestive heart failure. 3. Paroxysmal atrial arrhythmias. 4. Right pleural effusion. PLAN: 1. Consider thoracentesis. 2. Ongoing diuresis. 3. Maintain anti-failure regimen. 4. Life vest due to increased risk of sudden cardiac . 5. Discharge planning. Alton Malloy M.D. DR: NIKITA JOB#: [id number] CC:
[2019-08-01] MEDS: HydrALAZINE 25mg tab ORAL SCH ×3 (05:51→21:25)
[2019-08-01] MEDS: NovoLOG Insulin Flexpen SUBQ SCH ×4 (06:00→17:35)
[2019-08-01] MEDS: sitaGLIPtin 25mg tab ORAL SCH (06:18)
[2019-08-01 07:34] LABS: ANION GAP 7 mmol/L (5-15); BLOOD UREA NITROGEN 30 mg/dL (7-18); CALCIUM 8.8 MG/DL (8.5-10.1); CARBON DIOXIDE 31 MMOL/L (21-32); CHLORIDE 104 MMOL/L (98-107); CREATININE 0.9 MG/DL (0.55-1.30); POTASSIUM 3.6 MMOL/L (3.5-5.1); SODIUM 142 MMOL/L (136-145)
[2019-08-01] MEDS: Imdur 30mg tab ORAL SCH (08:35)
[2019-08-01] MEDS: Losartan 50mg tab ORAL SCH ×2 (08:35→17:20)
[2019-08-01] MEDS: Carvedilol 12.5mg tab ORAL SCH ×2 (08:35→21:24)
[2019-08-01] MEDS: Spironolactone 25mg tab ORAL SCH (08:35)
[2019-08-01] MEDS: Furosemide 40mg tab ORAL SCH ×2 (08:35→17:19)
[2019-08-01] MEDS: Heparin 5000 units/ml inj SUBQ SCH ×2 (08:38→21:00)
--- NOTE | 2019-08-01 09:12 | Urology Progress Note ---
Assessment/Plan Status: stable Assessment/Plan: BPH hx urinary retention with chronic limon neurogenic bladder (atonic) UTI/colonized ARAMIS/CKD, labile hematuria renal cyst monitor clinically maintain limon indwelling, last exchanged 07/22 hand irrigated and do PRN s/p abx monitor renal fxn consider repeat renal imaging flomax and proscar dc'd Subjective Allergies: Coded Allergies: AMOXAPINE (Unverified Allergy, Unknown, 10/16/18) AMOXICILLIN (Unverified Allergy, Unknown, 04/17/14) LISINOPRIL (Unverified Allergy, Unknown, 04/17/14) Subjective all noted, feels fair, some occ SOB, new lmion draining OK Objective Last 24 Hour Vital Signs Date Time Temp Pulse Resp B/P (MAP) Pulse Ox O2 Delivery O2 Flow Rate FiO2 08/01/19 08:35 110/83 08/01/19 08:35 110/83 08/01/19 08:35 63 110/83 08/01/19 08:00 98.1 63 18 110/83 (92) 94 08/01/19 05:51 113/81 08/01/19 04:00 96 08/01/19 04:00 97.0 94 19 113/81 (92) 99 08/01/19 00:00 97.0 92 18 111/82 (92) 98 08/01/19 00:00 90 07/31/19 22:00 111/82 07/31/19 21:00 Nasal Cannula 3.0 Nasal Cannula 4.0 07/31/19 21:00 92 111/82 07/31/19 20:12 89 20 97 Nasal Cannula 4.0 36 07/31/19 20:12 97 Nasal Cannula 4.0 36 07/31/19 20:00 98.4 70 18 100/73 (82) 98 07/31/19 18:58 110/76 07/31/19 16:00 88 07/31/19 16:00 97.2 89 22 110/76 (87) 97 07/31/19 14:00 92/61 07/31/19 13:00 92/61 07/31/19 12:00 77 07/31/19 12:00 97.5 98 20 92/61 (71) 99 07/31/19 09:36 107/78 07/31/19 09:35 107/78 07/31/19 09:35 98 107/78 Intake and Output 07/31/19 08/01/19 19:00 07:00 Output Total 950 ml 350 ml Balance -950 ml -350 ml Output Urine Total 950 ml 350 ml # Bowel Movements 2 1 Microbiology Date/Time Source Procedure Growth Status 07/18/19 18:45 Blood Blood Culture - Final NO GROWTH AFTER 5 DAYS Complete 07/25/19 02:14 Nasopharynx Coronavirus COVID-19 PCR ([place]) - Final Complete 07/19/19 12:15 Urine,Clean Catch Urine Culture - Final Escherichia Coli Pseudomonas Aeruginosa Complete 07/19/19 02:50 Rectum - Final NO CARBAPENEM-RESISTANT ENTEROBACTERI... Complete Current Medications Medications (Trade) Dose Ordered Sig/[place] Route PRN Reason Start Time Stop Time Status Last Admin Dose Admin Acetaminophen (Tylenol) 650 mg Q4H PRN ORAL Mild Pain (Pain Scale 1-3) 07/27/19 15:57 08/26/19 15:56 Al Hydroxide/Mg Hydroxide (Mylanta) 30 ml Q4H PRN ORAL Dyspepsia 07/27/19 15:58 08/26/19 15:57 Atorvastatin Calcium (Lipitor) 40 mg BEDTIME ORAL 07/27/19 21:00 10/17/19 20:59 07/31/19 21:00 Carvedilol (Coreg) 12.5 mg EVERY 12 HOURS ORAL 07/27/19 21:00 08/24/19 08:59 08/01/19 08:35 Chlorhexidine Gluconate (Monique-Hex 2%) 1 applic DAILY@1999 TOPIC 07/27/19 20:00 10/25/19 19:59 07/31/19 20:00 Dextrose (Dextrose 50%) 25 ml Q30M PRN IV Hypoglycemia 07/27/19 16:15 10/18/19 17:14 Dextrose (Dextrose 50%) 50 ml Q30M PRN IV Hypoglycemia 07/27/19 16:15 10/18/19 17:14 Furosemide (Lasix) 40 mg BID ORAL 07/31/19 18:00 08/30/19 17:59 08/01/19 08:35 Heparin Sodium (Porcine) (Heparin 5000 units/ml) 5,000 units EVERY 12 HOURS SUBQ 07/27/19 21:00 09/02/19 08:59 07/31/19 21:00 Hydralazine HCl (Apresoline) 25 mg Q8HR ORAL 07/28/19 06:00 10/26/19 05:59 Hydroxyzine HCl (Vistaril) 10 mg BIDPRN PRN ORAL Itching 07/27/19 18:00 08/26/19 17:59 Insulin Aspart (NovoLOG) EVERY 6 HOURS SUBQ 07/27/19 18:00 10/18/19 17:59 07/31/19 18:56 Ipratropium [place] (Atrovent) 500 mcg Q4H PRN HHN Shortness of Breath 07/27/19 15:58 08/01/19 15:57 Isosorbide Mononitrate (Imdur) 30 mg DAILY ORAL 07/28/19 09:00 08/18/19 08:59 08/01/19 08:35 Losartan Potassium (Cozaar) 50 mg BID ORAL 07/30/19 09:00 08/29/19 08:59 08/01/19 08:35 Ondansetron HCl (Zofran) 4 mg Q6H PRN IVP Nausea & Vomiting 07/28/19 18:15 08/27/19 18:14 Pantoprazole (Protonix) 40 mg DAILY ORAL 07/28/19 09:00 08/18/19 08:59 08/01/19 08:36 Sitagliptin Phosphate (Januvia) 25 mg ACBREAKFAST ORAL 07/28/19 06:30 08/25/19 06:29 08/01/19 06:18 Spironolactone (Aldactone) 25 mg DAILY ORAL 07/31/19 09:00 08/30/19 08:59 08/01/19 08:35 Laboratory Tests 08/01/19 05:48: Sodium Level 142, Potassium Level 3.6, Chloride Level 104, Carbon Dioxide Level 31, Anion Gap 7, Blood Urea Nitrogen 30H, Creatinine 0.9, Estimat Glomerular Filtration Rate > 60, Glucose Level 144H, Calcium Level 8.8 Height (Feet): 5 Height (Inches): 8.00 Weight (Pounds): 142 Objective exam stable 18f limon, yellow/corey urine, occasional debris old renal imaging noted Panchito Camarena MD Aug 01, 2019 09:12
--- NOTE | 2019-08-01 09:40 | General Progress Note ---
Assessment/Plan Problem List: (1) Suspected COVID-19 virus infection ICD Codes: Z20.828 - Contact with and (suspected) exposure to other viral communicable diseases SNOMED: 505153474 (2) PNA (pneumonia) ICD Codes: J18.9 - Pneumonia, unspecified organism SNOMED: 216414151 (3) CHF (congestive heart failure) ICD Codes: I50.9 - Heart failure, unspecified SNOMED: 78735348 (4) UTI (urinary tract infection) ICD Codes: N39.0 - Urinary tract infection, site not specified SNOMED: 20470525 (5) ARAMIS (acute kidney injury) ICD Codes: N17.9 - Acute kidney failure, unspecified SNOMED: 76103222, 8675263 Status: stable Assessment/Plan: o2- titrate. diuresis per cards dobutamine monitor i/o monitor labs- pending today water flushes tube feeds/monitor residuals monitor off abx monitor cxr dvt/stress ulcer prophylaxis turn q2 dc planning Subjective ROS Limited/Unobtainable: No Constitutional: Reports: malaise, weakness HEENT: Reports: no symptoms Cardiovascular: Reports: no symptoms Respiratory: Reports: cough, shortness of breath Gastrointestinal/Abdominal: Reports: difficulty swallowing Genitourinary: Reports: no symptoms Neurologic/Psychiatric: Reports: depressed, emotional problems Endocrine: Reports: no symptoms Hematologic/Lymphatic: Reports: anemia Allergies: Coded Allergies: AMOXAPINE (Unverified Allergy, Unknown, 10/16/18) AMOXICILLIN (Unverified Allergy, Unknown, 04/17/14) LISINOPRIL (Unverified Allergy, Unknown, 04/17/14) All Systems: reviewed and negative except above Subjective no change. resting. appears less sob. on 3L NC. tolerating feeds. no chest pain no real change. Objective Last 24 Hour Vital Signs Date Time Temp Pulse Resp B/P (MAP) Pulse Ox O2 Delivery O2 Flow Rate FiO2 08/01/19 08:35 110/83 08/01/19 08:35 110/83 08/01/19 08:35 63 110/83 08/01/19 08:00 98.1 63 18 110/83 (92) 94 08/01/19 05:51 113/81 08/01/19 04:00 96 08/01/19 04:00 97.0 94 19 113/81 (92) 99 08/01/19 00:00 97.0 92 18 111/82 (92) 98 08/01/19 00:00 90 07/31/19 22:00 111/82 07/31/19 21:00 Nasal Cannula 3.0 Nasal Cannula 4.0 07/31/19 21:00 92 111/82 07/31/19 20:12 89 20 97 Nasal Cannula 4.0 36 07/31/19 20:12 97 Nasal Cannula 4.0 36 07/31/19 20:00 98.4 70 18 100/73 (82) 98 07/31/19 18:58 110/76 07/31/19 16:00 88 07/31/19 16:00 97.2 89 22 110/76 (87) 97 07/31/19 14:00 92/61 07/31/19 13:00 92/61 07/31/19 12:00 77 07/31/19 12:00 97.5 98 20 92/61 (71) 99 Intake and Output 07/31/19 08/01/19 19:00 07:00 Output Total 950 ml 350 ml Balance -950 ml -350 ml Output Urine Total 950 ml 350 ml # Bowel Movements 2 1 Laboratory Tests 08/01/19 05:48: Sodium Level 142, Potassium Level 3.6, Chloride Level 104, Carbon Dioxide Level 31, Anion Gap 7, Blood Urea Nitrogen 30H, Creatinine 0.9, Estimat Glomerular Filtration Rate > 60, Glucose Level 144H, Calcium Level 8.8 Height (Feet): 5 Height (Inches): 8.00 Weight (Pounds): 142 Objective General Appearance: WD/WN, confused, thin EENT: PERRL/EOMI, normal ENT inspection, TMs normal Neck: non-tender, normal alignment, supple Cardiovascular: normal peripheral pulses, normal rate, regular rhythm Respiratory/Chest: chest wall non-tender, lungs clear, normal breath sounds, no respiratory distress, no accessory muscle use Abdomen: normal bowel sounds, non tender, soft, no organomegaly, no mass Extremities: normal range of motion, non-tender Edema: no edema noted Arm (L), no edema noted Arm (R) Neurologic: lmft II-XII grossly normal, alert, responsive, normal mood/affect Skin: normal pigmentation Lymphatic: normal anterior cervical (L), normal anterior cervical (R) [place],Luis Daniel M. MD Aug 01, 2019 09:40
--- NOTE | 2019-08-01 10:51 | Critical Care Progress Note ---
Assessment/Plan Assessment/Plan IMPRESSION: 1. Evidence of chronic renal failure. 2. Coronary artery disease. 3. CHF. 4. Hepatitis C. 5. Pacemaker. 6. G-tube. 7. Aspiration. 8. Possible COVID. 9. Evidence of pneumonia. 10. Lactic acidemia 11. CXR with pulmonary edema and pleural effusions 12. hypernatremia PLAN dc planning family wants CRI meds as is remains full code optimize as able taper oxygen overall appears same monitor fluid status/ keep negative off antibiotics at present await CXR for clearing monitor sodium levels and advise reduced lasix dosing needs snf; dc planning medications/laboratory data/nursing notes reviewed in detail note reviewed and edited care discussed with RN and RT Critical Care - Subjective Interval Events: care noted on GT feeds off antibiotics Condition: stable EKG Rhythm: Sinus Rhythm Residuals: minimal Tube Feeding Tolerated: yes I&O: Intake and Output 07/31/19 08/01/19 19:00 07:00 Output Total 950 ml 350 ml Balance -950 ml -350 ml Output Urine Total 950 ml 350 ml # Bowel Movements 2 1 Critical Care - Objective Last 24 Hour Vital Signs Date Time Temp Pulse Resp B/P (MAP) Pulse Ox O2 Delivery O2 Flow Rate FiO2 08/01/19 08:35 110/83 08/01/19 08:35 110/83 08/01/19 08:35 63 110/83 08/01/19 08:00 93 08/01/19 08:00 98.1 63 18 110/83 (92) 94 08/01/19 05:51 113/81 08/01/19 04:00 96 08/01/19 04:00 97.0 94 19 113/81 (92) 99 08/01/19 00:00 97.0 92 18 111/82 (92) 98 08/01/19 00:00 90 07/31/19 22:00 111/82 07/31/19 21:00 Nasal Cannula 3.0 Nasal Cannula 4.0 07/31/19 21:00 92 111/82 07/31/19 20:12 89 20 97 Nasal Cannula 4.0 36 07/31/19 20:12 97 Nasal Cannula 4.0 36 07/31/19 20:00 98.4 70 18 100/73 (82) 98 07/31/19 18:58 110/76 6/9/20 16:00 88 07/31/19 16:00 97.2 89 22 110/76 (87) 97 07/31/19 14:00 92/61 07/31/19 13:00 92/61 07/31/19 12:00 77 07/31/19 12:00 97.5 98 20 92/61 (71) 99 Labs: Laboratory Tests Test 08/01/19 05:48 Sodium Level 142 MMOL/L (136-145) Potassium Level 3.6 MMOL/L (3.5-5.1) Chloride Level 104 MMOL/L (98-107) Carbon Dioxide Level 31 MMOL/L (21-32) Anion Gap 7 mmol/L (5-15) Blood Urea Nitrogen 30 mg/dL (7-18) H Creatinine 0.9 MG/DL (0.55-1.30) Estimat Glomerular Filtration Rate > 60 mL/min (>60) Glucose Level 144 MG/DL (74-106) H Calcium Level 8.8 MG/DL (8.5-10.1) Objective: GENERAL: NAD and on oxygen HEENT: Negative. NECK: Supple. LUNGS: reduced breath sounds. no rhonchi. no wheeze- stable CARDIAC: S1, S2. Regular rate and rhythm with noted murmur. ABDOMEN: Soft, nontender. GT EXTREMITIES: No cyanosis or clubbing. improved edema NEUROLOGICAL: Confused. but alert reviewed and edited Accucheck: 137 Jose Iglesias MD Aug 01, 2019 10:51
--- NOTE | 2019-08-01 12:24 | Nephrology Progress Note ---
Assessment/Plan Problem List: (1) CKD (chronic kidney disease) stage 3, GFR 30-59 ml/min (2) ARAMIS (acute kidney injury) (3) UTI (urinary tract infection) (4) CHF (congestive heart failure) Assessment: sys (5) Urinary retention Assessment: chronic (6) PNA (pneumonia) (7) Hypernatremia Plan continue diuresis, replace K, limon, antibiotics, Na higher to trend with diuresis+free water via GT, improved, no iv fluids Subjective ROS Limited/Unobtainable: Yes Objective Objective Last 24 Hour Vital Signs Date Time Temp Pulse Resp B/P (MAP) Pulse Ox O2 Delivery O2 Flow Rate FiO2 08/01/19 09:00 Nasal Cannula 3.0 Nasal Cannula 4.0 08/01/19 08:35 110/83 08/01/19 08:35 110/83 08/01/19 08:35 63 110/83 08/01/19 08:00 93 08/01/19 08:00 98.1 63 18 110/83 (92) 94 08/01/19 05:51 113/81 08/01/19 04:00 96 08/01/19 04:00 97.0 94 19 113/81 (92) 99 08/01/19 00:00 97.0 92 18 111/82 (92) 98 08/01/19 00:00 90 07/31/19 22:00 111/82 07/31/19 21:00 Nasal Cannula 3.0 Nasal Cannula 4.0 07/31/19 21:00 92 111/82 07/31/19 20:12 89 20 97 Nasal Cannula 4.0 36 07/31/19 20:12 97 Nasal Cannula 4.0 36 07/31/19 20:00 98.4 70 18 100/73 (82) 98 07/31/19 18:58 110/76 07/31/19 16:00 88 07/31/19 16:00 97.2 89 22 110/76 (87) 97 07/31/19 14:00 92/61 07/31/19 13:00 92/61 Intake and Output 07/31/19 08/01/19 19:00 07:00 Output Total 950 ml 350 ml Balance -950 ml -350 ml Output Urine Total 950 ml 350 ml # Bowel Movements 2 1 Laboratory Tests 08/01/19 05:48: Sodium Level 142, Potassium Level 3.6, Chloride Level 104, Carbon Dioxide Level 31, Anion Gap 7, Blood Urea Nitrogen 30H, Creatinine 0.9, Estimat Glomerular Filtration Rate > 60, Glucose Level 144H, Calcium Level 8.8 Height (Feet): 5 Height (Inches): 8.00 Weight (Pounds): 142 General Appearance: no apparent distress, confused EENT: normal ENT inspection Neck: normal alignment Cardiovascular: normal rate, regular rhythm Respiratory/Chest: lungs clear Abdomen: no organomegaly Extremities: no edema Neurologic: motor weakness Ang Worrell MD Aug 01, 2019 12:24
--- NOTE | 2019-08-01 14:09 | Infectious Diseases Prog Note ---
Assessment/Plan Assessment/Plan A: 1. Pneumonia treated COVID19 X 2: negative 2. Diabetes. 3. Hypertension. 4. Congestive heart failure. 5. Hepatitis C. 6. urinary tract infection, treated PLAN: 1. Observe off antibiotic Subjective ROS Limited/Unobtainable: No Constitutional: Reports: anorexia Respiratory: Reports: no symptoms Gastrointestinal/Abdominal: Reports: no symptoms Genitourinary: Reports: no symptoms Allergies: Coded Allergies: AMOXAPINE (Unverified Allergy, Unknown, 10/16/18) AMOXICILLIN (Unverified Allergy, Unknown, 04/17/14) LISINOPRIL (Unverified Allergy, Unknown, 04/17/14) Objective Vital Signs Last 24 Hour Vital Signs Date Time Temp Pulse Resp B/P (MAP) Pulse Ox O2 Delivery O2 Flow Rate FiO2 08/01/19 09:00 Nasal Cannula 3.0 Nasal Cannula 4.0 08/01/19 08:35 110/83 08/01/19 08:35 110/83 08/01/19 08:35 63 110/83 08/01/19 08:00 93 08/01/19 08:00 98.1 63 18 110/83 (92) 94 08/01/19 05:51 113/81 08/01/19 04:00 96 08/01/19 04:00 97.0 94 19 113/81 (92) 99 08/01/19 00:00 97.0 92 18 111/82 (92) 98 08/01/19 00:00 90 07/31/19 22:00 111/82 07/31/19 21:00 Nasal Cannula 3.0 Nasal Cannula 4.0 07/31/19 21:00 92 111/82 07/31/19 20:12 89 20 97 Nasal Cannula 4.0 36 07/31/19 20:12 97 Nasal Cannula 4.0 36 07/31/19 20:00 98.4 70 18 100/73 (82) 98 07/31/19 18:58 110/76 07/31/19 16:00 88 07/31/19 16:00 97.2 89 22 110/76 (87) 97 Height (Feet): 5 Height (Inches): 8.00 Weight (Pounds): 142 General Appearance: no acute distress HEENT: mucous membranes moist Respiratory/Chest: lungs clear Cardiovascular: normal rate, other - PICC line Abdomen: soft, non tender Extremities: no edema Neurologic/Psychiatric: alert, responsive Laboratory Tests Test 08/01/19 05:48 Sodium Level 142 MMOL/L (136-145) Potassium Level 3.6 MMOL/L (3.5-5.1) Chloride Level 104 MMOL/L (98-107) Carbon Dioxide Level 31 MMOL/L (21-32) Anion Gap 7 mmol/L (5-15) Blood Urea Nitrogen 30 mg/dL (7-18) H Creatinine 0.9 MG/DL (0.55-1.30) Estimat Glomerular Filtration Rate > 60 mL/min (>60) Glucose Level 144 MG/DL (74-106) H Calcium Level 8.8 MG/DL (8.5-10.1) Current Medications Medications (Trade) Dose Ordered Sig/[place] Route PRN Reason Start Time Stop Time Status Last Admin Dose Admin Acetaminophen (Tylenol) 650 mg Q4H PRN ORAL Mild Pain (Pain Scale 1-3) 07/27/19 15:57 08/26/19 15:56 Al Hydroxide/Mg Hydroxide (Mylanta) 30 ml Q4H PRN ORAL Dyspepsia 07/27/19 15:58 08/26/19 15:57 Atorvastatin Calcium (Lipitor) 40 mg BEDTIME ORAL 07/27/19 21:00 10/17/19 20:59 07/31/19 21:00 Carvedilol (Coreg) 12.5 mg EVERY 12 HOURS ORAL 07/27/19 21:00 08/24/19 08:59 08/01/19 08:35 Chlorhexidine Gluconate (Monique-Hex 2%) 1 applic DAILY@1999 TOPIC 07/27/19 20:00 10/25/19 19:59 07/31/19 20:00 Dextrose (Dextrose 50%) 25 ml Q30M PRN IV Hypoglycemia 07/27/19 16:15 10/18/19 17:14 Dextrose (Dextrose 50%) 50 ml Q30M PRN IV Hypoglycemia 07/27/19 16:15 10/18/19 17:14 Furosemide (Lasix) 40 mg BID ORAL 07/31/19 18:00 08/30/19 17:59 08/01/19 08:35 Heparin Sodium (Porcine) (Heparin 5000 units/ml) 5,000 units EVERY 12 HOURS SUBQ 07/27/19 21:00 7/12/20 08:59 07/31/19 21:00 Hydralazine HCl (Apresoline) 25 mg Q8HR ORAL 07/28/19 06:00 10/26/19 05:59 Hydroxyzine HCl (Vistaril) 10 mg BIDPRN PRN ORAL Itching 07/27/19 18:00 08/26/19 17:59 Insulin Aspart (NovoLOG) EVERY 6 HOURS SUBQ 07/27/19 18:00 10/18/19 17:59 07/31/19 18:56 Ipratropium [place] (Atrovent) 500 mcg Q4H PRN HHN Shortness of Breath 07/27/19 15:58 08/01/19 15:57 Isosorbide Mononitrate (Imdur) 30 mg DAILY ORAL 07/28/19 09:00 08/18/19 08:59 08/01/19 08:35 Losartan Potassium (Cozaar) 50 mg BID ORAL 07/30/19 09:00 08/29/19 08:59 08/01/19 08:35 Ondansetron HCl (Zofran) 4 mg Q6H PRN IVP Nausea & Vomiting 07/28/19 18:15 08/27/19 18:14 Pantoprazole (Protonix) 40 mg DAILY ORAL 07/28/19 09:00 08/18/19 08:59 08/01/19 08:36 Sitagliptin Phosphate (Januvia) 25 mg ACBREAKFAST ORAL 07/28/19 06:30 08/25/19 06:29 08/01/19 06:18 Spironolactone (Aldactone) 25 mg DAILY ORAL 07/31/19 09:00 08/30/19 08:59 08/01/19 08:35 Tre Caballero MD Aug 01, 2019 14:09
[2019-08-01] MEDS: Atorvastatin 20mg tab ORAL SCH (21:24)
[2019-08-01] MEDS: Dyna-Hex 2% Top Sol 2oz TOPIC SCH (21:24)
[2019-08-02] VITALS (7 sets, daily range): BP systolic 89–118; BP diastolic 59–86
--- NOTE | 2019-08-02 00:45 | Progress Note ---
DATE: 08/01/2019 CARDIOLOGY PROGRESS NOTE SUBJECTIVE: The patient is with less shortness of breath. He is comfortable on 3 liters nasal cannula. Oxygen saturation 94% to 99%. The patient is afebrile. Monitored rhythm is sinus with paroxysms of atrial fibrillation. The patient's LifeVest had battery expiration and that was replaced today. PHYSICAL EXAMINATION: VITAL SIGNS: Blood pressure 110/83, pulse 63, respiratory rate 18, afebrile. LUNGS: Diminished breath sounds. HEART: Regular rhythm and rate. Normal S1, S2. A 1/6 systolic murmur at apex. ABDOMEN: Soft. EXTREMITIES: No edema. LABORATORY AND DIAGNOSTIC DATA: Potassium 3.6, BUN 30, creatinine 0.9. Chest x-ray yesterday revealed slightly increased right pleural fluid. IMPRESSION: Improved but still tenuous, very high risk due to severe cardiomyopathy. He is at increased risk of sudden cardiac as a result. PLAN: 1. LifeVest. 2. Titrate anti-failure regimen. 3. Off dobutamine now. 4. Titrating diuretic to optimize pressures. 5. May benefit from right thoracentesis prior to discharge. Alton Malloy M.D. DR: [place] JOB#: [id number] CC:
[2019-08-02] MEDS: Ipratropium 0.02% Inh Soln 2.5ml UD HHN PRN (04:06)
[2019-08-02] MEDS: NovoLOG Insulin Flexpen SUBQ SCH ×5 (05:54→23:24)
[2019-08-02] MEDS: HydrALAZINE 25mg tab ORAL SCH ×3 (05:55→23:24)
[2019-08-02] MEDS: sitaGLIPtin 25mg tab ORAL SCH (05:55)
--- NOTE | 2019-08-02 08:08 | Urology Progress Note ---
Assessment/Plan Status: stable Assessment/Plan: BPH hx urinary retention with chronic limon neurogenic bladder (atonic) UTI/colonized ARAMIS/CKD, labile hematuria renal cyst monitor clinically maintain limon indwelling, last exchanged 07/22 hand irrigated and do PRN s/p abx monitor renal fxn consider repeat renal imaging flomax and proscar dc'd Subjective Allergies: Coded Allergies: AMOXAPINE (Unverified Allergy, Unknown, 10/16/18) AMOXICILLIN (Unverified Allergy, Unknown, 04/17/14) LISINOPRIL (Unverified Allergy, Unknown, 04/17/14) Subjective all noted, feels fair, some occ SOB, new limon draining OK Objective Last 24 Hour Vital Signs Date Time Temp Pulse Resp B/P (MAP) Pulse Ox O2 Delivery O2 Flow Rate FiO2 08/02/19 05:55 100/75 08/02/19 04:07 83 20 100 Nasal Cannula 3.0 32 79 20 96 08/02/19 04:00 93 08/02/19 04:00 97.3 92 18 100/75 (83) 98 08/02/19 00:00 98.8 78 21 98/75 (83) 95 08/02/19 00:00 79 08/01/19 21:25 105/60 (75) 08/01/19 21:25 105/60 08/01/19 21:24 84 110/63 08/01/19 21:09 96 Nasal Cannula 3.0 32 08/01/19 21:09 79 20 96 Nasal Cannula 3.0 32 08/01/19 21:00 Nasal Cannula 3.0 Nasal Cannula 3.0 08/01/19 20:00 98.6 84 18 110/79 (89) 98 08/01/19 20:00 87 08/01/19 17:20 127/63 08/01/19 16:00 98.6 58 19 127/63 (84) 100 08/01/19 16:00 85 08/01/19 14:00 112/81 08/01/19 12:00 97.5 75 20 112/81 (91) 100 08/01/19 12:00 79 08/01/19 09:00 Nasal Cannula 3.0 Nasal Cannula 4.0 08/01/19 08:35 110/83 08/01/19 08:35 110/83 08/01/19 08:35 63 110/83 Intake and Output 08/01/19 08/02/19 19:00 07:00 Output Total 500 ml 1200 ml Balance -500 ml -1200 ml Output Urine Total 500 ml 1200 ml Microbiology Date/Time Source Procedure Growth Status 07/18/19 18:45 Blood Blood Culture - Final NO GROWTH AFTER 5 DAYS Complete 07/25/19 02:14 Nasopharynx Coronavirus COVID-19 PCR ([place]) - Final Complete 07/19/19 12:15 Urine,Clean Catch Urine Culture - Final Escherichia Coli Pseudomonas Aeruginosa Complete 07/19/19 02:50 Rectum - Final NO CARBAPENEM-RESISTANT ENTEROBACTERI... Complete Current Medications Medications (Trade) Dose Ordered Sig/[place] Route PRN Reason Start Time Stop Time Status Last Admin Dose Admin Acetaminophen (Tylenol) 650 mg Q4H PRN ORAL Mild Pain (Pain Scale 1-3) 07/27/19 15:57 08/26/19 15:56 Al Hydroxide/Mg Hydroxide (Mylanta) 30 ml Q4H PRN ORAL Dyspepsia 07/27/19 15:58 08/26/19 15:57 Atorvastatin Calcium (Lipitor) 40 mg BEDTIME ORAL 07/27/19 21:00 10/17/19 20:59 08/01/19 21:24 Carvedilol (Coreg) 12.5 mg EVERY 12 HOURS ORAL 07/27/19 21:00 08/24/19 08:59 08/01/19 21:24 Chlorhexidine Gluconate (Monique-Hex 2%) 1 applic DAILY@2000 TOPIC 07/27/19 20:00 10/25/19 19:59 08/01/19 21:24 Dextrose (Dextrose 50%) 25 ml Q30M PRN IV Hypoglycemia 07/27/19 16:15 10/18/19 17:14 Dextrose (Dextrose 50%) 50 ml Q30M PRN IV Hypoglycemia 07/27/19 16:15 10/18/19 17:14 Furosemide (Lasix) 40 mg EVERY 12 HOURS IV 08/02/19 09:00 09/01/19 08:59 Heparin Sodium (Porcine) (Heparin 5000 units/ml) 5,000 units EVERY 12 HOURS SUBQ 07/27/19 21:00 09/02/19 08:59 07/31/19 21:00 Hydralazine HCl (Apresoline) 25 mg Q8HR ORAL 07/28/19 06:00 10/26/19 05:59 Hydroxyzine HCl (Vistaril) 10 mg BIDPRN PRN ORAL Itching 07/27/19 18:00 08/26/19 17:59 Insulin Aspart (NovoLOG) EVERY 6 HOURS SUBQ 07/27/19 18:00 10/18/19 17:59 07/31/19 18:56 Ipratropium [place] (Atrovent) 500 mcg Q4H PRN HHN Shortness of Breath 08/02/19 04:00 08/07/19 03:59 08/02/19 04:06 Isosorbide Mononitrate (Imdur) 30 mg DAILY ORAL 07/28/19 09:00 08/18/19 08:59 08/01/19 08:35 Losartan Potassium (Cozaar) 50 mg BID ORAL 07/30/19 09:00 08/29/19 08:59 08/01/19 17:20 Ondansetron HCl (Zofran) 4 mg Q6H PRN IVP Nausea & Vomiting 07/28/19 18:15 08/27/19 18:14 Pantoprazole (Protonix) 40 mg DAILY ORAL 07/28/19 09:00 08/18/19 08:59 08/01/19 08:36 Sitagliptin Phosphate (Januvia) 25 mg ACBREAKFAST ORAL 07/28/19 06:30 08/25/19 06:29 08/02/19 05:55 Spironolactone (Aldactone) 25 mg DAILY ORAL 07/31/19 09:00 08/30/19 08:59 08/01/19 08:35 Height (Feet): 5 Height (Inches): 8.00 Weight (Pounds): 142 Objective exam stable 18f limon, yellow/corey urine, occasional debris old renal imaging noted Panchito Camarena MD Aug 02, 2019 08:08
--- NOTE | 2019-08-02 08:31 | Critical Care Progress Note ---
Assessment/Plan Assessment/Plan IMPRESSION: 1. Evidence of chronic renal failure. 2. Coronary artery disease. 3. CHF. 4. Hepatitis C. 5. Pacemaker. 6. G-tube. 7. Aspiration. 8. Possible COVID. 9. Evidence of pneumonia. 10. Lactic acidemia 11. CXR with pulmonary edema and pleural effusions 12. hypernatremia PLAN dc planning family wants CRI meds as is remains full code optimize as able taper oxygen overall appears same monitor fluid status/ keep negative off antibiotics at present repeat CXR and BNP monitor sodium levels and advise reduced lasix dosing needs snf; dc planning medications/laboratory data/nursing notes reviewed in detail note reviewed and edited care discussed with RN and RT Critical Care - Subjective Interval Events: care noted d/w family want CRI ROS Limited/Unobtainable: Yes Condition: stable Residuals: minimal Tube Feeding Tolerated: yes I&O: Intake and Output 08/01/19 08/02/19 19:00 07:00 Output Total 500 ml 1200 ml Balance -500 ml -1200 ml Output Urine Total 500 ml 1200 ml Critical Care - Objective Last 24 Hour Vital Signs Date Time Temp Pulse Resp B/P (MAP) Pulse Ox O2 Delivery O2 Flow Rate FiO2 08/02/19 05:55 100/75 08/02/19 04:07 83 20 100 Nasal Cannula 3.0 32 79 20 96 08/02/19 04:00 93 08/02/19 04:00 97.3 92 18 100/75 (83) 98 08/02/19 00:00 98.8 78 21 98/75 (83) 95 08/02/19 00:00 79 08/01/19 21:25 105/60 (75) 08/01/19 21:25 105/60 08/01/19 21:24 84 110/63 08/01/19 21:09 96 Nasal Cannula 3.0 32 08/01/19 21:09 79 20 96 Nasal Cannula 3.0 32 08/01/19 21:00 Nasal Cannula 3.0 Nasal Cannula 3.0 08/01/19 20:00 98.6 84 18 110/79 (89) 98 08/01/19 20:00 87 08/01/19 17:20 127/63 08/01/19 16:00 98.6 58 19 127/63 (84) 100 08/01/19 16:00 85 08/01/19 14:00 112/81 08/01/19 12:00 97.5 75 20 112/81 (91) 100 08/01/19 12:00 79 08/01/19 09:00 Nasal Cannula 3.0 Nasal Cannula 4.0 08/01/19 08:35 110/83 08/01/19 08:35 110/83 08/01/19 08:35 63 110/83 Objective: GENERAL: NAD and on oxygen HEENT: Negative. NECK: Supple. LUNGS: reduced breath sounds. no rhonchi. no wheeze- stable CARDIAC: S1, S2. Regular rate and rhythm with noted murmur. ABDOMEN: Soft, nontender. GT EXTREMITIES: No cyanosis or clubbing. improved edema NEUROLOGICAL: Confused. but alert reviewed and edited Accucheck: 138 Jose Iglesias MD Aug 02, 2019 08:31
[2019-08-02 08:58] LABS: ANION GAP 7 mmol/L (5-15); BLOOD UREA NITROGEN 36 mg/dL (7-18); CALCIUM 8.7 MG/DL (8.5-10.1); CARBON DIOXIDE 34 MMOL/L (21-32); CHLORIDE 104 MMOL/L (98-107); POTASSIUM 3.9 MMOL/L (3.5-5.1); SODIUM 145 MMOL/L (136-145)
[2019-08-02] MEDS: Heparin 5000 units/ml inj SUBQ SCH ×2 (09:00→21:00)
[2019-08-02] MEDS: Spironolactone 25mg tab ORAL SCH (09:05)
[2019-08-02] MEDS: Imdur 30mg tab ORAL SCH (09:06)
[2019-08-02] MEDS: Losartan 50mg tab ORAL SCH ×2 (09:06→17:44)
[2019-08-02] MEDS: Carvedilol 12.5mg tab ORAL SCH ×2 (09:06→21:07)
--- NOTE | 2019-08-02 12:14 | Nephrology Progress Note ---
Assessment/Plan Problem List: (1) CKD (chronic kidney disease) stage 3, GFR 30-59 ml/min (2) ARAMIS (acute kidney injury) (3) UTI (urinary tract infection) (4) CHF (congestive heart failure) Assessment: sys (5) Urinary retention Assessment: chronic (6) PNA (pneumonia) (7) Hypernatremia Plan continue diuresis, replace K, limon, antibiotics, Na higher to trend with diuresis+free water via GT, improved, no iv fluids Subjective ROS Limited/Unobtainable: Yes Objective Objective Last 24 Hour Vital Signs Date Time Temp Pulse Resp B/P (MAP) Pulse Ox O2 Delivery O2 Flow Rate FiO2 08/02/19 09:33 97 Nasal Cannula 3.0 32 08/02/19 09:06 103/86 08/02/19 09:06 103/86 08/02/19 09:06 92 103/86 08/02/19 09:00 Nasal Cannula 3.0 Nasal Cannula 3.0 08/02/19 08:00 88 08/02/19 08:00 97.1 92 18 103/86 (92) 94 08/02/19 05:55 100/75 08/02/19 04:07 83 20 100 Nasal Cannula 3.0 32 79 20 96 08/02/19 04:00 93 08/02/19 04:00 97.3 92 18 100/75 (83) 98 08/02/19 00:00 98.8 78 21 98/75 (83) 95 08/02/19 00:00 79 08/01/19 21:25 105/60 (75) 08/01/19 21:25 105/60 08/01/19 21:24 84 110/63 08/01/19 21:09 96 Nasal Cannula 3.0 32 08/01/19 21:09 79 20 96 Nasal Cannula 3.0 32 08/01/19 21:00 Nasal Cannula 3.0 Nasal Cannula 3.0 08/01/19 20:00 98.6 84 18 110/79 (89) 98 08/01/19 20:00 87 08/01/19 17:20 127/63 08/01/19 16:00 98.6 58 19 127/63 (84) 100 08/01/19 16:00 85 08/01/19 14:00 112/81 Intake and Output 08/01/19 08/02/19 19:00 07:00 Output Total 500 ml 1200 ml Balance -500 ml -1200 ml Output Urine Total 500 ml 1200 ml Laboratory Tests 08/02/19 05:30: Sodium Level 145, Potassium Level 3.9, Chloride Level 104, Carbon Dioxide Level 34H, Anion Gap 7, Blood Urea Nitrogen 36H, Creatinine 1.0, Estimat Glomerular Filtration Rate > 60, Glucose Level 158H, Calcium Level 8.7, Pro-B-Type Natriuretic Peptide 9865H Height (Feet): 5 Height (Inches): 8.00 Weight (Pounds): 142 General Appearance: no apparent distress, alert, lethargic EENT: normal ENT inspection Neck: normal alignment Cardiovascular: regular rhythm Respiratory/Chest: lungs clear Abdomen: soft Extremities: no edema Neurologic: motor weakness Ang Worrell MD Aug 02, 2019 12:14
--- NOTE | 2019-08-02 13:04 | Diagnostic Imaging Report ---
Indication: Shortness of breath Technique: One view of the chest Comparison: 07/31/2019 Findings: Slightly better inspiration currently. Bilateral mid and lower lung infiltrates appear somewhat improved. Bilateral pleural effusions are unchanged. Right arm PICC remains Impression: Better inspiration currently. Allowing for differences in inspiration, suspect slight improvement of bilateral infiltrates since previous study
--- NOTE | 2019-08-02 14:15 | Infectious Diseases Prog Note ---
Assessment/Plan Assessment/Plan A: 1. Pneumonia treated COVID19 X 2: negative 2. Diabetes. 3. Hypertension. 4. Congestive heart failure. 5. Hepatitis C. 6. urinary tract infection, treated PLAN: 1. Observe off antibiotic Subjective ROS Limited/Unobtainable: No Constitutional: Reports: no symptoms Respiratory: Reports: no symptoms Cardiovascular: Reports: no symptoms Gastrointestinal/Abdominal: Reports: no symptoms Allergies: Coded Allergies: AMOXAPINE (Unverified Allergy, Unknown, 10/16/18) AMOXICILLIN (Unverified Allergy, Unknown, 04/17/14) LISINOPRIL (Unverified Allergy, Unknown, 04/17/14) Objective Vital Signs Last 24 Hour Vital Signs Date Time Temp Pulse Resp B/P (MAP) Pulse Ox O2 Delivery O2 Flow Rate FiO2 08/02/19 13:26 85 107/71 (83) 08/02/19 12:00 97.5 75 18 89/59 (69) 98 08/02/19 09:33 97 Nasal Cannula 3.0 32 08/02/19 09:06 103/86 08/02/19 09:06 103/86 08/02/19 09:06 92 103/86 08/02/19 09:00 Nasal Cannula 3.0 Nasal Cannula 3.0 08/02/19 08:00 88 08/02/19 08:00 97.1 92 18 103/86 (92) 94 08/02/19 05:55 100/75 08/02/19 04:07 83 20 100 Nasal Cannula 3.0 32 79 20 96 08/02/19 04:00 93 08/02/19 04:00 97.3 92 18 100/75 (83) 98 08/02/19 00:00 98.8 78 21 98/75 (83) 95 08/02/19 00:00 79 08/01/19 21:25 105/60 (75) 08/01/19 21:25 105/60 08/01/19 21:24 84 110/63 08/01/19 21:09 96 Nasal Cannula 3.0 32 08/01/19 21:09 79 20 96 Nasal Cannula 3.0 32 08/01/19 21:00 Nasal Cannula 3.0 Nasal Cannula 3.0 08/01/19 20:00 98.6 84 18 110/79 (89) 98 08/01/19 20:00 87 08/01/19 17:20 127/63 08/01/19 16:00 98.6 58 19 127/63 (84) 100 08/01/19 16:00 85 Height (Feet): 5 Height (Inches): 8.00 Weight (Pounds): 142 General Appearance: no acute distress HEENT: mucous membranes moist Respiratory/Chest: lungs clear, other - oxygen by nasal cannula Cardiovascular: normal rate, other - has lifevest Abdomen: soft, non tender, other - GT feeding Extremities: no edema Neurologic/Psychiatric: alert, responsive Laboratory Tests Test 08/02/19 05:30 Sodium Level 145 MMOL/L (136-145) Potassium Level 3.9 MMOL/L (3.5-5.1) Chloride Level 104 MMOL/L (98-107) Carbon Dioxide Level 34 MMOL/L (21-32) H Anion Gap 7 mmol/L (5-15) Blood Urea Nitrogen 36 mg/dL (7-18) H Creatinine 1.0 MG/DL (0.55-1.30) Estimat Glomerular Filtration Rate > 60 mL/min (>60) Glucose Level 158 MG/DL (74-106) H Calcium Level 8.7 MG/DL (8.5-10.1) Pro-B-Type Natriuretic Peptide 9865 pg/mL (0-125) H Current Medications Medications (Trade) Dose Ordered Sig/[place] Route PRN Reason Start Time Stop Time Status Last Admin Dose Admin Acetaminophen (Tylenol) 650 mg Q4H PRN ORAL Mild Pain (Pain Scale 1-3) 07/27/19 15:57 08/26/19 15:56 Al Hydroxide/Mg Hydroxide (Mylanta) 30 ml Q4H PRN ORAL Dyspepsia 07/27/19 15:58 08/26/19 15:57 Atorvastatin Calcium (Lipitor) 40 mg BEDTIME ORAL 07/27/19 21:00 10/17/19 20:59 08/01/19 21:24 Carvedilol (Coreg) 12.5 mg EVERY 12 HOURS ORAL 07/27/19 21:00 08/24/19 08:59 08/02/19 09:06 Chlorhexidine Gluconate (Monique-Hex 2%) 1 applic DAILY@1999 TOPIC 07/27/19 20:00 10/25/19 19:59 08/01/19 21:24 Dextrose (Dextrose 50%) 25 ml Q30M PRN IV Hypoglycemia 07/27/19 16:15 10/18/19 17:14 Dextrose (Dextrose 50%) 50 ml Q30M PRN IV Hypoglycemia 07/27/19 16:15 10/18/19 17:14 Furosemide (Lasix) 40 mg EVERY 12 HOURS IV 08/02/19 09:00 09/01/19 08:59 08/02/19 09:06 Heparin Sodium (Porcine) (Heparin 5000 units/ml) 5,000 units EVERY 12 HOURS SUBQ 07/27/19 21:00 09/02/19 08:59 07/31/19 21:00 Hydralazine HCl (Apresoline) 25 mg Q8HR ORAL 07/28/19 06:00 10/26/19 05:59 Hydroxyzine HCl (Vistaril) 10 mg BIDPRN PRN ORAL Itching 07/27/19 18:00 08/26/19 17:59 Insulin Aspart (NovoLOG) EVERY 6 HOURS SUBQ 07/27/19 18:00 10/18/19 17:59 07/31/19 18:56 Ipratropium [place] (Atrovent) 500 mcg Q4H PRN HHN Shortness of Breath 08/02/19 04:00 08/07/19 03:59 08/02/19 04:06 Isosorbide Mononitrate (Imdur) 30 mg DAILY ORAL 07/28/19 09:00 08/18/19 08:59 08/02/19 09:06 Losartan Potassium (Cozaar) 50 mg BID ORAL 07/30/19 09:00 08/29/19 08:59 08/02/19 09:06 Ondansetron HCl (Zofran) 4 mg Q6H PRN IVP Nausea & Vomiting 07/28/19 18:15 08/27/19 18:14 Pantoprazole (Protonix) 40 mg DAILY ORAL 07/28/19 09:00 08/18/19 08:59 08/02/19 09:05 Sitagliptin Phosphate (Januvia) 25 mg ACBREAKFAST ORAL 07/28/19 06:30 08/25/19 06:29 08/02/19 05:55 Spironolactone (Aldactone) 25 mg DAILY ORAL 07/31/19 09:00 08/30/19 08:59 08/02/19 09:05 Tre Caballero MD Aug 02, 2019 14:15
--- NOTE | 2019-08-02 16:05 | General Progress Note ---
Assessment/Plan Problem List: (1) Suspected COVID-19 virus infection ICD Codes: Z20.828 - Contact with and (suspected) exposure to other viral communicable diseases SNOMED: 129377081 (2) PNA (pneumonia) ICD Codes: J18.9 - Pneumonia, unspecified organism SNOMED: 717076423 (3) CHF (congestive heart failure) ICD Codes: I50.9 - Heart failure, unspecified SNOMED: 14076327 (4) UTI (urinary tract infection) ICD Codes: N39.0 - Urinary tract infection, site not specified SNOMED: 80388398 (5) ARAMIS (acute kidney injury) ICD Codes: N17.9 - Acute kidney failure, unspecified SNOMED: 93032431, 4539537 Status: stable Assessment/Plan: o2- titrate. diuresis per cards dobutamine monitor i/o monitor labs- pending today water flushes tube feeds/monitor residuals monitor off abx monitor cxr dvt/stress ulcer prophylaxis turn q2 dc planning Subjective ROS Limited/Unobtainable: No Constitutional: Reports: malaise, weakness HEENT: Reports: no symptoms Cardiovascular: Reports: no symptoms Respiratory: Reports: cough, shortness of breath Gastrointestinal/Abdominal: Reports: difficulty swallowing Genitourinary: Reports: no symptoms Neurologic/Psychiatric: Reports: depressed, pre-existing deficit Endocrine: Reports: no symptoms Hematologic/Lymphatic: Reports: anemia Allergies: Coded Allergies: AMOXAPINE (Unverified Allergy, Unknown, 10/16/18) AMOXICILLIN (Unverified Allergy, Unknown, 04/17/14) LISINOPRIL (Unverified Allergy, Unknown, 04/17/14) All Systems: reviewed and negative except above Subjective no change. resting. appears less sob. off o2. tolerating feeds. no chest pain no real change. cxr improving Objective Last 24 Hour Vital Signs Date Time Temp Pulse Resp B/P (MAP) Pulse Ox O2 Delivery O2 Flow Rate FiO2 08/02/19 14:00 107/71 08/02/19 13:26 85 107/71 (83) 08/02/19 12:00 97.5 75 18 89/59 (69) 98 08/02/19 09:33 97 Nasal Cannula 3.0 32 08/02/19 09:06 103/86 08/02/19 09:06 103/86 08/02/19 09:06 92 103/86 08/02/19 09:00 Nasal Cannula 3.0 Nasal Cannula 3.0 08/02/19 08:00 88 08/02/19 08:00 97.1 92 18 103/86 (92) 94 08/02/19 05:55 100/75 08/02/19 04:07 83 20 100 Nasal Cannula 3.0 32 79 20 96 08/02/19 04:00 93 08/02/19 04:00 97.3 92 18 100/75 (83) 98 08/02/19 00:00 98.8 78 21 98/75 (83) 95 08/02/19 00:00 79 08/01/19 21:25 105/60 (75) 08/01/19 21:25 105/60 08/01/19 21:24 84 110/63 08/01/19 21:09 96 Nasal Cannula 3.0 32 08/01/19 21:09 79 20 96 Nasal Cannula 3.0 32 08/01/19 21:00 Nasal Cannula 3.0 Nasal Cannula 3.0 08/01/19 20:00 98.6 84 18 110/79 (89) 98 08/01/19 20:00 87 08/01/19 17:20 127/63 Intake and Output 08/01/19 08/02/19 19:00 07:00 Output Total 500 ml 1200 ml Balance -500 ml -1200 ml Output Urine Total 500 ml 1200 ml Laboratory Tests 08/02/19 05:30: Sodium Level 145, Potassium Level 3.9, Chloride Level 104, Carbon Dioxide Level 34H, Anion Gap 7, Blood Urea Nitrogen 36H, Creatinine 1.0, Estimat Glomerular Filtration Rate > 60, Glucose Level 158H, Calcium Level 8.7, Pro-B-Type Natriuretic Peptide 9865H 08/02/19 15:17: Arterial Blood pH 7.417, Arterial Blood Partial Pressure CO2 43.6, Arterial Blood Partial Pressure O2 102.9H, Arterial Blood HCO3 27.5H, Arterial Blood Oxygen Saturation 97.4, Arterial Blood Base Excess 2.6H, Danis Test Positive Height (Feet): 5 Height (Inches): 8.00 Weight (Pounds): 142 Objective General Appearance: WD/WN, confused, thin EENT: PERRL/EOMI, normal ENT inspection, TMs normal Neck: non-tender, normal alignment, supple Cardiovascular: normal peripheral pulses, normal rate, regular rhythm Respiratory/Chest: chest wall non-tender, lungs clear, normal breath sounds, no respiratory distress, no accessory muscle use Abdomen: normal bowel sounds, non tender, soft, no organomegaly, no mass Extremities: normal range of motion, non-tender Edema: no edema noted Arm (L), no edema noted Arm (R) 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
[2019-08-02] MEDS: Atorvastatin 20mg tab ORAL SCH (21:06)
[2019-08-02] MEDS: Dyna-Hex 2% Top Sol 2oz TOPIC SCH (21:09)
[2019-08-03] VITALS (7 sets, daily range): BP systolic 94–132; BP diastolic 61–87
--- NOTE | 2019-08-03 00:45 | Progress Note ---
DATE: 08/02/2019 CARDIOLOGY PROGRESS NOTE SUBJECTIVE: [employer] battery was replaced. The patient is less short of breath, but still has significant pleural effusion on the right. He is off inotropes. Discharge planning in progress. PHYSICAL EXAMINATION: VITAL SIGNS: Blood pressure 107/71, pulse 85, respiratory rate 18. LUNGS: Diminished breath sounds on the right. HEART: Regular rhythm and rate. Normal S1 and S2. A 1/6 systolic murmur at apex. ABDOMEN: Soft. EXTREMITIES: No edema. LABORATORY AND DIAGNOSTIC DATA: BUN 36, creatinine 1. Pro-natriuretic peptide 9800. IMPRESSION: 1. Cardiomyopathy. 2. Acute on chronic systolic congestive heart failure. 3. Paroxysmal atrial fibrillation. 4. Ventricular arrhythmias. 5. Pleural effusion. PLAN: 1. Maintenance diuretic therapy. 2. Thoracentesis. 3. Maximizing anti-failure regimen. Alton Malloy M.D. DR: Valencia JOB#: [id number] CC: JOSIAH
[2019-08-03] MEDS: Ipratropium 0.02% Inh Soln 2.5ml UD HHN PRN ×2 (02:22→08:05)
[2019-08-03] MEDS: HydrALAZINE 25mg tab ORAL SCH ×3 (06:00→21:11)
[2019-08-03] MEDS: NovoLOG Insulin Flexpen SUBQ SCH ×3 (06:30→17:39)
[2019-08-03] MEDS: sitaGLIPtin 25mg tab ORAL SCH (06:31)
[2019-08-03 07:24] LABS: HEMATOCRIT 38.6 % (42.0-52.0); HEMOGLOBIN 12.1 G/DL (14.2-18.0); MEAN CORPUSCULAR VOLUME 101 FL (80-99); PLATELET COUNT 95 K/UL (150-450); RED BLOOD COUNT 3.82 M/UL (4.70-6.10); WHITE BLOOD COUNT 5.3 K/UL (4.8-10.8)
[2019-08-03 07:25] LABS: ANION GAP 8 mmol/L (5-15); BLOOD UREA NITROGEN 46 mg/dL (7-18); CALCIUM 8.9 MG/DL (8.5-10.1); CARBON DIOXIDE 31 MMOL/L (21-32); CHLORIDE 104 MMOL/L (98-107); CREATININE 1.1 MG/DL (0.55-1.30); POTASSIUM 4.6 MMOL/L (3.5-5.1); SODIUM 143 MMOL/L (136-145)
[2019-08-03 07:41] LABS: INR 1.2 (0.9-1.1)
[2019-08-03] MEDS: Imdur 30mg tab ORAL SCH (08:27)
[2019-08-03] MEDS: Spironolactone 25mg tab ORAL SCH (08:28)
[2019-08-03] MEDS: Heparin 5000 units/ml inj SUBQ SCH ×2 (08:28→21:00)
[2019-08-03] MEDS: Carvedilol 12.5mg tab ORAL SCH ×2 (08:28→21:00)
[2019-08-03] MEDS: Losartan 50mg tab ORAL SCH ×2 (08:28→17:39)
--- NOTE | 2019-08-03 09:07 | Critical Care Progress Note ---
Assessment/Plan Assessment/Plan IMPRESSION: 1. Evidence of chronic renal failure. 2. Coronary artery disease. 3. CHF. 4. Hepatitis C. 5. Pacemaker. 6. G-tube. 7. Aspiration risk 8. negative COVID. 9. Evidence of pneumonia. improved 10. Lactic acidemia resolved 11. CXR with pulmonary edema and pleural effusions 12. hypernatremia PLAN dc planning to CRI meds as is remains full code optimize as able taper oxygen - on 3 liters overall appears stable for dc to CRI monitor fluid status/ keep negative; on Lasix off antibiotics at present dc planning after tap if able family aware medications/laboratory data/nursing notes reviewed in detail note reviewed and edited care discussed with RN and RT Critical Care - Subjective Interval Events: d/w family about dc possible tap today discussed Condition: improving EKG Rhythm: Sinus Rhythm Residuals: minimal Tube Feeding Tolerated: yes I&O: Intake and Output 08/02/19 08/03/19 19:00 07:00 Intake Total 60 ml 860 ml Output Total 400 ml 900 ml Balance -340 ml -40 ml Free Water 200 ml Tube Feeding 60 ml 660 ml Output Urine Total 400 ml 900 ml # Voids 2 1 # Bowel Movements 1 4 Critical Care - Objective Last 24 Hour Vital Signs Date Time Temp Pulse Resp B/P (MAP) Pulse Ox O2 Delivery O2 Flow Rate FiO2 08/03/19 08:28 132/87 08/03/19 08:28 99 132/87 08/03/19 08:27 132/87 08/03/19 08:15 90 20 100 Nasal Cannula 3.0 32 94 20 99 08/03/19 08:00 95.2 98 20 132/87 (102) 98 08/03/19 07:39 94 20 99 Nasal Cannula 3.0 32 08/03/19 07:00 99 Nasal Cannula 3.0 32 08/03/19 06:00 112/86 08/03/19 04:00 94 08/03/19 04:00 96.8 93 22 112/86 (95) 99 08/03/19 02:22 84 20 100 Nasal Cannula 3.0 32 84 20 98 08/03/19 00:00 89 08/03/19 00:00 96.7 94 23 102/61 (75) 100 08/02/19 23:24 102/61 08/02/19 21:07 91 118/79 08/02/19 21:00 Nasal Cannula 3.0 08/02/19 20:00 96.5 91 21 118/79 (92) 94 08/02/19 20:00 89 08/02/19 19:00 98 Nasal Cannula 3.0 32 08/02/19 17:44 98/79 08/02/19 16:00 96.1 87 22 98/79 (85) 100 08/02/19 16:00 90 08/02/19 14:00 107/71 08/02/19 13:26 85 107/71 (83) 08/02/19 12:00 97.5 75 18 89/59 (69) 98 08/02/19 12:00 78 08/02/19 09:33 97 Nasal Cannula 3.0 32 08/02/19 09:06 103/86 08/02/19 09:06 103/86 08/02/19 09:06 92 103/86 Labs: Laboratory Tests Test 08/02/19 15:17 08/03/19 06:39 Arterial Blood pH 7.417 (7.350-7.450) Arterial Blood Partial Pressure CO2 43.6 mmHg (35.0-45.0) Arterial Blood Partial Pressure O2 102.9 mmHg (75.0-100.0) H Arterial Blood HCO3 27.5 mmol/L (22.0-26.0) H Arterial Blood Oxygen Saturation 97.4 % (95-100) Arterial Blood Base Excess 2.6 (-2-2) H Danis Test Positive White Blood Count 5.3 K/UL (4.8-10.8) Red Blood Count 3.82 M/UL (4.70-6.10) L Hemoglobin 12.1 G/DL (14.2-18.0) L Hematocrit 38.6 % (42.0-52.0) L Mean Corpuscular Volume 101 FL (80-99) H Mean Corpuscular Hemoglobin 31.6 PG (27.0-31.0) H Mean Corpuscular Hemoglobin Concent 31.3 G/DL (32.0-36.0) L Red Cell Distribution Width 15.0 % (11.6-14.8) H Platelet Count 95 K/UL (150-450) L Mean Platelet Volume 8.8 FL (6.5-10.1) Neutrophils (%) (Auto) % (45.0-75.0) Lymphocytes (%) (Auto) % (20.0-45.0) Monocytes (%) (Auto) % (1.0-10.0) Eosinophils (%) (Auto) % (0.0-3.0) Basophils (%) (Auto) % (0.0-2.0) Neutrophils % (Manual) Pending Lymphocytes % (Manual) Pending Platelet Estimate Pending Platelet Morphology Pending Prothrombin Time 13.4 SEC (9.30-11.50) H Prothromb Time International Ratio 1.2 (0.9-1.1) H Activated Partial Thromboplast Time 29 SEC (23-33) Sodium Level 143 MMOL/L (136-145) Potassium Level 4.6 MMOL/L (3.5-5.1) Chloride Level 104 MMOL/L (98-107) Carbon Dioxide Level 31 MMOL/L (21-32) Anion Gap 8 mmol/L (5-15) Blood Urea Nitrogen 46 mg/dL (7-18) H Creatinine 1.1 MG/DL (0.55-1.30) Estimat Glomerular Filtration Rate > 60 mL/min (>60) Glucose Level 198 MG/DL (74-106) H Calcium Level 8.9 MG/DL (8.5-10.1) Pro-B-Type Natriuretic Peptide 00536 pg/mL (0-125) H Objective: GENERAL: NAD and on oxygen HEENT: Negative. NECK: Supple. LUNGS: reduced breath sounds. no rhonchi. no wheeze- stable overall; no distress CARDIAC: S1, S2. Regular rate and rhythm with noted murmur. ABDOMEN: Soft, nontender. GT EXTREMITIES: No cyanosis or clubbing. mild edema NEUROLOGICAL: Confused. but alert reviewed and edited Accucheck: 185 Jose Iglesias MD Aug 03, 2019 09:07
--- NOTE | 2019-08-03 09:29 | Urology Progress Note ---
Assessment/Plan Status: stable Assessment/Plan: BPH hx urinary retention with chronic limon neurogenic bladder (atonic) UTI/colonized ARAMIS/CKD, labile hematuria renal cyst monitor clinically maintain limon indwelling, last exchanged 07/22 hand irrigated and do PRN s/p abx monitor renal fxn consider repeat renal imaging flomax and proscar dc'd Subjective Allergies: Coded Allergies: AMOXAPINE (Unverified Allergy, Unknown, 10/16/18) AMOXICILLIN (Unverified Allergy, Unknown, 04/17/14) LISINOPRIL (Unverified Allergy, Unknown, 04/17/14) Subjective all noted, feels fair, some occ SOB, new limon draining OK Objective Last 24 Hour Vital Signs Date Time Temp Pulse Resp B/P (MAP) Pulse Ox O2 Delivery O2 Flow Rate FiO2 08/03/19 08:28 132/87 08/03/19 08:28 99 132/87 08/03/19 08:27 132/87 08/03/19 08:15 90 20 100 Nasal Cannula 3.0 32 94 20 99 08/03/19 08:00 95.2 98 20 132/87 (102) 98 08/03/19 07:39 94 20 99 Nasal Cannula 3.0 32 08/03/19 07:00 99 Nasal Cannula 3.0 32 08/03/19 06:00 112/86 08/03/19 04:00 94 08/03/19 04:00 96.8 93 22 112/86 (95) 99 08/03/19 02:22 84 20 100 Nasal Cannula 3.0 32 84 20 98 08/03/19 00:00 89 08/03/19 00:00 96.7 94 23 102/61 (75) 100 08/02/19 23:24 102/61 08/02/19 21:07 91 118/79 08/02/19 21:00 Nasal Cannula 3.0 08/02/19 20:00 96.5 91 21 118/79 (92) 94 08/02/19 20:00 89 08/02/19 19:00 98 Nasal Cannula 3.0 32 08/02/19 17:44 98/79 08/02/19 16:00 96.1 87 22 98/79 (85) 100 08/02/19 16:00 90 08/02/19 14:00 107/71 08/02/19 13:26 85 107/71 (83) 08/02/19 12:00 97.5 75 18 89/59 (69) 98 08/02/19 12:00 78 08/02/19 09:33 97 Nasal Cannula 3.0 32 Intake and Output 08/02/19 08/03/19 19:00 07:00 Intake Total 60 ml 860 ml Output Total 400 ml 900 ml Balance -340 ml -40 ml Free Water 200 ml Tube Feeding 60 ml 660 ml Output Urine Total 400 ml 900 ml # Voids 2 1 # Bowel Movements 1 4 Microbiology Date/Time Source Procedure Growth Status 07/18/19 18:45 Blood Blood Culture - Final NO GROWTH AFTER 5 DAYS Complete 07/25/19 02:14 Nasopharynx Coronavirus COVID-19 PCR ([place]) - Final Complete 07/19/19 12:15 Urine,Clean Catch Urine Culture - Final Escherichia Coli Pseudomonas Aeruginosa Complete 07/19/19 02:50 Rectum - Final NO CARBAPENEM-RESISTANT ENTEROBACTERI... Complete Current Medications Medications (Trade) Dose Ordered Sig/[place] Route PRN Reason Start Time Stop Time Status Last Admin Dose Admin Acetaminophen (Tylenol) 650 mg Q4H PRN ORAL Mild Pain (Pain Scale 1-3) 07/27/19 15:57 08/26/19 15:56 Al Hydroxide/Mg Hydroxide (Mylanta) 30 ml Q4H PRN ORAL Dyspepsia 07/27/19 15:58 08/26/19 15:57 Atorvastatin Calcium (Lipitor) 40 mg BEDTIME ORAL 07/27/19 21:00 10/17/19 20:59 08/02/19 21:06 Carvedilol (Coreg) 12.5 mg EVERY 12 HOURS ORAL 07/27/19 21:00 08/24/19 08:59 08/03/19 08:28 Chlorhexidine Gluconate (Monique-Hex 2%) 1 applic DAILY@1999 TOPIC 07/27/19 20:00 10/25/19 19:59 08/02/19 21:09 Dextrose (Dextrose 50%) 25 ml Q30M PRN IV Hypoglycemia 07/27/19 16:15 10/18/19 17:14 Dextrose (Dextrose 50%) 50 ml Q30M PRN IV Hypoglycemia 07/27/19 16:15 10/18/19 17:14 Furosemide (Lasix) 40 mg EVERY 12 HOURS IV 08/02/19 09:00 09/01/19 08:59 08/03/19 08:21 Heparin Sodium (Porcine) (Heparin 5000 units/ml) 5,000 units EVERY 12 HOURS SUBQ 08/03/19 09:00 09/17/19 08:59 Hydralazine HCl (Apresoline) 25 mg Q8HR ORAL 07/28/19 06:00 10/26/19 05:59 Hydroxyzine HCl (Vistaril) 10 mg BIDPRN PRN ORAL Itching 07/27/19 18:00 08/26/19 17:59 Insulin Aspart (NovoLOG) EVERY 6 HOURS SUBQ 07/27/19 18:00 10/18/19 17:59 08/03/19 06:30 Ipratropium [place] (Atrovent) 500 mcg Q4H PRN HHN Shortness of Breath 08/02/19 04:00 08/07/19 03:59 08/03/19 08:05 Isosorbide Mononitrate (Imdur) 30 mg DAILY ORAL 07/28/19 09:00 08/18/19 08:59 08/03/19 08:27 Losartan Potassium (Cozaar) 50 mg BID ORAL 07/30/19 09:00 08/29/19 08:59 08/03/19 08:28 Ondansetron HCl (Zofran) 4 mg Q6H PRN IVP Nausea & Vomiting 07/28/19 18:15 08/27/19 18:14 Pantoprazole (Protonix) 40 mg DAILY ORAL 07/28/19 09:00 08/18/19 08:59 08/03/19 08:27 Sitagliptin Phosphate (Januvia) 25 mg ACBREAKFAST ORAL 07/28/19 06:30 08/25/19 06:29 08/03/19 06:31 Spironolactone (Aldactone) 25 mg DAILY ORAL 07/31/19 09:00 08/30/19 08:59 08/03/19 08:28 Laboratory Tests 08/02/19 15:17: Arterial Blood pH 7.417, Arterial Blood Partial Pressure CO2 43.6, Arterial Blood Partial Pressure O2 102.9H, Arterial Blood HCO3 27.5H, Arterial Blood Oxygen Saturation 97.4, Arterial Blood Base Excess 2.6H, Danis Test Positive 08/03/19 06:39: White Blood Count 5.3, Red Blood Count 3.82L, Hemoglobin 12.1L, Hematocrit 38.6L , Mean Corpuscular Volume 101H, Mean Corpuscular Hemoglobin 31.6H, Mean Corpuscular Hemoglobin Concent 31.3L, Red Cell Distribution Width 15.0H, Platelet Count 95L, Mean Platelet Volume 8.8, Neutrophils (%) (Auto) , Lymphocytes (%) (Auto) , Monocytes (%) (Auto) , Eosinophils (%) (Auto) , Basophils (%) (Auto) , Neutrophils % (Manual) [Pending], Lymphocytes % (Manual) [Pending], Platelet Estimate [Pending], Platelet Morphology [Pending], Prothrombin Time 13.4H, Prothromb Time International Ratio 1.2H, Activated Partial Thromboplast Time 29, Sodium Level 143, Potassium Level 4.6, Chloride Level 104, Carbon Dioxide Level 31, Anion Gap 8, Blood Urea Nitrogen 46H, Creatinine 1.1, Estimat Glomerular Filtration Rate > 60, Glucose Level 198H, Calcium Level 8.9, Pro-B-Type Natriuretic Peptide 09980J Height (Feet): 5 Height (Inches): 8.00 Weight (Pounds): 142 Objective exam stable 18f limon, yellow/corey urine, occasional debris old renal imaging noted Panchito Camarena MD Aug 03, 2019 09:29
--- NOTE | 2019-08-03 10:47 | Infectious Diseases Prog Note ---
"Assessment/Plan Assessment/Plan antibiotics : none A 1. e.coli | pseudomonas UTI s/p rx 2. bilateral pneumonia s/p rx COVID-19 negative x 2 3. Diabetes. 4. Hypertension. 5. Congestive heart failure. 6. Hepatitis C. 7. renal failure improving P 1. observe off antibiotics Subjective ROS Limited/Unobtainable: Yes Allergies: Coded Allergies: AMOXAPINE (Unverified Allergy, Unknown, 10/16/18) AMOXICILLIN (Unverified Allergy, Unknown, 04/17/14) LISINOPRIL (Unverified Allergy, Unknown, 04/17/14) Objective Vital Signs Last 24 Hour Vital Signs Date Time Temp Pulse Resp B/P (MAP) Pulse Ox O2 Delivery O2 Flow Rate FiO2 08/03/19 09:00 Nasal Cannula 3.0 08/03/19 08:28 132/87 08/03/19 08:28 99 132/87 08/03/19 08:27 132/87 08/03/19 08:15 90 20 100 Nasal Cannula 3.0 32 94 20 99 08/03/19 08:00 95.2 98 20 132/87 (102) 98 08/03/19 07:39 94 20 99 Nasal Cannula 3.0 32 08/03/19 07:00 99 Nasal Cannula 3.0 32 08/03/19 06:00 112/86 08/03/19 04:00 94 08/03/19 04:00 96.8 93 22 112/86 (95) 99 08/03/19 02:22 84 20 100 Nasal Cannula 3.0 32 84 20 98 08/03/19 00:00 89 08/03/19 00:00 96.7 94 23 102/61 (75) 100 08/02/19 23:24 102/61 08/02/19 21:07 91 118/79 08/02/19 21:00 Nasal Cannula 3.0 08/02/19 20:00 96.5 91 21 118/79 (92) 94 08/02/19 20:00 89 08/02/19 19:00 98 Nasal Cannula 3.0 32 08/02/19 17:44 98/79 08/02/19 16:00 96.1 87 22 98/79 (85) 100 08/02/19 16:00 90 08/02/19 14:00 107/71 08/02/19 13:26 85 107/71 (83) 08/02/19 12:00 97.5 75 18 89/59 (69) 98 08/02/19 12:00 78 Height (Feet): 5 Height (Inches): 8.00 Weight (Pounds): 142 Respiratory/Chest: lungs clear Cardiovascular: normal rate, regular rhythm, no gallop/murmur Abdomen: soft, non tender, other - GT Extremities: no edema Laboratory Tests Test 08/02/19 15:17 08/03/19 06:39 Arterial Blood pH 7.417 (7.350-7.450) Arterial Blood Partial Pressure CO2 43.6 mmHg (35.0-45.0) Arterial Blood Partial Pressure O2 102.9 mmHg (75.0-100.0) H Arterial Blood HCO3 27.5 mmol/L (22.0-26.0) H Arterial Blood Oxygen Saturation 97.4 % (95-100) Arterial Blood Base Excess 2.6 (-2-2) H Danis Test Positive White Blood Count 5.3 K/UL (4.8-10.8) Red Blood Count 3.82 M/UL (4.70-6.10) L Hemoglobin 12.1 G/DL (14.2-18.0) L Hematocrit 38.6 % (42.0-52.0) L Mean Corpuscular Volume 101 FL (80-99) H Mean Corpuscular Hemoglobin 31.6 PG (27.0-31.0) H Mean Corpuscular Hemoglobin Concent 31.3 G/DL (32.0-36.0) L Red Cell Distribution Width 15.0 % (11.6-14.8) H Platelet Count 95 K/UL (150-450) L Mean Platelet Volume 8.8 FL (6.5-10.1) Neutrophils (%) (Auto) % (45.0-75.0) Lymphocytes (%) (Auto) % (20.0-45.0) Monocytes (%) (Auto) % (1.0-10.0) Eosinophils (%) (Auto) % (0.0-3.0) Basophils (%) (Auto) % (0.0-2.0) Neutrophils % (Manual) Pending Lymphocytes % (Manual) Pending Platelet Estimate Pending Platelet Morphology Pending Prothrombin Time 13.4 SEC (9.30-11.50) H Prothromb Time International Ratio 1.2 (0.9-1.1) H Activated Partial Thromboplast Time 29 SEC (23-33) Sodium Level 143 MMOL/L (136-145) Potassium Level 4.6 MMOL/L (3.5-5.1) Chloride Level 104 MMOL/L (98-107) Carbon Dioxide Level 31 MMOL/L (21-32) Anion Gap 8 mmol/L (5-15) Blood Urea Nitrogen 46 mg/dL (7-18) H Creatinine 1.1 MG/DL (0.55-1.30) Estimat Glomerular Filtration Rate > 60 mL/min (>60) Glucose Level 198 MG/DL (74-106) H Calcium Level 8.9 MG/DL (8.5-10.1) Pro-B-Type Natriuretic Peptide 51603 pg/mL (0-125) H Current Medications Medications (Trade) Dose Ordered Sig/[place] Route PRN Reason Start Time Stop Time Status Last Admin Dose Admin Acetaminophen (Tylenol) 650 mg Q4H PRN ORAL Mild Pain (Pain Scale 1-3) 07/27/19 15:57 08/26/19 15:56 Al Hydroxide/Mg Hydroxide (Mylanta) 30 ml Q4H PRN ORAL Dyspepsia 07/27/19 15:58 08/26/19 15:57 Atorvastatin Calcium (Lipitor) 40 mg BEDTIME ORAL 07/27/19 21:00 10/17/19 20:59 08/02/19 21:06 Carvedilol (Coreg) 12.5 mg EVERY 12 HOURS ORAL 07/27/19 21:00 08/24/19 08:59 08/03/19 08:28 Chlorhexidine Gluconate (Monique-Hex 2%) 1 applic DAILY@1999 TOPIC 07/27/19 20:00 10/25/19 19:59 08/02/19 21:09 Dextrose (Dextrose 50%) 25 ml Q30M PRN IV Hypoglycemia 07/27/19 16:15 10/18/19 17:14 Dextrose (Dextrose 50%) 50 ml Q30M PRN IV Hypoglycemia 07/27/19 16:15 10/18/19 17:14 Furosemide (Lasix) 40 mg EVERY 12 HOURS IV 08/02/19 09:00 09/01/19 08:59 08/03/19 08:21 Heparin Sodium (Porcine) (Heparin 5000 units/ml) 5,000 units EVERY 12 HOURS SUBQ 08/03/19 09:00 09/17/19 08:59 Hydralazine HCl (Apresoline) 25 mg Q8HR ORAL 07/28/19 06:00 10/26/19 05:59 Hydroxyzine HCl (Vistaril) 10 mg BIDPRN PRN ORAL Itching 07/27/19 18:00 08/26/19 17:59 Insulin Aspart (NovoLOG) EVERY 6 HOURS SUBQ 07/27/19 18:00 10/18/19 17:59 08/03/19 06:30 Ipratropium [place] (Atrovent) 500 mcg Q4H PRN HHN Shortness of Breath 08/02/19 04:00 08/07/19 03:59 08/03/19 08:05 Isosorbide Mononitrate (Imdur) 30 mg DAILY ORAL 07/28/19 09:00 08/18/19 08:59 08/03/19 08:27 Losartan Potassium (Cozaar) 50 mg BID ORAL 07/30/19 09:00 08/29/19 08:59 08/03/19 08:28 Ondansetron HCl (Zofran) 4 mg Q6H PRN IVP Nausea & Vomiting 07/28/19 18:15 08/27/19 18:14 Pantoprazole (Protonix) 40 mg DAILY ORAL 07/28/19 09:00 08/18/19 08:59 08/03/19 08:27 Sitagliptin Phosphate (Januvia) 25 mg ACBREAKFAST ORAL 07/28/19 06:30 08/25/19 06:29 08/03/19 06:31 Spironolactone (Aldactone) 25 mg DAILY ORAL 07/31/19 09:00 08/30/19 08:59 08/03/19 08:28 Daniel Kimball MD Aug 03, 2019 10:47"
--- NOTE | 2019-08-03 14:05 | General Progress Note ---
Assessment/Plan Problem List: (1) Suspected COVID-19 virus infection ICD Codes: Z20.828 - Contact with and (suspected) exposure to other viral communicable diseases SNOMED: 074502443 (2) PNA (pneumonia) ICD Codes: J18.9 - Pneumonia, unspecified organism SNOMED: 126206603 (3) CHF (congestive heart failure) ICD Codes: I50.9 - Heart failure, unspecified SNOMED: 12131445 (4) UTI (urinary tract infection) ICD Codes: N39.0 - Urinary tract infection, site not specified SNOMED: 96911037 (5) ARAMIS (acute kidney injury) ICD Codes: N17.9 - Acute kidney failure, unspecified SNOMED: 31338137, 8873245 Status: stable Assessment/Plan: o2- titrate. diuresis per cards dobutamine monitor i/o monitor labs- pending today water flushes tube feeds/monitor residuals monitor off abx monitor cxr dvt/stress ulcer prophylaxis turn q2 dc planning Subjective ROS Limited/Unobtainable: No Constitutional: Reports: malaise, weakness HEENT: Reports: no symptoms Cardiovascular: Reports: no symptoms Respiratory: Reports: cough, shortness of breath Gastrointestinal/Abdominal: Reports: no symptoms Genitourinary: Reports: no symptoms Neurologic/Psychiatric: Reports: anxiety Endocrine: Reports: no symptoms Hematologic/Lymphatic: Reports: anemia Allergies: Coded Allergies: AMOXAPINE (Unverified Allergy, Unknown, 10/16/18) AMOXICILLIN (Unverified Allergy, Unknown, 04/17/14) LISINOPRIL (Unverified Allergy, Unknown, 04/17/14) All Systems: reviewed and negative except above Subjective no change. resting. appears less sob. off o2. tolerating feeds. no chest pain no real change. cxr improving. agrees to tap if needed Objective Last 24 Hour Vital Signs Date Time Temp Pulse Resp B/P (MAP) Pulse Ox O2 Delivery O2 Flow Rate FiO2 08/03/19 13:56 100/75 08/03/19 12:00 97.0 87 18 100/75 (83) 99 08/03/19 12:00 80 08/03/19 09:00 Nasal Cannula 3.0 08/03/19 08:28 132/87 08/03/19 08:28 99 132/87 08/03/19 08:27 132/87 08/03/19 08:15 90 20 100 Nasal Cannula 3.0 32 94 20 99 08/03/19 08:00 95.2 98 20 132/87 (102) 98 08/03/19 08:00 99 08/03/19 07:39 94 20 99 Nasal Cannula 3.0 32 08/03/19 07:00 99 Nasal Cannula 3.0 32 08/03/19 06:00 112/86 08/03/19 04:00 94 08/03/19 04:00 96.8 93 22 112/86 (95) 99 08/03/19 02:22 84 20 100 Nasal Cannula 3.0 32 84 20 98 08/03/19 00:00 89 08/03/19 00:00 96.7 94 23 102/61 (75) 100 08/02/19 23:24 102/61 08/02/19 21:07 91 118/79 08/02/19 21:00 Nasal Cannula 3.0 08/02/19 20:00 96.5 91 21 118/79 (92) 94 08/02/19 20:00 89 08/02/19 19:00 98 Nasal Cannula 3.0 32 08/02/19 17:44 98/79 08/02/19 16:00 96.1 87 22 98/79 (85) 100 08/02/19 16:00 90 Intake and Output 08/02/19 08/03/19 18:59 06:59 Intake Total 920 ml Output Total 400 ml 900 ml Balance -400 ml 20 ml Free Water 200 ml Tube Feeding 720 ml Output Urine Total 400 ml 900 ml # Voids 2 1 # Bowel Movements 1 4 Laboratory Tests 08/02/19 15:17: Arterial Blood pH 7.417, Arterial Blood Partial Pressure CO2 43.6, Arterial Blood Partial Pressure O2 102.9H, Arterial Blood HCO3 27.5H, Arterial Blood Oxygen Saturation 97.4, Arterial Blood Base Excess 2.6H, Danis Test Positive 08/03/19 06:39: White Blood Count 5.3, Red Blood Count 3.82L, Hemoglobin 12.1L, Hematocrit 38.6L , Mean Corpuscular Volume 101H, Mean Corpuscular Hemoglobin 31.6H, Mean Corpuscular Hemoglobin Concent 31.3L, Red Cell Distribution Width 15.0H, Platelet Count 95L, Mean Platelet Volume 8.8, Neutrophils (%) (Auto) , Lymphocytes (%) (Auto) , Monocytes (%) (Auto) , Eosinophils (%) (Auto) , Basophils (%) (Auto) , Differential Total Cells Counted 100, Neutrophils % ( Manual) 68, Lymphocytes % (Manual) 22, Monocytes % (Manual) 8, Eosinophils % ( Manual) 1, Basophils % (Manual) 1, Band Neutrophils 0, Platelet Estimate DecreasedL, Platelet Morphology Normal, Anisocytosis 1+, Macrocytosis 1+, Prothrombin Time 13.4H, Prothromb Time International Ratio 1.2H, Activated Partial Thromboplast Time 29, Sodium Level 143, Potassium Level 4.6, Chloride Level 104, Carbon Dioxide Level 31, Anion Gap 8, Blood Urea Nitrogen 46H, Creatinine 1.1, Estimat Glomerular Filtration Rate > 60, Glucose Level 198H, Calcium Level 8.9, Pro-B-Type Natriuretic Peptide 14899N Height (Feet): 5 Height (Inches): 8.00 Weight (Pounds): 142 Objective General Appearance: WD/WN, confused, thin EENT: PERRL/EOMI, normal ENT inspection, TMs normal Neck: non-tender, normal alignment, supple Cardiovascular: normal peripheral pulses, normal rate, regular rhythm Respiratory/Chest: chest wall non-tender, lungs clear, normal breath sounds, no respiratory distress, no accessory muscle use Abdomen: normal bowel sounds, non tender, soft, no organomegaly, no mass Extremities: normal range of motion, non-tender Edema: no edema noted Arm (L), no edema noted Arm (R) 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
--- NOTE | 2019-08-03 14:06 | Nephrology Progress Note ---
Assessment/Plan Problem List: (1) CKD (chronic kidney disease) stage 3, GFR 30-59 ml/min (2) ARAMIS (acute kidney injury) (3) UTI (urinary tract infection) (4) CHF (congestive heart failure) Assessment: sys (5) Urinary retention Assessment: chronic (6) PNA (pneumonia) (7) Hypernatremia Plan continue diuresis, replace K, limon, antibiotics, Na higher to trend with diuresis+free water via GT, improved, reduce free water 150 q 4 hr Subjective ROS Limited/Unobtainable: Yes Objective Objective Last 24 Hour Vital Signs Date Time Temp Pulse Resp B/P (MAP) Pulse Ox O2 Delivery O2 Flow Rate FiO2 08/03/19 13:56 100/75 08/03/19 12:00 97.0 87 18 100/75 (83) 99 08/03/19 12:00 80 08/03/19 09:00 Nasal Cannula 3.0 08/03/19 08:28 132/87 08/03/19 08:28 99 132/87 08/03/19 08:27 132/87 08/03/19 08:15 90 20 100 Nasal Cannula 3.0 32 94 20 99 08/03/19 08:00 95.2 98 20 132/87 (102) 98 08/03/19 08:00 99 08/03/19 07:39 94 20 99 Nasal Cannula 3.0 32 08/03/19 07:00 99 Nasal Cannula 3.0 32 08/03/19 06:00 112/86 08/03/19 04:00 94 08/03/19 04:00 96.8 93 22 112/86 (95) 99 08/03/19 02:22 84 20 100 Nasal Cannula 3.0 32 84 20 98 08/03/19 00:00 89 08/03/19 00:00 96.7 94 23 102/61 (75) 100 08/02/19 23:24 102/61 08/02/19 21:07 91 118/79 08/02/19 21:00 Nasal Cannula 3.0 08/02/19 20:00 96.5 91 21 118/79 (92) 94 08/02/19 20:00 89 08/02/19 19:00 98 Nasal Cannula 3.0 32 08/02/19 17:44 98/79 08/02/19 16:00 96.1 87 22 98/79 (85) 100 08/02/19 16:00 90 Intake and Output 08/02/19 08/03/19 19:00 07:00 Intake Total 60 ml 860 ml Output Total 400 ml 900 ml Balance -340 ml -40 ml Free Water 200 ml Tube Feeding 60 ml 660 ml Output Urine Total 400 ml 900 ml # Voids 2 1 # Bowel Movements 1 4 Laboratory Tests 08/02/19 15:17: Arterial Blood pH 7.417, Arterial Blood Partial Pressure CO2 43.6, Arterial Blood Partial Pressure O2 102.9H, Arterial Blood HCO3 27.5H, Arterial Blood Oxygen Saturation 97.4, Arterial Blood Base Excess 2.6H, Danis Test Positive 08/03/19 06:39: White Blood Count 5.3, Red Blood Count 3.82L, Hemoglobin 12.1L, Hematocrit 38.6L , Mean Corpuscular Volume 101H, Mean Corpuscular Hemoglobin 31.6H, Mean Corpuscular Hemoglobin Concent 31.3L, Red Cell Distribution Width 15.0H, Platelet Count 95L, Mean Platelet Volume 8.8, Neutrophils (%) (Auto) , Lymphocytes (%) (Auto) , Monocytes (%) (Auto) , Eosinophils (%) (Auto) , Basophils (%) (Auto) , Differential Total Cells Counted 100, Neutrophils % ( Manual) 68, Lymphocytes % (Manual) 22, Monocytes % (Manual) 8, Eosinophils % ( Manual) 1, Basophils % (Manual) 1, Band Neutrophils 0, Platelet Estimate DecreasedL, Platelet Morphology Normal, Anisocytosis 1+, Macrocytosis 1+, Prothrombin Time 13.4H, Prothromb Time International Ratio 1.2H, Activated Partial Thromboplast Time 29, Sodium Level 143, Potassium Level 4.6, Chloride Level 104, Carbon Dioxide Level 31, Anion Gap 8, Blood Urea Nitrogen 46H, Creatinine 1.1, Estimat Glomerular Filtration Rate > 60, Glucose Level 198H, Calcium Level 8.9, Pro-B-Type Natriuretic Peptide 24807L Height (Feet): 5 Height (Inches): 8.00 Weight (Pounds): 142 General Appearance: alert, confused EENT: normal ENT inspection Neck: non-tender Cardiovascular: regular rhythm Respiratory/Chest: lungs clear Abdomen: non tender, soft Extremities: no edema 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
--- NOTE | 2019-08-03 17:30 | Progress Note ---
DATE: 08/03/2019 CARDIOLOGY PROGRESS NOTE SUBJECTIVE: The patient is less short of breath. He is to undergo thoracentesis. PHYSICAL EXAMINATION: VITAL SIGNS: Blood pressure 132/87, pulse 90, . LUNGS: Diminished breath sounds on the right, few rales. CARDIAC: Regular rhythm and rate. Normal S1 and S2. A 1/6 systolic murmur at apex. ABDOMEN: Soft. EXTREMITIES: No edema. LABORATORY AND DIAGNOSTIC DATA: White count 5.3, hemoglobin 12.1. Potassium 4.6, BUN 46, creatinine 1.1. Pro natriuretic peptide 14,000. IMPRESSION: 1. Right pleural effusion. 2. Severe cardiomyopathy. 3. Acute on chronic systolic congestive heart failure. 4. Paroxysmal atrial and ventricular arrhythmias. PLAN: 1. LIFEPAK. 2. Diuresis and maximization of anti-failure regimen. 3. Therapeutic thoracentesis. Alton Malloy M.D. DR: Valencia JOB#: [id number] CC:
[2019-08-03] MEDS: Dyna-Hex 2% Top Sol 2oz TOPIC SCH (21:11)
[2019-08-03] MEDS: Atorvastatin 20mg tab ORAL SCH (21:13)
--- NOTE | 2019-08-06 00:14 | Discharge Summary ---
Discharge Summary Discharge Summary _ DATE OF ADMISSION: 07/18/2019 DATE OF DISCHARGE: 08/03/2019 DISCHARGED BY: Dr. Shiv Iglesias CONSULTANTS: Dr. Daniel Worrell BRIEF HOSPITAL COURSE: Patient is a 74-year-old male, with history of diabetes, hypertension, CAD, CHF with external pacer, hepatitis C, throat CA, BPH with chronic Merritt and G-tube, was taken to ED for evaluation of worsening shortness of breath. EMS reported O2 saturation was in the 70s on room air. Upon evaluation at ED, patient was placed on BiPAP. He was pancultured. Blood work did not show any leukocytosis. BUN was elevated to 82 and creatinine 1.8. Lactic acid was elevated to 3.4 and d-dimer 3.78. Blood work was concerning for COVID. Chest x-ray showed diffuse patchy opacities. EKG was in normal sinus rhythm. He was then admitted to ICU. He was placed on isolation. He was continued on BiPAP support. He was started empirically on Zosyn and IV vancomycin. Kidney function was monitored. Echocardiogram showed ejection fraction of 20%, decreased aortic valve area, moderate pulmonary hypertension and moderate to severe mitral and tricuspid regurgitation. Patient has a history of arrhythmia and has a life vest. He was given diuresis. His O2 requirement improvement was eventually taken off BiPAP support. He was given anti-failure regimen. Urine culture showed growth of E. coli/Pseudomonas. IV vancomycin and Zosyn were discontinued. He was started on cefepime. Patient has a history of chronic indwelling Merritt catheter due to neurogenic bladder. On 07/23/2019. Old Merritt was removed and urologist inserted a new 18 [place] Merritt catheter. Patient completed antibiotic treatment and was observed off antibiotics. Patient had increasing shortness of breath and hypoxia chest x-ray revealed bilateral infiltrates with slight improvement on the right and increasing pleural fluid. He was continued on diuresis. proBNP was > 35,000. He had poor urine output. Patient was eventually placed on dobutamine drip to improve inotropy. A PICC line was inserted to the right arm. The patient showed improvement with dobutamine drip. There was improvement in urine output and patient was less short of breath. SARS-CoV-2 PCR was negative x 2. He was eventually taken off dobutamine drip. He was saturating well on nasal cannula. Urine output remains good. IV diuretics were transitioned to oral. Patient was saturating well and breathing well. He underwent thoracentesis. 750 mL removed per report. LifeVest battery was changed prior to discharge. Patient was [facility] [place]. FINAL DIAGNOSES: Sepsis, present on admission Severe protein calorie malnutrition Right pleural effusion status post thoracentesis Severe cardiomyopathy with LifeVest E. coli/Pseudomonas UTI Bilateral pneumonia, COVID-19 negative x2 Acute on chronic systolic congestive heart failure Paroxysmal atrial and ventricular arrhythmia CKD stage III Acute kidney injury Chronic urinary retention with chronic Merritt catheter status post change on 02/2019 Hypernatremia Hepatitis C, on Harvoni Neurogenic bladder Hematuria Renal cyst BPH by history DISPOSITION: [facility] was [facility] [place]. I have been assigned to complete a discharge summary on this account, I was not involved with the patient's management.--SHAKEEL Diehl Jacqueline Robles NP Aug 06, 2019 00:14
--- NOTE | 2019-08-20 17:55 | Diagnostic Imaging Report ---
Indication: Reason For Exam: S/P THORA Technique: Single AP view of the chest. Comparison: Chest radiograph dated 08/02/2019 Findings: The cardiomediastinal silhouette is unchanged in appearance. Slight interval increase in layering right pleural effusion. Stable pulmonary vascular congestion. Interval decrease in moderate left pleural effusion, now small. Streaky bibasilar airspace opacities. No discernible pneumothorax. Unchanged right PICC. IMPRESSION: 1. Status post left-sided thoracentesis with interval decrease and left pleural effusion, now small. 2. Slight interval increase in right pleural effusion, which may be partly due to redistribution of pleural fluid with positioning. 3. Streaky bibasilar airspace opacities likely representing atelectasis.
--- NOTE | 2019-08-20 19:32 | Diagnostic Imaging Report ---
Indications: Pleural effusion Technique: Ultrasound used to localize optimal puncture site. Sterile prepping and draping left chest including sterile probe cover and ultrasound gel. Local anesthesia with 1% lidocaine. Under real-time ultrasound guidance, puncture pleural space using thoracentesis needle. Stylet removed. Catheter placed to vacuum bottle suction. Total 750 milliliters of fluid aspirated. Patient tolerated procedure well, without immediate complication. Findings: Followup chest radiograph demonstrates no significant pneumothorax post thoracentesis with improved aeration of left lung. Impression: Successful ultrasound-guided thoracentesis, yielding 750 milliliters of fluid
== END 2019-08-03 22:09 | DRG 871 ==
LOC: EDBD 18:27 → EMR 18:40 → ICU 20:20 → EDBEDREQ 20:22 → ICU 07-19 03:05 → 2E 07-21 10:37 → 2W 07-24 22:04 → 2E 07-27 16:10
PROC: B548ZZA Ultrasonography of Superior Vena Cava, Guidance (ICD-10-PCS; principal; 2019-07-27)
PROC: 02HV33Z Insertion of Infusion Device into Superior Vena Cava, Percutaneous Approach (ICD-10-PCS; principal; 2019-07-27)
DX: A41.9 Sepsis, unspecified organism (principal); J18.9 Pneumonia, unspecified organism; I50.23 Acute on chronic systolic (congestive) heart failure; E43 Unspecified severe protein-calorie malnutrition; N17.9 Acute kidney failure, unspecified; N39.0 Urinary tract infection, site not specified; I13.0 Hypertensive heart and chronic kidney disease with heart failure and stage 1 through stage 4 chronic kidney disease, or unspecified chronic kidney disease; E87.0 Hyperosmolality and hypernatremia; I42.9 Cardiomyopathy, unspecified; Z20.828 Contact with and (suspected) exposure to other viral communicable diseases; E11.22 Type 2 diabetes mellitus with diabetic chronic kidney disease; B19.20 Unspecified viral hepatitis C without hepatic coma; Z95.0 Presence of cardiac pacemaker; B96.5 Pseudomonas (aeruginosa) (mallei) (pseudomallei) as the cause of diseases classified elsewhere; E87.6 Hypokalemia; Z68.21 Body mass index [BMI] 21.0-21.9, adult; N18.3 Chronic kidney disease, stage 3 (moderate); Z93.1 Gastrostomy status; R13.10 Dysphagia, unspecified; E03.9 Hypothyroidism, unspecified; Z85.819 Personal history of malignant neoplasm of unspecified site of lip, oral cavity, and pharynx; E11.21 Type 2 diabetes mellitus with diabetic nephropathy; J44.9 Chronic obstructive pulmonary disease, unspecified; I25.10 Atherosclerotic heart disease of native coronary artery without angina pectoris; B96.20 Unspecified Escherichia coli [E. coli] as the cause of diseases classified elsewhere; R09.02 Hypoxemia; N40.1 Benign prostatic hyperplasia with lower urinary tract symptoms; R33.8 Other retention of urine; I35.0 Nonrheumatic aortic (valve) stenosis; N31.9 Neuromuscular dysfunction of bladder, unspecified; R31.9 Hematuria, unspecified
CPT/HCPCS: 36415; 36569; 36600; 71045; 76937; 76942; 80048; 80053; 81001; 82043; 82550; 82803; 82962; 83605; 83735; 83880; 84100; 84484; 84550; 85007; 85025; 85379; 85610; 85730; 86140; 87040; 87081; 87086; 87181; 87635; 89051; 93005; 93306; 93970; 94640; 94660; 94664; 96374; 97803; 99291; J1815; J7030; J8499